=== PATIENT | female | born 1950 | race Caucasian/White ===

== ENCOUNTER 2016-05-01 09:05 | Inpatient (IN) ==
[~2016-05-01 09:05] MED LIST: VANCOMYCIN 1,650 MG in NS 250 ML IV SCH
--- NOTE | 2016-05-01 09:36 | PROVIDER DOCUMENTATION ---
HPI-Respiratory General - General Chief Complaint: Shortness of Breath Stated Complaint: SOB Time Seen by Provider: 05/01/16 09:07 Source: patient Allergies/Adverse Reactions: Patient Allergies Allergy/AdvReac Type Severity Reaction Status Date / Time hydrocodone Allergy itch Verified 05/01/16 10:12 latex Allergy itch Verified 05/01/16 10:12 Penicillins Allergy not sure Verified 05/01/16 10:12 rabeprazole sodium * Allergy itch Verified 05/01/16 10:12 [From Aciphex] Home Medications: Albuterol Sulfate [Ventolin] 5 mg IH 4XDAY PRN PRN 08/08/13 Estradiol [Vagifem] 10 mcg VG DIRECTED 08/08/13 Estrogens, Conjugated [Premarin] 0.625 mg PO DAILY 08/08/13 Fluticasone 50 Mcg Nasal Burdine [Flonase] 1 spray KELSIE DAILY 08/08/13 Gabapentin [Neurontin] 800 mg PO DIRECTED 08/08/13 LISINOpril [Prinivil] 20 mg PO DAILY 08/08/13 Metformin [Glucophage] 500 mg PO HS 08/08/13 Oxycodone E.r. [Oxycontin] 30 mg PO TID 08/08/13 Oxycodone HCl [Oxycontin] 10 mg PO Q6H PRN PRN 08/08/13 Albuterol Sulfate [Proair Hfa] 2 puff IH 4XDAY PRN 04/21/16 Alprazolam [Xanax] 0.5 mg PO Q8H PRN PRN 04/21/16 Armodafinil [Nuvigil] 250 mg PO QAM 04/21/16 Atomoxetine [Strattera] 2 tab PO DAILY 04/21/16 Estrogens, Conjugated [Premarin] 0.625 mg PO DAILY 04/21/16 Formoterol Fumarate [Perforomist] 1 vial INH BID PRN PRN 04/21/16 Montelukast Sodium [Singulair] 10 mg PO DAILY 04/21/16 Naloxegol Oxalate [Movantik] 25 mg PO DAILY 04/21/16 Solifenacin Succinate [Vesicare] 10 mg PO DAILY 04/21/16 - History of Present Illness-Resp Nature of Presenting Problem: Recently diagnosed diagnosed with right sided lung cancer. Reports took chemo yesterday and has been sob since. Reports quit smoking cigarettes yesterday and went to vaping. Uses nebulizer treatments (3) yesterday and today with no relief. Not on home O2. Denies n,v,f,d. Reports headache. EMS reports pt O2 sat was 78 On RA. Quality of Pain: reports: none Severity in ED: reports: moderate Onset/Duration: reports: 24 hours ago Timing: reports: still present Context: reports: recent chemotherapy Current Respiratory Medication Therapy: Initiated see nurses note Similar Symptoms Previously?: Yes Recently seen or treated by another doctor?: Yes Review of Systems - Adult - REVIEW OF SYSTEMS - ADULT Constitutional: denies: chills, fever, fatique Eyes: reports: no symptoms reported Ears, Nose, Mouth & Throat: denies: ear pain, sinus problem, throat pain Cardiovascular: reports: no symptoms reported Respiratory: reports: shortness of breath. denies: hemoptysis, pleurisy, wheezing Gastrointestinal: denies: abdominal pain, diarrhea, nausea Genitourinary: reports: no symptoms reported Musculoskeletal: reports: no symptoms reported Integumentary: reports: no symptoms reported Neurological: reports: no symptoms reported Psychiatric: reports: no symptoms reported Endocrine: reports: no symptoms reported Hematologic/Lymphatic: reports: no symptoms reported Allergic/Immunologic: reports: no symptoms reported All Other Systems: Reviewed and Negative Past History - Adult - PAST MEDICAL HISTORY-ADULT Review of Records: reports: Nursing Assessment Review, Medications Reviewed Major Childhood Illnesses: reports: denies history Cardiovascular: reports: HTN, hyperlipidemia Respiratory: reports: COPD, other (right lung ca) Gastrointestinal: reports: denies history Obstetrical/Gynecological: reports: denies history Genitourinary: reports: denies history Musculoskeletal: reports: denies history Neurological: reports: denies history Endocrine/Immune: reports: Diabetes Other Conditions: reports: denies history - PRIOR SURGERIES/PROCEDURES Surgical/Procedure History: reports: cholecystectomy, hysterectomy, orthopedic ( extremity) - PRIOR HOSPITALIZATIONS Prior Hospitalizations: reports: none - IMMUNIZATION STATUS Childhood Immunizations: See Nurse Assessment Flu Vaccine: See Nurse Assessment - FAMILY HISTORY Family History: reviewed, not pertinent - SOCIAL HISTORY Smoking: other (vapes) Provider spent 3-5 mins advising pt. on dangers of tobacco.: Discussed manners to quit use, and f/u contacts for add'l counseling. Substance Use: none/never Physical Exam-General - PHYSICAL EXAM-ADULT Initial Vital Signs Reviewed: Yes - CONSTITUTIONAL General Appearance: alert, mild distress. negative: appears well (ill diomedes) - EYES Eyes: PERRL/EOMI, pale conjunctivae - NECK Neck: non-tender, full range of motion - RESPIRATORY Respiratory: chest non-tender, no pleuratic chest pain, no accessory muscle use , respiratory distress, wheezing (bilateral wheezing), increased rate. negative : lungs clear, normal breath sounds - CARDIOVASCULAR Cardiovascular: normal peripheral pulses, regular rate, rhythm - GASTROINTESTINAL (ABDOMEN) Abdominal Exam: normal bowel sounds, non tender, soft, no organomegaly, no pulsatile mass - MUSCULOSKELETAL Extremity: normal range of motion, non-tender, no calf tenderness, pedal edema ( 1+) - SKIN Integumentary: warm/dry, pallor - PSYCHIATRIC Psych/Mental Status: normal mood/affect, normal thought content, normal thought process, oriented x 3 Progress - PLAN OF CARE/RESULTS Progress/Plan/Lab Results: Orders Category Date Time Status Saline Loc NOW Care 05/01/16 09:12 Active CHEST-2 VIEWS [RAD] Stat Exams 05/01/16 09:12 Ordered ABG [RESP] Routine Lab 05/01/16 09:12 Ordered BLOOD CULTURE [BLDCUL] Stat Lab 05/01/16 09:39 Ordered CBC WITH DIFF [HEME] Stat Lab 05/01/16 09:39 Ordered COMPREHENSIVE METABOLIC PANEL [CHEM] Stat Lab 05/01/16 09:39 Ordered LACTATE, PLASMA [CHEM] Stat Lab 05/01/16 09:39 Ordered PRO B-NATRIURETIC PEPTIDE Stat Lab 05/01/16 09:39 Ordered TROPONIN T Stat Lab 05/01/16 09:30 Received Pulse Oximetry Stat Oth 05/01/16 09:12 Active Vital Signs - 24 hr 05/01/16 09:05 Temperature 98.6 F Pulse Rate 88 Respiratory 24 Rate Blood Pressure 154/95 O2 Sat by Pulse 100 Oximetry Pt was placed on 2lpm on arrival to ER She was on NRB mask by ems. ABG will be done with 2lpm O2. Laboratory Tests 05/01/16 05/01/16 05/01/16 09:30 09:30 09:30 WBC 13.77 H RBC 3.48 L Hgb 9.6 L Hct 29.8 L MCV 85.6 MCH 27.6 MCHC 32.2 L RDW Std Deviation 14.2 Plt Count 434 H MPV 8.2 Immature Gran % (Auto) 0.3 Neut % (Auto) 80.0 H Lymph % (Auto) 12.1 L [place] % (Auto) 5.9 Eos % (Auto) 1.5 Baso % (Auto) 0.2 Immature Gran # (Auto) 0.04 Neut # (Auto) 11.03 H Lymph # (Auto) 1.66 [place] # (Auto) 0.81 H Eos # (Auto) 0.20 Baso # (Auto) 0.03 Specimen Type Sample Site pH pCO2 pO2 HCO3 Base Excess Oxyhemoglobin ABG O2 Sat (Calculated) ABG O2 Saturation ABG Carboxyhemoglobin ABG Methemoglobin Nathan Test A-a O2 Difference Total Hemoglobin Lactate Liter Flow Blood Gas Modality FiO2 % Sodium 132 L Potassium 3.8 Chloride 92 L Carbon Dioxide 28 Anion Gap 12 BUN 9 Creatinine 0.6 Estimated GFR/1.73 m2 > 60 BUN/Creatinine Ratio 15 Glucose 136 H Calculated Osmolality 265 Calcium 8.1 L Total Bilirubin 0.29 AST 19 ALT 13 Alkaline Phosphatase 112 H Troponin T < 0.010 Total Protein 6.6 Albumin 3.8 Globulin 2.8 Albumin/Globulin Ratio 1.4 Plasma Lactate 05/01/16 05/01/16 09:30 09:38 WBC RBC Hgb Hct MCV MCH MCHC RDW Std Deviation Plt Count MPV Immature Gran % (Auto) Neut % (Auto) Lymph % (Auto) [place] % (Auto) Eos % (Auto) Baso % (Auto) Immature Gran # (Auto) Neut # (Auto) Lymph # (Auto) [place] # (Auto) Eos # (Auto) Baso # (Auto) Specimen Type ARTERIAL Sample Site R RADIAL pH 7.39 pCO2 50 H pO2 55 L HCO3 28.3 H Base Excess 4.5 H Oxyhemoglobin 87.6 L* ABG O2 Sat (Calculated) 12.2 L ABG O2 Saturation 91.3 L ABG Carboxyhemoglobin 2.70 H ABG Methemoglobin 1.5 Nathan Test YES A-a O2 Difference 111.0 Total Hemoglobin 9.9 L Lactate 1.30 Liter Flow 3.0 Blood Gas Modality CANNULA FiO2 % 32.0 Sodium Potassium Chloride Carbon Dioxide Anion Gap BUN Creatinine Estimated GFR/1.73 m2 BUN/Creatinine Ratio Glucose Calculated Osmolality Calcium Total Bilirubin AST ALT Alkaline Phosphatase Troponin T Total Protein Albumin Globulin Albumin/Globulin Ratio Plasma Lactate 1.7 1107 Hospitalist paiged - XRAY 1 XRAY: Bilateral XRAY Study: Chest Impression: Abnormal (copd; bilateral infiltrates consitent with pneumonitis; ) - CONSULTS/PCP/HOSPITALIST Notification #1 *Consult/PCP/Hospitalist*: Time Discussed: 10:13 (Needs ICU bed) Reason/Comments: will call back #2 Consult: Time Discussed: 11:05 Reason/Comments: admit to hospitalist at [facility] #3 Consult: Raffi Time Discussed: 11:32 Consult Disposition: Admit Departure - Departure Time of Disposition Order: 11:33 DIAGNOSIS: Pneumonitis, Respiratory distress Lung cancer Qualifiers: Laterality: right Lung location: unspecified part of lung Qualified Code(s): C34.91 - Malignant neoplasm of unspecified part of right bronchus or lung Disposition: ADMITTED INPATIENT 09 Certified Medical Emergency: Emergent Condition: Stable Referrals: Ilya Cm MD [Primary Care Provider] - - Critical Care Note Total Time (mins): 60 Critical Care Statement: This patient required my direct personal management to treat or rule out processes, the absence of which, could potentiallly result in sudden, clinically significant life or limb threatening deterioration. Attestation - Scribe Verification/Attestation Scribe:: Jovany Millan Acting as Scribe for:: Agus Zelaya Scribe documention review:: This chart was documented by a scribe and accurately reflects the service the provider performed and the decisions made by the provider.
[2016-05-01 09:46] LABS: MANUAL DIFF NEEDED? NO
[2016-05-01 09:47] LABS: ALLEN TEST YES; BE 4.5 mmoll (-3.0-3.0); BLOOD TYPE ARTERIAL; DRAW SITE R RADIAL; METHB 1.5 % (0.0-1.5); O2(CT) 12.2 mL/dL (15.0-23.0); PCO2(98.6) 50 mmHg (35-45); PO2(98.6) 55 mmHg (60-100); SAMPLE BLOOD; SAO2 91.3 % (95.0-100.0); THB 9.9 g/dL (11.5-17.4); pH(98.6) 7.39 (7.35-7.45)
[2016-05-01 09:49] LABS: BASO% 0.2 % (0.0-0.8); EOS% 1.5 % (0.0-10.0); HEMATOCRIT 29.8 % (37.0-47.0); HEMOGLOBIN 9.6 g/dL (12.0-16.0); IMM GRAN# 0.04 X1000 (0.0-0.04); IMM GRAN% 0.3 % (0.0-0.5); LYMPH# 1.66 X1000 (1.2-3.4); LYMPH% 12.1 % (20.5-51.1); MCH 27.6 PG (27-31); MCHC 32.2 g/dL (33-37); MCV 85.6 FL (81-99); MONO# 0.81 X1000 (0.11-0.59); MONO% 5.9 % (1.7-9.3); MPV 8.2 FL (7.4-10.4); PLT 434 X1000 (130-400); RBC 3.48 XMIL (4.2-5.4)
[2016-05-01 09:49] LABS: MODALITY CANNULA
[2016-05-01] MEDS ORDERED: DUONEB (A & A) INH ONE (09:49)
[2016-05-01] MEDS ORDERED: ROCEPHIN 1 GM/NS 50 ML IV ONE (09:49)
[2016-05-01] MEDS ORDERED: SOLU-MEDROL IV ONE (09:49)
[2016-05-01] MEDS ORDERED: SOLU-MEDROL ONE (09:50)
[2016-05-01 10:05] LABS: AGAP 12; ALBUMIN 3.8 g/dL (3.5-5.0); ALKALINE PHOSPHATASE 112 U/L (32-104); BUN 9 mg/dL (8-22); CALCIUM 8.1 mg/dL (8.8-10.2); CHLORIDE 92 mmol/L (98-107); COSMO 265; GOT 19 U/L (10-30); GPT 13 U/L (10-36); POTASSIUM 3.8 mmol/L (3.5-5.1); SODIUM 132 mmol/L (136-145); TCO2 28 mmol/L (25-35); TOTAL BILIRUBIN 0.29 mg/dL (0.20-1.00); TOTAL PROTEIN 6.6 g/dL (6.3-8.3)
[2016-05-01] MEDS ORDERED: LASIX IV ONE (10:17)
[2016-05-01] MEDS ORDERED: ATIVAN IV ONE (10:17)
[2016-05-01] MEDS ORDERED: ATIVAN ONE (10:18)
--- NOTE | 2016-05-01 12:44 | Diag Imaging Result Document ---
PROCEDURE NAME: CHEST-1 VIEW - 05/01/2016 SINGLE FRONTAL RADIOGRAPH OF THE CHEST: COMPARISON: 04/17/2016. FINDINGS: There has been interval placement of a right chest port. The tip projects over the region of the atriocaval junction. There is no evidence of pneumothorax. There has been interval development of diffuse infiltrates seen throughout both lungs. There is a more dense infiltrate at the right lung base. Cardiac silhouette is stable. IMPRESSION: Interval development of diffuse bilateral infiltrates. This is concerning for pneumonia and/or pulmonary edema.
--- NOTE | 2016-05-01 12:51 | Diag Imaging Result Document ---
PROCEDURE NAME: ANGIOGRAM/PULMONARY ARTERIES - 05/01/2016 CT PULMONARY ANGIOGRAM WITH INTRAVENOUS CONTRAST: COMPARISON: 04/09/2016. FINDINGS: Axial CT images of the chest were obtained after administering intravenous contrast. Coronal MIP images were generated. There is no evidence of pulmonary embolism. There is new interstitial infiltrate diffusely and bilaterally, with some interlobular septal thickening in the bases. There is also significant infiltrate in both upper lobes. This is superimposed on pre- existing pulmonary emphysema. There is a small right and trace left pleural effusion. There is worsening in the confluent mediastinal and right hilar lymphadenopathy. This surrounds the trachea and george completely, as well as encasing the bronchi on the right side. Upper abdominal images are unremarkable. Bony structures are intact. IMPRESSION: 1. No pulmonary embolism. 2. Probable interstitial pulmonary edema. 3. Bilateral upper lobe infiltrates suggesting pneumonia or aspiration. 4. COPD. 5. Worsening malignant-appearing mediastinal adenopathy.
[2016-05-01] MEDS ORDERED: SODIUM CHLORIDE 0.9% INJ SCH ×2 (13:02)
[2016-05-01] MEDS ORDERED: VANCOMYCIN IV PER PHARMACY MISC SCH (13:02)
[2016-05-01] MEDS ORDERED: DUONEB (A & A) INH PRN (13:02)
[2016-05-01] MEDS ORDERED: NICODERM PATCH TD PRN (13:02)
[2016-05-01 13:58] LABS: URINE MICRO REVIEW NEEDED? NO; URINE SOURCE CATH
[2016-05-01 14:02] LABS: BILIRUBIN URINE NEGATIVE (NEGATIVE); BLOOD URINE NEGATIVE (NEGATIVE); COLOR STRAW; GLUCOSE URINE NEGATIVE (NEGATIVE); LEUKOCYTES URINE NEGATIVE (NEGATIVE); NITRITE URINE NEGATIVE (NEGATIVE); PROTEIN URINE NEGATIVE (NEGATIVE); SP GRAVITY URINE 1.023; TURBIDITY URINE CLEAR (CLEAR); UROBILINOGEN URINE NORMAL (NORMAL)
[2016-05-01 14:03] LABS: UR EPITHELIAL CELLS <10 /HPF (<10); URINE BACTERIA NEGATIVE /HPF; URINE RBC <10 /HPF (<10); URINE WBC <10 /HPF (<10)
[2016-05-01] MEDS: LASIX IV SCH (14:08)
[2016-05-01] MEDS: PEPCID IV SCH (14:08)
[2016-05-01] MEDS: LEVAQUIN 750 MG in NS 150 ML IV SCH (14:10)
[2016-05-01] MEDS: LOVENOX SUBQ SCH (14:10)
--- NOTE | 2016-05-01 14:55 | HISTORY AND PHYSICAL ---
CHIEF COMPLAINT: Shortness of breath. HISTORY OF PRESENT ILLNESS: Mrs. Kelly is a 65-year-old female with a history of lung cancer followed by Dr. Paez, diabetes mellitus, hypertension, COPD and nicotine dependence who was recently discharged from our service on 04/26/2016. At that time, she was diagnosed with rectal bleeding. She has recently been diagnosed with lung cancer and started chemotherapy on Friday and Friday by Dr. Paez. Friday she states chemotherapy went fine without any issues, Friday she felt that she was getting short of breath after chemotherapy and this morning her shortness of breath increased to the point where it was difficult to breathe at rest and she decided to come to the ER for evaluation. She denies any fevers or chills. She has not been able to cough up anything. She does report inspirational type of chest pain. She has had some nausea and vomiting but no diarrhea. She denies any diaphoresis. When she came to the ER today, initial chest x-ray showed interval development of diffuse bilateral infiltrates concerning for pneumonia and/or pulmonary edema. She has an elevated white count of 13.77 and she is hypoxic requiring high-flow oxygen. Given the inspirational type of chest pain and hypoxia we went ahead and did a CTA to rule out PE. CTA was indeed negative for PE but did 3 demonstrate bilateral infiltrates, interstitial edema and worsening malignant-appearing mediastinal adenopathy. Given her hypoxia and clinical presentation, we are going to admit her to the ICU for further treatment and evaluation. PAST MEDICAL HISTORY: 1. Lung cancer. 2. Type 2 diabetes. 3. Hypertension. 4. Nicotine dependence. 5. Degenerative disk disease on chronic narcotic therapy. 6. History of ischemic colitis. 7. GERD. PAST SURGICAL HISTORY: Lung surgery 1970, tubal ligation, hysterectomy, cholecystectomy, bladder sling, neck surgery, rotator cuff surgery. SOCIAL HISTORY: Patient quit smoking yesterday per her report. She denies alcohol or drug use. is at the bedside. FAMILY HISTORY: Noncontributory. ALLERGIES TO: Hydrocodone, latex, penicillin and rabeprazole. HOME MEDICATIONS: Ventolin as needed. ProAir as needed. Xanax 0.5 mg every 8 hours. Nuvigil 250 mg p.o. a.m. Strattera 80 mg daily. Estradiol vaginal cream as directed. Estrogen conjugated 0.625 mg p.o. daily. Fluticasone daily. Formoterol inhaled as needed. Neurontin 800 mg p.o. daily. Lisinopril 20 mg daily. Glucophage 500 mg p.o. at bedtime. Singulair 10 mg daily. Movantik 25 mg daily. Oxycodone ER 30 mg p.o. t.i.d. OxyContin 10 mg p.o. q.6 hours. VESIcare 10 mg daily. Zofran as needed. REVIEW OF SYSTEMS: Ten point review of systems obtained and found to be negative with the exception of the HPI. PHYSICAL EXAMINATION: VITAL SIGNS: Blood pressure is 154/95, heart rate 88, respiratory rate is 24, O2 saturation 100% on 15 L/100% non-rebreather. Temperature is 98.6 degrees. GENERAL: This is a chronically ill-appearing 65-year-old female, lying in bed in mild respiratory distress. NEUROLOGIC: She is oriented and follows commands without focal deficits. HEENT: Head is atraumatic and normocephalic. Her pupils are equal, round, reactive to light. Oral mucosa is moist. Trachea is midline. There is no JVD. No carotid bruits. CHEST: Significantly diminished with crackles and wheezes throughout. CV: Regular. S1, S2 is noted. GI: Soft, nondistended, nontender. Bowel sounds are positive. EXTREMITIES: Without edema, clubbing or cyanosis. Pulses are palpable bilaterally. DIAGNOSTIC DATA: Chest x-ray shows diffuse bilateral infiltrates consistent with pneumonia and/or pulmonary edema. Pulmonary arteriogram is negative for PE. It does show interstitial edema as well as bilateral upper lobe infiltrates suggesting pneumonia aspiration. COPD is noted along with worsening malignant-appearing mediastinal adenopathy. EKG is pending. WBC 13.77, hemoglobin 9.6, hematocrit 29.8, platelet count is 434,000. ABG on 3 L nasal cannula, pH 7.39, CO2 52, PO2 55, bicarb 28.3, oxyhemoglobin 87.6. Sodium 132, potassium 3.8, chloride 92, CO2 28, anion gap 12, BUN 9, creatinine 0.6. Glucose 136. Calcium 8.1. AST 19, ALT 13, alkaline phosphatase 112. Troponin negative. ProBNP 2767. Protein 6.6. Lactate 1.7. ASSESSMENT AND PLAN: 1. Acute hypoxic respiratory failure: Secondary to chronic obstructive pulmonary disease exacerbation as well as pneumonia and lung cancer. Patient will be admitted to the ICU. We will continue oxygen and BiPAP as needed. We will also continue aggressive pulmonary toilet, around the clock DuoNeb and broad-spectrum antibiotics. 2. Healthcare-acquired pneumonia: Given her recent hospitalization the patient qualifies for healthcare-acquired pneumonia. We will obtain blood cultures and sputum cultures. Start broad-spectrum antibiotics to include coverage for MRSA. 3. Sepsis: Patient meets criteria with white count, tachycardia and a source of pneumonia. Blood cultures have been obtained. Broad-spectrum antibiotics have been initiated, hemodynamic are stable at this time and lactic acid is within normal limits. We will monitor this closely. 4. Lung cancer: Patient is currently on chemotherapy. We will consult with Dr. Paez. 5. Diabetes mellitus: We will add pattern blood sugar, sliding scale insulin and hold her oral antidiabetics for now. 6. Chronic pain. We will try the limit her narcotics at this time secondary to her respiratory status. 7. Nicotine dependence: Patient has been advised to quit smoking. Nicotine patch has been prescribed. 8. Gastrointestinal prophylaxis with famotidine and DVT prophylaxis with Lovenox. Further recommendations to follow. Dictated by MIKE Curran for Leda Allen MD The patient was seen and examined by me. I agree with the assessment and plan as dictated. DEEPTI
[2016-05-01] MEDS ORDERED: VANCOMYCIN 2,000 MG in NS 500 ML IV ONE (15:00)
[2016-05-01] MEDS: SOLU-MEDROL IV SCH ×2 (15:05→20:07)
[2016-05-01] MEDS: MERREM 1 GM in NS 50 ML IV SCH ×2 (15:19→20:07)
[2016-05-01] MEDS: HUMALOG SUBQ SCH ×2 (15:25→20:16)
[2016-05-01] MEDS: DUONEB (A & A) INH SCH ×2 (15:32→20:24)
--- NOTE | 2016-05-01 17:37 | ECHO REPORT ---
ORDER DATE: 05/01/2016 INDICATION: Shortness of breath, hypertension and hyperlipidemia. FINDINGS: 1. Right atrium is mildly enlarged at 4 cm. 2. Mild tricuspid regurgitation. RV systolic pressure of 41. 3. Normal RV size and systolic function. 4. Mild pulmonic insufficiency. 5. Moderate left atrial enlargement at 5.5 cm. 6. No mitral prolapse. Mild mitral regurgitation. 7. Normal LV size, end-diastolic dimension of 4.4. No evidence of left ventricular hypertrophy. There is severe reduction in LV systolic function. The estimated EF is 25-30%. There does appear to be relative global hypokinesis. Overall, the basilar portions appear more hypokinetic with akinesis to dyskinesis of the more distal segments. No evidence of left ventricular apical thrombus was seen. 8. Aortic valve opens well and appears trileaflet. No evidence of stenosis or insufficiency. 9. Aorta appears normal in visualized segments. 10. No pericardial effusion seen.
[2016-05-01] MEDS ORDERED: MAGNESIUM SULFATE 2 GM/S.W.I. 50 ML IV ONE (18:08)
[2016-05-01] MEDS ORDERED: NEURONTIN PO SCH (18:15)
[2016-05-01] MEDS: OXY IR PO PRN (18:52)
[2016-05-01] MEDS: NEURONTIN PO SCH (18:52)
--- NOTE | 2016-05-01 20:08 | CONSULTATION ---
DATE OF CONSULTATION: 05/01/2016 REQUESTING PHYSICIAN: Leda Allen MD REASON FOR CONSULTATION: Respiratory failure. HISTORY OF PRESENT ILLNESS: Ms. Kelly is a 65-year-old white female, who underwent bronchoscopy 04/17/2016 for right hilar mass. 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 The patient reports she was feeling well 2 days ago, but received chemotherapy yesterday. She developed progressive shortness of breath through the evening. The patient presented to the emergency room, underwent a CT pulmonary angiogram which revealed no evidence of pulmonary emboli, but she does have new extensive bilateral infiltrates and worsening mediastinal adenopathy. The patient had an isolated temperature of 100.4 degrees in the emergency room. She has a cough, but denies sputum production, chills, or sweats. She has received 2 doses of diuretics and has diuresed approximately 2600 mL. Clinically, she has improved and has been converted from a BiPAP to a nonrebreather. PAST MEDICAL HISTORY/PROBLEM LIST: 1. Recent diagnosis of small-cell carcinoma as per above. 2. COPD with [id number] history for tobacco. 3. Diabetes mellitus. 4. Hypertension. 5. Gastroesophageal reflux disease. 6. Constipation. 7. Irritable bowel disease. 8. Chronic low back pain. 9. Spinal stenosis. 10. Depression. 11. Bipolar disorder. 12. Sleep apnea. 13. Prior surgery for pneumothorax. SOCIAL HISTORY: Extensive tobacco history. Does not consume alcohol. FAMILY HISTORY: Positive for coronary artery disease, throat cancer. REVIEW OF SYSTEMS: As noted in the HPI. PHYSICAL EXAMINATION: General: Reveals a 63-year-old, white female who appears older than her stated age, in no distress. Vital signs: Blood pressure 158/93, heart rate 91, respiration rate 25, oxygen saturation 98% on nonrebreather. HEENT: Pupils are equal reactive. Oropharynx is clear. Neck: Supple. Chest: Reveals diffuse crackles bilaterally. Cardiac: Regular rate. Normal S1, normal S2. Abdomen: Soft without hepatosplenomegaly. Extremities: Without edema. LABORATORIES: Sodium 132, potassium 3.8, chloride 92, bicarbonate 28, BUN 9, creatinine 0.9, proBNP is elevated at 2767. White blood count 13.77, hemoglobin 9.6, platelet count 434,000. Arterial blood gas on 3 L per nasal cannula, pH 7.39, pCO2 of 50, PO2 of 55. IMPRESSION: A 65-year-old with recent diagnosis of small-cell carcinoma who develops acute respiratory failure following chemotherapy. She has patchy bilateral infiltrates. This may be a reaction to the chemotherapy or could be an atypical pulmonary edema. Possibility of infectious pneumonitis is also in the differential, but she denies significant sputum production. RECOMMENDATIONS: 1. Steroids for possible allergic pneumonitis. 2. Diuretic dosing as you are doing. 3. Agree with broad-spectrum antibiotics. 4. Wean oxygen as tolerated. 5. Additional recommendations pending hospital course.
[2016-05-01] MEDS: XANAX PO PRN (20:16)
[2016-05-02] MEDS: PEPCID IV SCH ×2 (00:23→12:14)
[2016-05-02] MEDS: NEURONTIN PO SCH ×5 (00:28→20:01)
[2016-05-02] MEDS: LASIX IV SCH ×2 (00:30→12:13)
[2016-05-02] MEDS: DUONEB (A & A) INH SCH ×7 (03:41→23:18)
[2016-05-02] MEDS: SOLU-MEDROL IV SCH ×4 (04:00→20:01)
[2016-05-02] MEDS: OXY IR PO PRN ×3 (04:37→23:38)
[2016-05-02] MEDS: MERREM 1 GM in NS 50 ML IV SCH ×3 (04:38→20:01)
[2016-05-02 04:59] LABS: ALLEN TEST YES; BE 9.3 mmoll (-3.0-3.0); BLOOD TYPE ARTERIAL; DRAW SITE R RADIAL; METHB 1.6 % (0.0-1.5); O2(CT) 15.2 mL/dL (15.0-23.0); PCO2(98.6) 38 mmHg (35-45); PO2(98.6) 175 mmHg (60-100); SAMPLE BLOOD; SAO2 98.8 % (95.0-100.0); pH(98.6) 7.54 (7.35-7.45)
[2016-05-02 05:00] LABS: MODALITY CANNULA
[2016-05-02] MEDS: HUMALOG SUBQ SCH ×5 (06:14→20:09)
[2016-05-02 06:24] LABS: HEMATOCRIT 32.1 % (37.0-47.0); HEMOGLOBIN 10.3 g/dL (12.0-16.0); MCH 27.2 PG (27-31); MCHC 32.1 g/dL (33-37); MCV 84.9 FL (81-99); MPV 8.9 FL (7.4-10.4); RBC 3.78 XMIL (4.2-5.4)
[2016-05-02 06:47] LABS: AGAP 13; BUN 13 mg/dL (8-22); CHLORIDE 95 mmol/L (98-107); COSMO 279; SODIUM 138 mmol/L (136-145); TCO2 30 mmol/L (25-35)
[2016-05-02] MEDS: MOVANTIK PO SCH ×2 (06:59→07:01)
--- NOTE | 2016-05-02 08:02 | Diag Imaging Result Document ---
PROCEDURE NAME: CHEST-PORTABLE - 05/02/2016 PORTABLE CHEST: COMPARISON: 05/01/2016. FINDINGS: There are diffuse bilateral infiltrates. These are questionably slightly less dense in the right lung than on the prior study. The heart is not enlarged. I believe there are tiny effusions. No change in the right-sided Port-A-Cath. No pneumothorax. IMPRESSION: Likely slight interval improvement.
[2016-05-02] MEDS: VESICARE PO SCH (08:30)
[2016-05-02] MEDS: XANAX PO PRN ×3 (08:34→23:37)
[2016-05-02] MEDS: VANCOMYCIN 1,650 MG in NS 250 ML IV SCH (09:08)
[2016-05-02] MEDS: LEVAQUIN 750 MG in NS 150 ML IV SCH (12:13)
[2016-05-02] MEDS: LOVENOX SUBQ SCH (13:10)
--- NOTE | 2016-05-02 14:33 | CONSULTATION ---
DATE OF CONSULTATION: 05/02/2016 REASON FOR CONSULT: This patient is known to us with limited stage small cell lung cancer, status post carboplatin and etoposide begun on April 29. She received on April 29 and April 30. HISTORY OF PRESENT ILLNESS: The patient has limited stage small-cell lung cancer, has recently been started on carboplatin and etoposide. She has received cycle 1 of chemo on April 29 and . She tolerated that well. She came in to the emergency room for further evaluation after getting some worsening dyspnea. She denied any worsening cough, any fevers, chills, clinical bleeding. When she in the ER, chest x-ray was performed that showed interval development of diffuse bilateral infiltrates. The patient was having a bit of chest pain as well. So they had performed a pulmonary arteriogram which was negative for pulmonary embolism, but did show probable interstitial pulmonary edema along with bilateral upper lobe infiltrates suggesting pneumonia or aspiration along with COPD and worsening malignant-appearing mediastinal adenopathy. The patient was admitted to the ICU for pulmonary toileting and further management. REVIEW OF SYSTEMS: Negative unless indicated in the HPI. ALLERGIES: Hydrocodone, penicillin and latex. MEDICATIONS: Xanax, Nuvigil, Ventolin, Strattera, Neurontin, lisinopril, Singulair, Glucophage, oxycodone, OxyContin, VESIcare. PAST SOCIAL HISTORY: Close the patient is a smoker. Denies alcohol or illicit drug use. PAST MEDICAL HISTORY: Limited stage small cell lung cancer, on active chemotherapy, carboplatin and etoposide. History of hysterectomy, cholecystectomy and tubal ligation. PHYSICAL EXAMINATION: Vital Signs: Stable. General: This is a chronically ill-appearing female. HEENT: Head is normocephalic, atraumatic. Pupils are equal, round, symmetric. Trachea midline. Cardiovascular: S1-S2 audible to auscultation. No heaves, lifts or thrills. Pulmonary: Diminished bilateral bases. Normal respiratory effort GI: Abdomen soft, nontender, nondistended. Positive bowel sounds in all 4 quadrants. Musculoskeletal: Moves all extremities. Skin: No petechiae, no rash. Neurologic: Alert and orient x3. Psychiatric: Appropriate to situation. DIAGNOSTIC DATA: WBC 11.9, hemoglobin 10.3, hematocrit 32.1, platelet count 493,000. Sodium 138, potassium 4, BUN 13, creatinine 0.6. Chest x-ray and pulmonary arteriogram as above. ASSESSMENT AND PLAN: 1. Limited stage small cell lung cancer. The patient has received cycle 1 of carboplatin, etoposide begun on April 29, last received on April 30. She had not received any Neulasta with that. 2. Pneumonia, supportive care per primary team. She is on antibiotics, steroids, oxygen. 3. Gastrointestinal prophylaxis, per primary team. 4. Deep vein thrombosis prophylaxis. Patient is on Lovenox 40 mg daily. 5. Anemia, transfuse p.r.n. Dictated by MIKE Sánchez for Dell Paez MD
[2016-05-02] MEDS: OXYCONTIN PO SCH ×2 (15:26→20:44)
--- NOTE | 2016-05-02 17:01 | PROGRESS NOTE ---
DATE: 05/02/2016 SUBJECTIVE: The patient is more awake and alert today. She is currently on 3 L nasal cannula and states that she is starting to feel better. OBJECTIVE: Vital Signs: Temperature 99.6 degrees, blood pressure 156/90, heart rate 96, respirations 27, O2 saturations 100% on 3 L nasal cannula. General: This is an elderly female, lying comfortably in bed, in no acute distress. Head: Normocephalic atraumatic. Heart: S1, S2. Normal. Regular rate and rhythm. Lungs: Clear to auscultation bilaterally. No crackles. No rales. Abdomen: Positive bowel sounds. Soft, nontender, nondistended. Extremities: No edema. No cyanosis. No calf tenderness. Peripheral pulses palpable. Neurologic: The patient is alert and oriented x3. No focal neurologic deficits noted. LABS: White blood cell count 11, hemoglobin 10, hematocrit 32, platelets 193,000. Sodium 138, potassium 4, chloride 95, CO2 30, BUN 13, creatinine 0.6. Glucose 154. ASSESSMENT AND PLAN: 1. Acute hypoxemic respiratory failure secondary to pulmonary edema versus pneumonitis. The patient is very much improved today. We will continue on IV steroids, IV antibiotics, supplemental oxygen and bronchodilator therapy. This may also represent tumor. The patient will be going to [facility] to initiate radiation treatment. Dr. Paez and Dr. Wood are following. 2. Small cell lung carcinoma. Aware. The patient will be starting radiation therapy. The patient is status post chemotherapy. 3. Chronic pain. Continue on oxycodone ER. 4. Constipation. Secondary to opioids. Continue on Movantik. 5. Gastrointestinal prophylaxis. Continue on IV Protonix. 6. Deep vein thrombosis prophylaxis. Continue on Lovenox.
[2016-05-02] MEDS ORDERED: HUMULIN R SUBQ SCH (21:00)
[2016-05-03] MEDS: LASIX IV SCH ×2 (03:21→12:06)
[2016-05-03] MEDS: SOLU-MEDROL IV SCH ×4 (03:21→21:42)
[2016-05-03] MEDS: VANCOMYCIN 1,650 MG in NS 250 ML IV SCH ×2 (03:21→22:39)
[2016-05-03] MEDS: PEPCID IV SCH ×2 (03:21→12:06)
[2016-05-03] MEDS: OXY IR PO PRN ×2 (03:41→14:29)
[2016-05-03] MEDS: DUONEB (A & A) INH SCH ×6 (03:57→23:20)
[2016-05-03 05:06] LABS: ALLEN TEST YES; BE 11.8 mmoll (-3.0-3.0); BLOOD TYPE ARTERIAL; DRAW SITE R RADIAL; PCO2(98.6) 47 mmHg (35-45); PO2(98.6) 159 mmHg (60-100); SAMPLE BLOOD
[2016-05-03 05:07] LABS: MODALITY CANNULA
[2016-05-03] MEDS: MERREM 1 GM in NS 50 ML IV SCH ×4 (05:51→21:40)
[2016-05-03] MEDS: NEURONTIN PO SCH ×4 (08:14→21:41)
--- NOTE | 2016-05-03 08:36 | Diag Imaging Result Document ---
PROCEDURE NAME: CHEST-PORTABLE - 05/03/2016 PORTABLE CHEST X-RAY: COMPARISON: 05/02/2016. FINDINGS: Stable right chest port. Heart size remains top normal. Stable diffuse bilateral predominantly peripheral interstitial opacities. This is mostly due to pulmonary fibrosis. No new infiltrates. IMPRESSION: No change from prior.
[2016-05-03] MEDS: OXYCONTIN PO SCH ×3 (08:42→21:41)
[2016-05-03] MEDS: HUMALOG SUBQ SCH ×4 (09:24→21:53)
[2016-05-03] MEDS: VESICARE PO SCH (09:25)
[2016-05-03] MEDS: ZOFRAN IV PRN (09:25)
[2016-05-03] MEDS: XANAX PO PRN ×2 (09:29→21:47)
[2016-05-03] MEDS: MOVANTIK PO SCH (09:30)
[2016-05-03 09:48] LABS: HEMATOCRIT 31.6 % (37.0-47.0); HEMOGLOBIN 10.2 g/dL (12.0-16.0); MCH 27.5 PG (27-31); MCHC 32.3 g/dL (33-37); MCV 85.2 FL (81-99); MPV 8.5 FL (7.4-10.4); RBC 3.71 XMIL (4.2-5.4)
[2016-05-03] MEDS ORDERED: REGLAN PO PRN (10:05)
[2016-05-03] MEDS ORDERED: SINGULAIR PO SCH (10:15)
[2016-05-03] MEDS ORDERED: VIIBRYD PO SCH (10:15)
[2016-05-03 10:52] LABS: AGAP 14; BUN 29 mg/dL (8-22); CALCIUM 8.7 mg/dL (8.8-10.2); CHLORIDE 89 mmol/L (98-107); COSMO 280; POTASSIUM 4.1 mmol/L (3.5-5.1); SODIUM 133 mmol/L (136-145); TCO2 30 mmol/L (25-35)
[2016-05-03] MEDS: LEVEMIR SUBQ SCH (11:35)
--- NOTE | 2016-05-03 14:13 | CONSULTATION ---
DATE OF CONSULTATION: 05/01/2016 REQUESTING PHYSICIAN: Dell Paez MD. REASON FOR CONSULTATION: Small cell lung cancer. HISTORY OF PRESENT ILLNESS: Ms. Kelly is a 65-year-old female, recently diagnosed with limited stage small cell lung cancer. She started chemotherapy on Friday and Friday, but after chemotherapy on Friday, she states she started feeling shortness of breath. On Friday, her shortness of breath continued to worsen and she presented to the emergency room for evaluation. She had no fevers or chills or productive cough. She had chest pain on inspiration and some mild nausea and vomiting. She denied any diarrhea. She had a chest x-ray in the emergency room, which showed the interval development of diffuse bilateral infiltrates concerning for pneumonia or pulmonary edema. Her white count was elevated at 13.77 and she was hypoxic requiring high-flow oxygen. A CTA was done to rule out PE and it was negative, but did demonstrate bilateral infiltrates, interstitial edema and worsening malignant-appearing mediastinal adenopathy. She was admitted to the ICU for further treatment and evaluation. She was then seen by Dr. Paez, who felt she would benefit from going ahead and starting radiation therapy to relieve any obstruction that is being caused by her lung tumor. PAST MEDICAL HISTORY: Lung cancer, type 2 diabetes. Hypertension, nicotine dependence, degenerative disk disease on chronic narcotic therapy. History of ischemic colitis and gastroesophageal reflux disease. PAST SURGICAL HISTORY: Lung surgery in 1970. Tubal ligation. Hysterectomy, cholecystectomy, bladder sling, neck surgery, rotator cuff surgery. SOCIAL HISTORY: The patient quit smoking just prior to her hospital admission. She denies alcohol or drug use. FAMILY HISTORY: Noncontributory. ALLERGIES: To hydrocodone, latex, penicillin and rabeprazole. HOME MEDICATIONS: Include Ventolin, ProAir, Xanax, and Nuvigil, Strattera, estradiol, estrogen patch, fluticasone, Neurontin, lisinopril, Glucophage, Singulair, Movantik, oxycodone 30 mg p.o. t.i.d. with OxyContin 10 mg p.o. q.6 hours. VESIcare 10 mg daily and Zofran as needed. REVIEW OF SYSTEMS: Per the history of present illness. PHYSICAL EXAM: Vitals: Per the hospital record. General: This is an ill-appearing female lying in bed, in mild respiratory distress with high flow oxygen by mouth. Neurologic: She is oriented with no acute deficits. HEENT: Normocephalic, atraumatic. Pupils equal, round, react to light. Chest: She has bilateral crackles and wheezes throughout. Cardiovascular: Regular rate and rhythm. GI: Soft and nontender. Extremities: Reveal no edema. ASSESSMENT AND PLAN: I have reviewed Ms. Kelly's images and agree with Dr. Paez that she would benefit from going ahead and starting her radiation therapy. I have discussed with her the risks and benefits of radiation therapy in detail as well as expected short and long-term side effects of treatment. The patient is in agreement with the plan. I will go ahead and get her scheduled for simulation and get her started [facility].
--- NOTE | 2016-05-03 15:02 | PROGRESS NOTE ---
DATE: 05/03/2016 SUBJECTIVE: The patient is resting comfortably in bed. She does complain of some pain but otherwise states that she is feeling much stronger today. OBJECTIVE: Vital Signs: Temperature 98.7 degrees, blood pressure 165/88, heart rate 96, respirations 16. O2 saturations 97% on 2 L nasal cannula. General: This is an elderly female, lying comfortably in bed, in no acute distress. Head: Normocephalic atraumatic. Heart: S1, S2. Normal. Regular rate and rhythm. Lungs: Clear to auscultation bilaterally. No wheezes, no rales. No rhonchi. Abdomen: Positive bowel sounds. Soft, nontender, nondistended. Extremities: No edema. No cyanosis. Neurologic: The patient is alert oriented x3. No focal neurologic deficits noted. LABS: White blood cell count 18, hemoglobin 10, hematocrit 31, platelets 525,000. Sodium 133, potassium 4.1, chloride 89, CO2 30, BUN 29, creatinine 0.8. Glucose 244. Magnesium 1.8. ASSESSMENT AND PLAN: 1. Acute hypoxemic respiratory failure secondary to pulmonary edema plus pneumonitis. We will continue with IV steroids, IV antibiotics, and bronchodilator therapy. 2. Small cell lung carcinoma. The patient is currently on radiation therapy. Dr. Paez is following. 3. Chronic pain. Continue on oxycodone ER. 4. Constipation. Continue on Movantik. 5. Neuropathy. Continue on gabapentin. 6. Deep vein thrombosis prophylaxis. Continue on Lovenox. 7. The patient is stable for transfer to the medical floor.
[2016-05-03] MEDS: LOVENOX SUBQ SCH (15:25)
[2016-05-03] MEDS: LEVAQUIN 750 MG in NS 150 ML IV SCH (16:57)
[2016-05-03] MEDS: SINGULAIR PO SCH (21:41)
[2016-05-03] MEDS: VIIBRYD PO SCH (21:43)
[2016-05-04] MEDS: PEPCID IV SCH ×2 (00:53→18:25)
[2016-05-04] MEDS: LASIX IV SCH (00:53)
[2016-05-04] MEDS: OXY IR PO PRN ×2 (00:54→11:19)
[2016-05-04] MEDS: DUONEB (A & A) INH SCH ×6 (03:10→23:28)
[2016-05-04] MEDS: MERREM 1 GM in NS 50 ML IV SCH ×3 (04:28→22:12)
[2016-05-04] MEDS: SOLU-MEDROL IV SCH ×4 (04:29→21:56)
[2016-05-04 06:26] LABS: HEMATOCRIT 28.2 % (37.0-47.0); MCH 27.3 PG (27-31); MCHC 31.9 g/dL (33-37); MCV 85.5 FL (81-99); MPV 8.7 FL (7.4-10.4); RBC 3.3 XMIL (4.2-5.4)
[2016-05-04] MEDS: MOVANTIK PO SCH (06:38)
[2016-05-04] MEDS: OXYCONTIN PO SCH ×3 (06:39→21:55)
[2016-05-04 06:43] LABS: AGAP 10; BUN 28 mg/dL (8-22); CALCIUM 9.2 mg/dL (8.8-10.2); CHLORIDE 87 mmol/L (98-107); COSMO 269; POTASSIUM 3.6 mmol/L (3.5-5.1); SODIUM 129 mmol/L (136-145); TCO2 32 mmol/L (25-35)
[2016-05-04] MEDS: HUMALOG SUBQ SCH ×4 (06:55→22:12)
[2016-05-04] MEDS ORDERED: NS 1,000 ML IV SCH (07:15)
[2016-05-04] MEDS: NEURONTIN PO SCH ×4 (11:41→21:55)
[2016-05-04] MEDS: PREMARIN PO SCH (11:41)
[2016-05-04] MEDS: XANAX PO PRN ×2 (11:41→22:11)
[2016-05-04] MEDS: VESICARE PO SCH (11:42)
[2016-05-04] MEDS: PHENERGAN PO PRN ×2 (11:42→22:11)
[2016-05-04] MEDS: LEVEMIR SUBQ SCH (11:42)
[2016-05-04] MEDS ORDERED: NS 1,000 ML ONE (12:11)
[2016-05-04] MEDS ORDERED: SORBITOL PO ONE (12:21)
[2016-05-04] MEDS ORDERED: DILAUDID IV PRN (12:39)
--- NOTE | 2016-05-04 13:51 | PROGRESS NOTE ---
DATE: 05/04/2016 SUBJECTIVE: The patient states that she has been having a lot of pain and has not had a bowel movement yet. OBJECTIVE: Vital Signs: Temperature 97.5 degrees, blood pressure 136/77, heart rate 94, respirations 20, O2 saturations 96% on 2 L nasal cannula. General: This is an elderly female lying comfortably in bed in no acute distress. Head: Normocephalic. Atraumatic. Heart: S1, S2. Normal. Tachycardic. Lungs: Clear to auscultation bilaterally. No wheezes, no rales. No rhonchi. Abdomen: Positive bowel sounds. Soft, nontender, nondistended. Extremities: No edema. No cyanosis. Peripheral pulses palpable. Neurological: Patient is alert and oriented x3. No focal neurologic deficits noted. LABS: White blood cell count 12, hemoglobin 9, hematocrit 28, platelets 403,000. Sodium 129, potassium 3.6, chloride 87, CO2 32, BUN 28, creatinine 0.8, glucose 179, magnesium 1.8. ASSESSMENT AND PLAN: 1. Acute hypoxemic respiratory failure secondary to pulmonary edema plus pneumonitis. The patient appears to be improving slowly. We will continue the current IV therapy. 2. Small cell lung carcinoma status post round 1 of chemo. The patient is currently undergoing radiation therapy. Dr. Paez is following. 3. Hyponatremia. Will check a urine sodium and urine osmolality. This may be secondary to syndrome of inappropriate antidiuretic hormone secretion as a result of the patient's small cell lung carcinoma. 4. Chronic pain. Continue on oxycodone ER. 5. Opioid induced constipation. Will add MiraLAX and lactulose. Continue on Movantik. 6. Neuropathy. Continue on gabapentin. 7. Deep vein thrombosis prophylaxis. Continue on Lovenox. 8. Will consult physical therapy.
[2016-05-04] MEDS: LOVENOX SUBQ SCH (18:03)
[2016-05-04] MEDS: LEVAQUIN 750 MG in NS 150 ML IV SCH (18:10)
[2016-05-04] MEDS: VANCOMYCIN 1,800 MG in NS 250 ML IV SCH (21:50)
[2016-05-04] MEDS: MIRALAX PO SCH (21:56)
[2016-05-04] MEDS: SINGULAIR PO SCH (21:56)
[2016-05-04] MEDS: LACTULOSE PO SCH (21:57)
[2016-05-04] MEDS: COLACE PO SCH (22:01)
[2016-05-04] MEDS: VIIBRYD PO SCH (22:07)
[2016-05-05] MEDS: OXY IR PO PRN (02:58)
[2016-05-05] MEDS: SOLU-MEDROL IV SCH ×3 (02:58→14:26)
[2016-05-05] MEDS: PEPCID IV SCH ×2 (02:58→14:25)
[2016-05-05] MEDS: DUONEB (A & A) INH SCH ×6 (03:05→23:50)
[2016-05-05] MEDS: MERREM 1 GM in NS 50 ML IV SCH ×3 (05:26→20:08)
[2016-05-05] MEDS: MOVANTIK PO SCH (06:22)
[2016-05-05] MEDS: OXYCONTIN PO SCH (06:22)
[2016-05-05] MEDS: HUMALOG SUBQ SCH ×4 (06:24→21:57)
[2016-05-05] MEDS: MIRALAX PO SCH ×2 (06:26→20:13)
[2016-05-05 06:44] LABS: HEMATOCRIT 27.8 % (37.0-47.0); HEMOGLOBIN 8.9 g/dL (12.0-16.0); IMM GRAN# 0.07 X1000 (0.0-0.04); IMM GRAN% 0.9 % (0.0-0.5); LYMPH# 0.24 X1000 (1.2-3.4); MANUAL DIFF NEEDED? YES; MCH 27.3 PG (27-31); MCV 85.3 FL (81-99); MONO# 0.03 X1000 (0.11-0.59); MONO% 0.4 % (1.7-9.3); MPV 8.4 FL (7.4-10.4); NEUT% 95.7 % (42.2-75.2); PLT 379 X1000 (130-400); RBC 3.26 XMIL (4.2-5.4)
[2016-05-05 06:58] LABS: AGAP 10; BUN 22 mg/dL (8-22); CALCIUM 8.7 mg/dL (8.8-10.2); CHLORIDE 96 mmol/L (98-107); COSMO 282; POTASSIUM 4.3 mmol/L (3.5-5.1); SODIUM 138 mmol/L (136-145); TCO2 32 mmol/L (25-35)
[2016-05-05 07:00] LABS: LYMPHS 5 % (21-51); MONO 3 % (1-9)
[2016-05-05] MEDS: LACTULOSE PO SCH ×2 (08:41→20:13)
[2016-05-05] MEDS: PREMARIN PO SCH (08:42)
[2016-05-05] MEDS: COLACE PO SCH ×2 (08:42→20:14)
[2016-05-05] MEDS: NEURONTIN PO SCH ×5 (08:42→20:11)
[2016-05-05] MEDS: VESICARE PO SCH (08:42)
[2016-05-05] MEDS: DULCOLAX PR SCH (08:43)
[2016-05-05] MEDS: XANAX PO PRN (08:47)
[2016-05-05] MEDS: LEVEMIR SUBQ SCH (09:34)
[2016-05-05] MEDS: MORPHINE IV PRN ×3 (09:56→21:57)
[2016-05-05] MEDS ORDERED: HEPARIN ONE (11:09)
[2016-05-05] MEDS: VANCOMYCIN 1,800 MG in NS 250 ML IV SCH (11:14)
[2016-05-05] MEDS: ZOFRAN IV PRN (11:19)
[2016-05-05] MEDS: LOVENOX SUBQ SCH (14:23)
--- NOTE | 2016-05-05 14:33 | PROGRESS NOTE ---
DATE: 05/05/2016 SUBJECTIVE: The patient complains of a lot of pain in her right chest wall in the region of where she is receiving her radiation treatments. The patient did have a bowel movement after receiving laxatives yesterday. OBJECTIVE: Vital Signs: Temperature 98.4 degrees, blood pressure 118/80 heart rate 94, respirations 20, O2 saturations 96% on 2 L nasal cannula. General: This is an elderly female lying comfortably in bed in no acute distress. Head: Normocephalic, atraumatic. Heart: S1, S2. Normal. Regular rate and rhythm. Lungs: Clear to auscultation bilaterally. No wheezes, no rales. No rhonchi. Abdomen: Positive bowel sounds. Soft, nontender, nondistended. Extremities: No edema. No cyanosis. No calf tenderness. Neurologic: The patient is alert oriented x3. No focal neurologic deficits noted. LABS: White blood cell count 7.9, hemoglobin 8.9, hematocrit 27, platelets 379 ,000. Sodium 138, potassium 4.3, chloride 96, CO2 32, BUN 22, creatinine 0.6, glucose 148, calcium 8.7, magnesium 2.0. ASSESSMENT AND PLAN: 1. Acute hypoxemic respiratory failure. Resolved. 2. Pneumonitis. The patient is currently on bronchodilator therapy and intravenous antibiotics. 3. Small cell lung carcinoma. Continue with radiation treatment. Dr. Paez Is following. 4. Chronic pain. Will switch the patient to MS Contin plus morphine for breakthrough pain. 5. Opioid induced constipation. Continue on Movantik plus scheduled laxatives. 6. Neuropathy. Continue on gabapentin. 7. Deep vein thrombosis prophylaxis. Continue on Lovenox. 8. Continue with physical therapy. [facility]
[2016-05-05] MEDS: LEVAQUIN 750 MG in NS 150 ML IV SCH (15:46)
[2016-05-05] MEDS ORDERED: CALMOSEPTINE OINTMENT TOP PRN (15:48)
[2016-05-05] MEDS: MS CONTIN PO SCH (20:11)
[2016-05-05] MEDS: VIIBRYD PO SCH (20:12)
[2016-05-05] MEDS: SINGULAIR PO SCH (20:12)
[2016-05-05] MEDS: PREDNISONE PO SCH (20:28)
[2016-05-05] MEDS ORDERED: ESTRACE VAGINAL CREAM VAG SCH (21:00)
[2016-05-06] MEDS: XANAX PO PRN (01:04)
[2016-05-06] MEDS: PHENERGAN PO PRN (01:04)
[2016-05-06] MEDS: PEPCID IV SCH (01:09)
[2016-05-06] MEDS: DUONEB (A & A) INH SCH ×3 (03:56→11:15)
[2016-05-06] MEDS: MERREM 1 GM in NS 50 ML IV SCH ×2 (04:06→12:37)
[2016-05-06] MEDS: VANCOMYCIN 1,800 MG in NS 250 ML IV SCH (04:44)
[2016-05-06 04:51] VITALS: BP 148/81
[2016-05-06] MEDS: HUMALOG SUBQ SCH ×2 (06:16→10:50)
[2016-05-06 06:18] LABS: BASO% 0.1 % (0.0-0.8); HEMATOCRIT 27.1 % (37.0-47.0); HEMOGLOBIN 8.5 g/dL (12.0-16.0); IMM GRAN# 0.14 X1000 (0.0-0.04); IMM GRAN% 1.4 % (0.0-0.5); LYMPH% 7.8 % (20.5-51.1); MANUAL DIFF NEEDED? YES; MCH 26.7 PG (27-31); MCHC 31.4 g/dL (33-37); MCV 85.2 FL (81-99); MONO# 0.09 X1000 (0.11-0.59); MONO% 0.9 % (1.7-9.3); MPV 8.4 FL (7.4-10.4); NEUT% 89.8 % (42.2-75.2); PLT 346 X1000 (130-400); RBC 3.18 XMIL (4.2-5.4)
[2016-05-06] MEDS: MOVANTIK PO SCH (06:28)
[2016-05-06 06:55] LABS: AGAP 9; BUN 19 mg/dL (8-22); CALCIUM 8.2 mg/dL (8.8-10.2); CHLORIDE 98 mmol/L (98-107); COSMO 281; POTASSIUM 4.3 mmol/L (3.5-5.1); SODIUM 139 mmol/L (136-145); TCO2 32 mmol/L (25-35)
[2016-05-06 07:26] LABS: BANDS 4 % (0-1); LYMPHS 6 % (21-51); MONO 2 % (1-9)
--- NOTE | 2016-05-06 08:11 | Diag Imaging Result Document ---
PROCEDURE NAME: CHEST-2 VIEWS - 05/06/2016 PA AND LATERAL RADIOGRAPH OF THE CHEST: COMPARISON: 05/03/2016. FINDINGS: Right chest port is stable. Diffuse interstitial infiltrates may have marginally worsened during the interval, especially at the right lung base. There is also likely a component of interstitial fibrosis. There are likely bilateral small effusions that are approximately stable. Biapical pleural and parenchymal scarring is unchanged. IMPRESSION: Marginal worsening of infiltrates bilaterally, especially at the right lung base.
[2016-05-06] MEDS: LEVEMIR SUBQ SCH (08:12)
[2016-05-06] MEDS: DULCOLAX PR SCH (08:12)
[2016-05-06] MEDS: MIRALAX PO SCH (08:12)
[2016-05-06] MEDS: COLACE PO SCH (08:12)
[2016-05-06] MEDS: LACTULOSE PO SCH (08:12)
[2016-05-06] MEDS: VESICARE PO SCH (08:13)
[2016-05-06] MEDS: NEURONTIN PO SCH ×2 (08:13→12:37)
[2016-05-06] MEDS: MS CONTIN PO SCH (08:13)
[2016-05-06] MEDS: PREMARIN PO SCH (08:13)
[2016-05-06] MEDS: PREDNISONE PO SCH (08:13)
[2016-05-06] MEDS: MORPHINE IV PRN (10:00)
--- NOTE | 2016-05-06 12:00 | PROGRESS NOTE ---
DATE: 05/06/2016 SUBJECTIVE: Patient states that she does have a significant amount of radiation pain on her right chest area. She states that she had diarrhea last night. She states that she feels like this is from MiraLAX. She states that also she had a smothering type feeling yesterday morning when she woke up and also felt like she was smothering throughout the night. She states that she could feel a rattle constantly in her chest that she could not cough up. OBJECTIVE: Vital Signs: Temperature is 98.3 degrees, heart rate 106, respiratory rate 18, blood pressure 148/81, O2 saturation 92% on 2 L nasal cannula. General: Ms. Kelly is a 65-year-old, female. She is in no acute distress. She is able to answer all questions appropriately. Cardiovascular: S1, S2. Regular rate and rhythm. No rubs, gallops, murmurs. Pulmonary: Currently on 2 L nasal cannula. No accessory muscle use or work of breathing noted. Clear bilaterally. Decreased in the bases. Some mild crackles in the left lower base noted. GI: Soft, nontender, nondistended. Positive bowel sounds x4. Extremities: No edema. There are +2 dorsalis and radial pulses. Neurologic: She is A and O x3. Moves all extremities equally. Laboratory Data: White blood cells 10,000, hemoglobin 8.5, hematocrit 27.1, platelet count 346,000. Sodium 139, potassium 4.3, BUN 19, creatinine 0.6, glucose 127, calcium 8.2. Imaging: Chest x-ray from 05/06/2016, marginal worsening of the infiltrates bilaterally, especially at the right lung base. ASSESSMENT AND PLAN: 1. Acute hypoxemic respiratory failure, resolved. Currently on 2 L nasal cannula. 2. Pneumonitis. She is on albuterol and Atrovent nebulizers. She states that she is unable to cough up any secretions and that she feels her chest is rattling, and has been feeling like she has been having spells of smothering. I have added acetylcysteine nebulizers and Mucinex to help her clear secretions. Currently, she will be continued on intravenous antibiotics, vancomycin, Levaquin, and meropenem. She will continue on prednisone. 3. Small-cell lung carcinoma. Continue with radiation treatment and Dr. Paez is following. 4. Chronic pain syndrome. Currently on MS Contin and morphine for breakthrough pain. 5. Opioid induced constipation. Continue on Movantik. She did receive MiraLAX and she states that she had multiple bowel movements and woke this morning in stool. She states that it has caused her to have some diarrhea but this has also subsided. 6. Neuropathy. Continue Neurontin. 7. Deep venous thrombosis prophylaxis. Continue Lovenox. 8. Gastrointestinal prophylaxis. Continue on Pepcid 20 mg intravenous twice daily. 9. Tobacco abuse. Continue nicotine patch. Cessation discussed. Nicotine patches as needed. 10. Anxiety and depression. Continue Xanax and Viibryd. 11. Nausea. Continue as needed Zofran, as needed Phenergan, and as needed Reglan. 12. Diabetes type 2. Continue Levemir 10 units subcutaneous daily along with sliding scale insulin and pattern blood glucoses. Blood sugars have been controlled. Dictated by MIKE Johnston for Kashmir Bird MD I personally evaluated and examined the patient in conjunction to the SUPPORT DIRECTOR and agreed with her assessments and plans. Except: the patient is doing well. After discussing with Dr. Paez, we agreed that she is stable enough to be discharged home. [facility]
[2016-05-06] MEDS: LOVENOX SUBQ SCH ×2 (12:37→12:51)
[2016-05-06] MEDS ORDERED: MUCOMYST 20% INH SCH (19:30)
[2016-05-06] MEDS ORDERED: MUCINEX PO SCH (21:00)
--- NOTE | 2016-05-07 10:39 | DISCHARGE SUMMARY ---
ADMISSION DATE: 05/01/2016 DISCHARGE DATE: 05/06/2016 PRIMARY CARE PHYSICIAN: Ilya Cm MD. DISCHARGE DIAGNOSES: 1. Lung cancer. 2. Diabetes type 2. 3. Hypertension. 4. Pneumonitis. 5. Nicotine dependence. 6. Gastroesophageal reflux disease. 7. Hypertension. 8. Narcotic-induced constipation. DISCHARGE MEDICATIONS: 1. Prednisone 40 mg p.o. daily for 3 days, 20 mg p.o. daily for 3 days, and then 10 mg p.o. daily for 4 days. 2. Levemir 10 units subcutaneous daily. 3. Colace 100 mg b.i.d. 4. Dulcolax 10 mg p.o. daily. 5. A and A nebulizers p.r.n. 6. ProAir 4 times a day. 7. Ventolin 5 mg p.o. 4 times a day. 8. Xanax 0.5 mg q.8 p.r.n. 9. Nuvigil 250 p.o. daily. 10. Estradiol 10 mcg vaginal as directed. 11. Premarin 0.625 mg p.o. daily. 12. Flonase 50 mcg p.o. daily. 13. Formoterol inhaler p.r.n. for shortness of breath. 14. Lisinopril 20 mg p.o. daily. 15. Metformin 500 mg at bedtime. 16. Singulair 10 mg p.o. daily. 17. Oxycodone 10 mg ER every 6 hours as needed for pain. 18. OxyContin 40 mg t.i.d. 19. Gabapentin 800 4 times a day. 20. Strattera 80 mg p.o. b.i.d. 21. Movantik 25 mg p.o. daily. 22. Nuvigil 250 mg q.a.m. 23. VESIcare 10 mg p.o. daily. 24. 40 mg p.o. daily. CONSULTATION: 1. Oncology was consulted. Dr. Paez has seen the patient and it is okay for her to go home from his standpoint. He will resume her treatment as an outpatient for her lung cancer. 2. Pulmonology was consulted for acute respiratory failure. Dr. Wood saw the patient while she was in the hospital. SIGNIFICANT LABORATORY AND IMAGING: At discharge, her white count 13.77, hemoglobin 9.6, hematocrit 29.8, platelets of 434,000. Sodium 139, potassium 4.3, chloride 98, bicarb 32, BUN 19, creatinine 0.6, glucose of 127. Culture has remained negative. Imaging: Chest x-ray showed diffuse interstitial infiltrates, more so on the right lung base. The patient had radiation to this portion of the lung. HOSPITAL COURSE: The patient is a 68-year-old, white female admitted to the hospital for acute hypoxic respiratory failure secondary to COPD induced by pneumonitis versus pneumonia. The patient was admitted initially to the ICU for acute respiratory failure. Started her on broad- spectrum antibiotics and sent her for cultures. She was treated as if she was having healthcare associated pneumonia. Blood culture and sputum culture have remained negative. The patient has completed a 6 day course of antibiotics. She has not has any fever. White count has been normal. After a long discussion with oncology, her infiltrates on the x-ray are more consistent with pneumonitis. We kept the patient on IV steroids but we stopped the antibiotics. The patient has been doing well with the IV steroid in the hospital. We will continue tapering her steroid at discharge and have her to follow up with Dr. Paez for further treatment. I advised the patient to quit smoking. For her diabetes, it has been under control while she was in the hospital. We will resume her metformin. We will also add Levemir at night 10 units subcutaneous. Overall, she is doing well. We will discharge the patient home. CONDITION: Stable and improving. ACTIVITY: As tolerated. FOLLOWUP: The patient can follow up with her PCP in 1-[address] Paez in 1-2 weeks.
--- NOTE | 2016-06-04 19:45 | DISCHARGE SUMMARY ---
ADMISSION DATE: 05/01/2016 DISCHARGE DATE: 05/06/2016 DISCHARGE SUMMARY ADDENDUM: Yes, sepsis was treated.
== END 2016-05-06 15:08 | disposition home health service (06) | DRG 871 ==
LOC: EDBD → ED 09:05 → ICU 12:08 → 4N 05-03 13:40 → 3N 05-03 15:35
PROVIDERS: ATTEND Internal Medicine
DX: A41.9 Sepsis, unspecified organism (principal); J96.01 Acute respiratory failure with hypoxia; J18.9 Pneumonia, unspecified organism; E11.40 Type 2 diabetes mellitus with diabetic neuropathy, unspecified; J44.0 Chronic obstructive pulmonary disease with (acute) lower respiratory infection; D64.81 Anemia due to antineoplastic chemotherapy; C34.91 Malignant neoplasm of unspecified part of right bronchus or lung; E87.1 Hypo-osmolality and hyponatremia; J44.1 Chronic obstructive pulmonary disease with (acute) exacerbation; E11.9 Type 2 diabetes mellitus without complications; Y95 Nosocomial condition; K59.03 Drug induced constipation; K58.9 Irritable bowel syndrome, unspecified; E78.5 Hyperlipidemia, unspecified; K21.9 Gastro-esophageal reflux disease without esophagitis; G47.30 Sleep apnea, unspecified; M48.00 Spinal stenosis, site unspecified; G89.4 Chronic pain syndrome; F41.9 Anxiety disorder, unspecified; F31.9 Bipolar disorder, unspecified; F17.210 Nicotine dependence, cigarettes, uncomplicated; Z79.899 Other long term (current) drug therapy; Z79.84 Long term (current) use of oral hypoglycemic drugs; Z85.819 Personal history of malignant neoplasm of unspecified site of lip, oral cavity, and pharynx; Z82.49 Family history of ischemic heart disease and other diseases of the circulatory system; T40.2X5A Adverse effect of other opioids, initial encounter
CPT/HCPCS: 51702; 71010; 71020; 71275; 77014; 77293; 77295; 77300; 77301; 77334; 77338; 77370; 77386; 77412; 80048; 80053; 80202; 81001; 82550; 82805; 82948; 83605; 83735; 83880; 83935; 84295; 84300; 84443; 84484; 85025; 85027; 87040; 87070; 87088; 87205; 93005; 93306; 94640; 94761; 94762; 94799; 96365; 96375; J0696; J1650; J1815; J1940; J2060; J2185; J2270; J2405; J2930; J3370; J3475; J7030; J7040; J7050; J7512; Q9967; 97116-GP; S0028

== ENCOUNTER 2016-05-31 15:30 | Inpatient (IN) ==
[2016-05-31] MEDS ORDERED: NS 1,000 ML IV ONE ×2 (15:51→18:39)
[2016-05-31] MEDS ORDERED: G.I. COCKTAIL PO ONE ×2 (15:53→18:09)
[2016-05-31] MEDS ORDERED: OFIRMEV 1000 MG/ISOTONIC SOLN 100 ML IV SCH (16:00)
--- NOTE | 2016-05-31 16:00 | PROVIDER DOCUMENTATION ---
HPI-General Adult - General Stated Complaint: THROAT PAIN Time Seen by Provider: 05/31/16 15:55 Source: patient, family Allergies/Adverse Reactions: Patient Allergies Allergy/AdvReac Type Severity Reaction Status Date / Time hydrocodone Allergy itch Verified 05/01/16 10:12 latex Allergy itch Verified 05/01/16 10:12 Penicillins Allergy not sure Verified 05/01/16 10:12 rabeprazole sodium * Allergy itch Verified 05/01/16 10:12 [From Aciphex] Home Medications: Home Medication List Medication Instructions Recorded Confirmed Last Taken Type Albuterol Sulfate [Ventolin] 5 mg IH 4XDAY PRN PRN 08/08/13 05/01/16 04/16/16 History Estradiol [Vagifem] 10 mcg VG DIRECTED 08/08/13 05/01/16 04/17/16 06:00 History Estrogens, Conjugated [Premarin] 0.625 mg PO DAILY 08/08/13 05/01/16 04/16/16 20 :00 History Fluticasone 50 Mcg Nasal [place] 1 spray KELSIE DAILY 08/08/13 05/01/16 Unknown History [Flonase] Gabapentin [Neurontin] 800 mg PO 4XDAY 08/08/13 05/01/16 04/17/16 06:00 History LISINOpril [Prinivil] 20 mg PO DAILY 08/08/13 05/01/16 04/16/16 20:00 History Metformin [Glucophage] 500 mg PO HS 08/08/13 05/01/16 04/16/16 20:00 History Oxycodone E.r. [Oxycontin] 30 mg PO TID 08/08/13 05/01/16 04/17/16 06:30 History Oxycodone HCl [Oxycontin] 10 mg PO Q6H PRN PRN 08/08/13 05/01/16 04/17/16 06:30 History Ondansetron HCl [Zofran] 1 - 2 tab PO Q6H PRN PRN #15 tablet 10/05/13 05/01/16 04/20/16 21:00 Rx Albuterol Sulfate [Proair Hfa] 2 puff IH 4XDAY PRN 04/21/16 05/01/16 Unknown History Alprazolam [Xanax] 0.5 mg PO Q8H PRN PRN 04/21/16 05/01/16 Unknown History Armodafinil [Nuvigil] 250 mg PO QAM 04/21/16 05/01/16 Unknown History Atomoxetine [Strattera] 80 mg PO BID 04/21/16 05/03/16 Unknown History Estrogens, Conjugated [Premarin] 0.625 mg PO DAILY 04/21/16 05/01/16 Unknown History Formoterol Fumarate [Perforomist] 1 vial INH BID PRN PRN 04/21/16 05/01/16 Unknown History Montelukast Sodium [Singulair] 10 mg PO DAILY 04/21/16 05/01/16 Unknown History Naloxegol Oxalate [Movantik] 25 mg PO DAILY 04/21/16 05/01/16 Unknown History Solifenacin Succinate [Vesicare] 10 mg PO DAILY 04/21/16 05/01/16 Unknown History Albuterol 2.5MG/Ipratrop 0.5MG 3 ml INH Q4H PRN PRN #5 neb 04/26/16 05/01/16 Unknown Rx [Duoneb (A & A)] Metoclopramide [Reglan] 10 mg PO Q6HR PRN 05/03/16 05/03/16 Unknown History Promethazine [Phenergan] 25 mg PO Q6H PRN PRN 05/03/16 05/03/16 Unknown History Vilazodone [Viibryd] 40 mg PO DAILY 05/03/16 05/03/16 Unknown History Bisacodyl [Dulcolax] 10 mg [place] DAILY #0 supp 05/06/16 Unknown Rx Docusate Sodium [Colace] 100 mg PO BID #0 capsule 05/06/16 Unknown Rx Insulin Detemir [Levemir] 10 unit SUBQ DAILY #300 insuln.pen 05/06/16 Unknown Rx Polyethylene Glycol 3350 [Miralax] 17 gm PO BID #0 powder, packet 05/06/16 Unknown Rx Prednisone 40 mg PO DAILY #12 tablet 05/06/16 Unknown Rx - History of Present Illness -Gen Adult Nature of Presenting Problems: 65 yo WF getting XR per Dr. Donaldson and chemo per Philippe. Has two weeks of CP with inability to eat or drink. Dr. Paez and Dr. Donaldosn have been questioned about this. For inexplicable reasons she felt she was much worse today and called an ambulance. Location of Pain/Injury: reports: chest, abdomen Pain Radiation: reports: no radiation Quality of Pain: reports: aching, indigestion, sharp, stabbing Severity: reports: moderate Onset/Duration: reports: other (two weeks) Timing: reports: still present Context/Activities at Onset: reports: none Modifying Factors: improves with: eating (much worse, unable to swallow, liquid and food will only go down to base of chest) Associated Symptoms: reports: fatigue, nausea. denies: vomiting Similar Symptoms Previously?: Yes Recently seen or treated by another doctor?: Yes Review of Systems - Adult - REVIEW OF SYSTEMS - ADULT Constitutional: reports: weight loss Eyes: reports: no symptoms reported Ears, Nose, Mouth & Throat: reports: no symptoms reported. denies: loose teeth , throat pain, throat swelling Cardiovascular: reports: no symptoms reported Respiratory: reports: no symptoms reported Gastrointestinal: reports: no symptoms reported, abdominal pain, difficulty swallowing, nausea, poor appetite. denies: hematemesis, constipation, diarrhea , vomiting Genitourinary: reports: no symptoms reported Musculoskeletal: reports: no symptoms reported Integumentary: reports: no symptoms reported Neurological: reports: no symptoms reported Psychiatric: reports: no symptoms reported Endocrine: reports: no symptoms reported Hematologic/Lymphatic: reports: no symptoms reported Allergic/Immunologic: reports: no symptoms reported All Other Systems: Reviewed and Negative Past History - Adult - PAST MEDICAL HISTORY-ADULT Review of Records: reports: Old Records Reviewed, Nursing Assessment Review, Medications Reviewed, Social history reviewed & non-contributory. Major Childhood Illnesses: reports: denies history Cardiovascular: reports: HTN, hyperlipidemia Respiratory: reports: COPD, other (right lung ca) Gastrointestinal: reports: denies history Obstetrical/Gynecological: reports: denies history Genitourinary: reports: denies history Musculoskeletal: reports: denies history Neurological: reports: denies history Endocrine/Immune: reports: Diabetes Other Conditions: reports: denies history - PRIOR SURGERIES/PROCEDURES Surgical/Procedure History: reports: cholecystectomy, hysterectomy, orthopedic ( extremity) - PRIOR HOSPITALIZATIONS Prior Hospitalizations: reports: none - IMMUNIZATION STATUS Childhood Immunizations: See Nurse Assessment Flu Vaccine: See Nurse Assessment - FAMILY HISTORY Family History: reviewed, not pertinent - SOCIAL HISTORY Smoking: quit less than 1 year Substance Use: opiates Alcohol Use Frequency: never Physical Exam-General - PHYSICAL EXAM-ADULT Initial Vital Signs Reviewed: Yes - CONSTITUTIONAL General Appearance: alert, no apparent distress, other (cancer patient) - EYES Eyes: PERRL/EOMI, pink conjunctivae - NECK Neck: non-tender, full range of motion, supple - RESPIRATORY Respiratory: lungs clear, normal breath sounds, no pleuratic chest pain, no respiratory distress, no accessory muscle use - CARDIOVASCULAR Cardiovascular: normal peripheral pulses, tachycardia - CHEST (BREASTS) Chest/Breast: other (port noted) - GASTROINTESTINAL (ABDOMEN) Abdominal Exam: normal bowel sounds, soft. negative: distended, guarding, rigid , rebound, mass - MUSCULOSKELETAL Back Exam: no CVA tenderness, no vertebral tenderness Extremity: no pedal edema, no calf tenderness, normal capillary refill - SKIN Integumentary: normal color, normal turgor - NEUROLOGIC Neurologic: grossly normal, no motor/sensory deficits Progress - PLAN OF CARE/RESULTS Progress/Plan/Lab Results: Vital Signs Temp Pulse Resp BP Pulse Ox 05/31/16 16:19 113 H 13 99/66 100 05/31/16 15:45 98.0 F 125 H 20 / 100 hydrocodone Allergy (Verified 05/01/16 10:12) itch latex Allergy (Verified 05/01/16 10:12) itch Penicillins Allergy (Verified 05/01/16 10:12) not sure rabeprazole sodium * [From Aciphex] Allergy (Verified 05/01/16 10:12) itch Albuterol Sulfate [Ventolin] 5 mg IH 4XDAY PRN PRN 08/08/13 Estradiol [Vagifem] 10 mcg VG DIRECTED 08/08/13 Estrogens, Conjugated [Premarin] 0.625 mg PO DAILY 08/08/13 Fluticasone 50 Mcg Nasal [place] [Flonase] 1 spray KELSIE DAILY 08/08/13 Gabapentin [Neurontin] 800 mg PO 4XDAY 08/08/13 LISINOpril [Prinivil] 20 mg PO DAILY 08/08/13 Metformin [Glucophage] 500 mg PO HS 08/08/13 Oxycodone E.r. [Oxycontin] 30 mg PO TID 08/08/13 Oxycodone HCl [Oxycontin] 10 mg PO Q6H PRN PRN 08/08/13 Ondansetron HCl [Zofran] 1 - 2 tab PO Q6H PRN PRN #15 tablet 10/05/13 Albuterol Sulfate [Proair Hfa] 2 puff IH 4XDAY PRN 04/21/16 Alprazolam [Xanax] 0.5 mg PO Q8H PRN PRN 04/21/16 Armodafinil [Nuvigil] 250 mg PO QAM 04/21/16 Atomoxetine [Strattera] 80 mg PO BID 04/21/16 Estrogens, Conjugated [Premarin] 0.625 mg PO DAILY 04/21/16 Formoterol Fumarate [Perforomist] 1 vial INH BID PRN PRN 04/21/16 Montelukast Sodium [Singulair] 10 mg PO DAILY 04/21/16 Naloxegol Oxalate [Movantik] 25 mg PO DAILY 04/21/16 Solifenacin Succinate [Vesicare] 10 mg PO DAILY 04/21/16 Albuterol 2.5MG/Ipratrop 0.5MG [Duoneb (A & A)] 3 ml INH Q4H PRN PRN #5 neb Metoclopramide [Reglan] 10 mg PO Q6HR PRN 05/03/16 Promethazine [Phenergan] 25 mg PO Q6H PRN PRN 05/03/16 Vilazodone [Viibryd] 40 mg PO DAILY 05/03/16 Bisacodyl [Dulcolax] 10 mg [place] DAILY #0 supp 05/06/16 Docusate Sodium [Colace] 100 mg PO BID #0 capsule 05/06/16 Insulin Detemir [Levemir] 10 unit SUBQ DAILY #300 insuln.pen 05/06/16 Polyethylene Glycol 3350 [Miralax] 17 gm PO BID #0 powder, packet 05/06/16 Prednisone 40 mg PO DAILY #12 tablet 05/06/16 Laboratory 05/31/16 05/31/16 05/31/16 15:57 15:57 15:57 WBC 0.58 L RBC 3.60 L Hgb 10.2 L Hct 29.9 L MCV 83.1 MCH 28.3 MCHC 34.1 RDW Std Deviation 16.1 H Plt Count 17 L* MPV 10.1 Immature Gran % (Auto) 0.0 Neut % (Auto) 18.9 L Lymph % (Auto) 41.4 [place] % (Auto) 39.7 H Eos % (Auto) 0.0 Baso % (Auto) 0.0 Immature Gran # (Auto) 0.00 Neut # (Auto) 0.11 L* Lymph # (Auto) 0.24 L [place] # (Auto) 0.23 Eos # (Auto) 0.00 Baso # (Auto) 0.00 Sodium 129 L Potassium 3.9 Chloride 89 L Carbon Dioxide 26 Anion Gap 14 BUN 19 Creatinine 1.0 H Estimated GFR/1.73 m2 56 BUN/Creatinine Ratio 19 Glucose 124 H Calculated Osmolality 263 Calcium 8.7 L Total Bilirubin 0.33 AST 13 ALT 12 Alkaline Phosphatase 114 H Creatine Kinase 22 L Troponin T < 0.010 Total Protein 6.9 Albumin 3.5 Globulin 3.4 Albumin/Globulin Ratio 1.0 Orders Category Date Time Status CHEST-2 VIEWS [RAD] Stat Exams 05/31/16 15:52 Ordered BLOOD CULTURE [BLDCUL] Stat Lab 05/31/16 17:10 Ordered CBC WITH ELECTRONIC DIFF [HEME] Stat Lab 05/31/16 15:57 Results CK PROFILE [SP CHEM] Stat Lab 05/31/16 15:57 Completed COMPREHENSIVE METABOLIC PANEL [CHEM] Stat Lab 05/31/16 15:57 Completed TROPONIN T Stat Lab 05/31/16 15:57 Completed URINALYSIS [URINALYSIS] Stat Lab 05/31/16 15:52 Uncollected URINE CULTURE [RM] Stat Lab 05/31/16 16:58 Uncollected 0.9% Sodium Chloride Inj [Ns] 1,000 ml Med 05/31/16 15:51 Discontinued IV 999 mls/hr Acetaminophen [Ofirmev 1000 mg/Isotonic Soln] 100 ml Med 05/31/16 16:00 Discontinued IV Q8H Levofloxacin 750 mg/D5w [Levaquin 750 mg/D5w] 150 ml Med 05/31/16 16:59 Active IV NOW Lido/Schwarz Alk/Al&mg Hydrox [G.i. Cocktail] Med 05/31/16 15:53 Discontinued 30 ml PO NOW ONE EKG [EKG] Stat Ther 05/31/16 15:47 Ordered - CONSULTS/PCP/HOSPITALIST Notification #1 *Consult/PCP/Hospitalist*: [place] Time Discussed: 17:25 Consult Disposition: Will see in ED Departure - Departure Time of Disposition Order: 17:22 DIAGNOSIS: Dehydration due to radiation, Thrombocytopenia Neutropenia Qualifiers: Neutropenia type: secondary to cancer chemotherapy Qualified Code(s): D70.1 - Agranulocytosis secondary to cancer chemotherapy Dysphagia Qualifiers: Dysphagia type: esophageal phase Qualified Code(s): R13.14 - Dysphagia, pharyngoesophageal phase Disposition: ADMITTED INPATIENT 09 Certified Medical Emergency: Emergent Condition: Stable Referrals: Ilya Cm MD [Primary Care Provider] -
--- NOTE | 2016-05-31 16:14 | ED EKG INTERP ---
EKG Interpretation - EKG Time of EKG reading by physician:: 15:53 EKG Read and Signed by:: Sanchez Mccarthy EKG Interpretation (*Must complete 3 of following elements*): Abnormal Rate: 115 Rhythm: sinus tachy [place]: normal QRS: normal OR Interval: normal Attestation - Scribe Verification/Attestation Scribe:: Jovany Millan Acting as Scribe for:: Sanchez Mccarthy Scribe documention review:: This chart was documented by a scribe and accurately reflects the service the provider performed and the decisions made by the provider.
[2016-05-31 16:33] LABS: HEMATOCRIT 29.9 % (37.0-47.0); HEMOGLOBIN 10.2 g/dL (12.0-16.0); LYMPH# 0.24 X1000 (1.2-3.4); LYMPH% 41.4 % (20.5-51.1); MANUAL DIFF NEEDED? YES; MCH 28.3 PG (27-31); MCHC 34.1 g/dL (33-37); MCV 83.1 FL (81-99); MONO# 0.23 X1000 (0.11-0.59); MONO% 39.7 % (1.7-9.3); MPV 10.1 FL (7.4-10.4); NEUT% 18.9 % (42.2-75.2)
[2016-05-31 16:46] LABS: ALBUMIN 3.5 g/dL (3.5-5.0); CALCIUM 8.7 mg/dL (8.8-10.2); POTASSIUM 3.9 mmol/L (3.5-5.1); TOTAL BILIRUBIN 0.33 mg/dL (0.20-1.00); TOTAL PROTEIN 6.9 g/dL (6.3-8.3)
[2016-05-31] MEDS ORDERED: LEVAQUIN 750 MG/D5W 150 ML IV ONE (16:59)
[2016-05-31 17:23] LABS: BANDS 10 % (0-1); HYPOCHROM 1+; LYMPHS 40 % (21-51); MONO 30 % (1-9)
[2016-05-31 17:41] LABS: LARGE PLATELETS 1+
[2016-05-31 17:55] LABS: PLT 65 X1000 (130-400)
[2016-05-31] MEDS ORDERED: NS 2,000 ML ONE (18:42)
[2016-05-31] MEDS ORDERED: LEVOPHED 8 MG in D5 1/2 NS 250 ML IV SCH (18:45)
--- NOTE | 2016-05-31 19:56 | HISTORY AND PHYSICAL ---
ONCOLOGIST: Dr. Dell Paez. RADIATION ONCOLOGIST: Dr. Elva Donaldson. CHIEF COMPLAINT: Throat and epigastric pain. HISTORY OF PRESENT ILLNESS: Mrs. Kelly is a 65-year-old female with a history of lung cancer followed by Dr. Paez. She also has a history of diabetes, hypertension, COPD, who was recently discharged from our service for hypoxic respiratory failure, pneumonia and sepsis. Since that time she has continued to follow with Dr. Donaldson and Dr. Paez. Her last chemotherapy was a week and a half ago. Her last radiation was 3 days ago on Friday. She has had increasing esophageal pain, dysphagia, nausea and decreased appetite. She denies any fevers. She denies any expectoration with coughing. She does report that she had some diarrhea yesterday but this was resolved with Imodium and has not had anymore. Her throat pain increased to the point where she came to the ER for evaluation. In the ER, she had labs and diagnostics done. She was noted to be neutropenic with an ANC of 116, thrombocytopenic at 17 and only mildly anemic. Her chemistry shows hyponatremia otherwise unremarkable. Chest x-ray did not show anything acute. Blood cultures have been obtained and antibiotics were started given her ANC count and we are now going to admit her for further treatment and evaluation of her radiation esophagitis and neutropenia. PAST MEDICAL HISTORY: 1. Small cell lung carcinoma 2. Diabetes Mellitus type 2 3. Hypertension. 4. Nicotine dependence. 5. Degenerative disk disease on chronic narcotic therapy. 6. History of ischemic colitis. 7. GERD. SURGICAL HISTORY: Lung surgery in 1970, tubal ligation, hysterectomy, cholecystectomy, bladder sling, neck surgery, rotator cuff surgery. SOCIAL HISTORY: Patient quit smoking last week. She denies alcohol or drug use. at the bedside. FAMILY HISTORY: Noncontributory. ALLERGIES: To hydrocodone, latex, penicillin and rabeprazole. MEDICATIONS: Ventolin 4 times a day, ProAir 2 times a day, Xanax 0.5 mg every 8 hours as needed, Nuvigil 250 mg p.o. a.m., Strattera 80 mg b.i.d., Vagifem 10 mcg vaginally as directed, Premarin 0.625 mg daily, Flonase as directed, Neurontin 800 mg 4 times a day, Prinivil 20 mg daily, Glucophage 500 mg at bedtime, Reglan 10 mg p.o. 6 hours as needed, Movantik 25 mg daily, OxyContin ER 30 mg t.i.d., OxyContin instant release 10 mg every 6 hours as needed, Phenergan 25 mg every 6 hours as needed for nausea, vomiting, VESIcare 10 mg daily, Viibryd 40 mg daily , Levemir 10 units subcu daily, Colace 100 mg b.i.d., Dulcolax 10 mg P.R. daily, MiraLAX 17 g b.i.d. REVIEW OF SYSTEMS: A 14 point review of systems obtained and found to be negative with the exception of the HPI. PHYSICAL EXAMINATION: VITAL SIGNS: Blood pressure is 145/71, heart rate 94, respiratory rate 20, O2 saturation 91% on room air, temperature is 98 degrees. GENERAL: Chronic ill appearing 65-year-old female lying in hospital bed in no acute distress. NEUROLOGIC: She is awake, alert, and oriented. She follows commands without focal deficits. HEENT: Head atraumatic, normocephalic. Pupils equal, round, reactive to light. Oral mucosa is moist. Trachea is dry and erythematous. CHEST: Diminished but clear to auscultation bilaterally. CV: Regular rate and rhythm. S1-S2 is noted. No murmurs, gallops, clicks, rubs. GI: Epigastric tenderness to palpation. Otherwise belly is soft, nondistended , nontender. Bowel sounds are hypoactive. EXTREMITIES: Diminished pulses. No edema, clubbing or cyanosis. DIAGNOSTIC DATA: WBC 0.58, hemoglobin 10.2, hematocrit 29.2, platelet count 65 ,000, neutrophil 0.11, ANC is 116. Sodium 129, potassium 3.9, chloride 89, CO2 26, anion gap 14 , BUN 19, creatinine 1, glucose 124, calcium 8.7, bilirubin 0.33, alkaline phosphatase 114 , CK 22, troponin negative, albumin 3.5. ASSESSMENT AND PLAN: 1. Radiation esophagitis: The patient will be kept NPO. We will add lidocaine mouthwash, IV fluids and pain medication and consult with Dr. Paez. 2. Neutropenia: Blood cultures have been obtained. We are going to go ahead and cover her with vancomycin and cefepime. We have just received a phone call from the emergency department stating that her pressure has dropped into the 70s systolically, will bolus a liter of normal saline. If she needs vasopressor support we will add Levophed and transfer her to the ICU. Will also keep her on neutropenic precautions. 3. Thrombocytopenia: Platelet count has been revised to 65,000 which is unchanged from the 17,000 which was initially reported. We will hold off on transfusing her platelets for now. 4. Hypovolemic hyponatremia: Will add normal saline and follow her sodium daily. 5. Diabetes mellitus: Will add pattern blood sugar, sliding scale insulin. 6. Severe protein calorie malnutrition: The patient has not eaten in a few days secondary to her esophagitis. At some point we will need to decide if she needs IV nutrition versus enteral nutrition possibly a PEG tube. However we are hoping that the esophagitis will resolve. 7. Lung cancer: She is followed by Dr. Paez and Dr. Donaldson. We will consult Dr. Paez for further management. 8. Gastrointestinal and DVT prophylaxis provided with Lovenox and Protonix. Further recommendations to follow. Dictated by MIKE Curran for Leda Allen MD [facility]
[2016-05-31] MEDS ORDERED: VANCOMYCIN IV PER PHARMACY MISC SCH (21:58)
[2016-05-31] MEDS ORDERED: MBX SOLUTION MT PRN (21:58)
[2016-05-31] MEDS ORDERED: DILAUDID ONE (22:19)
[2016-05-31] MEDS: DILAUDID IV PRN (22:20)
[2016-05-31] MEDS: NS 1,000 ML IV SCH (22:26)
[2016-05-31] MEDS: PEPCID IV SCH (22:34)
[2016-05-31] MEDS ORDERED: VANCOMYCIN 1,700 MG in NS 250 ML IV ONE (23:00)
[2016-06-01 02:05] LABS: URINE MICRO REVIEW NEEDED? NO; URINE SOURCE CLEAN CATCH
[2016-06-01 02:12] LABS: BILIRUBIN URINE NEGATIVE (NEGATIVE); BLOOD URINE NEGATIVE (NEGATIVE); COLOR YELLOW; GLUCOSE URINE NEGATIVE (NEGATIVE); LEUKOCYTES URINE NEGATIVE (NEGATIVE); NITRITE URINE NEGATIVE (NEGATIVE); PH URINE 5.5; PROTEIN URINE TRACE mg/dL (NEGATIVE); SP GRAVITY URINE 1.021; TURBIDITY URINE CLEAR (CLEAR); UR EPITHELIAL CELLS <10 /HPF (<10); URINE BACTERIA 2+ /HPF; URINE RBC <10 /HPF (<10); URINE WBC <10 /HPF (<10); UROBILINOGEN URINE NORMAL (NORMAL)
[2016-06-01] MEDS: MAXIPIME 1 GM/NS 50 ML IV SCH ×4 (02:32→20:56)
[2016-06-01] MEDS: DILAUDID IV PRN ×5 (02:33→14:40)
[2016-06-01] MEDS ORDERED: REGLAN PO PRN (06:59)
[2016-06-01] MEDS: PEPCID IV SCH ×2 (07:54→10:20)
[2016-06-01] MEDS: XANAX PO PRN ×2 (07:54→20:25)
[2016-06-01 08:00] LABS: AGAP 14; BUN 12 mg/dL (8-22); CALCIUM 7.9 mg/dL (8.8-10.2); CHLORIDE 96 mmol/L (98-107); COSMO 266; POTASSIUM 3.7 mmol/L (3.5-5.1); SODIUM 133 mmol/L (136-145); TCO2 23 mmol/L (25-35)
[2016-06-01 08:16] LABS: HEMATOCRIT 25.5 % (37.0-47.0); HEMOGLOBIN 8.8 g/dL (12.0-16.0); MCH 28.5 PG (27-31); MCHC 34.5 g/dL (33-37); MCV 82.5 FL (81-99); MPV 11.4 FL (7.4-10.4); RBC 3.09 XMIL (4.2-5.4)
[2016-06-01] MEDS ORDERED: LOVENOX SUBQ SCH (09:00)
--- NOTE | 2016-06-01 09:11 | Diag Imaging Result Document ---
PROCEDURE NAME: CHEST-2 VIEWS - 05/31/2016 TWO VIEWS OF THE CHEST: FINDINGS: There is apical pleural thickening bilaterally. There has been marked improvement in the pulmonary opacities present on 05/06/2016 with near-complete resolution. There is still some atelectasis or fibrosis over the right hemidiaphragm laterally. IMPRESSION: Near-complete resolution of pneumonia and/or pulmonary edema seen on 05/06/2016.
[2016-06-01 10:25] LABS: MPV 11.4 FL (7.4-10.4)
[2016-06-01] MEDS: NS 1,000 ML IV SCH (14:22)
[2016-06-01] MEDS: CARAFATE LIQUID PO SCH ×2 (14:39→20:25)
[2016-06-01] MEDS ORDERED: G.I. COCKTAIL PO ONE (15:21)
--- NOTE | 2016-06-01 17:12 | PROGRESS NOTE ---
DATE: 06/01/2016 SUBJECTIVE: The patient complains of severe pain when she tries to swallow anything. The patient is on radiation therapy for her lung cancer. OBJECTIVE: Vital Signs: Temperature 98 degrees, blood pressure 150/81, heart rate 89, respirations 20, O2 saturations 98% on room air. General: This is a chronically ill-appearing, elderly female, lying in bed, in no acute distress. Head: Normocephalic atraumatic. Heart: S1, S2. Normal. Regular rate and rhythm. Lungs: Clear to auscultation bilaterally. No wheezes, no rales. No rhonchi. Abdomen: Positive bowel sounds. Soft, nontender, nondistended. Extremities: No edema. No cyanosis. No calf tenderness. Neurologic: The patient is alert and oriented x3. LABS: White blood cell count 0.9, hemoglobin 8.8, hematocrit 25, platelets 46,000. Sodium 133, potassium 3.7, chloride 96, CO2 23, BUN 12, creatinine 0.6, glucose 90, calcium 7.9. UA negative. ASSESSMENT AND PLAN: 1. Neutropenia. The patient is currently on neutropenic precautions. The patient is on prophylactic antibiotic therapy. So far, there is no obvious source of infection. 2. Radiation esophagitis. We will consult Gastroenterology for further recommendations. We will keep the patient NPO for now and start the patient on IV Protonix. 3. Small-cell lung carcinoma on chemo and radiation. Dr. Paez has been consulted. 4. Chronic pain. The patient is currently on IV Dilaudid. 5. Pancytopenia. We will monitor the patient's counts and transfuse p.r.n.
[2016-06-01] MEDS ORDERED: MORPHINE IV PRN (17:28)
[2016-06-01] MEDS: CLINIMIX E 4.25%-5% SOLUTION 1,000 ML IV SCH (17:44)
[2016-06-01] MEDS: BENADRYL IV PRN (17:45)
[2016-06-01] MEDS: PROTONIX IV SCH (17:45)
[2016-06-01] MEDS: SODIUM CHLORIDE 0.9% INJ SCH (17:45)
[2016-06-01] MEDS: ZOFRAN IV PRN (17:46)
--- NOTE | 2016-06-01 18:40 | CONSULTATION ---
DATE OF CONSULTATION: 06/01/2016 PRIMARY ONCOLOGIST: Dr. Paez. REASON FOR CONSULTATION: Odynophagia. PRESENT ILLNESS: Ms. Kelly is a 65-year-old female who was diagnosed with small cell lung cancer 2 months ago and has been receiving chemotherapy per Dr. Price. The last cycle was 1-1/2 weeks ago. She is also continuing on radiation per Dr. Donaldson. The last radiation cycle was Friday, 4 days ago. She has been experiencing epigastric pain, odynophagia, worsening dysphagia for the last 1 week. Because of ongoing symptoms and worsening she presented to the hospital. She was found to be pancytopenic and started on neutropenic precautions. She also complained of decreased p.o. intake and weakness and tiredness. She was started on IV fluids and IV acid suppression. She denies any vomiting or passing blood in the stools. PAST MEDICAL HISTORY: Of lung cancer followed by Dr. Paez and Dr. Donaldson, type 2 diabetes, hypertension, nicotine dependence, lifelong history of smoking, degenerative disk disease, and chronic narcotic therapy, history of ischemic colitis, GERD. SURGICAL HISTORY: Lung surgery in 1970, tubal ligation, hysterectomy, cholecystectomy, bladder sling, neck surgery, rotator cuff surgery. SOCIAL HISTORY: She quit smoking 1 week ago. She denies alcohol or drug abuse. Her is at the bedside. FAMILY HISTORY: Noncontributory. ALLERGIES: To hydrocodone, latex, penicillin and rabeprazole. MEDICATIONS IN THE HOSPITAL: Include Zofran, Reglan, Xanax, Dilaudid, Benadryl , cefepime, IV fluids normal saline per hour 75, Pepcid 20 mg IV b.i.d., vancomycin, Carafate liquid 1 g 6 hours, Clinimix 77 per hour, Protonix IV b.i.d. and Magic mouthwash containing lidocaine/ Aluminium hydroxide 30 mL every 6 hours. SYSTEM REVIEW: Denies any fevers, rigors, or chills, chest pain. Does have epigastric pain and esophageal spasms. Denies any vomiting or passing blood in the stools. Does have history of arthritis and chronic pain. Denies any nausea complaints.Vital Signs: Temperature 98 degrees, pulse rate of 89, respiratory rate 20, blood pressure 150/81, saturating 98% room air. General Appearance: Thinly built, lying in bed, in mild distress because of odynophagia. HEENT: Pale conjunctivae. No icterus. Pupils equal, react to light and accommodation. Neck: Supple. Abdomen: Soft. Discomfort in the epigastric region and the lower chest area. No rebound. No guarding. Bowel sounds are hypoactive. Extremities: No cyanosis, clubbing, and edema. Neuro: Alert, awake, oriented x3. LABS: Her hemoglobin and hematocrit is 8.8, 25.5, white count of 0.96, platelet count of 46,000. Sodium 133, potassium 3.7, chloride 96, bicarb 20, BUN of 14, BUN of 12, creatinine 0.6. Glucose of 7.9. AST 13, ALT 12, alkaline phosphatase 114. Total protein 6.9, albumin of 3.5. Urinalysis showing trace protein. Her last EGD and colonoscopy was done on 04/23/[address] Cash which showed normal upper GI tract, scattered diverticulosis, internal hemorrhoids. No evidence of any active bleeding. IMPRESSION AND PLAN: 1. Small cell lung cancer status post chemotherapy and radiation therapy admitted with odynophagia likely radiation esophagitis. Initially, I will keep the patient on ice chips and liquid diet for now. We will add Magic mouthwash every 6 hours. We will switch to Protonix IV b.i.d. and we will keep her on Benadryl if she develops any kind of itching with Protonix. We will keep her on Carafate 1 g 6 hours. 2. We will continue on pain control. 3. Constipation. We will keep her on Dulcolax suppositories 20 mg at bedtime. 4. Pancytopenia per the primary care team. has been consulted. 5. For nutrition we will start on Clinimix 75 per hour for now until she is able to take orally. 6. The above plan was discussed with the patient and the family at bedside. All questions answered. [facility]
[2016-06-01] MEDS: G.I. COCKTAIL PO SCH (20:25)
[2016-06-01] MEDS: VANCOMYCIN 1,200 MG in NS 250 ML IV SCH (22:13)
[2016-06-02] MEDS: MORPHINE IV PRN ×6 (00:32→20:57)
[2016-06-02] MEDS: NS 1,000 ML IV SCH ×2 (03:59→16:13)
[2016-06-02] MEDS: CARAFATE LIQUID PO SCH ×4 (04:25→20:55)
[2016-06-02] MEDS: PROTONIX IV SCH ×2 (04:26→16:17)
[2016-06-02] MEDS: SODIUM CHLORIDE 0.9% INJ SCH ×2 (04:27→16:17)
[2016-06-02] MEDS: G.I. COCKTAIL PO SCH ×4 (04:29→20:58)
[2016-06-02 07:04] LABS: PLT 55 X1000 (130-400)
[2016-06-02 07:09] LABS: AGAP 8; BUN 9 mg/dL (8-22); CALCIUM 8.3 mg/dL (8.8-10.2); CHLORIDE 99 mmol/L (98-107); COSMO 269; POTASSIUM 4.2 mmol/L (3.5-5.1); SODIUM 134 mmol/L (136-145); TCO2 27 mmol/L (25-35)
[2016-06-02 07:18] LABS: BASO% 0.6 % (0.0-0.8); EOS# 0.01 X1000 (0.0-0.7); EOS% 0.6 % (0.0-10.0); HEMATOCRIT 23.3 % (37.0-47.0); IMM GRAN# 0.02 X1000 (0.0-0.04); IMM GRAN% 1.2 % (0.0-0.5); LYMPH# 0.47 X1000 (1.2-3.4); MANUAL DIFF NEEDED? YES; MCH 28.1 PG (27-31); MCHC 34.3 g/dL (33-37); MCV 81.8 FL (81-99); MONO# 0.76 X1000 (0.11-0.59); MONO% 45.2 % (1.7-9.3); MPV 10.8 FL (7.4-10.4); NEUT% 24.4 % (42.2-75.2); RBC 2.85 XMIL (4.2-5.4)
[2016-06-02] MEDS ORDERED: MAGNESIUM SULFATE 2 GM/S.W.I. 50 ML IV ONE (07:34)
[2016-06-02 07:45] LABS: LYMPHS 28 % (21-51); MONO 46 % (1-9)
[2016-06-02] MEDS: MAXIPIME 1 GM/NS 50 ML IV SCH ×3 (08:31→20:58)
[2016-06-02] MEDS: BENADRYL IV PRN ×2 (08:31→17:19)
[2016-06-02] MEDS: ZOFRAN IV PRN (08:31)
[2016-06-02] MEDS: CLINIMIX E 4.25%-5% SOLUTION 1,000 ML IV SCH ×2 (08:32→13:20)
[2016-06-02] MEDS ORDERED: GRANIX SUBQ ONE (09:37)
--- NOTE | 2016-06-02 14:38 | PROGRESS NOTE ---
DATE: 06/02/2016 SUBJECTIVE: The patient still complains of odynophagia but states that it has improved slightly with the Carafate and the GI cocktail that is being scheduled. OBJECTIVE: Vital Signs: Temperature 98.1 degrees, blood pressure 171/94, heart rate 95, respirations 20, O2 saturations 100% on room air. General: This is a chronically ill-appearing elderly female, lying in bed, in no acute distress. Head: Normocephalic, atraumatic. Heart: S1, S2 normal. Tachycardic. Lungs: Clear to auscultation bilaterally. No wheezes, no rales, no rhonchi. Abdomen: Positive bowel sounds. Soft, nontender, nondistended. Extremities: No edema. No cyanosis. No calf tenderness. Neurological: Patient is alert and oriented x3. No focal neurologic deficits noted. LABS: White blood cell count 1.6, hemoglobin 8, hematocrit 23, platelets 65, 000. Absolute neutrophilic count 0.4. Sodium 134, potassium 4.2, chloride 99, CO2 27, BUN 9, creatinine 0.5, glucose 127, magnesium 1.8, calcium 8.3. ASSESSMENT AND PLAN: 1. Neutropenia. Slowly improving. We will continue on prophylactic antibiotic therapy as per Dr. Paez through today and then possibly consider discontinuing tomorrow. The patient will also receive a dose of granix today. Blood cultures remain negative. 2. Small cell lung carcinoma. The patient is status post chemo with etoposide plus radiation. Will consult Dr. Donaldson at the recommendation of Dr. Paez to assess the frequency of the patient's radiation treatments. 3. Radiation esophagitis. Continue on the GI cocktail plus Carafate. 4. Chronic pain. The patient is currently on IV Dilaudid for pain control. 5. Pancytopenia. We will continue to monitor the patient's counts closely and transfuse p.r.n. 6. Gastrointestinal prophylaxis. The patient is currently on IV Protonix. [facility]
--- NOTE | 2016-06-02 18:36 | PROGRESS NOTE ---
DATE: 06/02/2016 SUBJECTIVE: Patient currently resting in bed. She continues to have odynophagia. She has minor relief in pain with Magic mouthwash, oral Carafate solution and Protonix b.i.d. OBJECTIVE: Vitals: Temperature of 98.6 degrees, pulse of 85, respiratory rate of 20, blood pressure 146/71, saturating 98% on room air. General Appearance: Thinly built, lying in bed, in no acute distress. HEENT: Mild pallor. Pale conjunctivae. No icterus. Neck: Supple. Abdomen: Soft, nontender, nondistended. No guarding or rebound. Extremities: No cyanosis, clubbing. Neurologic: She is alert, awake, oriented x3. LABORATORY/DIAGNOSTICS: Hemoglobin and hematocrit is 8 and 23.3, white count 1.6, platelet count of 55,000, MCV of 81.8. Sodium 135, potassium 4.2, chloride 99, bicarb 27, anion gap of 8, BUN of 9, creatinine 0.5, glucose of 127, calcium is 8.3, magnesium 1.8. IMPRESSION AND PLAN: 1. Odynophagia. Currently continue Magic mouthwash 30 mL every 6 hours, sucralfate suspension 1 g every 6 hours and Protonix b.i.d. I will schedule for esophagogastroduodenoscopy tomorrow. The patient agreed to the procedure. Risks, benefits, indications, alternatives were explained. 2. Neutropenia, slowly improving. 3. Small cell lung cancer. Currently status post chemotherapy with etoposide and radiation, being followed Dr. Donaldson and Dr. Paez. 4. Chronic pain, currently on intravenous morphine and gastrointestinal prophylaxis Protonix as well. The above findings discussed with the patient and also with Dr. Allen.
[2016-06-02] MEDS: XANAX PO PRN (20:56)
[2016-06-02] MEDS: DULCOLAX PR SCH (21:02)
[2016-06-02] MEDS: VANCOMYCIN 1,200 MG in NS 250 ML IV SCH (23:43)
[2016-06-03] MEDS: CARAFATE LIQUID PO SCH ×4 (01:56→20:37)
[2016-06-03] MEDS: MORPHINE IV PRN ×4 (01:56→15:33)
[2016-06-03] MEDS: G.I. COCKTAIL PO SCH ×4 (02:00→20:36)
[2016-06-03] MEDS: PROTONIX IV SCH ×2 (05:08→17:12)
[2016-06-03] MEDS: NS 1,000 ML IV SCH ×2 (05:33→19:50)
[2016-06-03] MEDS: CLINIMIX E 4.25%-5% SOLUTION 1,000 ML IV SCH ×3 (05:55→23:52)
[2016-06-03 06:59] LABS: AGAP 11; BUN 9 mg/dL (8-22); CALCIUM 8.5 mg/dL (8.8-10.2); CHLORIDE 95 mmol/L (98-107); COSMO 262; POTASSIUM 3.9 mmol/L (3.5-5.1); SODIUM 131 mmol/L (136-145); TCO2 25 mmol/L (25-35)
[2016-06-03 07:03] LABS: BASO% 0.1 % (0.0-0.8); EOS# 0.01 X1000 (0.0-0.7); EOS% 0.1 % (0.0-10.0); HEMOGLOBIN 8.7 g/dL (12.0-16.0); IMM GRAN# 0.14 X1000 (0.0-0.04); IMM GRAN% 1.5 % (0.0-0.5); LYMPH# 0.75 X1000 (1.2-3.4); LYMPH% 8.1 % (20.5-51.1); MANUAL DIFF NEEDED? YES; MCH 28.2 PG (27-31); MCHC 34.8 g/dL (33-37); MCV 81.2 FL (81-99); MONO# 1.62 X1000 (0.11-0.59); MONO% 17.5 % (1.7-9.3); MPV 8.8 FL (7.4-10.4); NEUT% 72.7 % (42.2-75.2); PLT 59 X1000 (130-400); RBC 3.08 XMIL (4.2-5.4)
[2016-06-03 08:17] LABS: BANDS 9 % (0-1); HYPOCHROM 1+; LYMPHS 7 % (21-51); MONO 22 % (1-9); POLYCHROM OCCASIONAL
[2016-06-03 08:18] LABS: LARGE PLATELETS OCCASIONAL
--- NOTE | 2016-06-03 08:22 | EKG Report ---
Test Performed on : 05/31/2016 3:53:10 PM Test Reason : re-ordered/cp Blood Pressure : / mmHG Vent. Rate : 115 BPM Atrial Rate : 115 BPM P-R Int : 132 ms QRS Dur : 080 ms QT Int : 326 ms P-R-T Axes : 065 006 064 degrees QTc Int : 450 ms Sinus tachycardia. Otherwise normal ECG No previous ECGs available Unconfirmed Result
[2016-06-03] MEDS ORDERED: DILAUDID ONE (08:40)
[2016-06-03] MEDS ORDERED: MYLICON DROPS (DOSE) MISC ONE (09:03)
[2016-06-03] MEDS ORDERED: VERSED ONE (09:17)
[2016-06-03] MEDS ORDERED: DIPRIVAN 1% ONE (09:18)
[2016-06-03] MEDS ORDERED: XYLOCAINE-MPF 2% ONE (10:35)
[2016-06-03] MEDS ORDERED: ANESTHESIA PB SET 88 IN 5742 ONE (10:35)
[2016-06-03] MEDS ORDERED: LR 1,000 ML ONE (10:35)
[2016-06-03] MEDS: MAXIPIME 1 GM/NS 50 ML IV SCH (11:10)
[2016-06-03] MEDS: XANAX PO PRN ×2 (11:11→20:38)
[2016-06-03] MEDS: MYCOSTATIN SUSP PO SCH ×3 (11:12→20:48)
--- NOTE | 2016-06-03 12:10 | OPERATIVE NOTE ---
PROCEDURE DATE: 06/03/2016 PROCEDURE PERFORMED: Esophagogastroscopy. PROVIDER: Shai Samaniego MD PREOPERATIVE DIAGNOSES: 1. Odynophagia. 2. Lung cancer, currently receiving chemotherapy per Dr. Paez and radiation per Dr. Donaldson. 3. Reflux disease. 4. Chronic pain. 5. Chronic constipation on narcotics. POSTOPERATIVE DIAGNOSES: 1. Esophagitis, segmental, starting at 22 cm, extending up to 27 cm. In proximal mid esophagus, moderate degree, [place] grade 3-4, with ulcerations throughout the entire described area. 2. Z-line visualized at 36 cm. 3. Evidence of hiatal hernia, measuring about 2 cm, sliding. 4. Mild gastritis of the body and antrum. 5. Normal fundus, cardia, and incisura. 6. Normal duodenal bulb and 2nd portion of duodenum. ESTIMATED BLOOD LOSS: None. COMPLICATIONS: None. ANESTHESIA: Monitored anesthesia care. SPECIMENS: None. DESCRIPTION OF PROCEDURE: After informed consent from the patient, explaining the risks, benefits, indications, and alternatives to the patient, the patient was prepared for EGD. The risks of the procedure, including infection, bleeding, pain, trauma to the surrounding structures, perforation, and were explained to the patient, among others. She acknowledged understanding and agreed to proceed. The patient was brought to the OR and turned to the left lateral position. A bite block was placed. After adequate monitored anesthesia, the upper scope was gently introduced through the oral vestibule all the way to the 2nd portion of duodenum. The esophagus was normal in the oropharyngeal area. The proximal and mid esophagus showed evidence of erythema, friability, erosions, ulcerations, and mucosal edema starting at 22 cm up to 27 cm. This was moderate to severe degree, suggesting radiation esophagitis. The scope was advanced to the distal esophagus, which showed evidence of mild esophagitis. The Z-line was visualized at 36 cm. There was evidence of hiatal hernia, measuring about 2 cm, sliding type. The scope was advanced intermittent he stomach, which showed evidence of erythema in the body and antrum. There were minor superficial erosions of the duodenum in the antral bulb. There were minor erosions in the gastric antrum. Retroflexion revealed normal fundus, cardia, and incisura on retroflexion. The scope was advanced to the duodenum, which were normal duodenal bulb and 2nd portion of the duodenum. The scope withdrawn to the esophagus area. The esophagus was carefully examined. Since the patient has pancytopenia, we elected not to do biopsies here. The air was aspirated as the scope was withdrawn. The patient tolerated the procedure well and is currently being monitored in the OR in stable condition. I discussed the findings with the patient upon waking up and all questions were answered. RECOMMENDATIONS: 1. The patient will continue on Magic mouthwash 30 mL every 6 hours as needed. 2. The patient will be on Carafate 1 g every 6 hours for 6 weeks. 3. The patient will on Protonix twice daily during the hospital stay and will be transitioned to 40 mg daily on discharge. 4. The patient was started on a full liquid diet and advance as tolerated over the next 2-3 days. 5. The patient is to follow gastroesophageal reflux life changes. 6. Further recommendations pending hospital course.
[2016-06-03] MEDS: ZOFRAN IV PRN (15:34)
[2016-06-03] MEDS ORDERED: OXYCONTIN PO SCH (17:00)
[2016-06-03] MEDS: OXYCONTIN PO SCH (17:06)
[2016-06-03] MEDS: SODIUM CHLORIDE 0.9% INJ SCH (17:12)
--- NOTE | 2016-06-03 19:55 | PROGRESS NOTE ---
DATE: 06/03/2016 HISTORY: Patient was admitted on 05/31/2016, came in with throat and epigastric pain. PRIMARY CARE PHYSICIAN: Dr. Elva Donaldson. SUBJECTIVE: Ms. Kelly is a 65-year-old white female with history of lung cancer followed by Dr. Paez, also has history of diabetes, hypertension, COPD and was recently diagnosed with hypoxic respiratory failure, pneumonia, sepsis. Since that time, she has continued to follow with Dr. Donaldson d Dr. Paez. Last chemotherapy was a week and a half ago. Radiation 3 days ago on Friday. She had increasing esophageal pain, dysphagia, nausea, decreased appetite. Denied any fever, denied any expectoration, coughing. She does report that she has had some diarrhea since day before, resolved with Imodium and has not had any more. Her throat pain increased to the point where she went to the ER for evaluation. In the ER, her labs and diagnostics were done, noted to be neutropenic with an actual neutrophil count of 116, thrombocytopenia at 17, and mild anemia. Her chemistries showed hyponatremia, otherwise unremarkable. Chest x-ray did not show anything acute. Blood cultures have been obtained and still pending. No growth so far. PAST MEDICAL HISTORY: 1. Small cell lung carcinoma. 2. Diabetes mellitus type 2. 3. Hypertension. 4. Nicotine dependence. 5. Degenerative disk disease on chronic narcotic therapy. 6. History of ischemic colitis. 7. Gastroesophageal reflux disease. PAST SURGICAL HISTORY: She had lung surgery 1971, tubal ligation, hysterectomy, cholecystectomy, bladder sling, neck surgery, rotator cuff surgery. DISCUSSION: 1. They put her in for radiation esophagitis, keep her NPO and to have some lidocaine. She is complaining of pain. Also her neutropenia. Covered her with vancomycin and cefepime. 2. Blood pressure had dropped in the 70s, so suspect she presented with possible sepsis so treating her for that. 3. Thrombocytopenia. Her platelet count had been revised to 65,000 which is unchanged from the 17,000 which was initially reported. So I guess her count is 17,000 and we held off on giving her platelets. 4. Diabetes mellitus. We are following sugars. 5. Severe protein calorie malnutrition. 6. Lung cancer. 7. Constant pain. She requested to go back on her usual medicines at home which is OxyContin 30 mg t.i.d. and oxycodone 10 mg 4 times a day. OBJECTIVE: General: Awake and alert. Vital signs: Temperature 98.1 degrees, pulse 90, respirations 20, blood pressure 171/91. HEENT: Pupils equal, round. Lungs: Clear anterolateral. Cardiovascular: Regular rate without murmur, S3. Abdomen: Soft. Skin: Warm and dry. PERTINENT DATA: White count 9280, hematocrit was 25, platelet count 59,000. So that has come up. Electrolytes from yesterday, sodium 131, potassium 3.9, chloride 95, BUN 9, creatinine 0.5, calcium 8.5. ASSESSMENT AND PLAN: 1. Neutropenia, slowly improving. Continue prophylactic antibiotic therapy per Dr. Paez. Possibly consider discontinuing soon. Cultures have been negative thus far. She did receive 1 dose of Granix. 2. Small-cell lung cancer status post chemotherapy with Etoposide post radiation, Dr. Donaldson, Dr. Paez aware. Continue radiation treatments as necessary. 3. Radiation esophagitis. Continue gastrointestinal cocktail and Carafate. 4. Chronic pain. I am going to put her back on her regimen at home, which is OxyContin 30 mg 3 times a day, oxycodone 10 mg q.6 and adjust from there. 5. Pancytopenia. Continued to monitor. 6. Gastrointestinal prophylaxis. She is on proton pump inhibitor. 7. Review of her orders: I do not see any other change.
[2016-06-03] MEDS: DULCOLAX PR SCH (20:37)
[2016-06-03] MEDS: NEURONTIN PO SCH (20:37)
[2016-06-03] MEDS: OXY IR PO PRN (20:37)
[2016-06-04] MEDS: OXYCONTIN PO SCH ×3 (00:16→16:46)
[2016-06-04] MEDS: OXY IR PO PRN ×4 (02:28→18:13)
[2016-06-04] MEDS: PROTONIX IV SCH ×2 (02:33→14:12)
[2016-06-04] MEDS: NEURONTIN PO SCH ×4 (02:33→20:31)
[2016-06-04] MEDS: CARAFATE LIQUID PO SCH ×4 (02:33→20:31)
[2016-06-04] MEDS: SODIUM CHLORIDE 0.9% INJ SCH ×2 (02:33→14:12)
[2016-06-04] MEDS: XANAX PO PRN ×3 (02:35→20:31)
[2016-06-04] MEDS: MYCOSTATIN SUSP PO SCH ×4 (02:40→20:33)
[2016-06-04] MEDS: G.I. COCKTAIL PO SCH ×4 (02:41→20:34)
[2016-06-04] MEDS: CLINIMIX E 4.25%-5% SOLUTION 1,000 ML IV SCH (02:44)
--- NOTE | 2016-06-04 04:14 | CONSULTATION ---
DATE OF CONSULTATION: 06/03/2020 REQUESTING PHYSICIAN: Leda Allen MD CHIEF COMPLAINT: Neutropenia. HISTORY OF PRESENT ILLNESS: Patient 65-year-old female with history of limited stage small cell lung cancer. She was started on carboplatin and etoposide and radiation. She was admitted at this time with odynophagia. She received her 2nd cycle of chemotherapy with carboplatin and etoposide about 10 days ago. Upon admission, she was also noted to have thrombocytopenia and neutropenia. Prophylactically, she received antibiotics. She also received a dose of Neupogen yesterday. White count today has improved and is in the normal range. She is going for EGD this morning for evaluation of odynophagia. PAST MEDICAL HISTORY: Small cell lung cancer. PAST SURGICAL HISTORY: Hysterectomy, cholecystectomy, tubal ligation. ALLERGIES: Hydrocodone, penicillin, latex. SOCIAL HISTORY: Patient is a smoker. She denies alcohol or substance abuse. FAMILY HISTORY: Noncontributory. CURRENT MEDICATIONS: Xanax, GI cocktail, Clinimix, Dulcolax, Maxipime, Benadryl, Neurontin, Reglan, vancomycin, morphine, Zofran, Oxy IR, oxycodone, Carafate and Protonix. REVIEW OF SYSTEMS: As dictated above. All other review of systems are negative. PHYSICAL EXAMINATION: Patient is in no acute distress. Afebrile, relatively stable.Eyes: EOMI. PERRLA. Anicteric. Mucous membranes appear moist. Neck: Supple without JVD, thyromegaly, or nodules. Cardiac: Regular rate and rhythm. Normal S1, S2. Chest: Clear to auscultation except for occasional rhonchi. Abdomen: Soft, nontender, without hepatosplenomegaly or masses. Extremities: No cyanosis, clubbing, or edema. Neurological: Alert and oriented x3. No focal motor deficits. LABS: On admission, white count 0.58, hemoglobin 10.2, platelets 65,000, ANC 0.11. Today, white count 9.2, hemoglobin 8.7, hematocrit 25, platelets 59,000, ANC 6.7. ASSESSMENT AND PLAN: 1. Limited stage small cell lung cancer: Patient has completed 2nd cycle of carboplatin and etoposide. She has been on radiation. Hold radiation while she is in the hospital. Consult Dr. Donaldson. 2. Neutropenia: This is due to chemotherapy. She received a dose of Neupogen yesterday. White count has normalized at this time. I think it is reasonable to discontinue her antibiotics. 3. Thrombocytopenia: This is due to her chemotherapy. I expect that this will continue to improve now. 4. Odynophagia: This is likely radiation induced. She is undergoing esophagogastroduodenoscopy to rule out any other causes. Continue symptomatic care with pain medicines, Magic mouthwash, and Carafate. 5. Nutrition: She is on Clinimix, protein shakes.
[2016-06-04] MEDS: NS 1,000 ML IV SCH ×2 (06:22→08:16)
[2016-06-04] MEDS: MORPHINE IV PRN ×2 (06:48→20:28)
[2016-06-04 07:13] LABS: BASO% 0.2 % (0.0-0.8); HEMATOCRIT 24.2 % (37.0-47.0); HEMOGLOBIN 8.2 g/dL (12.0-16.0); IMM GRAN# 0.23 X1000 (0.0-0.04); LYMPH% 8.7 % (20.5-51.1); MANUAL DIFF NEEDED? YES; MCHC 33.9 g/dL (33-37); MCV 82.6 FL (81-99); MONO# 1.54 X1000 (0.11-0.59); MONO% 13.4 % (1.7-9.3); MPV 10.7 FL (7.4-10.4); NEUT% 75.7 % (42.2-75.2); RBC 2.93 XMIL (4.2-5.4)
[2016-06-04 07:14] LABS: PLT 53 X1000 (130-400)
[2016-06-04 10:48] LABS: LYMPHS 4 % (21-51); MONO 8 % (1-9); NRBC 1 % (0-0)
[2016-06-04] MEDS ORDERED: POTASSIUM PHOSPHATE 40 MEQ in NS 250 ML IV ONE (13:15)
--- NOTE | 2016-06-04 14:07 | PROGRESS NOTE ---
DATE: 06/04/2016 SUBJECTIVE: Ms. Kelly says she is feeling better. A little better pain control over the weekend. She would like me to go up on her oxycodone. She is still having trouble. She cannot really swallow water because it hurts her and she points to the midesophagus. OBJECTIVE: General: Today she is still in reverse isolation. Vital signs: Temp 98.2 degrees, pulse 90 respirations 20, blood pressure 146/89. Neck: CVP less than 6 cm. Lungs: Clear in all lung mendez. Cardiovascular: Regular rhythm and rate without murmur or S3. Abdomen: Soft. Skin: Warm and dry. : Good urine output by report. LAB: From today, white count is back to 11,490, hematocrit is 24, platelet count 53,000. So all of her counts have improved. Sodium 131, potassium 3.9, chloride 95, BUN 9, creatinine 0.5, phosphorus was 1.3. ASSESSMENT AND PLAN: 1. She has small cell lung cancer and she has esophagitis, suspect radiation esophagitis. Continue to cover with vancomycin and cefepime. Blood counts are back up. I think we can think about stopping her antibiotics. 2. Blood pressure was low when she came in. Suspect this may have been possible sepsis. Blood pressure is doing well now. 3. Pancytopenia, thrombocytopenia. Platelet count has come up nicely. 4. Diabetes mellitus type 2. Sugars under good control. 5. Severe protein calorie malnutrition. Not able swallow. I do not know if we need to get GI involved. 6. Low phosphorus. Dr. Samaniego is already involved colon and in fact, performed an EGD on the for odynophagia and found esophagitis, segmental, starting at 22 cm, extending 27 cm. Proximal mild esophagus, moderate degree, [place] was grade 3-4, with ulcerations through the entire described area. Z-line visualized at 36 cm. Evidence of a hiatal hernia about 2 cm, sliding. Mild gastritis in the body and antrum. Normal fundus. Normal duodenal bulb. So, continue present therapy. I am going to go up on her oxycodone. She can have 10 mg q.4 hours p.r.n. Continue oxycodone 30 mg t.i.d. We will supplement with some K-Phos today.
[2016-06-04] MEDS: DULCOLAX PR SCH (20:35)
[2016-06-05] MEDS: OXY IR PO PRN ×5 (00:11→20:40)
[2016-06-05] MEDS: NS 1,000 ML IV SCH ×2 (03:08→16:06)
[2016-06-05] MEDS: MYCOSTATIN SUSP PO SCH ×4 (03:08→20:41)
[2016-06-05] MEDS: CARAFATE LIQUID PO SCH ×4 (03:10→20:41)
[2016-06-05] MEDS: NEURONTIN PO SCH ×4 (03:10→20:41)
[2016-06-05] MEDS: SODIUM CHLORIDE 0.9% INJ SCH ×2 (03:10→13:59)
[2016-06-05] MEDS: PROTONIX IV SCH ×2 (03:10→13:59)
[2016-06-05] MEDS: OXYCONTIN PO SCH ×3 (03:11→20:40)
[2016-06-05] MEDS: G.I. COCKTAIL PO SCH ×4 (03:11→23:53)
[2016-06-05] MEDS: MORPHINE IV PRN ×5 (03:24→23:50)
[2016-06-05] MEDS: XANAX PO PRN ×3 (05:48→23:52)
[2016-06-05 07:45] LABS: BASO% 0.2 % (0.0-0.8); EOS# 0.01 X1000 (0.0-0.7); EOS% 0.2 % (0.0-10.0); HEMATOCRIT 23.9 % (37.0-47.0); IMM GRAN# 0.18 X1000 (0.0-0.04); IMM GRAN% 3.3 % (0.0-0.5); LYMPH# 1.01 X1000 (1.2-3.4); LYMPH% 18.5 % (20.5-51.1); MANUAL DIFF NEEDED? YES; MCHC 33.5 g/dL (33-37); MCV 83.6 FL (81-99); MONO# 1.15 X1000 (0.11-0.59); MPV 9.3 FL (7.4-10.4); NEUT% 56.8 % (42.2-75.2); PLT 61 X1000 (130-400); RBC 2.86 XMIL (4.2-5.4)
[2016-06-05 08:12] LABS: BANDS 10 % (0-1); LYMPHS 24 % (21-51); MONO 4 % (1-9)
--- NOTE | 2016-06-05 13:28 | PROGRESS NOTE ---
DATE: 06/05/2016 Ms. Kelly status it feels better but she still hurts and she cannot swallow and getting where she cannot swallow her pain medicines, not able to get food down. Her white count is back up above 11,000. She is off of isolation. I talked to Dr. Paez. I think we are going to have to pursue a PEG tube. I think she does have radiation induced esophagitis and it may take a long time to heal. Meanwhile we need to get her nutrition in so we will ask GI to consider putting in a PEG tube. EXAM: Today temp 98.2 degrees, pulse 79, respirations 20, blood pressure 144/72.Lungs: Clear in all lung mendez. Cardiovascular: Regular rhythm and rate without murmur or S3. Abdomen: Soft. Skin: Warm and dry. Urine output was above 2500 mL. LAB: White count 5470, hematocrit was 23, platelet count 61,000. Electrolytes were unremarkable from the . I think we should recheck those again in the morning. I might check a T4 and TSH again in the morning as well. ASSESSMENT AND PLAN: 1. Esophagitis pretty severe. Getting treatment with radiation for small-cell lung cancer. I am going to have to hold off on further radiation treatments and pursue a PEG tube for feeding and for her medications. 2. Pain control is better. She is on oxycodone q.4 hours, and she is on OxyContin 30 mg t.i.d. and getting where she cannot swallow her pain medicine very well. 3. Diabetes mellitus type 2. Sugars under good control. 4. Hypertension. Blood pressure looks good. 5. Nicotine dependence. She is on nicotine patch. 6. Degenerative disk disease. 7. History of ischemic colitis. 8. History of gastroesophageal reflux disease. We will recheck lab again in the morning and pursue PEG tube placement.
--- NOTE | 2016-06-05 15:35 | PROGRESS NOTE ---
DATE: 06/05/2016 SUBJECTIVE: Patient is resting in bed. She complains of ongoing odynophagia and decreased p.o. intake and requiring narcotics, Carafate and Magic Mouthwash, but despite all of these, she still continues to have severe odynophagia, even with one sip of any kind of liquids or medications. Dr. Paez had discussed with the patient and patient will be needing PEG tube placement for ongoing symptoms to help improve nutritional status. I discussed the risks, benefits, indications, alternatives of PEG tube placement with the patient and she acknowledged and agreed to proceed with the above and we will schedule PEG tube for tomorrow. OBJECTIVE: Vital signs: Temperature 97.4, pulse of 88, respiratory rate 20, blood pressure 140/69, saturating 98% on room air. General Appearance: Moderately built, moderately nourished, lying in bed, currently in pain because of odynophagia. HEENT: Pupils equal. No icterus. Neck: Supple. Abdomen: Soft, nontender, nondistended. Bowel sounds are present. Extremities: No cyanosis or clubbing. Neurologic: She is alert, awake, oriented. LABORATORY: Hemoglobin and hematocrit is 8 and 23.9, white count 5.4, platelet count of 61,000, MCV of 83.6. IMPRESSION/PLAN: 1. Odynophagia ongoing despite oral therapy and pain control. We will schedule the patient for esophagogastroduodenoscopy with percutaneous endoscopic gastrostomy tube placement tomorrow. We will check her labs and PT/INR in the morning. We will continue on Protonix twice daily and Magic Mouthwash. We will also keep her on nystatin suspension and Carafate as before. She will continue on oral pain control. 2. Further recommendations to follow pending hospital course. Discussed with Dr. Devries and Dr[facility]
--- NOTE | 2016-06-05 18:30 | PROGRESS NOTE ---
DATE: 06/05/2016 SUBJECTIVE: The patient is not eating well at all. She still continues to have problem with swallowing. She is really not getting enough nutrition. There is a concern about her nutritional status and she will probably need a PEG. OBJECTIVE: Vital signs: Are stable with normal temperature, pulse 80, respiratory rate 20, blood pressure 140/60. Saturation 98% on room air. General: Lying in bed, complaining of pain and odynophagia but not in severe distress. HEENT: No icterus. Neck is supple. Conjunctival pallor present. Neck: Supple. Trachea midline. Heart and Lungs: Normal. Abdomen: No organomegaly. No ascites. Bowel sounds present and normal. Extremities: No cyanosis, clubbing, or edema. Neurological: Alert and awake and oriented. LABS: Hematocrit 23.9, platelet counts are about 61,000. IMPRESSION: 1. Ongoing odynophagia. 2. Poor nutrition. 3. Possible PEG. Dr. Samaniego will decide tomorrow and she will be scheduled for PEG. Dr. Paez is also thinking in terms of improving her nutritional status. PEG would be the most likely the solution for the time being.
[2016-06-05] MEDS: DULCOLAX PR SCH (20:41)
[2016-06-06] MEDS: OXY IR PO PRN (02:25)
[2016-06-06] MEDS: PROTONIX IV SCH ×3 (02:26→15:21)
[2016-06-06] MEDS: NEURONTIN PO SCH ×4 (02:26→20:27)
[2016-06-06] MEDS: CARAFATE LIQUID PO SCH ×4 (02:27→20:29)
[2016-06-06] MEDS: SODIUM CHLORIDE 0.9% INJ SCH ×2 (02:27→15:21)
[2016-06-06] MEDS: MORPHINE IV PRN ×2 (05:30→09:35)
[2016-06-06] MEDS: OXYCONTIN PO SCH ×3 (05:34→20:27)
[2016-06-06] MEDS: MYCOSTATIN SUSP PO SCH ×4 (06:42→20:31)
[2016-06-06] MEDS: G.I. COCKTAIL PO SCH ×4 (06:42→20:27)
[2016-06-06] MEDS: NS 1,000 ML IV SCH ×2 (06:43→20:29)
[2016-06-06 06:48] LABS: BASO% 0.2 % (0.0-0.8); EOS# 0.01 X1000 (0.0-0.7); EOS% 0.2 % (0.0-10.0); HEMATOCRIT 23.5 % (37.0-47.0); HEMOGLOBIN 7.9 g/dL (12.0-16.0); IMM GRAN% 4.8 % (0.0-0.5); LYMPH# 0.88 X1000 (1.2-3.4); LYMPH% 21.3 % (20.5-51.1); MANUAL DIFF NEEDED? YES; MCH 28.1 PG (27-31); MCHC 33.6 g/dL (33-37); MCV 83.6 FL (81-99); MONO# 0.85 X1000 (0.11-0.59); MONO% 20.6 % (1.7-9.3); MPV 9.6 FL (7.4-10.4); NEUT% 52.9 % (42.2-75.2); PLT 88 X1000 (130-400); RBC 2.81 XMIL (4.2-5.4)
[2016-06-06 07:02] LABS: INR 1.07; PROTIME 11.3 Seconds (9.2-11.7); PTT 26.7 Seconds (22.0-36.0)
[2016-06-06 07:44] LABS: LYMPHS 36 % (21-51); MONO 2 % (1-9); NRBC 1 % (0-0)
--- NOTE | 2016-06-06 08:18 | PROGRESS NOTE ---
DATE: 06/06/2016 SUBJECTIVE: Ms. Kelly is awake and alert. She understands the plan. She is still not able to swallow really, even medicines, so plan is to put a PEG tube in. OBJECTIVE: Vital signs: Remains afebrile. Temp 97.4 degrees, pulse 84, respirations 17, blood pressure 139/78. HEENT: Pupils are equal, round. Lungs: Clear in all lung mendez anterior, lateral, and posterior. Cardiovascular: Regular rhythm and rate without murmur or S3. Abdomen: Soft. Skin: Warm and dry. Intake and output: Urine output is good by report. LABS: Reviewed lab from yesterday. Protime 11.3, PTT 26. ASSESSMENT AND PLAN: 1. Odynophagia. Ongoing despite oral therapy and pain control. Radiation esophagitis. Will need PEG feeding tube placement. The plan I think is to do that today. 2. Recent neutropenia which has resolved. Small cell lung cancer treatment. 3. Small-cell lung cancer. 4. Protein calorie malnutrition. 5. I have reviewed her orders. I do not see any changes right now. For pain control she is on oxycodone ER 30 mg p.o. q.8. She is getting oxycodone 10 mg q.4 hours p.r.n., normal saline at 75 mL an hour, Carafate 1 g p.o. q.6 hours, nystatin suspension 5 mL p.o. q.6 hours, Neurontin 800 mg p.o. q.6 hours, Reglan 10 mg p.o. q.6 hours p.r.n.
[2016-06-06] MEDS ORDERED: MYLICON DROPS (DOSE) MISC ONE (10:18)
[2016-06-06] MEDS ORDERED: LEVAQUIN 500 MG/D5W 100 ML ONE (10:34)
[2016-06-06] MEDS ORDERED: LR 500 ML ONE (11:43)
[2016-06-06] MEDS ORDERED: ANESTHESIA PB SET 88 IN 5742 ONE (11:43)
[2016-06-06] MEDS ORDERED: EXTENSION SET 32 IN 4522 ONE (11:43)
[2016-06-06] MEDS ORDERED: XYLOCAINE-MPF 2% ONE (11:43)
[2016-06-06] MEDS: ZOFRAN IV PRN (12:01)
[2016-06-06] MEDS ORDERED: FENTANYL ONE (12:15)
[2016-06-06] MEDS ORDERED: DIPRIVAN 1% ONE (12:16)
[2016-06-06 14:06] LABS: ALKALINE PHOSPHATASE 102 U/L (32-104); BUN 5 mg/dL (8-22); GOT 17 U/L (10-30)
[2016-06-06 15:00] LABS: AGAP 15; ALBUMIN 3.3 g/dL (3.5-5.0); CALCIUM 8.7 mg/dL (8.8-10.2); CHLORIDE 103 mmol/L (98-107); COSMO 282; GPT 13 U/L (10-36); MAGNESIUM 1.8 mg/dL (1.5-2.7); SODIUM 142 mmol/L (136-145); TCO2 24 mmol/L (25-35); TOTAL BILIRUBIN 0.19 mg/dL (0.20-1.00); TOTAL PROTEIN 5.9 g/dL (6.3-8.3)
[2016-06-06] MEDS: DURAGESIC 25 MICROGM/HR PATCH TD SCH (15:18)
--- NOTE | 2016-06-06 16:22 | OPERATIVE NOTE ---
PROCEDURE DATE: 06/06/2016 PLANNED PROCEDURE: Esophagogastroduodenoscopy with percutaneous endoscopic gastrostomy tube placement. ACTUAL PROCEDURE: Esophagogastroduodenoscopy with esophageal biopsy, unable to perform percutaneous endoscopic gastrostomy tube placement. PREOPERATIVE DIAGNOSES: 1. Odynophagia. 2. Dysphagia. 3. Decreased p.o. intake. 4. Small lung cancer currently on chemotherapy and radiation therapy, unable to take oral food because of odynophagia and esophagitis. POSTOPERATIVE DIAGNOSES: 1. Esophagitis noted in the proximal mid esophagus circumferential with mucosal edema, ulcerations. This was biopsied. 2. Distal esophagus appeared normal. 3. Hiatal hernia noted. 4. Mild gastritis and small amount of bile in the stomach noted. 5. Normal duodenal bulb and second portion of duodenum. 6. Unable to transilluminate the area and unable to visualize the finder's needle in the stomach lumen, thus aborting the percutaneous endoscopic gastrostomy tube placement procedure. ESTIMATED BLOOD LOSS: Minimal. COMPLICATIONS: None. ANESTHESIA: Monitored anesthesia care. SPECIMENS: Mid esophageal biopsy sent to surgical pathology to evaluate for radiation esophagitis. DESCRIPTION OF PROCEDURE: After informed consent, patient explained the risks, benefits, indications, alternatives of the procedure, patient prepared for EGD with PEG tube placement. The risks of the procedure, including infection, bleeding, pain, trauma to the surrounding structures, perforation, explained to the patient among others. The patient acknowledges and agreed to proceed with the procedure. The patient was brought to the OR, was kept in supine position. A bite block was placed in the mouth. After adequate monitored anesthesia care, the scope was gently introduced into the oral vestibule, advanced all the way to the second portion of duodenum. The esophagus was normal in the oropharyngeal area. The proximal mid esophagus showed evidence of erythema, friability, erosions, ulcerations, and mucosal edema suggesting esophagitis, this was biopsied. The distal esophagus showed normal mucosa, Z-line visualized. There was hiatal hernia sliding type. There was evidence of some bile in the stomach, which was suctioned out. There was evidence of mild mucosal edema noted in the entire gastric body and antrum. The retroflexion revealed normal fundus, cardia, and incisura. The scope was advanced to the duodenum, which showed normal duodenal bulb and second portion of duodenum. There was some bile in the duodenal bulb, which was suctioned and the scope withdrawn in the stomach. The stomach was inflated and we tried transillumination, but failed to find a perfect spot in the left upper quadrant epigastric region. One area, which was closest did have some transillumination, we numbed that area with 1% lidocaine. Then we used the Finder needle, but we still could not see it entering the stomach lumen under direct visualization. At that time, we thought either the patient has mucosal edema, abdominal wall edema, or there could be some other organs in between the stomach wall and abdominal wall and decided to abort the procedure. The air was removed as the scope was withdrawn. The patient tolerated the procedure and is currently monitored in the OR in stable condition. I discussed the findings with the patient on waking up and with her and all questions were answered. RECOMMENDATIONS: 1. The patient will continue aspiration precautions. 2. We will start her on TPN. 3. We will surgical consultation for possible Laparoscopic PEG tube placement. 4. We will continue her Protonix, Carafate, Magic mouthwash, nystatin as before. 5. We will followup the esophageal biopsy results. 6. Further recommendations to follow pending hospital course.. [facility]
[2016-06-06] MEDS ORDERED: TPN ELECTROLYTES IV SCH ×7 (18:00)
[2016-06-06] MEDS ORDERED: SODIUM PHOSPHATE IV SCH ×7 (18:00)
[2016-06-06] MEDS ORDERED: MAGNESIUM SULFATE IV SCH ×7 (18:00)
[2016-06-06] MEDS ORDERED: [UNRECOGNIZED DRUG - OTHER] IV SCH ×7 (18:00)
[2016-06-06] MEDS: DILAUDID IV PRN ×2 (18:35→23:53)
[2016-06-06 18:55] LABS: AGAP 9; BUN 4 mg/dL (8-22); CALCIUM 8.3 mg/dL (8.8-10.2); CHLORIDE 99 mmol/L (98-107); COSMO 263; GOT 14 U/L (10-30); MAGNESIUM 1.8 mg/dL (1.5-2.7); POTASSIUM 4.4 mmol/L (3.5-5.1); PREALBUMIN 13.7 mg/dL (20-40); SODIUM 133 mmol/L (136-145); TCO2 25 mmol/L (25-35); TRIGLYCERIDES 123 mg/dL (35-135)
[2016-06-06] MEDS: LIPOSYN 20% 250 ML IV SCH (19:40)
[2016-06-06] MEDS: DULCOLAX PR SCH (20:29)
[2016-06-06] MEDS: XANAX PO PRN (20:29)
[2016-06-07] MEDS: OXY IR PO PRN (00:45)
[2016-06-07] MEDS: NEURONTIN PO SCH ×4 (01:59→21:05)
[2016-06-07] MEDS: PROTONIX IV SCH ×2 (02:00→17:18)
[2016-06-07] MEDS: SODIUM CHLORIDE 0.9% INJ SCH (02:00)
[2016-06-07] MEDS: OXYCONTIN PO SCH ×3 (02:16→18:33)
[2016-06-07] MEDS: CARAFATE LIQUID PO SCH ×4 (02:16→21:04)
[2016-06-07] MEDS: MYCOSTATIN SUSP PO SCH ×4 (02:17→21:05)
[2016-06-07] MEDS: G.I. COCKTAIL PO SCH ×3 (06:33→17:19)
[2016-06-07] MEDS: NS 1,000 ML IV SCH ×2 (06:45→15:44)
[2016-06-07 06:48] LABS: BASO% 0.2 % (0.0-0.8); HEMATOCRIT 22.2 % (37.0-47.0); HEMOGLOBIN 7.2 g/dL (12.0-16.0); IMM GRAN# 0.11 X1000 (0.0-0.04); IMM GRAN% 2.4 % (0.0-0.5); LYMPH# 0.89 X1000 (1.2-3.4); LYMPH% 19.2 % (20.5-51.1); MANUAL DIFF NEEDED? YES; MCH 27.4 PG (27-31); MCHC 32.4 g/dL (33-37); MCV 84.4 FL (81-99); MONO# 1.07 X1000 (0.11-0.59); MONO% 23.1 % (1.7-9.3); MPV 10.6 FL (7.4-10.4); NEUT% 55.1 % (42.2-75.2); PLT 67 X1000 (130-400); RBC 2.63 XMIL (4.2-5.4)
[2016-06-07 06:55] LABS: AGAP 12; BUN 4 mg/dL (8-22); CALCIUM 8.2 mg/dL (8.8-10.2); CHLORIDE 100 mmol/L (98-107); COSMO 273; MAGNESIUM 1.9 mg/dL (1.5-2.7); SODIUM 138 mmol/L (136-145); TCO2 26 mmol/L (25-35)
[2016-06-07 07:03] LABS: BANDS 3 % (0-1); LYMPHS 25 % (21-51); MONO 12 % (1-9); NRBC 2 % (0-0)
[2016-06-07] MEDS ORDERED: TYLENOL PO ONE (10:07)
[2016-06-07] MEDS ORDERED: BENADRYL IV ONE (10:07)
[2016-06-07 10:31] LABS: IRON SATURATION 29 %; TIBC 177 ug/dL; TOTAL IRON 51 ug/dL (49-151); UNBOUND IRON 126 ug/dL (112-346)
[2016-06-07 11:20] LABS: FERRITIN 1533 ng/mL (13-150)
[2016-06-07] MEDS: DILAUDID IV PRN ×2 (11:52→22:00)
--- NOTE | 2016-06-07 13:28 | CONSULTATION ---
DATE OF CONSULTATION: 06/07/2016 HISTORY: Ms. Gloria Kelly is a 65-year-old white female, patient of Dr. Paez, who has lung cancer and is undergoing chemo/radiation. She has developed increasing dysphagia and odynophagia. She is not eating well and was hospitalized on 05/31/2016 because of her decreased appetite. She has also been experiencing some diarrhea. PAST MEDICAL HISTORY: Small-cell lung cancer, diabetes, hypertension, COPD, recently discharged with a diagnosis of respiratory failure, pneumonia, and sepsis. History of ischemic colitis, history of GERD, history of nicotine dependence, degenerative disk disease on chronic narcotic therapy. SURGICAL HISTORY: Lung surgery in 1970, tubal ligation, hysterectomy, cholecystectomy, bladder sling, neck surgery, rotator cuff surgery. SOCIAL HISTORY: She has a history of smoking. She denies alcohol or drug use. She is . FAMILY HISTORY: Noncontributory. ALLERGIES: Penicillin. Hydrocodone. MEDICATIONS: She is on multiple inhalers, Neurontin, Prinivil, Glucophage, OxyContin, Phenergan, VESIcare and others. REVIEW OF SYSTEMS: A 14-point review of systems was performed and, except for weight loss and recent problems swallowing, was essentially negative. PHYSICAL EXAMINATION: General: Ms. Kelly appears to be chronically ill. She has no hair because of her treatment. She has no jaundice. No oral lesions. She appears to be weak. She has no cervical lymphadenopathy. Heart: Regular rate. Lungs: She had no work of breathing. She had some crackles on inspiration bilaterally. Abdomen: Soft. She has some trocar sites which are well healed but, otherwise, has no evidence of hernia or previous abdominal surgery. No costovertebral tenderness. Rectal and vaginal: Exams were not performed. EXTREMITIES: She does have palpable femoral pulses. She has mild peripheral edema. Neurologic: She has no focal deficits. She has a low platelet count and also she has significant anemia. She has undergone EGD and an attempt at PEG placement per Dr. Samaniego, our mechanical inspector. Those studies suggested a small hiatal hernia. IMPRESSION: Treatment for small-cell lung cancer with chemo/radiation and now she is having problems swallowing and becoming malnourished. PLAN: We are asked to surgically place a gastrostomy tube. I have asked Dr. Santana Cifuentes to reassess possible PEG placement. If that is not safe to proceed with, we will do an open gastrostomy tube.
[2016-06-07] MEDS ORDERED: KEFZOL 1 GM/D5W 50 ML ONE (14:14)
--- NOTE | 2016-06-07 14:53 | OPERATIVE NOTE ---
PROCEDURE DATE: 06/07/2016 PREOPERATIVE DIAGNOSES: 1. Dysphagia. 2. Metastatic lung cancer. 3. Protein malnutrition. POSTOPERATIVE DIAGNOSES: 1. Dysphagia. 2. Metastatic lung cancer. 3. Protein malnutrition. PROCEDURES PERFORMED: Esophagogastroduodenoscopy with percutaneous endoscopic gastrostomy tube placement, secured to the skin at 3 cm. SURGEON: Rupert Cifuentes MD COMMISSIONER OF OFFICIALS: Megan Gonzalez MD ANESTHESIA: General endotracheal. INTRAOPERATIVE FINDINGS: Very friable mucosa which corresponds with her known thrombocytopenia. We were able to confirm safe placement 2 fingerbreadths below the costal margin and 2 fingerbreadths lateral to the xiphoid with digital palpation and transillumination. DESCRIPTION OF PROCEDURE: After informed consent was obtained, the patient was brought to the operative theater, placed on the operating table, and placed in the supine position. General endotracheal anesthesia was then performed without complication. A formal time-out was then performed, confirming patient, date, and procedure. All were in agreement. At that time, attention was given to the abdomen. She did not have a distended abdomen and we elected to do PEG placement or attempt it. We placed an EGD scope into her oropharynx, down the esophagus, and into the stomach. After the time-out, we insufflated the stomach fully. At that point, we were able to confirm transillumination and digital palpation at an appropriate site 2 fingerbreadths from the xiphoid and 2 fingerbreadths below the subcostal region. This area was then prepped and draped in a sterile fashion. At this time, Dr. Gonzalez did the transabdominal aspect. I completed the EGD. There were no other masses noted. We were able to make a small stab incision after infiltrating a local anesthetic. At the point of digital palpation and transillumination, we saw a needle pass into the stomach by the EGD scope. We passed a snare and we were able to grasp it and bring it out through the mouth. We then connected the PEG tube and pulled it back through the abdomen. We secured it in place to the skin in the standard fashion, 3 cm. We confirmed that it was in god position and freely mobile. We placed a sterile dressing. The patient tolerated the procedure well and was transferred to the recovery room in stable condition.
--- NOTE | 2016-06-07 14:53 | PROGRESS NOTE ---
DATE: 06/07/2016 SUBJECTIVE: Ms Kelly had a pretty good night. A little bit sleepy this morning. Much more comfortable. The plan is to do a surgical gastrostomy tube today I think this afternoon. OBJECTIVE: Vital signs: Temperature 98.1 degrees, pulse 80, respirations 17, blood pressure 103/60. HEENT: Pupils are equal, round. Lungs: Are clear in all lung mendez. Cardiovascular: Regular rhythm and rate without murmur or S3. Abdomen: Soft. Skin: Is warm and dry. DATA: White blood cell count 4640, hematocrit 22, platelet count 67,000, this is from yesterday. Sodium 138, potassium 4.0, chloride 100, bicarb 26, BUN 4, creatinine 0.5. Liver functions unremarkable. B12 was 1993. ASSESSMENT/PLAN: 1. Small cell lung cancer undergoing radiation therapy. 2. Radiation esophagitis and not able to swallow, severe dysphagia and odynophagia. Still requires a percutaneous endoscopic gastrostomy tube. Unable to place percutaneous endoscopic gastrostomy tube so surgical gastrostomy. 3. Protein calorie malnutrition. 4. Pain from esophagus. Continue present regimen. Will check electrolytes again in the morning, CBC . Hopefully we can get her out first of the week Friday or Friday and will need to make sure this gastrostomy tube cures and is able to tolerate feeding.
[2016-06-07] MEDS ORDERED: DIPRIVAN 1% ONE (15:13)
[2016-06-07] MEDS ORDERED: EXTENSION SET 32 IN 4522 ONE (15:19)
[2016-06-07] MEDS ORDERED: LR 1,000 ML ONE (15:19)
[2016-06-07] MEDS ORDERED: XYLOCAINE-MPF 2% ONE (15:19)
[2016-06-07] MEDS ORDERED: ANESTHESIA PB SET 88 IN 5742 ONE (15:19)
[2016-06-07] MEDS ORDERED: QUELICIN (DOSE) ONE (15:19)
[2016-06-07] MEDS ORDERED: MAGNESIUM SULFATE IV SCH ×7 (16:00)
[2016-06-07] MEDS ORDERED: [UNRECOGNIZED DRUG - OTHER] IV SCH ×7 (16:00)
[2016-06-07] MEDS ORDERED: SODIUM PHOSPHATE IV SCH ×7 (16:00)
[2016-06-07] MEDS ORDERED: TPN ELECTROLYTES IV SCH ×7 (16:00)
[2016-06-07] MEDS: LIPOSYN 20% 250 ML IV SCH (17:17)
[2016-06-07] MEDS: DULCOLAX PR SCH (21:05)
[2016-06-07] MEDS: ZOFRAN IV PRN (22:02)
[2016-06-08] MEDS: XANAX PO PRN ×2 (00:39→09:41)
[2016-06-08] MEDS: OXY IR PO PRN ×3 (00:39→23:27)
[2016-06-08] MEDS: G.I. COCKTAIL PO SCH ×5 (00:39→21:57)
[2016-06-08] MEDS: PROTONIX IV SCH ×2 (02:54→15:04)
[2016-06-08] MEDS: NEURONTIN PO SCH ×4 (02:54→21:56)
[2016-06-08] MEDS: SODIUM CHLORIDE 0.9% INJ SCH ×2 (02:54→15:04)
[2016-06-08] MEDS: DILAUDID IV PRN ×3 (02:54→21:55)
[2016-06-08] MEDS: CARAFATE LIQUID PO SCH ×4 (02:55→21:56)
[2016-06-08] MEDS: OXYCONTIN PO SCH ×3 (02:56→17:54)
[2016-06-08] MEDS: MYCOSTATIN SUSP PO SCH ×4 (03:11→21:56)
[2016-06-08 06:32] LABS: MAGNESIUM 1.8 mg/dL (1.5-2.7)
[2016-06-08 06:39] LABS: AGAP 10; ALBUMIN 3.1 g/dL (3.5-5.0); ALKALINE PHOSPHATASE 88 U/L (32-104); BUN 7 mg/dL (8-22); CALCIUM 7.8 mg/dL (8.8-10.2); CHLORIDE 101 mmol/L (98-107); COSMO 273; GOT 12 U/L (10-30); GPT 10 U/L (10-36); POTASSIUM 3.9 mmol/L (3.5-5.1); SODIUM 137 mmol/L (136-145); TCO2 26 mmol/L (25-35); TOTAL BILIRUBIN 0.18 mg/dL (0.20-1.00); TOTAL PROTEIN 5.3 g/dL (6.3-8.3)
[2016-06-08] MEDS: NS 1,000 ML IV SCH ×2 (06:46→10:48)
[2016-06-08 06:51] LABS: BASO% 0.3 % (0.0-0.8); EOS# 0.01 X1000 (0.0-0.7); EOS% 0.3 % (0.0-10.0); HEMATOCRIT 30.9 % (37.0-47.0); HEMOGLOBIN 10.4 g/dL (12.0-16.0); IMM GRAN# 0.14 X1000 (0.0-0.04); IMM GRAN% 3.8 % (0.0-0.5); LYMPH# 0.87 X1000 (1.2-3.4); LYMPH% 23.5 % (20.5-51.1); MANUAL DIFF NEEDED? YES; MCH 27.7 PG (27-31); MCHC 33.7 g/dL (33-37); MCV 82.2 FL (81-99); MONO# 0.92 X1000 (0.11-0.59); MONO% 24.9 % (1.7-9.3); MPV 9.9 FL (7.4-10.4); NEUT% 47.2 % (42.2-75.2); RBC 3.76 XMIL (4.2-5.4)
[2016-06-08 07:04] LABS: LYMPHS 22 % (21-51); MONO 20 % (1-9); NRBC 1 % (0-0)
[2016-06-08 07:06] LABS: PLT 129 X1000 (130-400)
--- NOTE | 2016-06-08 11:32 | PROGRESS NOTE ---
DATE: 06/08/2016 SUBJECTIVE: Ms. Kelly is now postoperative day 1 from placement of a PEG tube per Dr. Rupert Cifuentes. She is awake, cooperative. She has no significant abdominal pain, just some soreness around the tube. We have not used the tube. It is clamped at this time. She is still getting peripheral nutrition. She has problems swallowing because of pain secondary to her treatment for lung cancer. PLAN: We will transition from TPN to gastrostomy tube feeding. We will not use the tube today, but we could start Friday or Friday. This should not hold up her discharge. She has [facility] already at home and gastrostomy tube feeding at home needs to be arranged prior to her discharge.
--- NOTE | 2016-06-08 12:01 | PROGRESS NOTE ---
DATE: 06/07/2016 SUBJECTIVE: The patient is feeling fine, is n.p.o. Is still not able to swallow much, but she is getting possibly open gastrostomy or other attempt for PEG. OBJECTIVE: Vital signs: Stable. Heart and lungs: Normal. HEENT: Conjunctival pallor present. Neck: Supple, trachea midline. Abdomen: Mildly obese, no organomegaly, no ascites, bowel sounds present, normal. Extremities: Unremarkable. LABORATORY DATA: No change. IMPRESSION: 1. Dysphagia. 2. Metastatic lung cancer. 3. Protein calorie malnutrition. PLAN: Try to have another attempt at PEG with a plan for doing open gastrostomy. Dr. Gonzalez and Dr. Cifuentes are going to do that today. Will follow her after that.
--- NOTE | 2016-06-08 12:45 | PROGRESS NOTE ---
DATE: 06/08/2016 SUBJECTIVE: She feels better. She slept pretty good last night. Had her gastrostomy tube placed surgically. She says the pain control is better. OBJECTIVE: Vital Signs: On exam, temperature 98.6 degrees, pulse 78, respirations 18, blood pressure 181/94. HEENT: Pupils are equal, round. Lungs: Clear in all lung mendez. Cardiovascular exam: Regular rhythm and rate without murmurs or S3. Abdomen: Soft. Skin: Warm and dry. : Good urine output. LAB: White count 3700, hematocrit 30, platelet count 129,000. Sodium 137, potassium 3.9, chloride 101, bicarbonate 26, BUN 7, creatinine 0.5, albumin 3.1, globulin 2.2, B 12 was 1992. ASSESSMENT/PLAN: 1. Small cell lung cancer undergoing radiation therapy for radiation esophagitis. 2. Radiation esophagitis. Chronic pain, odynophagia, severe dysphagia. Surgical gastrostomy tube placed. 3. Protein calorie malnutrition. Continue present regimen. They did put her on a fentanyl patch in addition to her oxycodone ER 30 mg q.a.m. She is getting normal saline at 75 mL an hour. She is getting Carafate 1 g q. 6 hours.
[2016-06-08] MEDS: DULCOLAX PR SCH (21:56)
[2016-06-09] MEDS: NEURONTIN PO SCH ×4 (02:00→21:13)
[2016-06-09] MEDS: CARAFATE LIQUID PO SCH ×4 (02:48→21:14)
[2016-06-09] MEDS: OXYCONTIN PO SCH ×3 (02:48→17:16)
[2016-06-09] MEDS: SODIUM CHLORIDE 0.9% INJ SCH (02:48)
[2016-06-09] MEDS: PROTONIX IV SCH ×2 (02:48→15:44)
[2016-06-09] MEDS: G.I. COCKTAIL PO SCH ×4 (03:56→21:15)
[2016-06-09] MEDS: MYCOSTATIN SUSP PO SCH ×4 (03:56→21:31)
[2016-06-09] MEDS: DILAUDID IV PRN ×4 (05:48→21:27)
[2016-06-09 06:23] LABS: EOS# 0.01 X1000 (0.0-0.7); EOS% 0.2 % (0.0-10.0); HEMATOCRIT 32.5 % (37.0-47.0); HEMOGLOBIN 11.1 g/dL (12.0-16.0); IMM GRAN# 0.08 X1000 (0.0-0.04); IMM GRAN% 1.8 % (0.0-0.5); LYMPH% 18.4 % (20.5-51.1); MANUAL DIFF NEEDED? YES; MCH 28.1 PG (27-31); MCHC 34.2 g/dL (33-37); MCV 82.3 FL (81-99); MONO% 20.7 % (1.7-9.3); MPV 9.3 FL (7.4-10.4); NEUT% 58.9 % (42.2-75.2); PLT 159 X1000 (130-400); RBC 3.95 XMIL (4.2-5.4)
[2016-06-09 06:30] LABS: BANDS 2 % (0-1); LYMPHS 18 % (21-51); MONO 16 % (1-9)
[2016-06-09 06:36] LABS: MAGNESIUM 1.6 mg/dL (1.5-2.7)
[2016-06-09 06:50] LABS: AGAP 11; ALKALINE PHOSPHATASE 95 U/L (32-104); BUN 4 mg/dL (8-22); CHLORIDE 100 mmol/L (98-107); COSMO 270; GOT 12 U/L (10-30); GPT 9 U/L (10-36); POTASSIUM 3.5 mmol/L (3.5-5.1); SODIUM 137 mmol/L (136-145); TCO2 26 mmol/L (25-35); TOTAL BILIRUBIN 0.24 mg/dL (0.20-1.00); TOTAL PROTEIN 5.5 g/dL (6.3-8.3)
[2016-06-09] MEDS: XANAX PO PRN (10:19)
[2016-06-09] MEDS ORDERED: POTASSIUM PHOSPHATE 40 MEQ in NS 250 ML IV ONE (12:12)
[2016-06-09] MEDS: DURAGESIC 25 MICROGM/HR PATCH TD SCH (12:46)
[2016-06-09] MEDS: NS 1,000 ML IV SCH (12:50)
--- NOTE | 2016-06-09 14:13 | PROGRESS NOTE ---
DATE: 06/09/2016 Ms. Kelly's exit site from her PEG looks good. We can start using this PEG. I recommend bolus feedings. She will need at least 6 Boosts or Ensures a day to meet her caloric and protein needs. The family needs to be educated on how to use this PEG tube. They are already established with [facility]. In the meantime I will let her have a soft diet if she wants to eat anything by mouth.
--- NOTE | 2016-06-09 14:27 | PROGRESS NOTE ---
DATE: 06/09/2016 SUBJECTIVE: Ms Kelly is feeling better. A little less pain. Surgery says okay to use PEG tube. She has remained afebrile.Vital signs: Temperature 97.9 degrees, pulse 70, respirations 19, blood pressure 162/79. HEENT: Pupils are equal, round, reactive. Respiratory: Lungs are clear in all lung mendez. Cardiovascular: Regular rhythm and rate without murmur or S3. Abdomen: Soft. Skin: Is warm and dry. PEG site unremarkable. ASSESSMENT AND PLAN: 1. Small cell lung cancer undergoing radiation treatment. 2. Radiation esophagitis severe with odynophagia. Unable swallow. Percutaneous endoscopic gastrostomy tube placed. 3. Protein calorie malnutrition. Will see if we can start tube feeding. Note her lab looks good. Hematocrit 32. Electrolytes unremarkable except for phosphorus was a little low so will give some K-Phos today in IV.
[2016-06-09] MEDS: DULCOLAX PR SCH (21:14)
[2016-06-09] MEDS: BENADRYL IV PRN (21:26)
[2016-06-09] MEDS: OXY IR PO PRN (21:27)
[2016-06-10] MEDS: NS 1,000 ML IV SCH ×3 (01:23→15:50)
[2016-06-10] MEDS: OXYCONTIN PO SCH ×3 (01:52→19:37)
[2016-06-10] MEDS: NEURONTIN PO SCH ×4 (01:52→21:46)
[2016-06-10] MEDS: SODIUM CHLORIDE 0.9% INJ SCH ×2 (01:52→15:39)
[2016-06-10] MEDS: CARAFATE LIQUID PO SCH ×4 (01:52→21:46)
[2016-06-10] MEDS: PROTONIX IV SCH ×2 (01:52→15:39)
[2016-06-10] MEDS: MYCOSTATIN SUSP PO SCH ×4 (03:54→21:46)
[2016-06-10] MEDS: G.I. COCKTAIL PO SCH ×4 (03:55→21:47)
[2016-06-10] MEDS: DILAUDID IV PRN ×3 (06:22→13:52)
[2016-06-10 07:23] LABS: MAGNESIUM 1.7 mg/dL (1.5-2.7)
[2016-06-10 07:27] LABS: AGAP 11; ALKALINE PHOSPHATASE 88 U/L (32-104); BUN 4 mg/dL (8-22); CALCIUM 8.2 mg/dL (8.8-10.2); CHLORIDE 100 mmol/L (98-107); COSMO 271; GOT 11 U/L (10-30); GPT 7 U/L (10-36); POTASSIUM 3.8 mmol/L (3.5-5.1); SODIUM 137 mmol/L (136-145); TCO2 26 mmol/L (25-35); TOTAL BILIRUBIN 0.21 mg/dL (0.20-1.00); TOTAL PROTEIN 5.8 g/dL (6.3-8.3)
[2016-06-10] MEDS: OXY IR PO PRN ×2 (08:53→13:12)
[2016-06-10] MEDS: XANAX PO PRN ×2 (12:47→23:38)
[2016-06-10] MEDS ORDERED: DURAGESIC 50 MICROGM/HR PATCH TD SCH (13:15)
--- NOTE | 2016-06-10 14:53 | PROGRESS NOTE ---
DATE: 06/10/2016 SUBJECTIVE: Patient is resting in bed. She had a PEG tube placed by Dr. Cifuentes and Dr. Gonzalez on 06/07/2016, successfully. She is on tube feeds at 15 mL per hour. OBJECTIVE: Vital Signs: Temperature of 98.2 degrees, pulse rate of 74, respiratory rate of 19. Blood pressure of 134/80, saturating 94% on room air. General Appearance: Thinly built, lying in bed, in no acute distress. HEENT: Mild pallor. No icterus. Neck: Supple. Abdomen: PEG tube in place. Bowel sounds are present. No guarding. No rebound. Extremities: No cyanosis, clubbing, and edema. Neurologic: She is alert, awake, oriented x3. LAB: Sodium 137, potassium 3.8, chloride 100, bicarb 26, anion gap of 11, BUN of 4, creatinine of 0.5, glucose of 105, calcium is 8.2, phosphorus 2.6, magnesium 1.7, total bilirubin is 0.21, AST 11, ALT 7, alkaline phosphatase 88, total protein 5.8, albumin of 3. IMPRESSION/PLAN: 1. Since the patient has a percutaneous endoscopic gastrostomy tube placed successfully so we will discontinue the total parenteral nutrition and we will follow up the nutrition recommendations. The plan is to slowly go up on her tube feeds which is Jevity 1.5 at 15 mL per hour and increase it to the goal rate of 55 mL per hour and 30 mL water flushes every 6 hours. 2. We will continue on Magic Mouthwash, nystatin, Protonix, and Carafate for now. She can be discharged on those with 1 week supply. After that, she will only need Protonix once daily for 8-12 weeks. 3. She has chronic constipation. We will continue her on Dulcolax once daily and start her on MiraLAX once daily by mouth or per percutaneous endoscopic gastrostomy tube as tolerated. 4. The above plan was discussed with the patient and all her questions were answered.
[2016-06-10] MEDS ORDERED: POTASSIUM PHOSPHATE 40 MEQ in NS 250 ML IV ONE (15:54)
--- NOTE | 2016-06-10 17:49 | PROGRESS NOTE ---
DATE: 06/10/2016 SUBJECTIVE: She is still having trouble swallowing her tablets. Still a good deal of pain. She does swallow but needs to take some Magic mouthwash when she does not feel and still a good deal of pain in spite of OxyContin, oxycodone and fentanyl patch. PHYSICAL EXAMINATION: General: Sitting up in bed. Vital signs: Temperature 98.7 degrees, pulse 80, and respirations 16. Blood pressure 127/76. Pupils: Equal, round. Lungs: Clear in all lung mendez. Cardiovascular: Regular rate without murmur or S3. OUTPUT: The urine output was 2100 CC. LABORATORY DATA: Reviewed from the . Chemistries today sodium 137, potassium 3.8, chloride 100, bicarbonate 26, BUN 4, creatinine 0.5. Note that phosphorous is a little low. We will give her a little bit of K-Phos. ASSESSMENT AND PLAN: 1. Small cell cancer, undergoing radiation treatment. 2. Radiation esophagitis with severe odynophagia. Unable swallow, has a PEG tube placed by surgery and have started feeding. 3. Protein calorie malnutrition. We are going to supplement her with calcium phos and try change up her pain medicine to maybe liquid and increase the fentanyl patch. See if maybe we can think about getting her home. Continue fluids at normal saline 75 mL an hour.
[2016-06-10] MEDS: DULCOLAX PR SCH (21:46)
[2016-06-10] MEDS: ROXANOL CONC. LIQUID PO PRN (21:46)
[2016-06-11] MEDS: PROTONIX IV SCH ×2 (03:44→13:38)
[2016-06-11] MEDS: CARAFATE LIQUID PO SCH ×4 (03:44→22:16)
[2016-06-11] MEDS: NEURONTIN PO SCH ×4 (03:44→22:16)
[2016-06-11] MEDS: SODIUM CHLORIDE 0.9% INJ SCH ×2 (03:44→13:38)
[2016-06-11] MEDS: MYCOSTATIN SUSP PO SCH ×4 (03:45→22:16)
[2016-06-11] MEDS: ROXANOL CONC. LIQUID PO PRN ×4 (03:45→17:38)
[2016-06-11] MEDS: G.I. COCKTAIL PO SCH ×4 (05:04→22:17)
[2016-06-11] MEDS: XANAX PO PRN (10:47)
[2016-06-11 11:59] LABS: AGAP 10; BUN 6 mg/dL (8-22); CALCIUM 8.4 mg/dL (8.8-10.2); CHLORIDE 96 mmol/L (98-107); COSMO 267; MAGNESIUM 1.7 mg/dL (1.5-2.7); POTASSIUM 4.1 mmol/L (3.5-5.1); SODIUM 134 mmol/L (136-145); TCO2 28 mmol/L (25-35)
--- NOTE | 2016-06-11 12:49 | PROGRESS NOTE ---
DATE: 06/11/2016 SUBJECTIVE: Today Ms. Kelly refers to be doing a little better, but she feels very weak, slightly nauseated this morning. OBJECTIVE: Vital signs: Blood pressure is 143/86, pulse of 78, respirations 22 and temperature 97.8 degrees. General exam: Ms. Kelly is a 65-year-old female. She is in bed, no distress. HEENT: Mucosa is pink and moist. Anicteric. Acyanotic. Neck: Supple. Chest: Air entry is bilaterally reduced. No crepitations. No rhonchi. Cardiovascular: Regular rate and rhythm. Abdomen: Soft. Mildly tender around the PEG tube insertion zone. Extremities: No pedal edema. CLOTH BLEACHING RANGE TENDER: Patient is alert and oriented x4. There is no focal neurological deficit. LABORATORY DATA: Sodium is 134, potassium 4.1, chloride 96, bicarbonate is 28. ASSESSMENT: 1. 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 The patient is status post percutaneous endoscopic gastrostomy tube placement. Feeding was started today. We are going to observe her and see how she tolerates it and subsequently be able to discharge her hopefully, tomorrow. 2. Protein calorie malnutrition. Patient will get supplements. 3. History of small cell lung cancer. The patient gets radiation with Dr. Donaldson and also chemotherapy with Dr. Paez. 4. Chronic pain syndrome due to underlying lung cancer. Patient is currently on fentanyl patch and oral pain medications as well. GENERAL PLAN: The patient seems to be stable. The PEG tube got started using today. If she is able to tolerate without any complication, we might be able to discharge her home tomorrow.
[2016-06-11] MEDS: NS 1,000 ML IV SCH ×2 (17:43→17:44)
[2016-06-11 18:50] LABS: AGAP 8; BUN 7 mg/dL (8-22); CALCIUM 8.3 mg/dL (8.8-10.2); CHLORIDE 98 mmol/L (98-107); COSMO 269; GOT 8 U/L (10-30); MAGNESIUM 1.6 mg/dL (1.5-2.7); POTASSIUM 4.5 mmol/L (3.5-5.1); SODIUM 135 mmol/L (136-145); TCO2 29 mmol/L (25-35); TRIGLYCERIDES 91 mg/dL (35-135)
[2016-06-11 19:07] LABS: PREALBUMIN 7.6 mg/dL (20-40)
[2016-06-11 20:13] VITALS: BP 124/73
[2016-06-11] MEDS: DULCOLAX PR SCH (22:21)
[2016-06-12] MEDS: DILAUDID IV PRN ×2 (01:51→07:40)
[2016-06-12] MEDS: SODIUM CHLORIDE 0.9% INJ SCH (03:37)
[2016-06-12] MEDS: NEURONTIN PO SCH ×3 (03:37→15:17)
[2016-06-12] MEDS: PROTONIX IV SCH (03:39)
[2016-06-12] MEDS: ROXANOL CONC. LIQUID PO PRN ×4 (05:15→15:18)
[2016-06-12] MEDS: MYCOSTATIN SUSP PO SCH ×3 (05:15→15:23)
[2016-06-12] MEDS: G.I. COCKTAIL PO SCH ×3 (05:15→15:24)
[2016-06-12] MEDS: NS 1,000 ML IV SCH (06:53)
[2016-06-12 07:41] LABS: MANUAL DIFF NEEDED? NO
[2016-06-12 07:48] LABS: BASO% 0.2 % (0.0-0.8); EOS# 0.02 X1000 (0.0-0.7); EOS% 0.3 % (0.0-10.0); HEMATOCRIT 30.1 % (37.0-47.0); HEMOGLOBIN 9.7 g/dL (12.0-16.0); IMM GRAN# 0.03 X1000 (0.0-0.04); IMM GRAN% 0.5 % (0.0-0.5); LYMPH# 0.76 X1000 (1.2-3.4); LYMPH% 11.8 % (20.5-51.1); MCH 27.6 PG (27-31); MCHC 32.2 g/dL (33-37); MCV 85.8 FL (81-99); MONO# 1.23 X1000 (0.11-0.59); MONO% 19.1 % (1.7-9.3); MPV 9.1 FL (7.4-10.4); NEUT% 68.1 % (42.2-75.2); PLT 367 X1000 (130-400); RBC 3.51 XMIL (4.2-5.4)
[2016-06-12 08:18] LABS: AGAP 12; ALKALINE PHOSPHATASE 80 U/L (32-104); BUN 7 mg/dL (8-22); CALCIUM 8.3 mg/dL (8.8-10.2); CHLORIDE 97 mmol/L (98-107); COSMO 269; GOT 9 U/L (10-30); GPT 6 U/L (10-36); MAGNESIUM 1.6 mg/dL (1.5-2.7); POTASSIUM 4.2 mmol/L (3.5-5.1); SODIUM 135 mmol/L (136-145); TCO2 26 mmol/L (25-35); TOTAL BILIRUBIN 0.14 mg/dL (0.20-1.00); TOTAL PROTEIN 6.1 g/dL (6.3-8.3)
[2016-06-12] MEDS: XANAX PO PRN (09:18)
[2016-06-12] MEDS: CARAFATE LIQUID PO SCH ×3 (09:19→15:17)
--- NOTE | 2016-06-12 11:35 | PROGRESS NOTE ---
DATE: 06/12/2016 Today Ms. Kelly refers to be doing okay. She has been using her PEG tube feedings. Seems to be tolerating it very well. She continues to say she has severe odynophagia. OBJECTIVE: Vital signs: Blood pressure is 124/73, pulse of 83, respirations 20, temperature 98.8 degrees. General: Ms. Kelly is a 56-year-old, female. She is in bed, no distress. HEENT: Mucosa is pink and moist. Anicteric. Acyanotic. Neck: Supple. Chest: Clear. Cardiovascular: Regular rate and rhythm. Abdomen: Soft. There is a PEG tube in place. TIRE FABRIC INSPECTOR: Patient is alert and oriented x4. There is no focal neurological deficit. LABORATORY DATA: Reviewed. CBC is unremarkable. Chemistry reviewed. Sodium is 135, the rest is unremarkable. ASSESSMENT: 1. 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 Patient continues to have significant odynophagia. She is status post PEG tube placement. She is tolerating her feedings. We are going to discharge her on tube feedings as recommended by dietitian. 2. Protein calorie malnutrition. Patient is getting Jevity at 118 mL 5 times per day and the goal is to get 240 mL 5 times per day with appropriate flushes. 3. History of small cell lung cancer. Patient gets therapy with both Dr. Donaldson and Dr. Paez. 4. Chronic pain syndrome due to underlying lung cancer. PLAN: Patient is relatively stable. PEG tube is functional. She is going to be discharged on tube feedings as per dietitian order. I think patient will be needing this for a long period, at least 6 months because of the severe esophagitis that she has. She will follow up with Dr. Paez and Dr. Donaldson and also with Dr. Samaniego who initially did the EGD. We plan to discharge the patient home today once they have everything ready in terms of arrangement for the tube feedings.
--- NOTE | 2016-06-12 11:41 | PROGRESS NOTE ---
DATE: 06/11/2016 SUBJECTIVE: She is feeling better, although she is still weak. She had little nausea through the night, but no vomiting. OBJECTIVE: Vital Signs: Blood pressure 140/80, pulse 78, respirations 22, temp of 97.8 degrees. General: Awake and alert, in no acute distress. HEENT: No scleral icterus. No pallor. Neck: Supple. Trachea midline. Heart and Lungs: Normal. Abdomen: PEG tube area appears to be normal. No evidence of any infection. LABORATORY DATA: Within normal limits. IMPRESSION: 1. Dysphagia secondary to radiation esophagitis, status post percutaneous endoscopy gastrostomy. Feeding was started and patient is tolerating diet. 2. Protein calorie malnutrition. The patient is getting supplement. 3. History of small cell lung cancer status post radiation and chemotherapy. 4. Chronic pain syndrome. Continue palliative care. I think the nutritional status should improve as we advance tube feedings.
--- NOTE | 2016-06-12 12:08 | PROGRESS NOTE ---
DATE: 06/12/2016 SUBJECTIVE: I spoke with Dr. Paez, the heme-onc who follows her. He is okay for the patient to go home. He recommends to increase the fentanyl patch to 75 q. 72 hours and also the Roxanol 20 mg p.o. q. 2 hours p.r.n. if needed, and patient can follow up with him as early as Friday, which is tomorrow next. The patient also follows up with [facility], so she has been advised to follow up with them.
[2016-06-12] MEDS ORDERED: HEPARIN ONE (15:10)
[2016-06-12] MEDS ORDERED: SODIUM CHLORIDE 0.9% 10 ML ONE (15:10)
[2016-06-12] MEDS: DURAGESIC 25 MICROGM/HR PATCH TD SCH (15:17)
[2016-06-12] MEDS ORDERED: DURAGESIC 50 MICROGM/HR PATCH TD SCH (15:30)
--- NOTE | 2016-06-12 15:35 | PROGRESS NOTE ---
DATE: 06/12/2016 GASTROENTEROLOGY FOLLOWUP: SUBJECTIVE: Patient resting in bed. She is getting discharged today. She still continues complaining of dysphagia, odynophagia, and is unable to take any liquids by mouth. She has a PEG tube placed by surgical team and she is tolerating PEG tube feeds well. OBJECTIVE: Vitals: Temperature 98.8 degrees, pulse rate of 86, respiratory rate 20, blood pressure 124/73, saturating 97% on room air. General Appearance: Moderately nourished, lying in bed, in no acute distress. HEENT: Mild pallor. No icterus. Neck: Supple. Abdomen: PEG tube in place. Surgical dressing on top of the PEG tube. No rebound or guarding. Extremities: No cyanosis or clubbing. Neurologic: She is alert, awake, oriented. LAB: Hemoglobin and hematocrit is 9.7, 30.1, white count of 6.4, platelet count of 367,000. Sodium 139, potassium 4.2, chloride 97, bicarbonate 26, anion gap 12, BUN of 7, creatinine 0.4, glucose 120, calcium is 8.3, phosphorus 2.3, magnesium 1.6. Total bilirubin is 0.14. AST 9, ALT 6, total protein 6.1, albumin of 3. INR 1.07. IMPRESSION AND PLAN: 1. Chronic back pain. In that regard, she will continue on fentanyl patch every 72 hours and Roxanol 20 mg p.o. q.2 hours as needed. 2. Status post PEG tube placement. She will continue to follow the dietitian recommendations and start oral intake once her odynophagia and dysphagia improves. Continue to try oral intake. 3. Esophagitis, likely radiation esophagitis. She will continue on Carafate and proton pump inhibitors for now. 4. Constipation. We will keep her on bowel regimen. 5. Small cell lung cancer being monitored per Dr. Paez and Dr. Donaldson. [facility]
--- NOTE | 2016-06-12 16:29 | DISCHARGE SUMMARY ---
ADMISSION DATE: 05/31/2016 DISCHARGE DATE: 06/12/2016 CONSULTATIONS: 1. Shai Samaniego M.D., Gastroenterology. 2. Megan Gonzalez M.D., General Surgery. PERTINENT PROCEDURES: 1. Esophagogastroduodenoscopy with percutaneous endoscopic gastrostomy (PEG) tube placement secured to the skin at [address] Cifuentes. 2. Esophagogastroduodenoscopy with unsuccessful percutaneous endoscopic gastrostomy (PEG) tube placement performed by Dr. Samaniego. 3. Esophagogastroduodenoscopy performed by Dr. Samaniego on 06/03/2016. DISCHARGE DIAGNOSES: 1. 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 She is status post PEG tube placement. Tolerating her feedings. 2. Patient will be discharged home on tube feedings as recommended by dietitian. Will be followed by [facility] as well as home health. 3. Protein calorie malnutrition. Patient is getting Jevity 1.5 at 118 mL 5 times per day for a goal of 240 mL 5 times per day with appropriate flushes. 4. Small cell lung cancer history. Patient is to get therapy with Dr. Donaldson and Dr. Paez. They are continuing to follow. 5. Chronic pain syndrome due to underlying cancer. The patient will need to follow up with [facility]. HOSPITAL COURSE: Ms. Kelly is a 65-year-old female with a history of small cell lung cancer followed by Dr. Paez. Her radiation oncologist is Dr. Naida Donaldson. She also carries a history of diabetes mellitus, hypertension, COPD, and recently discharged from our service for hypoxic respiratory failure, pneumonia and sepsis. Since that time she continues to follow with Dr. Donaldson and Dr. Paez. Her last chemotherapy was a [id number] ago prior to her admission. Her last radiation was 3 days ago, on Friday, prior to her admission on 05/31/2016. The patient started having increasing esophageal pain, dysphagia, nausea and decreased appetite. Her throat pain increased to the point where she came to the ED for evaluation. She had laboratory data and diagnostics done and she was noted to be neutropenic with an ANC of 116, thrombocytopenia at 17 and only mildly anemic. Chemistries showed hyponatremia otherwise unremarkable. Chest x-ray did not show anything acute. Blood cultures were obtained. IV antibiotics were started given her count. The patient was admitted for further treatment and evaluation of her esophagitis and neutropenia. She was kept NPO with lidocaine mouthwash, IV fluids as well as pain management. Consultation with Dr. Paez. She was started with vancomycin and cefepime, and placed on neutropenic precautions. Her platelet count was monitored. There were no active signs of bleeding. Dr. Samaniego started Clinimix. Patient did undergo an EGD with Dr. Samaniego that did show esophagitis in the proximal mid esophagus control with mucosal edema ulceration with a biopsy, hiatal hernia, and mild gastritis. Suggested to continue the patient on aspiration precautions and to start the patient on TPN and consider PEG tube placement as well as continue her PPI Carafate, Magic Mouthwash, Nystatin as before. They were following her biopsy results. Dr. Samaniego did attempt another EGD with PEG tube placement, this was unsuccessful. Dr. Gonzalez was consulted. He along with Dr. Cifuentes did perform an EGD with PEG tube placement in the skin at 3 mL. Patient was initiated on PEG tube feedings. She has tolerated them well. Dr. Georges has spoken with Dr. Paez, her oncologist. He is okay with the patient to go home. He recommends increasing the fentanyl patch to 75 mcg q.72 hours and also Roxanol to 20 mg p.o. q.12 hours p.r.n. and patient can follow up with him as early as Friday. The patient should continue to follow with the [facility]. The patient will also be followed by [facility] for her home feedings. Again she is tolerating her feedings well. She is receiving Jevity at 118 mL 5 times per day. The goal is to get to 240, 5 times per day with appropriate flushes. The patient is stable. PEG tube is functional. It is felt that she is going to need this for a long period of time, for at least 6 months because of her severe esophagitis. Again she will continue to follow with Dr. Paez and Dr. Donaldson , and will also follow up with Dr. Samaniego. VITAL SIGNS AT TIME OF DISCHARGE: Temperature is 98.8 degrees, heart rate 86, respirations 20, blood pressure is 124/73, O2 is 97% on room air. DISCHARGE MEDICATIONS: 1. Atenolol 5 mg inhaled 4 times a day p.r.n. 2. OxyContin 10 mg p.o. q.6 hours p.r.n. 3. Vagifem 10 mcg vaginally as directed. 4. Flonase 1 spray nasally daily. 5. Neurontin 800 mg p.o. 4 times a day. 6. Glucophage 500 mg p.o. at bedtime. 7. OxyContin 30 mg p.o. t.i.d. 8. Prinivil 20 mg p.o. daily. 9. ProAir 2 puffs inhaled 4 times a day p.r.n. 10. Xanax 0.5 mg p.o. q.8 hours p.r.n. 11. Perforomist 1 vial inhaled b.i.d. p.r.n. 12. Nuvigil 250 mg p.o. daily. 13. Singulair 10 mg p.o. daily. 14. Movantik 25 mg p.o. daily. 15. Premarin 0.625 mg p.o. daily. 16. VESIcare 10 mg p.o. daily. 17. Strattera 80 mg p.o. b.i.d. 18. Phenergan 25 mg p.o. q.6 hours p.r.n. 19. Reglan 10 mg p.o. q.6 hours p.r.n. 20. Viibryd 40 mg p.o. daily. 21. Zofran 1-2 tabs p.o. q.6 hours p.r.n. 22. DuoNebs 3 mL inhaled q.4 hours p.r.n. 23. Colace 100 mg p.o. b.i.d. 24. Dulcolax suppository 10 mg per rectum daily. 25. Levemir 10 units subcutaneously daily. 26. MiraLAX 17 g p.o. b.i.d. 27. Prednisone 40 mg p.o. daily. I believe this is a taper. 28. Roxanol 20 mg p.o. q.4 hours p.r.n. 29. Carafate 1 g p.o. q.6 hours. 30. Fentanyl 15 mcg/hour patch 1 each TD q.72 hours. 31. Protonix 40 mg p.o. b.i.d. FOLLOWUP: 1. Patient is being discharged home with [facility] to continue with tube feedings. 2. She will need to continue to follow up with [facility] as well as Dr. Paez and Dr. Donaldson for her treatment for chemo and radiation. She can follow up with Dr. Paez as soon as this coming 06/14/2016. 3. Patient can follow up with her primary care physician in 7-10 days. 4. Patient can return to the emergency department for any worsening of symptoms. DISCHARGE TIME: Greater than 40 minutes. Dictated by MIKE Reece for Carlos Georges MD MTDD
[2016-06-12] MEDS ORDERED: PROTONIX PO SCH (21:00)
== END 2016-06-12 16:50 | disposition home health service (06) | DRG 392 ==
LOC: EDBD → ED 15:30 → 3N 15:31
PROVIDERS: ATTEND Internal Medicine
PROC: 3E0336Z Introduction of Nutritional Substance into Peripheral Vein, Percutaneous Approach (ICD-10-PCS; 2016-06-01)
PROC: 0DJ08ZZ Inspection of Upper Intestinal Tract, Via Natural or Artificial Opening Endoscopic (ICD-10-PCS; principal; 2016-06-03 08:45)
PROC: 3E0436Z Introduction of Nutritional Substance into Central Vein, Percutaneous Approach (ICD-10-PCS; 2016-06-06)
PROC: 0DB58ZX Excision of Esophagus, Via Natural or Artificial Opening Endoscopic, Diagnostic (ICD-10-PCS; 2016-06-06 10:00)
PROC: 0DH63UZ Insertion of Feeding Device into Stomach, Percutaneous Approach (ICD-10-PCS; 2016-06-07)
PROC: 30233N1 Transfusion of Nonautologous Red Blood Cells into Peripheral Vein, Percutaneous Approach (ICD-10-PCS; 2016-06-07)
DX: K21.0 Gastro-esophageal reflux disease with esophagitis (principal); D61.818 Other pancytopenia; R13.10 Dysphagia, unspecified; E46 Unspecified protein-calorie malnutrition; C34.90 Malignant neoplasm of unspecified part of unspecified bronchus or lung; E87.1 Hypo-osmolality and hyponatremia; E86.0 Dehydration; J44.9 Chronic obstructive pulmonary disease, unspecified; I10 Essential (primary) hypertension; E11.9 Type 2 diabetes mellitus without complications; K44.9 Diaphragmatic hernia without obstruction or gangrene; K29.70 Gastritis, unspecified, without bleeding; K59.09 Other constipation; G89.3 Neoplasm related pain (acute) (chronic); F17.210 Nicotine dependence, cigarettes, uncomplicated; Z79.899 Other long term (current) drug therapy; Z79.84 Long term (current) use of oral hypoglycemic drugs; Z79.52 Long term (current) use of systemic steroids; Z79.891 Long term (current) use of opiate analgesic; Z68.23 Body mass index [BMI] 23.0-23.9, adult; W90.2XXA Exposure to laser radiation, initial encounter
CPT/HCPCS: 36415; 71020; 80048; 80053; 81001; 82465; 82550; 82607; 82728; 83540; 83550; 83735; 84100; 84134; 84450; 84478; 84484; 85025; 85027; 85049; 85610; 85730; 86850; 86900; 86901; 86920; 87040; 87088; 88305; 88313; 93005; 96365; 96366; 96375; C9113; J0131; J0330; J0690; J0692; J1170; J1200; J1447; J2250; J2270; J2405; J3010; J3370; J3475; J7030; J7040; J7050; J7120; P9016; S0028; S0164

== ENCOUNTER 2016-06-23 21:49 | Inpatient (IN) ==
[2016-06-23 22:41] LABS: AGAP 12; ALBUMIN 3.5 g/dL (3.5-5.0); ALKALINE PHOSPHATASE 145 U/L (32-104); BASO% 0.2 % (0.0-0.8); BUN 12 mg/dL (8-22); CALCIUM 8.3 mg/dL (8.8-10.2); CHLORIDE 95 mmol/L (98-107); CK PROFILE 23 U/L (24-173); COSMO 265; EOS# 0.02 X1000 (0.0-0.7); EOS% 0.4 % (0.0-10.0); GOT 32 U/L (10-30); GPT 34 U/L (10-36); HEMATOCRIT 33.2 % (37.0-47.0); HEMOGLOBIN 10.9 g/dL (12.0-16.0); IMM GRAN# 0.02 X1000 (0.0-0.04); IMM GRAN% 0.4 % (0.0-0.5); LYMPH# 0.25 X1000 (1.2-3.4); MANUAL DIFF NEEDED? NO; MCH 27.9 PG (27-31); MCHC 32.8 g/dL (33-37); MCV 85.1 FL (81-99); MONO# 0.09 X1000 (0.11-0.59); MONO% 1.8 % (1.7-9.3); MPV 8.9 FL (7.4-10.4); NEUT% 92.2 % (42.2-75.2); PLT 323 X1000 (130-400); POTASSIUM 4.4 mmol/L (3.5-5.1); SODIUM 133 mmol/L (136-145); TCO2 26 mmol/L (25-35); TOTAL BILIRUBIN 0.28 mg/dL (0.20-1.00); TOTAL PROTEIN 7.2 g/dL (6.3-8.3)
[2016-06-23 22:52] LABS: INR 1.05; PROTIME 11.1 Seconds (9.2-11.7); PTT 31.7 Seconds (22.0-36.0)
--- NOTE | 2016-06-24 00:28 | PROVIDER DOCUMENTATION ---
HPI-Respiratory General - General Chief Complaint: Cough Stated Complaint: weakness Time Seen by Provider: 06/24/16 00:05 Source: patient, family Allergies/Adverse Reactions: Patient Allergies Allergy/AdvReac Type Severity Reaction Status Date / Time hydrocodone Allergy itch Verified 06/23/16 21:58 latex Allergy itch Verified 06/23/16 21:58 Penicillins Allergy not sure Verified 06/23/16 21:58 rabeprazole sodium * Allergy itch Verified 06/23/16 21:58 [From Aciphex] Home Medications: Home Medication List Medication Instructions Recorded Confirmed Last Taken Type Albuterol Sulfate [Ventolin] 5 mg IH 4XDAY PRN PRN 08/08/13 06/23/16 05/31/16 12 :00 History Estradiol [Vagifem] 10 mcg VG DIRECTED 08/08/13 06/23/16 04/17/16 06:00 History Fluticasone 50 Mcg Nasal [place] 1 spray KELSIE DAILY 08/08/13 06/23/16 05/31/16 08: 00 History [Flonase] Gabapentin [Neurontin] 800 mg PO 4XDAY 08/08/13 06/23/16 05/31/16 12:00 History LISINOpril [Prinivil] 20 mg PO DAILY 08/08/13 06/23/16 05/31/16 08:00 History Metformin [Glucophage] 500 mg PO HS 08/08/13 06/23/16 05/30/16 20:00 History Oxycodone E.r. [Oxycontin] 30 mg PO TID 08/08/13 06/23/16 04/17/16 06:30 History Oxycodone HCl [Oxycontin] 10 mg PO Q6H PRN PRN 08/08/13 06/23/16 05/31/16 12:00 History Ondansetron HCl [Zofran] 1 - 2 tab PO Q6H PRN PRN #15 tablet 10/05/13 06/23/16 04/20/16 21:00 Rx Albuterol Sulfate [Proair Hfa] 2 puff IH 4XDAY PRN 04/21/16 06/23/16 05/31/16 12 :00 History Alprazolam [Xanax] 0.5 mg PO Q8H PRN PRN 0106/23/16 05/31/16 12:00 History Armodafinil [Nuvigil] 250 mg PO QAM 04/21/16 06/23/16 05/31/16 08:00 History Atomoxetine [Strattera] 80 mg PO BID 04/21/16 06/23/16 05/31/16 08:00 History Estrogens, Conjugated [Premarin] 0.625 mg PO DAILY 04/21/16 06/23/16 05/31/16 08 :00 History Formoterol Fumarate [Perforomist] 1 vial INH BID PRN PRN 04/21/16 06/23/1605/31 08:00 History Montelukast Sodium [Singulair] 10 mg PO DAILY 04/21/16 06/23/16 05/31/16 08:00 History Naloxegol Oxalate [Movantik] 25 mg PO DAILY 04/21/16 06/23/16 05/31/16 08:00 History Solifenacin Succinate [Vesicare] 10 mg PO DAILY 04/21/16 06/23/16 05/31/16 08: 00 History Albuterol 2.5MG/Ipratrop 0.5MG 3 ml INH Q4H PRN PRN #5 neb 04/26/16 06/23/16 12:00 Rx [Duoneb (A & A)] Metoclopramide [Reglan] 10 mg PO Q6HR PRN 05/03/16 06/23/16 05/31/16 08:00 History Promethazine [Phenergan] 25 mg PO Q6H PRN PRN 05/03/16 06/23/16 Unknown History Vilazodone [Viibryd] 40 mg PO DAILY 05/03/16 06/23/16 05/31/16 08:00 History Bisacodyl [Dulcolax] 10 mg MA DAILY #0 supp 05/06/16 06/23/16 Unknown Rx Docusate Sodium [Colace] 100 mg PO BID #0 capsule 05/06/16 06/23/16 05/31/16 08: 00 Rx Insulin Detemir [Levemir] 10 unit SUBQ DAILY #300 insuln.pen 05/06/16 06/23/16 Unknown Rx Polyethylene Glycol 3350 [Miralax] 17 gm PO BID #0 powder, packet 05/06/1606/23 Unknown Rx Prednisone 40 mg PO DAILY #12 tablet 05/06/16 06/23/16 05/31/16 08:00 Rx Fentanyl 25 Microgm/Hr Patch 1 each TD Q72H #0 patch 06/12/16 06/23/16 Unknown Rx [Duragesic 25 Microgm/Hr Patch] Fentanyl 50 Microgm/Hr Patch 1 each TD Q72H #0 patch 06/12/16 06/23/16 Unknown Rx [Duragesic 50 Microgm/Hr Patch] Morphine Liquid [Roxanol Conc. 20 mg PO Q4H PRN PRN #1 oral.syrin 06/12/1606/23 Unknown Rx Liquid] Pantoprazole [Protonix] 40 mg PO BID #60 tablet 06/12/16 06/23/16 Unknown Rx Sucralfate [Carafate Liquid] 1 gm PO Q6H #1 udc 06/12/16 06/23/16 Unknown Rx - History of Present Illness-Resp Nature of Presenting Problem: Pt is a 66 yof who presents to ER via EMS with CC of a productive cough. Pt has hx of lung cancer and originally thought that her productive cough was part of chemotherapy, but reports that Dr. Paez told her to come to ER for possible pneumonia. Pt also complains of a F of 102 earlier today, and had a low-grade fever of 99 in triage. Pt also reports chest wall pain from excessive coughing. Severity in ED: reports: moderate Onset/Duration: reports: unsure Timing: reports: still present Cough Quality/Degree: reports: moderate, productive cough, sputum Episode Frequency: frequent episodes Associated Symptoms: reports: chest pain/soreness, cough, fever/chills, hurts to breathe, shortness of breath, short of breath. denies: flu-like symptoms, headache, heart racing, hyperventilating, lightheadedness, muscle/bodyaches, nasal congestion, nasal drainage, sinus pain, sore throat, sweaty, wheezing Similar Symptoms Previously?: Yes (hx lung cancer) Recently seen or treated by another doctor?: Yes Review of Systems - Adult - REVIEW OF SYSTEMS - ADULT Constitutional: reports: fever. denies: chills, fatique, night sweats, weight gain, weight loss Eyes: reports: no symptoms reported Ears, Nose, Mouth & Throat: reports: no symptoms reported Cardiovascular: reports: chest pain (chest wall pain, secondary to coughing). denies: edema, heart murmur, irregular heart rate, orthopnea, palpitations, poor circulation, PND, syncope Respiratory: reports: chronic cough, cough, dyspnea on exertion, excessive sputum production, shortness of breath. denies: hemoptysis, pleurisy, wheezing Gastrointestinal: reports: no symptoms reported Genitourinary: reports: no symptoms reported Musculoskeletal: reports: muscle aches. denies: bone pain, back pain, frequent leg cramps, joint pain, joint swelling, muscle weakness, neck pain Integumentary: reports: no symptoms reported Neurological: reports: no symptoms reported Psychiatric: reports: no symptoms reported Endocrine: reports: no symptoms reported Hematologic/Lymphatic: reports: no symptoms reported Allergic/Immunologic: reports: no symptoms reported All Other Systems: Reviewed and Negative Past History - Adult - PAST MEDICAL HISTORY-ADULT Review of Records: reports: Nursing Assessment Review, Medications Reviewed Cardiovascular: reports: HTN, hyperlipidemia Respiratory: reports: COPD, other (right lung ca) Endocrine/Immune: reports: Diabetes - PRIOR SURGERIES/PROCEDURES Surgical/Procedure History: reports: cholecystectomy, hysterectomy, orthopedic ( extremity) - IMMUNIZATION STATUS Childhood Immunizations: See Nurse Assessment Flu Vaccine: See Nurse Assessment Physical Exam-General - PHYSICAL EXAM-ADULT Initial Vital Signs Reviewed: Yes - CONSTITUTIONAL General Appearance: appears well, alert, mild distress, thin, lethargic, other ( chronic ill-appearance). negative: no apparent distress, moderate distress, severe distress, cachetic, obese, anxious, slow to respond, obtunded, combative - NECK Neck: non-tender, full range of motion, supple. negative: C-spine tenderness, limited range of motion - RESPIRATORY Respiratory: chest non-tender, lungs clear, normal breath sounds. negative: respiratory distress, decreased breath sounds, accessory muscle use, wheezing - CARDIOVASCULAR Cardiovascular: normal peripheral pulses, regular rate, rhythm. negative: bradycardia, tachycardia, irregularly irregular - CHEST (BREASTS) Chest/Breast: no masses/lumps, tenderness. negative: no tenderness - GASTROINTESTINAL (ABDOMEN) Abdominal Exam: normal bowel sounds, non tender, soft, no organomegaly, no pulsatile mass - NEUROLOGIC Neurologic: grossly normal, no motor/sensory deficits. negative: facial droop, focal weakness, motor weakness, sensory deficit - PSYCHIATRIC Psych/Mental Status: normal mood/affect, normal thought content, normal thought process, oriented x 3 Progress - PLAN OF CARE/RESULTS Progress/Plan/Lab Results: Vital Signs - 24 hr 06/23/16 21:49 Temperature 99.1 F Pulse Rate 114 H Respiratory 16 Rate Blood Pressure 107/68 O2 Sat by Pulse 95 Oximetry Orders Category Date Time Status CHEST-2 VIEWS [RAD] Stat Exams 06/23/16 22:10 Taken BLOOD CULTURE [BLDCUL] Stat Lab 06/24/16 00:23 Ordered CBC WITH ELECTRONIC DIFF [HEME] Stat Lab 06/23/16 22:05 Completed CK PROFILE [SP CHEM] Stat Lab 06/23/16 22:05 Completed COMPREHENSIVE METABOLIC PANEL [CHEM] Stat Lab 06/23/16 22:05 Completed DIRECT STREP Stat Lab 06/24/16 00:23 Ordered INFLUENZA SCREEN A/B Stat Lab 06/24/16 00:23 Uncollected LACTATE, PLASMA [CHEM] Stat Lab 06/23/16 22:05 Completed PRO B-NATRIURETIC PEPTIDE Stat Lab 06/23/16 22:05 Completed PROTIME WITH INR [COAG] Stat Lab 06/23/16 22:05 Completed PTT [COAG] Stat Lab 06/23/16 22:05 Completed TROPONIN T Stat Lab 06/23/16 22:05 Completed Levofloxacin 500 mg/D5w [Levaquin 500 mg/D5w] 100 ml Med 06/24/16 00:30 Ordered IV Q24H Laboratory Tests 06/23/16 06/23/16 06/23/16 22:05 22:05 22:05 WBC 5.04 RBC 3.90 L Hgb 10.9 L Hct 33.2 L MCV 85.1 MCH 27.9 MCHC 32.8 L RDW Std Deviation 17.2 H Plt Count 323 MPV 8.9 Immature Gran % (Auto) 0.4 Neut % (Auto) 92.2 H Lymph % (Auto) 5.0 L [place] % (Auto) 1.8 Eos % (Auto) 0.4 Baso % (Auto) 0.2 Immature Gran # (Auto) 0.02 Neut # (Auto) 4.65 Lymph # (Auto) 0.25 L [place] # (Auto) 0.09 L Eos # (Auto) 0.02 Baso # (Auto) 0.01 PT INR PTT (Actin FS) Sodium 133 L Potassium 4.4 Chloride 95 L Carbon Dioxide 26 Anion Gap 12 BUN 12 Creatinine 0.8 Estimated GFR/1.73 m2 > 60 BUN/Creatinine Ratio 15 Glucose 87 Calculated Osmolality 265 Calcium 8.3 L Total Bilirubin 0.28 AST 32 H ALT 34 Alkaline Phosphatase 145 H Creatine Kinase 23 L Troponin T [id number] Pept Total Protein 7.2 Albumin 3.5 Globulin 3.7 Albumin/Globulin Ratio 0.9 Plasma Lactate 1.0 06/23/16 06/23/16 06/23/16 22:05 22:05 22:05 WBC RBC Hgb Hct MCV MCH MCHC RDW Std Deviation Plt Count MPV Immature Gran % (Auto) Neut % (Auto) Lymph % (Auto) [place] % (Auto) Eos % (Auto) Baso % (Auto) Immature Gran # (Auto) Neut # (Auto) Lymph # (Auto) [place] # (Auto) Eos # (Auto) Baso # (Auto) PT 11.1 INR 1.05 PTT (Actin FS) 31.7 Sodium Potassium Chloride Carbon Dioxide Anion Gap BUN Creatinine Estimated GFR/1.73 m2 BUN/Creatinine Ratio Glucose Calculated Osmolality Calcium Total Bilirubin AST ALT Alkaline Phosphatase Creatine Kinase Troponin T < 0.010 [id number] Pept 101 Total Protein Albumin Globulin Albumin/Globulin Ratio Plasma Lactate - CONSULTS/PCP/HOSPITALIST Notification #1 *Consult/PCP/Hospitalist*: Dr. Ruiz (Hospitalist) Time Discussed: 00:28 Consult Disposition: Admit Departure - Departure Time of Disposition Order: 00:27 DIAGNOSIS: Dyspnea Qualifiers: Dyspnea type: unspecified Qualified Code(s): R06.00 - Dyspnea, unspecified Fever Qualifiers: Fever type: unspecified Qualified Code(s): R50.9 - Fever, unspecified Disposition: ADMITTED INPATIENT 09 Certified Medical Emergency: Emergent Condition: Stable Attestation - Scribe Verification/Attestation Scribe:: Yuriy George Acting as Scribe for:: Pieter Munguia Scribe documention review:: This chart was documented by a scribe and accurately reflects the service the provider performed and the decisions made by the provider.
[2016-06-24] MEDS ORDERED: LEVAQUIN 500 MG/D5W 100 ML IV SCH (00:30)
[2016-06-24] MEDS ORDERED: DURAGESIC 25 MICROGM/HR PATCH TD SCH (02:54)
[2016-06-24] MEDS: NS 1,000 ML IV SCH ×2 (04:40→18:15)
--- NOTE | 2016-06-24 05:29 | HISTORY AND PHYSICAL ---
CHIEF COMPLAINT: Cough and running fevers x3 days. HISTORY OF PRESENTING ILLNESS: A 66-year-old female with a history of lung cancer, diabetes mellitus type 2, and chronic low back pain who had presented to the emergency department with a 3 day history of having cough that was productive of yellowish material and having a temperature. She had called her oncologist who had told her to go the ER for possible evaluation of pneumonia. She was seen in the ER. She continued to have cough symptoms and was somewhat short of breath. Due to her presenting symptoms, it was thought that she would need hospitalization for further management. At the time of my examination, she had denied any headache, nausea, vomiting, diarrhea, chest pain, or hemoptysis but complained of cough and some shortness of breath. PAST MEDICAL HISTORY: Includes lung cancer, diabetes mellitus type 2, chronic back pain. PAST SURGICAL HISTORY: Back surgeries, neck surgery, left shoulder surgery. ALLERGIES: To penicillin, latex, AcipHex, and hydrocodone. CURRENT MEDICATIONS: As listed in the MAR. SOCIAL HISTORY: She is a former smoker. She denies any history of alcohol or illicit drug use. FAMILY HISTORY: Positive for coronary artery disease in her mother. REVIEW OF SYSTEMS: Twelve point review of systems listed as in the HPI. Other systems negative. PHYSICAL EXAMINATION: GENERAL: Cooperative, friendly female. She is resting more comfortably now. VITAL SIGNS: Temperature 102.8 degrees, pulse 114, respirations 16, blood pressure 107/68. HEENT: Atraumatic, normocephalic. Extraocular movements intact. PERRLA. NECK: No masses. CHEST: Rhonchi. CARDIOVASCULAR: Regular rate and rhythm. ABDOMEN: Soft. Positive bowel sounds. EXTREMITIES: No edema. NEUROLOGIC: She is awake, alert, oriented x3. : No bladder distention. SKIN: Warm. LABORATORIES AND STUDIES: Sodium 133, potassium 4.4, chloride 95, CO2 is 26, BUN is 12, creatinine is 0.8, glucose is 87. WBCs 5.04, hemoglobin 10.9, hematocrit 33.2, platelets 323,000. ASSESSMENT: A 66-year-old female with a history of lung cancer and diabetes mellitus type 2 who had presented to the emergency department with a 3 day history of a productive cough. It was suspected that she had pneumonia and she will need hospitalization for further management. 1. Suspected pneumonia. 2. Immunocompromised state due to patient receiving chemotherapy. 3. Lung cancer. 4. Diabetes mellitus type 2. PLAN: 1. We will admit patient to the medical floor. 2. We will check blood cultures and start patient on IV antibiotics. 3. Give patient cough suppressant. 4. We will consult her oncologist. 5. We will monitor blood glucose and continue patient on a sliding scale insulin regimen. 6. We will put patient on DVT prophylaxis with SCDs. 7. We will continue to follow and reassess.
--- NOTE | 2016-06-24 07:36 | Diag Imaging Result Document ---
PROCEDURE NAME: CHEST-2 VIEWS - 06/23/2016 FRONTAL AND LATERAL CHEST, TWO VIEWS: COMPARISON: Compared to 05/31/2016. FINDINGS: No change in the right-sided [id number]-[id number]. No pneumothorax. There is apical pleural thickening. The heart is not enlarged. The vessels are not distended. No pleural effusions. No consolidation. IMPRESSION: Stable chest.
[2016-06-24] MEDS: PATIENT'S OWN MED PO SCH ×2 (09:05→20:13)
[2016-06-24] MEDS: MOVANTIK PO SCH (09:06)
[2016-06-24] MEDS: PRINIVIL PO SCH (09:06)
[2016-06-24] MEDS: NEURONTIN PO SCH ×4 (09:06→20:12)
[2016-06-24] MEDS: VESICARE PO SCH (09:07)
[2016-06-24] MEDS: OXYCONTIN PO PRN ×3 (09:18→20:12)
[2016-06-24] MEDS: ZOFRAN PO PRN (10:32)
--- NOTE | 2016-06-24 17:55 | CONSULTATION ---
DATE OF CONSULTATION: 06/24/2016 REASON FOR CONSULT: This patient is known to us. She has limited stage small-cell lung cancer, on carboplatin and etoposide. Last chemotherapy was on June 21. HISTORY OF PRESENT ILLNESS: This 65-year-old female, history of limited stage small cell lung cancer. She is on carboplatin, etoposide, last chemo on June 21. She had been on radiation, but that has been discontinued due to some severe odynophagia. She was recently discharged from the hospital. With that, received a PEG tube which she has been receiving tube feeds for. She has had several days of fever up to 102 with the highest, along with a productive cough with yellow sputum. She came into the emergency room for further evaluation. Had a chest x-ray performed. Chest x-ray on 06/23 showed atypical pleural thickening, no pleural effusion. No consolidation. WBC on the was 5.04. Blood cultures have been ordered and are currently pending. She has also been started on Levaquin as well. The patient does have a port. She has been attempting to eat some p.o. food foods by mouth, but she has otherwise been receiving PEG tube feeds. Denies new lumps, bumps, bone pain, worsening dyspnea or chest pain. REVIEW OF SYSTEMS: Negative unless indicated in the HPI. ALLERGIES: Penicillin, latex, hydrocodone, AcipHex. PAST MEDICAL HISTORY: Lung cancer, as above. Diabetes mellitus type 2. Chronic pain. Patient is seen by a pain specialist. CURRENT MEDICATIONS: ProAir, Ventolin, Xanax, Strattera, Duragesic, Percocet, VESIcare, Dulcolax, MiraLAX, Levemir, Flonase, Glucophage, Reglan. SOCIAL HISTORY: The patient apparently stopped smoking cigarettes last week. She denies alcohol or illicit drug use. PHYSICAL EXAMINATION: Vital Signs: Stable. Constitutional: This is a female, who appears frail, chronically ill. HEENT: Head is normocephalic, atraumatic. Mucous membranes are dry. Cardiovascular: S1, S2 audible to auscultation with no heaves, lifts, thrills, or murmurs. Pulmonary: Breath sounds are diminished bilaterally with an expiratory wheeze. Normal respiratory effort. GI: Abdomen is soft, nondistended. Positive bowel sounds in all 4 quadrants. Musculoskeletal: Moves all extremities. No bony abnormality. Extremities: There is no edema noted. Skin: There is no petechiae and no rash. No ecchymosis. Neurologic: Alert and oriented x3. Psychiatric: Appropriate to the situation. ASSESSMENT AND PLAN: 1. Limited stage small-cell lung cancer status post I believe cycle 3 carboplatin and ACCOUNTS PAYABLE OR RECEIVABLE CLERK-16, last on 06/07/2016. Patient did not received any Neulasta after that chemotherapy. She tolerated it well. 2. Febrile illness with cough. The patient is on Levaquin. Chest x-ray was benign. Continue supportive care. Blood cultures are pending. The patient is afebrile at this time per primary team. 3. Odynophagia, secondary to radiation. Her radiation has been discontinued. She has a percutaneous endoscopic gastrostomy tube in place with tube feeds. Would continue that management. 4. Deep vein thrombosis prophylaxis per [employer]. Dictated by MIKE Sánchez for Dell Paez MD
[2016-06-24] MEDS: SINGULAIR PO SCH (20:11)
[2016-06-24] MEDS: VIIBRYD PO SCH (20:12)
--- NOTE | 2016-06-24 21:27 | PROGRESS NOTE ---
DATE: 06/24/2016 SUBJECTIVE: I saw Ms. Kelly in the ER. She referred to be doing fine. she is not coughing up much. According to Ms. Kelly she was doing a lot of high temperatures at home. Since she is here in the hospital she only had a T-max of 102.8 degrees. Early this morning at about 01:18. OBJECTIVE: General: Ms. Kelly is a 66-year-old, female. She looks slightly more undernourished. BMI is 21.6. HEENT: Mucosa is pink and moist. Anicteric and acyanotic. Neck: Neck is supple. Chest: Air entry is bilaterally reduced with diffuse bilateral coarse crackling. Cardiovascular: Regular rate and rhythm. Extremities: No pedal edema. Central Nervous System: Patient is alert and oriented. LABORATORY DATA: CBCs reviewed. Hemoglobin is 10.9, platelet count is normal and WBC is normal. Chemistry has also been reviewed. Sodium is 133. The rest of chemistry is unremarkable. A chest x-ray was done on presentation which showed some apical pleural thickening. Heart is not enlarged. ASSESSMENT: 1. Upper respiratory tract infection. 2. Fever at home likely secondary to #1. 3. History of limited small cell lung cancer. Patient is currently receiving chemotherapy, last one was June [address] Paez. 4. Diabetes mellitus. 5. 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 Patient has a PEG tube where she normally has feeding as well as medications. 6. For now we will continue with the current antibiotics which include levofloxacin. We will also continue patient on home medications and gentle hydration. Hopefully we might be able to discharge the patient home pretty soon. [facility]
[2016-06-24] MEDS: DURAGESIC 75 MICROGM/HR PATCH TD SCH (23:48)
[2016-06-25] MEDS: OXYCONTIN PO PRN ×4 (02:38→21:00)
[2016-06-25] MEDS: LEVAQUIN 500 MG/D5W 100 ML IV SCH (02:38)
[2016-06-25] MEDS: ZOFRAN PO PRN ×2 (04:47→11:15)
[2016-06-25 06:53] LABS: EOS# 0.02 X1000 (0.0-0.7); EOS% 0.4 % (0.0-10.0); HEMATOCRIT 28.7 % (37.0-47.0); HEMOGLOBIN 9.4 g/dL (12.0-16.0); IMM GRAN# 0.03 X1000 (0.0-0.04); IMM GRAN% 0.7 % (0.0-0.5); LYMPH% 4.4 % (20.5-51.1); MANUAL DIFF NEEDED? YES; MCH 27.7 PG (27-31); MCHC 32.8 g/dL (33-37); MCV 84.7 FL (81-99); MONO# 0.07 X1000 (0.11-0.59); MONO% 1.5 % (1.7-9.3); MPV 9.2 FL (7.4-10.4); PLT 194 X1000 (130-400); RBC 3.39 XMIL (4.2-5.4)
[2016-06-25 06:55] LABS: AGAP 11; BUN 10 mg/dL (8-22); CALCIUM 8.2 mg/dL (8.8-10.2); CHLORIDE 97 mmol/L (98-107); COSMO 263; SODIUM 132 mmol/L (136-145); TCO2 24 mmol/L (25-35)
[2016-06-25 07:51] LABS: BANDS 10 % (0-1); EOS 2 % (1-10); LYMPHS 6 % (21-51)
[2016-06-25] MEDS: PRINIVIL PO SCH (08:27)
[2016-06-25] MEDS: VESICARE PO SCH (08:27)
[2016-06-25] MEDS: NEURONTIN PO SCH ×4 (08:28→21:01)
[2016-06-25] MEDS: MOVANTIK PO SCH (08:28)
[2016-06-25] MEDS: PATIENT'S OWN MED PO SCH ×2 (08:29→21:12)
[2016-06-25] MEDS: XANAX PO PRN ×2 (11:15→21:01)
--- NOTE | 2016-06-25 14:08 | PROGRESS NOTE ---
DATE: 06/25/2016 SUBJECTIVE: Today Ms. Kelly refers to be generally weak. She said she did have some loose bowels but she was not able to define if she was having diarrhea or not. OBJECTIVE: Vital signs: Blood pressure is 117/67, pulse of 85, respirations 18 , temperature is 98.8 degrees. General: Ms. Kelly is a 66-year-old female. She is in bed. She looks slightly undernourished. HEENT: Mucosa is pink and moist. Anicteric. Acyanotic. Neck: Supple. Chest: Good air entry bilaterally. There are a few end-expiratory crackles bilaterally to the posterior lung mendez. Cardiovascular: Regular rate and rhythm. There were no murmurs, no rubs, no gallops. Chest Wall: There is a port on the right anterior chest wall. It is covered but there are no erythematous changes over the port site. ELECTRON BEAM WELDER: The patient is alert and oriented. Abdomen: Soft, nontender. Extremities: No pedal edema. LABORATORY DATA: WBC is 4.57, hemoglobin is 9.4, platelet count is 194,000. If there are 10% bands on the peripheral smear. Sodium is 132, potassium is 4.0, chloride 97, bicarb is 24. Blood cultures so far have been no growth. The strep throat is also negative. A chest x-ray which was done on presentation showed no consolidation. CURRENT MEDICATIONS: 1. P.r.n. alprazolam. 2. Fentanyl 75 mcg q.24. 3. Gabapentin 800 p.o. 4 times per day. 4. Levofloxacin 500 q.24. 5. Lisinopril 20 mg daily. 6. Strattera 80 mg 1 b.i.d. 7. VESIcare 10 mg daily. 8. Vilazodone 40 mg daily. ASSESSMENT AND PLAN: 1. Upper respiratory tract infection. 2. Fever, likely secondary to upper respiratory tract infection. 3. History of limited small cell lung cancer. Patient is being seen by Dr. Paez. 4. Diabetes mellitus, stable. 5. 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 Patient has a PEG tube and has been using that. 6. Diarrhea. Not sure if this is the source of the WBC with 10% bands and also the fever. We will order stool studies and also do C. difficile to make sure that we are not dealing with any enteropathogen that needs to be taken care. 7. We are also pending the blood cultures. I reviewed the patient's port site. I do not think it is infected and I do not see any other source of the fever. So, we will order a urinalysis with reflex culture and await blood cultures as well. MTDD
[2016-06-25] MEDS ORDERED: DURAGESIC 75 MICROGM/HR PATCH TD SCH (15:00)
[2016-06-25 15:30] LABS: URINE CULTURE NEEDED? NO; URINE MICRO REVIEW NEEDED? NO; URINE SOURCE CLEAN CATCH
[2016-06-25 15:38] LABS: BILIRUBIN URINE NEGATIVE (NEGATIVE); BLOOD URINE NEGATIVE (NEGATIVE); COLOR YELLOW; GLUCOSE URINE NEGATIVE (NEGATIVE); LEUKOCYTES URINE NEGATIVE (NEGATIVE); NITRITE URINE NEGATIVE (NEGATIVE); PH URINE 7.5; PROTEIN URINE TRACE mg/dL (NEGATIVE); TURBIDITY URINE CLEAR (CLEAR); UROBILINOGEN URINE NORMAL (NORMAL)
[2016-06-25 15:40] LABS: UR EPITHELIAL CELLS <10 /HPF (<10); URINE BACTERIA 1+ /HPF; URINE RBC <10 /HPF (<10); URINE WBC <10 /HPF (<10)
[2016-06-25] MEDS: NS 1,000 ML IV SCH ×2 (16:14→21:11)
[2016-06-25] MEDS: VANCOCIN PO SCH (21:03)
[2016-06-25] MEDS: TYLENOL PO PRN (21:11)
[2016-06-25] MEDS: SINGULAIR PO SCH (21:12)
[2016-06-25] MEDS: VIIBRYD PO SCH (21:12)
[2016-06-26] MEDS: OXYCONTIN PO PRN ×2 (01:15→21:12)
[2016-06-26] MEDS: LEVAQUIN 500 MG/D5W 100 ML IV SCH (03:46)
[2016-06-26] MEDS: XANAX PO PRN ×2 (03:46→21:12)
[2016-06-26] MEDS: VANCOCIN PO SCH ×4 (03:47→21:13)
[2016-06-26] MEDS: NS 1,000 ML IV SCH ×3 (03:50→18:15)
[2016-06-26 07:11] LABS: BASO% 0.6 % (0.0-0.8); HEMATOCRIT 25.1 % (37.0-47.0); HEMOGLOBIN 8.1 g/dL (12.0-16.0); LYMPH# 0.23 X1000 (1.2-3.4); LYMPH% 12.7 % (20.5-51.1); MCH 27.5 PG (27-31); MCHC 32.3 g/dL (33-37); MCV 85.1 FL (81-99); MONO# 0.06 X1000 (0.11-0.59); MONO% 3.3 % (1.7-9.3); MPV 9.6 FL (7.4-10.4); NEUT% 83.4 % (42.2-75.2); PLT 116 X1000 (130-400); RBC 2.95 XMIL (4.2-5.4)
[2016-06-26 07:19] LABS: AGAP 12; BUN 10 mg/dL (8-22); CALCIUM 7.6 mg/dL (8.8-10.2); CHLORIDE 94 mmol/L (98-107); COSMO 255; POTASSIUM 3.9 mmol/L (3.5-5.1); SODIUM 128 mmol/L (136-145); TCO2 22 mmol/L (25-35)
[2016-06-26 08:01] LABS: MANUAL DIFF NEEDED? YES
[2016-06-26 08:05] LABS: LYMPHS 8 % (21-51)
[2016-06-26] MEDS: ZOFRAN PO PRN ×2 (08:45→10:45)
[2016-06-26] MEDS: NEURONTIN PO SCH ×4 (09:08→21:12)
[2016-06-26] MEDS: VESICARE PO SCH (09:08)
[2016-06-26] MEDS: MOVANTIK PO SCH (09:09)
[2016-06-26] MEDS: PATIENT'S OWN MED PO SCH ×2 (09:10→21:13)
[2016-06-26] MEDS: MERREM 500 MG in NS 50 ML IV SCH ×2 (09:15→18:10)
--- NOTE | 2016-06-26 11:22 | PROGRESS NOTE ---
DATE: 06/26/2016 SUBJECTIVE: This morning Ms. Kelly refers to be doing relatively fine. She also has a dry cough. Diarrhea according to the patient has improved. OBJECTIVE: Vital signs: Blood pressure is 79/44, pulse 87, respirations 16, temperature is 100 (this was taken at about 5:08 a.m.). Of note, the patient did have a temperature of 104 yesterday at about 2035. General: Ms. Kelly is a 66-year-old female. She looks slightly undernourished. HEENT: Mucosa is pink and moist. Anicteric. Acyanotic. Neck : Supple. Chest: Air entry bilaterally. There are a few bibasilar crepitations in the posterior lung mendez. Cardiovascular: Regular rate and rhythm. No murmurs. No rubs. No gallops. Abdomen: Soft. There is a PEG tube in place. Bowel sounds are present. Extremities: No pedal edema. Central Nervous System: Patient is alert and oriented x 4. There is no focal neurological deficit. LABORATORY DATA: WBC is 1.81, hemoglobin 8.1, and platelet count 116. Sodium is 128, potassium 3.9, chloride 94, bicarb 22. Culture: So far clostridium toxin is positive. ASSESSMENT: 1. Sepsis of unsure origin. I think it could potentially be an upper respiratory tract infection versus clostridium difficile. 2. Upper respiratory tract infection. 3. Pancytopenia, likely secondary to chemotherapy side effects versus the sepsis. 4. Diabetes mellitus. 5. 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 The patient has a PEG tube in place. 6. Clostridium difficile diarrhea. The patient is currently on p.o. vancomycin. PLAN: The patient clinically looks stable. I am just concerned that she has been having a persistent fever. I have changed her antibiotics to meropenem for a broader coverage and we will continue with the p.o. vancomycin for the clostridium difficile. I will consult Infectious Disease on this patient just because she continues to be febrile and we know she has issues with immune compromise. Most times we would probably have to start an antifungal as early as possible but I will consult Infectious Disease for them to evaluate the patient and give us some recommendations. The patient is also being followed by Hematology Oncology. [facility]
[2016-06-26] MEDS: SINGULAIR PO SCH (21:12)
[2016-06-26] MEDS: VIIBRYD PO SCH (21:13)
[2016-06-27] MEDS: TYLENOL PO PRN (00:01)
[2016-06-27] MEDS: MERREM 500 MG in NS 50 ML IV SCH ×3 (00:30→17:14)
[2016-06-27] MEDS: LEVAQUIN 500 MG/D5W 100 ML IV SCH (01:15)
[2016-06-27] MEDS: VANCOCIN PO SCH ×4 (03:17→21:17)
[2016-06-27] MEDS: OXYCONTIN PO PRN ×3 (03:21→21:18)
[2016-06-27] MEDS: NS 1,000 ML IV SCH ×2 (06:05→21:17)
[2016-06-27 07:37] LABS: AGAP 12; ALBUMIN 3.1 g/dL (3.5-5.0); ALKALINE PHOSPHATASE 93 U/L (32-104); BUN 9 mg/dL (8-22); CALCIUM 8.5 mg/dL (8.8-10.2); CHLORIDE 99 mmol/L (98-107); COSMO 271; GOT 26 U/L (10-30); GPT 16 U/L (10-36); POTASSIUM 3.9 mmol/L (3.5-5.1); SODIUM 137 mmol/L (136-145); TCO2 26 mmol/L (25-35); TOTAL BILIRUBIN 0.25 mg/dL (0.20-1.00); TOTAL PROTEIN 6.2 g/dL (6.3-8.3)
[2016-06-27 09:14] LABS: EOS# 0.01 X1000 (0.0-0.7); EOS% 0.8 % (0.0-10.0); HEMATOCRIT 27.6 % (37.0-47.0); HEMOGLOBIN 9.2 g/dL (12.0-16.0); LYMPH# 0.27 X1000 (1.2-3.4); LYMPH% 22.5 % (20.5-51.1); MCH 27.7 PG (27-31); MCHC 33.3 g/dL (33-37); MCV 83.1 FL (81-99); MONO# 0.05 X1000 (0.11-0.59); MONO% 4.2 % (1.7-9.3); MPV 10.1 FL (7.4-10.4); NEUT% 72.5 % (42.2-75.2); RBC 3.32 XMIL (4.2-5.4)
[2016-06-27 09:15] LABS: PLT 117 X1000 (130-400)
[2016-06-27] MEDS: MOVANTIK PO SCH ×2 (09:15→09:17)
[2016-06-27] MEDS: VESICARE PO SCH ×2 (09:15→09:18)
[2016-06-27] MEDS: NEURONTIN PO SCH ×4 (09:15→21:18)
[2016-06-27 09:16] LABS: MANUAL DIFF NEEDED? NO
[2016-06-27] MEDS: PATIENT'S OWN MED PO SCH ×2 (09:16→21:26)
--- NOTE | 2016-06-27 10:59 | PROGRESS NOTE ---
DATE: 06/27/2016 SUBJECTIVE: Today, Ms. Kelly refers to be doing relatively fine. However, she said she feels generally low because she did not sleep well last night. She did say, however, that her diarrhea is getting better and her cough is also doing better. OBJECTIVE: Vital Signs: Blood pressure is 149/83, pulse of 67, respirations are 14, temperature is 97.7 degrees. General Examination: Ms. Klely is a 66-year-old, female. She was in bed. She did not seem to be in any remarkable distress. HEENT: Mucosa is pink and moist. Anicteric and acyanotic. Neck: Supple. Chest: Good air entry bilateral. There are a few bibasilar crepitations. There is a right-sided port in place and it looks clean. Cardiovascular: Regular rate and rhythm. No murmurs, no rubs. Abdomen: Soft, nontender. There is a PEG tube in place. Bowel sounds are present. Extremities: No pedal edema. FRONT END SPECIALIST: Patient is alert and oriented x4. Laboratory Data: WBC is 1.2, hemoglobin is 9.2, platelet count of 117,000. Chemistry is reviewed and completely normal. ASSESSMENT: 1. Sepsis secondary to lower respiratory tract infection and Clostridium difficile colitis. 2. Clostridium difficile diarrhea. Patient is currently on oral vancomycin. 3. Pancytopenia, likely due to chemotherapy side effects. 4. Diabetes mellitus, controlled. 5. 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 Patient is status post percutaneous endoscopic gastrostomy tube placement. PLAN: In general, clinically, Ms. Kelly seems to be doing a whole lot better. We are going to continue with the gentle hydration. We will continue with the current antibiotic coverage and ask PT to work with her. Hopefully, we will plan to discharge her within 24-48 hours.
[2016-06-27] MEDS ORDERED: GRANIX SUBQ SCH (12:15)
--- NOTE | 2016-06-27 12:29 | PROGRESS NOTE ---
DATE: 06/26/2016 CHIEF COMPLAINT/HISTORY OF PRESENT ILLNESS: The patient reports that she is not feeling any better than yesterday. She has not had any fevers over the last 24 hours. She complains of tiredness and fatigue. Odynophagia has improved and so she is eating better. She is not using as many tube feeds. She also reports that her diarrhea is down to 1 per day. Normally she has 1 bowel movement every 3 days. PHYSICAL EXAMINATION: Vital signs: Afebrile, temperature 97.7 degrees, pulse 67, blood pressure 149/83. HEENT: Eyes: EOMI. PERRLA. Anicteric. Mucous membranes appear moist. Neck: Supple. Cardiac: Regular rate and rhythm. Normal S1, S2. Chest: Clear to auscultation. Abdomen: Soft, nontender, without hepatosplenomegaly. LABORATORY DATA: White count 1.2, hemoglobin 9.2, hematocrit 27, platelets 117,000, ANC 0.87. B12 663. Folate 22. ASSESSMENT AND PLAN: 1. Small-cell lung cancer: She is status post chemotherapy a week ago. 2. Neutropenia: Will give her Neupogen today. Continue Neupogen until ANC is greater than 1.5. 3. Fever: This may be related to C. difficile colitis or to upper respiratory infection. Fever is down over the last 24 hours. Continue antibiotics. 4. Clostridium difficile colitis. She is receiving oral vancomycin. Continue per PMD. 5. Severe odynophagia status post percutaneous endoscopic gastrostomy tube placement: This is improving and she is tolerating orals better. Continue tube feeds as needed. 6. Thrombocytopenia: Due to chemotherapy. Continue to monitor for now.
[2016-06-27] MEDS: XANAX PO PRN (17:18)
[2016-06-27] MEDS: SINGULAIR PO SCH (21:17)
[2016-06-27] MEDS: DURAGESIC 75 MICROGM/HR PATCH TD SCH (21:17)
[2016-06-27] MEDS: VIIBRYD PO SCH (21:18)
[2016-06-28] MEDS: MERREM 500 MG in NS 50 ML IV SCH ×4 (00:30→23:03)
[2016-06-28] MEDS: LEVAQUIN 500 MG/D5W 100 ML IV SCH (01:00)
[2016-06-28] MEDS: XANAX PO PRN ×3 (01:00→20:34)
[2016-06-28] MEDS: VANCOCIN PO SCH ×4 (02:05→20:34)
[2016-06-28] MEDS: OXYCONTIN PO PRN ×3 (02:05→20:33)
[2016-06-28] MEDS: DURAGESIC 75 MICROGM/HR PATCH TD SCH (02:09)
[2016-06-28] MEDS: NS 1,000 ML IV SCH ×4 (02:10→20:33)
[2016-06-28 07:16] LABS: BASO% 0.3 % (0.0-0.8); EOS# 0.01 X1000 (0.0-0.7); EOS% 0.3 % (0.0-10.0); HEMATOCRIT 25.4 % (37.0-47.0); HEMOGLOBIN 8.6 g/dL (12.0-16.0); IMM GRAN# 0.03 X1000 (0.0-0.04); IMM GRAN% 0.9 % (0.0-0.5); LYMPH# 0.41 X1000 (1.2-3.4); LYMPH% 11.7 % (20.5-51.1); MANUAL DIFF NEEDED? YES; MCHC 33.9 g/dL (33-37); MCV 82.7 FL (81-99); MONO# 0.09 X1000 (0.11-0.59); MONO% 2.6 % (1.7-9.3); MPV 9.6 FL (7.4-10.4); NEUT% 84.2 % (42.2-75.2); RBC 3.07 XMIL (4.2-5.4)
[2016-06-28 07:51] LABS: BANDS 14 % (0-1); LYMPHS 12 % (21-51)
[2016-06-28 08:52] LABS: PLT 66 X1000 (130-400)
--- NOTE | 2016-06-28 09:07 | Diag Imaging Result Document ---
PROCEDURE NAME: CHEST-PORTABLE - 06/28/2016 SINGLE FRONTAL RADIOGRAPH OF THE CHEST: COMPARISON: 06/23/2016. FINDINGS: Right chest port is in stable position. There is stable apical pleural thickening. There is stable mild right basilar atelectasis and/or infiltrate and, perhaps, a component of fibrosis. No new consolidations are identified. Cardiac silhouette is stable. IMPRESSION: Stable chest.
[2016-06-28] MEDS: NEURONTIN PO SCH ×4 (09:29→20:34)
[2016-06-28] MEDS: VESICARE PO SCH (09:29)
[2016-06-28] MEDS: MOVANTIK PO SCH ×2 (09:29→09:33)
[2016-06-28] MEDS: PATIENT'S OWN MED PO SCH ×2 (09:30→20:35)
--- NOTE | 2016-06-28 11:37 | PROGRESS NOTE ---
DATE: 06/28/2016 SUBJECTIVE: Today Ms. Kelly referred to be doing fine; she was actually sitting up in the chair watching television. According to her, her breathing has improved. She still has some residual cough with some greenish expectoration. Her diarrhea has also significantly improved. She states she only had 1 yesterday. OBJECTIVE: Vital signs: Blood pressure is 135/65, pulse of 59, respirations 18 , temperature 98.0 degrees. Patient is saturating 96% on room air. General exam: Ms. Kelly is a 66-year-old female. She was sitting up in the chair. She did not seem to be in any distress. HEENT: Mucosa is pink and moist. Anicteric. Acyanotic. Neck: Supple. Chest : Good air entry bilateral. A few bibasilar dry crackles. There is a port on the right anterior chest wall. Cardiovascular: Regular rate and rhythm. There is no murmurs, no rubs, no gallops. Abdomen: Soft, nontender. Extremities: No pedal edema. CIVIL DRAFTER: Patient is alert and oriented. LABORATORY DATA: WBC is up to 3.50, hemoglobin is 8.6 and platelet count of 66. There is about 14% bands on the peripheral smear. No chemistry for this morning. MICROBIOLOGY: So far, blood cultures have been negative. RADIOLOGY DATA: Review of the chest x-ray yesterday shows stable right basilar atelectasis and/or infiltrates. There is some stable apical pleural thickening. ASSESSMENT: 1. Sepsis on presentation secondary to lower respiratory tract infection. 2. Clostridium difficile diarrhea. The patient is currently on oral vancomycin and seems to be doing okay. 3. Pancytopenia due to chemotherapy side effects. 4. Diabetes mellitus, controlled. 5. Odynophagia, secondary to radiation esophagitis. The patient is status post percutaneous gastrostomy tube feedings and medications are all done through the percutaneous endoscopic gastrostomy tube. 6. H/o Small Cell Lung cancer under therapy with Dr. Paez PLAN: So, in general Ms. Kelly looks and seems to be doing a whole lot better. Diarrhea has improved and her respiratory symptoms have also improved. She is still on IV levofloxacin, meropenem and p.o. vancomycin. We are going to discontinue Levaquin and continue with the others. I am hoping to switch to complete 14 days of p.o. vancomycin from tomorrow. I think she is going to get another dose of Neupogen today, and see what her numbers look like tomorrow. If her numbers are doing fine and she is participating with PT adequately, we should be able to discharge her home tomorrow to follow up with her heme-onc and PCP. Of note, patient also has been afebrile for the past 24 hours. MTDD
[2016-06-28 13:36] LABS: AGAP 13; BUN 6 mg/dL (8-22); CALCIUM 7.9 mg/dL (8.8-10.2); CHLORIDE 100 mmol/L (98-107); COSMO 270; MAGNESIUM 1.4 mg/dL (1.5-2.7); POTASSIUM 3.6 mmol/L (3.5-5.1); SODIUM 137 mmol/L (136-145); TCO2 24 mmol/L (25-35)
[2016-06-28] MEDS: SINGULAIR PO SCH (20:34)
[2016-06-28] MEDS: VIIBRYD PO SCH (20:35)
[2016-06-28] MEDS: ZOFRAN PO PRN (23:02)
[2016-06-29] MEDS: LEVAQUIN 500 MG/D5W 100 ML IV SCH (01:00)
[2016-06-29] MEDS: MERREM 500 MG in NS 50 ML IV SCH ×4 (02:30→22:32)
[2016-06-29] MEDS: VANCOCIN PO SCH ×4 (02:33→19:22)
[2016-06-29] MEDS: OXYCONTIN PO PRN ×4 (02:34→22:32)
[2016-06-29] MEDS: XANAX PO PRN ×3 (02:35→19:20)
[2016-06-29 06:48] LABS: AGAP 7; BUN 7 mg/dL (8-22); CALCIUM 8.3 mg/dL (8.8-10.2); CHLORIDE 104 mmol/L (98-107); COSMO 271; POTASSIUM 3.8 mmol/L (3.5-5.1); SODIUM 137 mmol/L (136-145); TCO2 26 mmol/L (25-35)
[2016-06-29 06:50] LABS: BASO% 0.3 % (0.0-0.8); EOS# 0.02 X1000 (0.0-0.7); EOS% 0.6 % (0.0-10.0); HEMATOCRIT 24.9 % (37.0-47.0); HEMOGLOBIN 8.2 g/dL (12.0-16.0); IMM GRAN# 0.02 X1000 (0.0-0.04); IMM GRAN% 0.6 % (0.0-0.5); LYMPH# 0.55 X1000 (1.2-3.4); MANUAL DIFF NEEDED? YES; MCH 27.8 PG (27-31); MCHC 32.9 g/dL (33-37); MCV 84.4 FL (81-99); MONO# 0.18 X1000 (0.11-0.59); MONO% 5.6 % (1.7-9.3); MPV 10.1 FL (7.4-10.4); NEUT% 75.9 % (42.2-75.2); RBC 2.95 XMIL (4.2-5.4)
[2016-06-29 07:03] LABS: PLT 32 X1000 (130-400)
[2016-06-29 07:23] LABS: BANDS 12 % (0-1); EOS 2 % (1-10); LYMPHS 10 % (21-51); MONO 6 % (1-9)
[2016-06-29] MEDS: MOVANTIK PO SCH (08:19)
[2016-06-29] MEDS: VESICARE PO SCH (08:19)
[2016-06-29] MEDS: NEURONTIN PO SCH ×4 (08:19→19:23)
[2016-06-29] MEDS: NS 1,000 ML IV SCH ×2 (08:20→22:32)
--- NOTE | 2016-06-29 09:40 | Diag Imaging Result Document ---
PROCEDURE NAME: CHEST-PORTABLE - 06/29/2016 PORTABLE CHEST X-RAY: COMPARISON: 06/28/2016. FINDINGS: Stable right chest port. Stable significant biapical pleural thickening compatible with scarring. No new or focal infiltrates. Heart size is top normal. Stable patchy atelectasis or scarring at the lateral right lung base. IMPRESSION: No change from prior.
[2016-06-29] MEDS: CITRACAL + D PO SCH (12:08)
[2016-06-29] MEDS: PATIENT'S OWN MED PO SCH (12:08)
--- NOTE | 2016-06-29 13:32 | PROGRESS NOTE ---
DATE: 06/29/2016 SUBJECTIVE: Today, Ms. Kelly refers to be doing a little better. Did not have any major complaints. According to her, coughing has improved and no shortness of breath. However, she did refer that her stools are getting a little dark. OBJECTIVE: Vital signs: Blood pressure is 93/55, pulse of 95, respiration is 18, temperature is 97.6. General: Ms. Kelly is a 66-year-old female. She was sitting up in the chair, did not seem to be in any distress. HEENT: Mucosa is pink and moist, anicteric and acyanotic. Neck: Supple. Chest: Good air entry bilaterally. There are a few posterior coarse crepitations. Cardiovascular: Regular rate and rhythm, no murmurs, no rubs, no gallops. Abdomen: Soft, nontender. There is no hepatosplenomegaly. Extremities: No pedal edema. HAIRSPRING SETTER: The patient is alert and oriented x4. No focal neurological deficit. LABORATORY DATA: WBC is 3.23, hemoglobin is 8.2, platelet count of 32--that has remarkably reduced. The patient has 12% of bands on the peripheral smear. Chemistries reviewed, completely unremarkable. Vitamin D is 21.8, which is insufficient. IMAGING: A chest x-ray done this morning shows stable significant biapical pleural thickening compatible with scarring. No new or focal infiltrates. ASSESSMENT: 1. Sepsis on presentation secondary to lower respiratory tract infection. 2. Clostridium difficile diarrhea. The patient is currently on vancomycin oral. Today is day 5 on vancomycin. Diarrhea has significantly improved. 3. Pancytopenia secondary to chemotherapy side effects. The patient has not had any blood transfusion. She got a dose of Neupogen. Platelet count, however, continues to drop, today is 32. I would prefer to see the trend for tomorrow before we discharge so it does not put her at any risk of bleed. Will be waiting on Hematology/Oncology to make a decision if there will be a need to transfuse her any platelets. 4. 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 The patient has a PEG tube. 5. History of small cell lung cancer under therapy with Dr. Paez. In general, Ms. Kelly seems to be doing a whole lot better. She is on antibiotics. She is on meropenem for lower respiratory tract infection, which she seems to be doing a whole lot better. Today is day 6 on antibiotics. We plan to treat her for a total of 10 days. The other is that the platelet count is remarkably low, and patient, according to her, is having some dark stool. We will do a stool blood screening and observe the platelet count for tomorrow, and hopefully the patient will be seen by Hematology/Oncology who will give some recommendation as to when they think patient will benefit from platelet transfusion. For now, I think without her showing overt bleeding, we will withheld any platelet transfusion for now.
[2016-06-29] MEDS ORDERED: PRILOSEC PO ONE (13:43)
[2016-06-29] MEDS: SINGULAIR PO SCH (19:23)
[2016-06-29] MEDS: VIIBRYD PO SCH (19:23)
[2016-06-29] MEDS: TYLENOL PO PRN (19:30)
[2016-06-30] MEDS: XANAX PO PRN ×2 (02:03→17:27)
[2016-06-30] MEDS: VANCOCIN PO SCH ×4 (02:03→23:28)
[2016-06-30] MEDS: OXYCONTIN PO PRN ×3 (03:43→16:05)
[2016-06-30] MEDS: PRILOSEC PO SCH ×2 (03:43→06:06)
[2016-06-30] MEDS: MERREM 500 MG in NS 50 ML IV SCH ×4 (03:44→23:30)
[2016-06-30] MEDS: VIIBRYD PO SCH ×2 (03:45→23:29)
[2016-06-30] MEDS: SINGULAIR PO SCH ×2 (03:45→23:28)
[2016-06-30] MEDS: PATIENT'S OWN MED PO SCH ×3 (03:45→23:29)
[2016-06-30] MEDS: NEURONTIN PO SCH ×5 (03:45→23:29)
[2016-06-30 07:30] LABS: BASO% 1.1 % (0.0-0.8); EOS# 0.03 X1000 (0.0-0.7); EOS% 1.1 % (0.0-10.0); HEMATOCRIT 25.9 % (37.0-47.0); HEMOGLOBIN 8.6 g/dL (12.0-16.0); LYMPH# 0.82 X1000 (1.2-3.4); LYMPH% 31.1 % (20.5-51.1); MANUAL DIFF NEEDED? YES; MCHC 33.2 g/dL (33-37); MCV 84.4 FL (81-99); MONO# 0.29 X1000 (0.11-0.59); MPV 9.3 FL (7.4-10.4); NEUT% 55.7 % (42.2-75.2); RBC 3.07 XMIL (4.2-5.4)
[2016-06-30 07:31] LABS: PLT 6 X1000 (130-400)
[2016-06-30 07:33] LABS: AGAP 12; BUN 6 mg/dL (8-22); CALCIUM 8.4 mg/dL (8.8-10.2); CHLORIDE 102 mmol/L (98-107); COSMO 274; POTASSIUM 3.9 mmol/L (3.5-5.1); SODIUM 139 mmol/L (136-145); TCO2 25 mmol/L (25-35)
[2016-06-30] MEDS ORDERED: NS 500 ML IV ONE (08:18)
[2016-06-30 08:20] LABS: LYMPHS 28 % (21-51); MONO 12 % (1-9)
[2016-06-30 09:26] LABS: RETIC% 0.09 % (0.8-2.1)
[2016-06-30] MEDS: VESICARE PO SCH (09:33)
[2016-06-30] MEDS: CITRACAL + D PO SCH (09:33)
[2016-06-30] MEDS: MOVANTIK PO SCH (09:33)
[2016-06-30] MEDS ORDERED: BENADRYL PO ONE (09:51)
[2016-06-30] MEDS: TYLENOL PO PRN (10:05)
[2016-06-30] MEDS: NS 1,000 ML IV SCH (17:31)
--- NOTE | 2016-06-30 17:53 | PROGRESS NOTE ---
DATE: 06/30/2016 SUBJECTIVE: Today Ms. Kelly referred to be doing relatively fine. Denies any complaints. She is not actively bleeding. OBJECTIVE: Vital Signs: Stable. Blood pressure is 142/66, pulse is 66, respirations 18, temperature 97.7 degrees. General: Ms. Kelly is a 66-year-old female. She was actually sitting up on the bedside commode not in any distress. HEENT: Mucosa was pink and moist. Physical exam was completely unchanged from yesterday. A few posterior coarse crepitations on the lung exams, otherwise unremarkable. LABORATORY DATA: Chemistry was reviewed, completely unremarkable. CBC. WBC is 2.64, hemoglobin is 8.6, platelet count of 6000. Patient percent reticulocyte count is 0.09. ASSESSMENT: 1. Sepsis on presentation secondary to lower respiratory tract infection. The patient is currently on meropenem. Today is day 7 on antibiotics. She seems to be doing fine. We will continue for a total of 10 days of antibiotic therapy. 2. Clostridium difficile diarrhea. Patient is on vancomycin. Today is day 6. Will plan to treat this for a total of 14 days. 3. Pancytopenia with very remarkable hypoproliferative bone marrow state. We think this is due to chemotherapy side effects. The patient is getting a unit of platelets transfused because of remarkable thrombocytopenia. 4. 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 Patient has a percutaneous endoscopic gastrostomy tube where she gets all her medications. 5. Small cell cancer under therapy with Dr. Paez. PLAN: 1. So in general I think from pneumonia standpoint patient is fine. Her diarrhea from C. difficile colitis is remarkably improved. However patient CBC numbers extremely horrible especially platelet and she is getting a transfusion of platelets today. Hopefully that will normalize and then we can discharge the patient very soon. 2. Will follow with further recommendations from Hematology/Oncology.
[2016-06-30] MEDS: DURAGESIC 75 MICROGM/HR PATCH TD SCH (23:28)
[2016-07-01] MEDS: VANCOCIN PO SCH (03:45)
[2016-07-01] MEDS: OXYCONTIN PO PRN ×2 (06:36→20:31)
[2016-07-01] MEDS: XANAX PO PRN ×2 (06:36→15:05)
[2016-07-01] MEDS: PRILOSEC PO SCH (06:37)
[2016-07-01 07:49] LABS: BASO% 0.7 % (0.0-0.8); EOS# 0.02 X1000 (0.0-0.7); EOS% 1.5 % (0.0-10.0); HEMATOCRIT 27.3 % (37.0-47.0); HEMOGLOBIN 9.2 g/dL (12.0-16.0); LYMPH# 0.78 X1000 (1.2-3.4); LYMPH% 56.9 % (20.5-51.1); MANUAL DIFF NEEDED? YES; MCH 28.2 PG (27-31); MCHC 33.7 g/dL (33-37); MCV 83.7 FL (81-99); MONO# 0.28 X1000 (0.11-0.59); MONO% 20.4 % (1.7-9.3); NEUT% 20.5 % (42.2-75.2); RBC 3.26 XMIL (4.2-5.4)
[2016-07-01 07:51] LABS: PLT 6 X1000 (130-400)
[2016-07-01 08:10] LABS: BANDS 4 % (0-1); LYMPHS 56 % (21-51); MONO 20 % (1-9)
[2016-07-01] MEDS ORDERED: NEUPOGEN SUBQ SCH (09:00)
[2016-07-01] MEDS: NEURONTIN PO SCH ×4 (09:30→20:23)
[2016-07-01] MEDS: VESICARE PO SCH (09:30)
[2016-07-01] MEDS: GRANIX SUBQ SCH (10:11)
[2016-07-01] MEDS: MOVANTIK PO SCH ×2 (10:11→10:16)
[2016-07-01] MEDS: CITRACAL + D PO SCH (10:12)
[2016-07-01] MEDS: PATIENT'S OWN MED PO SCH ×2 (10:12→20:23)
[2016-07-01] MEDS: NS 1,000 ML IV SCH (10:19)
[2016-07-01] MEDS: FLAGYL PO SCH ×2 (12:34→20:23)
[2016-07-01 13:10] LABS: PLT 19 X1000 (130-400)
[2016-07-01] MEDS ORDERED: TYLENOL PO ONE (13:10)
[2016-07-01 13:11] LABS: EOS# 0.01 X1000 (0.0-0.7); EOS% 1.2 % (0.0-10.0); HEMATOCRIT 23.4 % (37.0-47.0); HEMOGLOBIN 7.7 g/dL (12.0-16.0); LYMPH# 0.49 X1000 (1.2-3.4); MANUAL DIFF NEEDED? YES; MCH 27.8 PG (27-31); MCHC 32.9 g/dL (33-37); MCV 84.5 FL (81-99); MONO# 0.11 X1000 (0.11-0.59); MONO% 12.8 % (1.7-9.3); MPV 11.6 FL (7.4-10.4); RBC 2.77 XMIL (4.2-5.4)
[2016-07-01] MEDS ORDERED: BENADRYL PO ONE (13:12)
[2016-07-01] MEDS ORDERED: FLEBOGAMMA DIF 5% IV SCH (13:15)
[2016-07-01 13:54] LABS: BANDS 12 % (0-1); LYMPHS 36 % (21-51); MONO 4 % (1-9)
[2016-07-01 13:57] LABS: HYPOCHROM 2+; LARGE PLATELETS OCCASIONAL
[2016-07-01] MEDS ORDERED: DECADRON 20 MG in NS 50 ML IV SCH (14:00)
[2016-07-01] MEDS: [UNRECOGNIZED DRUG - OTHER] IV SCH (16:48)
[2016-07-01] MEDS: DILUENT IV SCH (16:48)
--- NOTE | 2016-07-01 17:54 | PROGRESS NOTE ---
DATE: 07/01/2016 SUBJECTIVE: Today Ms. Kelly referred to be relatively fine. She did not actually have any complaint except for dry cough. According to her, diarrhea is resolved. OBJECTIVE: Vital signs: Blood pressure is 133/86, pulse of all of 73, respirations 20, temperature 98.1 degrees. General: Ms. Kelly is a 66-year-old female. She was in bed. Not seemingly distress. HEENT: Mucosa is pink and moist. Anicteric. Acyanotic. Neck: Supple. Chest: Good air entry bilaterally. No crepitations. No rhonchi. Cardiovascular: Regular rate and rhythm. No murmurs. No rubs. No gallops. Abdomen: Soft. Extremities: No pedal edema. PHILOSOPHY LECTURER: Patient is alert and oriented x4. There is no focal neurological deficit. LABORATORY DATA: WBC is 1.37, hemoglobin is 9.2, platelet count was 6,000. Repeat labs after blood transfusion actually showed hemoglobin is down to 7.7, platelet count is 19,000, WBC is also down to 0.86. ASSESSMENT: 1. Sepsis on presentation. We thought this was related to lower respiratory tract infection. The patient was on meropenem. Today was day 8. We will discontinue it because of suspicion that that could potentially be causing some of the patient's numbers to drop. From a respiratory standpoint, I think the patient is a whole lot better. 2. Clostridium difficile diarrhea. The patient was on vancomycin p.o. Today would have been day 7 but we switched this to metronidazole because of the suspicion that vancomycin could be causing her CBC numbers to go down. So she is currently on metronidazole which will go for another 7 days, for a total of 14 days. 3. Pancytopenia with remarkable hypoproliferative bone marrow state. This could be due to chemo side effects as well as possible MDS versus bone marrow infiltration by small cell cancer. Hematology/oncology is on board and we would defer further recommendations to them. 4. 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 Patient has a PEG tube. 5. Small cell cancer. Under therapy with Dr. Paez. PLAN: So, Ms. Klely got admitted to the hospital on 06/23/2016. Today is day 8 of coming to the hospital. Initially her symptoms were cough and fever and her workup revealed a upper respiratory tract infection. Patient was on meropenem which she did pretty well on the antibiotic. Has been afebrile. The patient also had diarrhea and C. difficile toxin was positive. She was started on p.o. vancomycin and that has subsided. However, during the hospital course, patient's CBC numbers have been progressively getting worse. She has had a total of 2 platelet transfusion. However, the platelet count just came up to 19 this morning. I think there is probably some peripheral destruction which could just be an autoimmune process from maybe medications or from the underlying cancer, but I think most of her issues at being driven by the bone marrow state, which is severely hypoproliferative. Either way, hematology/oncology is on board. I discussed the case extensively today with Dr. Paez and he will follow very closely and give recommendations later on today. We agreed to stop the antibiotics and we also agreed to switch the p.o. vancomycin to metronidazole. MTDD
[2016-07-01] MEDS: SINGULAIR PO SCH (20:22)
[2016-07-01] MEDS: VIIBRYD PO SCH (20:23)
[2016-07-02] MEDS: PRILOSEC PO SCH (06:08)
[2016-07-02] MEDS: NS 1,000 ML IV SCH ×2 (06:08→10:27)
[2016-07-02] MEDS: FLAGYL PO SCH ×3 (06:08→20:55)
[2016-07-02] MEDS: XANAX PO PRN ×3 (06:08→20:59)
[2016-07-02] MEDS: OXYCONTIN PO PRN ×2 (06:14→20:57)
[2016-07-02 07:25] LABS: AGAP 10; ALKALINE PHOSPHATASE 84 U/L (32-104); BUN 7 mg/dL (8-22); CHLORIDE 103 mmol/L (98-107); COSMO 278; GOT 15 U/L (10-30); GPT 17 U/L (10-36); MAGNESIUM 1.2 mg/dL (1.5-2.7); POTASSIUM 3.5 mmol/L (3.5-5.1); PREALBUMIN 14.9 mg/dL (20-40); SODIUM 140 mmol/L (136-145); TCO2 27 mmol/L (25-35); TOTAL BILIRUBIN 0.25 mg/dL (0.20-1.00); TOTAL PROTEIN 7.1 g/dL (6.3-8.3)
[2016-07-02 07:27] LABS: BASO% 0.3 % (0.0-0.8); EOS# 0.02 X1000 (0.0-0.7); EOS% 0.7 % (0.0-10.0); HEMATOCRIT 22.7 % (37.0-47.0); HEMOGLOBIN 7.5 g/dL (12.0-16.0); IMM GRAN# 0.02 X1000 (0.0-0.04); IMM GRAN% 0.7 % (0.0-0.5); LYMPH# 0.62 X1000 (1.2-3.4); LYMPH% 21.7 % (20.5-51.1); MANUAL DIFF NEEDED? YES; MCH 28.3 PG (27-31); MCV 85.7 FL (81-99); MONO# 0.48 X1000 (0.11-0.59); MONO% 16.8 % (1.7-9.3); MPV 10.7 FL (7.4-10.4); NEUT% 59.8 % (42.2-75.2); RBC 2.65 XMIL (4.2-5.4)
[2016-07-02 07:44] LABS: PLT 12 X1000 (130-400)
[2016-07-02 08:02] LABS: BANDS 32 % (0-1); HYPOCHROM 1+; LYMPHS 32 % (21-51); MONO 12 % (1-9)
[2016-07-02] MEDS: NEURONTIN PO SCH ×4 (09:51→20:55)
[2016-07-02] MEDS: VESICARE PO SCH (09:51)
[2016-07-02] MEDS: PATIENT'S OWN MED PO SCH (09:52)
[2016-07-02] MEDS: CITRACAL + D PO SCH (09:52)
[2016-07-02] MEDS: MOVANTIK PO SCH (09:52)
[2016-07-02] MEDS: GRANIX SUBQ SCH (09:53)
[2016-07-02] MEDS: DECADRON 40 MG in NS 50 ML IV SCH (13:45)
[2016-07-02] MEDS: DILUENT IV SCH (13:52)
[2016-07-02] MEDS: [UNRECOGNIZED DRUG - OTHER] IV SCH (13:52)
--- NOTE | 2016-07-02 18:54 | PROGRESS NOTE ---
DATE: 07/02/2016 SUBJECTIVE: This is a 66-year-old who presented with cough and fever for 3 days. History of lung cancer, diabetes mellitus type 2, chronic lower back pain. Presented to the emergency department with 3-day history of having cough with productive yellowish material and having temperature. Called her oncologist, who told her to go to the ER for evaluation, and found to have suspected pneumonia. Admitted with pneumonia, immunocompromised state, with receiving chemotherapy for lung cancer. History of lung cancer, and diabetes mellitus. Patient begun on antibiotics. Dr. Paez has been following. This is a limited stage small-cell lung cancer. She is on carboplatin and etoposide, last chemo was on June 21. Has been on radiation, but has been discontinued due to some severe odynophagia. Recently discharged from the hospital, with that received PEG tube where she had been receiving tube feedings. She had several days of fever, 102 highest, along with productive cough, yellow sputum, and patient did receive Neulasta after last chemotherapy which she tolerated well, and still some odynophagia from the radiation therapy. Appears to be making some progress. She is in isolation. She has had sepsis with a lower respiratory tract infection and found to have Clostridium difficile colitis. The patient currently on oral vancomycin. Pancytopenia secondary to chemotherapy. Blood sugars have been following. Today she does feel better, feels a little stronger. OBJECTIVE: Vital Signs: Temperature 98.7 degrees, pulse 80, respirations 18, blood pressure 130/88. CVP less than 6 cm. Lungs: Clear in all lung mendez. Cardiovascular: Regular rhythm and rate without murmur or S3. Genitourinary: Good urine output. DIAGNOSTIC DATA: Her lab from today: White count has come up to 2860, hematocrit is 22, hemoglobin is 7.5 which is stable, platelet count still 12,000, it has been between 6000 and 32,000. ASSESSMENT AND PLAN: 1. Sepsis on presentation thought to be related to lower respiratory tract infection. Patient was on meropenem. Today is day 8, it was stopped yesterday because of suspicion to potentially cause patient's numbers to drop, her white blood cell count, platelets. From respiratory standpoint doing a lot better. 2. Clostridium difficile. On vancomycin p.o. This is improving. She was switched to metronidazole because of suspicion vancomycin could be causing the CBC numbers to go down, so she is on Flagyl and will go for another 7 days for a total of 14 days treatment. 3. Pancytopenia. Platelet count is still low. White blood cell count seems to be improving. Hypoproliferative bone marrow could be due to chemotherapy as well as possible myelodysplastic versus bone marrow infiltration of small-cell cancer. Doctor Philippe quinteros. 4. 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 The patient has PEG tube. 5. Small-cell cancer, undergoing therapy at this time. Continue present regimen. 6. Looked over orders, I do not see anything to change at this time. So on dexamethasone 40 mg IV q.24 hours. She received some immunoglobulin. She is on Flagyl 250 mg p.o. q.8 hours, Granix 480 mcg subcutaneous daily, Prilosec 40 mg a day, calcium citrate 1 a day, fentanyl patch 75 mcg q.72 hours patch. Getting normal saline at 80 mL an hour. Getting naloxegol oxalate which is Movantik 25 mg a day, Viibryd 440 mg at bedtime, VESIcare 10 mg a day, Singulair 10 mg at bedtime, Neurontin 800 mg 4 times a day, Tylenol 650 q.6 hours p.r.n., Xanax 0.5 mg q.8 hours p.r.n. Getting oxycodone 10 mg p.o. q.6 hours p.r.n.
[2016-07-02] MEDS: VIIBRYD PO SCH (20:55)
[2016-07-02] MEDS: SINGULAIR PO SCH (20:58)
[2016-07-03] MEDS: NS 1,000 ML IV SCH ×2 (02:01→13:51)
[2016-07-03] MEDS: PATIENT'S OWN MED PO SCH ×2 (02:01→13:51)
[2016-07-03] MEDS: FLAGYL PO SCH ×3 (06:36→20:45)
[2016-07-03] MEDS: PRILOSEC PO SCH (06:36)
[2016-07-03] MEDS: XANAX PO PRN ×2 (06:36→18:17)
[2016-07-03] MEDS: OXYCONTIN PO PRN ×2 (06:36→18:17)
[2016-07-03 07:03] LABS: BASO% 0.1 % (0.0-0.8); HEMATOCRIT 22.1 % (37.0-47.0); HEMOGLOBIN 7.3 g/dL (12.0-16.0); IMM GRAN# 0.21 X1000 (0.0-0.04); IMM GRAN% 1.3 % (0.0-0.5); LYMPH# 0.54 X1000 (1.2-3.4); LYMPH% 3.3 % (20.5-51.1); MANUAL DIFF NEEDED? YES; MCH 28.3 PG (27-31); MCV 85.7 FL (81-99); MONO# 1.53 X1000 (0.11-0.59); MONO% 9.4 % (1.7-9.3); MPV 9.9 FL (7.4-10.4); NEUT% 85.9 % (42.2-75.2); RBC 2.58 XMIL (4.2-5.4)
[2016-07-03 07:04] LABS: PLT 11 X1000 (130-400)
[2016-07-03 07:21] LABS: BANDS 40 % (0-1); MONO 12 % (1-9)
[2016-07-03 07:22] LABS: LYMPHS 2 % (21-51)
[2016-07-03 07:23] LABS: HYPOCHROM 1+
[2016-07-03] MEDS ORDERED: SENSORCAINE-MPF 0.5%/EPI 1:200,000 INJ ONE (09:23)
[2016-07-03] MEDS ORDERED: SENSORCAINE-MPF 0.5%/EPI 1:200,000 ONE (10:06)
[2016-07-03] MEDS ORDERED: DIPRIVAN 1% ONE (11:36)
[2016-07-03] MEDS ORDERED: EXTENSION SET 32 IN 4522 ONE (11:43)
[2016-07-03] MEDS ORDERED: ANESTHESIA PB SET 88 IN 5742 ONE (11:43)
[2016-07-03 13:08] LABS: FLOW CYTOMETERY SOURCE BONE MARROW; LEUKEMIA LYMPHOMA BY FLOW REFERRED FOR TESTING
[2016-07-03] MEDS: CITRACAL + D PO SCH (13:38)
[2016-07-03] MEDS: VESICARE PO SCH (13:38)
[2016-07-03] MEDS: DECADRON 40 MG in NS 50 ML IV SCH (13:39)
[2016-07-03] MEDS: MOVANTIK PO SCH ×2 (13:39→13:43)
[2016-07-03] MEDS: NEURONTIN PO SCH ×4 (13:39→20:45)
--- NOTE | 2016-07-03 16:15 | PROGRESS NOTE ---
DATE: 07/03/2016 Ms. Kelly is feeling better and she is able to swallow and she has been swallowing for a while. Has not had to use the PEG tube in awhile. Temp 97.5 degrees, pulse 60, respirations 18, blood pressure 157/81. HEENT: Pupils are equal, round. CVP less than 6 cm. Lungs: Clear in all lung mendez. Cardiovascular: Regular rhythm and rate without murmur or S3. I do not see any petechiae. LAB: Platelet count still low at 11,000, white count 58587, hematocrit 22. Chemistries reviewed from yesterday. Blood sugars 113, 219, 204. She had a bone marrow biopsy done today. ASSESSMENT AND PLAN: 1. Sepsis on presentation thought to be of lower respiratory tract infection. Much better. Patient breathing comfortably. I think this is resolved. Currently she is on Flagyl 250 mg q.8. 2. Pancytopenia with marked thrombocytopenia. Bone marrow biopsy done today. Dr. Philippe quinteros. 3. Clostridium difficile. Has been switched from vancomycin to Flagyl to see if we can help the bone marrow. 4. Small-cell cancer. Holding treatment for now. She has the radiation esophagitis which seems to be improving, has a PEG tube placed. Nutrition seems to be good and swallowing and no esophageal pain at this time. I do not see anything to change. Review of orders: She is on dexamethasone 40 mg IV q.24 hours. Immunoglobulin 60 g she gets every 24 hours. Flagyl 250 mg p.o. q.8 hours. Prilosec 40 mg a day. Calcium citrate 1 daily. Fentanyl patch 75 mcg daily. IV fluids normal saline going at 80 mL an hour. She is on Viibryd 40 mg at bedtime. VESIcare 10 mg daily. Singulair 10 mg at bedtime. Neurontin 100 mg 4 times a day and Xanax q.8h p.r.n. Oxycodone q.6h p.r.n.
[2016-07-03] MEDS: SINGULAIR PO SCH (20:45)
[2016-07-03] MEDS: VIIBRYD PO SCH (20:45)
[2016-07-03] MEDS: DURAGESIC 75 MICROGM/HR PATCH TD SCH (23:40)
[2016-07-04] MEDS: PATIENT'S OWN MED PO SCH ×3 (03:04→21:55)
[2016-07-04] MEDS: OXYCONTIN PO PRN ×2 (03:09→21:54)
[2016-07-04] MEDS: XANAX PO PRN (03:10)
[2016-07-04] MEDS: FLAGYL PO SCH ×3 (06:44→21:54)
[2016-07-04] MEDS: PRILOSEC PO SCH (06:44)
[2016-07-04 07:06] LABS: BASO% 0.2 % (0.0-0.8); HEMATOCRIT 21.6 % (37.0-47.0); HEMOGLOBIN 7.1 g/dL (12.0-16.0); IMM GRAN# 0.62 X1000 (0.0-0.04); IMM GRAN% 3.2 % (0.0-0.5); LYMPH# 0.85 X1000 (1.2-3.4); LYMPH% 4.4 % (20.5-51.1); MANUAL DIFF NEEDED? YES; MCH 28.3 PG (27-31); MCHC 32.9 g/dL (33-37); MCV 86.1 FL (81-99); MONO# 1.82 X1000 (0.11-0.59); MONO% 9.4 % (1.7-9.3); MPV 9.5 FL (7.4-10.4); NEUT% 82.8 % (42.2-75.2); RBC 2.51 XMIL (4.2-5.4)
[2016-07-04 07:07] LABS: PLT 12 X1000 (130-400)
[2016-07-04 07:16] LABS: BANDS 22 % (0-1); LYMPHS 4 % (21-51); MONO 6 % (1-9)
--- NOTE | 2016-07-04 08:55 | PROGRESS NOTE ---
DATE: 07/04/2016 SUBJECTIVE: Ms. Kelly is still coughing some. She has a little more shortness of breath since her bone marrow biopsy. We did put her back on her O2. OBJECTIVE: Vital Signs: Temperature is 98.5, pulse 64, respirations 19, blood pressure 163/84. Eyes: Pupils were equal and round. Neck: CVP less than 6 cm. Lungs: Clear in all lung mendez. Cardiovascular: Regular rhythm and rate without murmur or S3. : Urine output 760 mL. LAB REVIEW: From the , or yesterday, white count 19,380, hematocrit was 21 and platelet count 12,000. Blood sugar 204, 196, 196. ASSESSMENT AND PLAN: 1. Sepsis on presentation. Lower respiratory tract infection, doing much better. She is currently on Flagyl 250 mg q.8. 2. Pancytopenia, still with marked thrombocytopenia. Bone marrow biopsies done. Results pending. 3. Clostridium difficile. She is back on Flagyl, switched from vancomycin to Flagyl to try and help her bone marrow recovery. 4. Small-cell lung cancer. Dr. Paez following. 5. I do not see any change due in orders. I will add some Tessalon Perles, and try add some guaifenesin to see if that will help with mucus clearance.
[2016-07-04] MEDS: NEURONTIN PO SCH ×4 (09:40→21:54)
[2016-07-04] MEDS: MUCINEX DM PO SCH ×2 (10:40→21:55)
[2016-07-04] MEDS: MOVANTIK PO SCH (11:59)
[2016-07-04] MEDS: VESICARE PO SCH (11:59)
[2016-07-04] MEDS: CITRACAL + D PO SCH (12:00)
[2016-07-04] MEDS: TESSALON PO PRN ×2 (12:06→21:57)
--- NOTE | 2016-07-04 13:38 | PROGRESS NOTE ---
DATE: 07/04/2016 SUBJECTIVE: Ms. Kelly is feeling better. She would like something to help with the cough. She is eating well. She did want some Tessalon Perles. OBJECTIVE: Vital signs: Temperature 98.5, pulse 64, respirations 19, blood pressure 163/84. CVP less than 6 cm. Lungs: Clear in all lung mendez. Cardiovascular exam: Regular rhythm and rate without murmur or S3. Urine output: 760 mL. Blood sugar 196, 126, 150. ASSESSMENT AND PLAN: 1. Presented with sepsis. Suspect lower respiratory tract infection. Has done well. 2. Clostridium difficile, clostridium colitis, treated on Flagyl. This is improving as well. 3. Pancytopenia. Persistent platelet count is low. Appears that she has idiopathic thrombocytopenic purpura and not much response with steroids. Dr. Paez is following. 4. Odynophagia due to esophagitis. Suspect radiation esophagitis. This is improved. 5. She is being treated with small cell cancer. Continue present therapy. Will add some Tessalon Perles. I think I added the guaifenesin.
[2016-07-04] MEDS: DECADRON 40 MG in NS 50 ML IV SCH (15:15)
[2016-07-04] MEDS: NS 1,000 ML IV SCH ×2 (18:14→18:15)
[2016-07-04] MEDS: VIIBRYD PO SCH (21:54)
[2016-07-04] MEDS: SINGULAIR PO SCH (21:55)
[2016-07-05] MEDS: XANAX PO PRN ×3 (00:26→20:42)
[2016-07-05] MEDS ORDERED: PROMACTA 50 MG PO SCH (05:00)
[2016-07-05] MEDS: FLAGYL PO SCH ×3 (06:17→20:42)
[2016-07-05] MEDS: PRILOSEC PO SCH (06:17)
[2016-07-05 06:52] LABS: BASO% 0.7 % (0.0-0.8); EOS# 0.01 X1000 (0.0-0.7); EOS% 0.1 % (0.0-10.0); HEMATOCRIT 23.2 % (37.0-47.0); HEMOGLOBIN 7.6 g/dL (12.0-16.0); IMM GRAN# 1.61 X1000 (0.0-0.04); IMM GRAN% 8.9 % (0.0-0.5); LYMPH# 0.98 X1000 (1.2-3.4); LYMPH% 5.4 % (20.5-51.1); MANUAL DIFF NEEDED? YES; MCH 28.4 PG (27-31); MCHC 32.8 g/dL (33-37); MCV 86.6 FL (81-99); MONO# 1.57 X1000 (0.11-0.59); MONO% 8.7 % (1.7-9.3); NEUT% 76.2 % (42.2-75.2); RBC 2.68 XMIL (4.2-5.4)
[2016-07-05 06:53] LABS: PLT 22 X1000 (130-400)
[2016-07-05 07:08] LABS: BANDS 20 % (0-1); LYMPHS 8 % (21-51); MONO 4 % (1-9)
[2016-07-05] MEDS: NEURONTIN PO SCH ×4 (09:21→20:42)
[2016-07-05] MEDS: CITRACAL + D PO SCH (09:21)
[2016-07-05] MEDS: MUCINEX DM PO SCH ×2 (09:21→20:42)
[2016-07-05] MEDS: VESICARE PO SCH (09:21)
[2016-07-05] MEDS: MOVANTIK PO SCH (09:21)
[2016-07-05] MEDS: OXYCONTIN PO PRN ×2 (09:29→20:42)
[2016-07-05] MEDS: PATIENT'S OWN MED PO SCH ×2 (09:30→20:46)
--- NOTE | 2016-07-05 09:58 | PROGRESS NOTE ---
DATE: 07/05/2016 SUBJECTIVE: Ms. Kelly is feeling better, feeling stronger, eating better. OBJECTIVE: She is sitting up in a chair. Temperature is 97.6, pulse 58, respirations 18, blood pressure 198/91. Lungs are clear in all lung mendez. Cardiovascular: Regular rate and rhythm without murmur or S3. Abdomen is soft. Skin is warm and dry. Urine output was 960 mL. DIAGNOSTIC DATA: Blood sugar was 126, 77 and 149. Platelet count up to 22,000, so that is encouraging. ASSESSMENT AND PLAN: 1. Idiopathic thrombocytopenic purpura, profound thrombocytopenia. Seems to have improved. Continue present therapy. 2. Clostridium difficile, on Flagyl. This is improving as well. 3. Pancytopenia, secondary to chemotherapy and on top of that, ITP. 4. Odynophagia, which has resolved. She is swallowing well. She has esophagitis, which is radiation esophagitis, which is improved. 5. Small cell cancer. Continue present therapy. Hopefully home soon.
[2016-07-05] MEDS: NS 1,000 ML IV SCH ×2 (11:58→14:10)
[2016-07-05] MEDS: DECADRON 40 MG in NS 50 ML IV SCH (14:08)
[2016-07-05 20:19] VITALS: BP 175/79
[2016-07-05] MEDS: SINGULAIR PO SCH (20:42)
[2016-07-05] MEDS: VIIBRYD PO SCH (20:42)
[2016-07-06] MEDS: NS 1,000 ML IV SCH ×2 (04:35→19:17)
[2016-07-06] MEDS ORDERED: PATIENT'S OWN MED PO SCH (05:00)
[2016-07-06] MEDS: FLAGYL PO SCH (05:05)
[2016-07-06] MEDS: XANAX PO PRN (05:05)
[2016-07-06] MEDS: OXYCONTIN PO PRN (05:05)
[2016-07-06] MEDS: PRILOSEC PO SCH (06:00)
[2016-07-06] MEDS: CITRACAL + D PO SCH (08:41)
[2016-07-06] MEDS: VESICARE PO SCH (08:41)
[2016-07-06] MEDS: MUCINEX DM PO SCH (08:41)
[2016-07-06] MEDS: NEURONTIN PO SCH (09:00)
--- NOTE | 2016-07-06 16:48 | DISCHARGE SUMMARY ---
ADMISSION DATE: 06/23/2016 DISCHARGE DATE: HOSPITAL COURSE: She was admitted with some pneumonia and respiratory trouble, and this was treated with antibiotics and got better. Then developed C. difficile colitis, I put her on some vancomycin and this was switched to Flagyl. Developed pancytopenia which we thought was pretty profound but particularly her platelet count was very low and remained low. Did a bone marrow biopsy and discovered that she has ITP. She did not have much response to steroids and to immunoglobulin, so Dr. Paez was involved and put her on some medication, platelet count, and I gave her samples from the office of the [facility]. Platelet count came up to above 30,000. She was feeling better. She was swallowing. Her radiation esophagitis had improved quite a bit, and she is getting treatment for small-cell lung cancer. She wanted to go home and felt she was ready go home on 07/06/2016, and she will get followup with Dr. Paez. cc: Nathan Devries MD
[2016-07-06] MEDS: MOVANTIK PO SCH (19:18)
[2016-07-06] MEDS: PATIENT'S OWN MED PO SCH (19:19)
[2016-07-06 21:38] LABS: HEMATOCRIT 24.4 % (37.0-47.0); HEMOGLOBIN 8.1 g/dL (12.0-16.0); MCH 28.8 PG (27-31); MCHC 33.2 g/dL (33-37); MCV 86.8 FL (81-99); RBC 2.81 XMIL (4.2-5.4)
[2016-07-06 21:40] LABS: PLT 38 X1000 (130-400)
[2016-07-06 23:22] LABS: BASO% 1.4 % (0.0-0.8); EOS# 0.01 X1000 (0.0-0.7); HEMATOCRIT 25.2 % (37.0-47.0); HEMOGLOBIN 8.5 g/dL (12.0-16.0); IMM GRAN# 2.14 X1000 (0.0-0.04); IMM GRAN% 9.4 % (0.0-0.5); LYMPH# 1.92 X1000 (1.2-3.4); LYMPH% 8.5 % (20.5-51.1); MANUAL DIFF NEEDED? NO; MCHC 33.7 g/dL (33-37); MONO# 3.39 X1000 (0.11-0.59); MONO% 14.9 % (1.7-9.3); MPV 11.9 FL (7.4-10.4); NEUT% 65.8 % (42.2-75.2); PLT 42 X1000 (130-400); RBC 2.93 XMIL (4.2-5.4)
[2016-07-06 23:32] LABS: AGAP 15; ALBUMIN 3.1 g/dL (3.5-5.0); ALKALINE PHOSPHATASE 107 U/L (32-104); BUN 15 mg/dL (8-22); CALCIUM 7.7 mg/dL (8.8-10.2); CHLORIDE 95 mmol/L (98-107); COSMO 273; GOT 23 U/L (10-30); GPT 13 U/L (10-36); POTASSIUM 2.9 mmol/L (3.5-5.1); SODIUM 136 mmol/L (136-145); TCO2 26 mmol/L (25-35); TOTAL PROTEIN 7.5 g/dL (6.3-8.3)
== END 2016-07-06 12:40 | disposition home or self-care (01) ==
LOC: EDUNIT# → EDBD → ED 21:49 → DIRADM 21:50 → UNDOADMIN 06-24 02:39 → DIRADM 06-24 04:43 → EDIPHOLD 06-24 04:43 → 3N 06-24 17:15 → P.DIRADM 07-06 12:37
PROVIDERS: ATTEND Emergency Medicine

== ENCOUNTER 2016-07-07 09:24 | Inpatient (IN) ==
[2016-07-07 10:44] LABS: ALLEN TEST YES; BE 8.5 mmoll (-3.0-3.0); BLOOD TYPE ARTERIAL; DRAW SITE R RADIAL; METHB 1.6 % (0.0-1.5); O2(CT) 11.5 mL/dL (15.0-23.0); PCO2(98.6) 35 mmHg (35-45); PO2(98.6) 67 mmHg (60-100); SAMPLE BLOOD; SAO2 97.4 % (95.0-100.0); THB 8.6 g/dL (11.5-17.4)
[2016-07-07 10:47] LABS: pH(98.6) 7.56 (7.35-7.45)
--- NOTE | 2016-07-07 10:47 | Diag Imaging Result Document ---
PROCEDURE NAME: CHEST-2 VIEWS - 07/07/2016 CHEST, 2 VIEWS: FINDINGS: Compared with portable exam of 06/29/2016. There has been development of right middle lobe consolidation which is suspicious for pneumonia. There are no other interval changes identified. Heart size is normal. Central venous catheter remains in place. IMPRESSION: Development of right middle lobe consolidation, suspicious for pneumonia.
[2016-07-07 10:48] LABS: MODALITY CANNULA
--- NOTE | 2016-07-07 11:06 | PROVIDER DOCUMENTATION ---
This chart was entered by Johana Quintero Scribe, acting as scribe for Roland Richard MD. HPI-Respiratory General - General Chief Complaint: Shortness of Breath Stated Complaint: LOW SAT. Time Seen by Provider: 07/07/16 09:46 Source: patient Allergies/Adverse Reactions: Patient Allergies Allergy/AdvReac Type Severity Reaction Status Date / Time hydrocodone Allergy itch Verified 07/07/16 09:53 latex Allergy itch Verified 07/07/16 09:53 Penicillins Allergy not sure Verified 07/07/16 09:53 rabeprazole sodium * Allergy itch Verified 07/07/16 09:53 [From Aciphex] Home Medications: Home Medication List Medication Instructions Recorded Confirmed Last Taken Type Estradiol [Vagifem] 10 mcg VG DIRECTED 08/08/13 07/07/16 04/17/16 06:00 History Gabapentin [Neurontin] 800 mg PO 4XDAY 08/08/13 07/07/16 07/06/16 History LISINOpril [Prinivil] 20 mg PO DAILY 08/08/13 07/07/16 07/06/16 09:00 History Metformin [Glucophage] 500 mg PO HS 08/08/13 07/07/16 07/06/16 History Oxycodone HCl [Oxycontin] 10 mg PO Q6H PRN PRN 08/08/13 07/07/16 07/07/16 History Ondansetron HCl [Zofran] 1 - 2 tab PO Q6H PRN PRN #15 tablet 10/05/13 07/07/16 07/06/16 Rx Alprazolam [Xanax] 0.5 mg PO Q8H PRN PRN 04/21/16 07/07/16 05/31/16 12:00 History Atomoxetine [Strattera] 80 mg PO BID 04/21/16 07/07/16 07/06/16 History Estrogens, Conjugated [Premarin] 0.625 mg PO DAILY 04/21/16 07/07/16 07/06/16 History Montelukast Sodium [Singulair] 10 mg PO QHS 04/21/16 07/07/16 07/06/16 History Naloxegol Oxalate [Movantik] 25 mg PO DAILY 04/21/16 07/07/16 06/23/16 07:00 History Solifenacin Succinate [Vesicare] 10 mg PO DAILY 04/21/16 07/07/16 05/31/16 08: 00 History Vilazodone [Viibryd] 40 mg PO QHS 05/03/16 07/07/16 07/06/16 History Bisacodyl [Dulcolax] 10 mg [place] DAILY #0 supp 05/06/16 07/07/16 Unknown Rx Docusate Sodium [Colace] 100 mg PO BID #0 capsule 05/06/16 07/07/16 07/06/16 Rx Fentanyl 75 Microgm/Hr Patch 1 patch TD DIRECTED 07/07/16 07/07/16 07/05/16 History [Duragesic 75 Microgm/Hr Patch] Polyethylene Glycol 3350 [Miralax] 17 gm PO DAILY PRN 07/07/16 07/07/16 Unknown History - History of Present Illness-Resp Nature of Presenting Problem: 66 yof presents to ed by amb with complaint of sob. Daughter states discharged from ed this morning with fever,AMS, and sob. they noted her oxygen level began to drop again while at home. Daughter states pt was recently discharged from the hospital 2 days prior. pt has lung cancer and undergoing chemotherapy-- couldn't tolerate radiation therapy due to esophagitis--feeding tube was placed. Quality of Pain: reports: aching Severity in ED: reports: mild Onset/Duration: reports: this morning Timing: reports: still present Cough Quality/Degree: reports: no cough Modifying Factors: improves with: nothing Associated Symptoms: reports: fever/chills, shortness of breath Review of Systems - Adult - REVIEW OF SYSTEMS - ADULT Constitutional: reports: fever, fatique. denies: chills Eyes: reports: no symptoms reported Ears, Nose, Mouth & Throat: reports: no symptoms reported Cardiovascular: reports: palpitations (fast heart rate). denies: chest pain, syncope Respiratory: reports: shortness of breath. denies: cough, wheezing Gastrointestinal: reports: no symptoms reported Genitourinary: reports: no symptoms reported Musculoskeletal: reports: no symptoms reported Integumentary: reports: no symptoms reported Neurological: reports: other (no AMS). denies: dizziness/vertigo, headache/ migraines Psychiatric: reports: no symptoms reported Endocrine: reports: no symptoms reported Hematologic/Lymphatic: reports: no symptoms reported Allergic/Immunologic: reports: no symptoms reported All Other Systems: Reviewed and Negative Past History - Adult - PAST MEDICAL HISTORY-ADULT Review of Records: reports: Old Records Reviewed, Nursing Assessment Review, Medications Reviewed Cardiovascular: reports: HTN, hyperlipidemia Respiratory: reports: COPD, cancer (Small Cell Cancer right lung) Endocrine/Immune: reports: Diabetes Diabetes Type: Type 2 - PRIOR SURGERIES/PROCEDURES Surgical/Procedure History: reports: cholecystectomy, hysterectomy, indwelling device (PEG, port), orthopedic (extremity) - IMMUNIZATION STATUS Childhood Immunizations: See Nurse Assessment Flu Vaccine: See Nurse Assessment - SOCIAL HISTORY Smoking: quit greater than 1 year Living Situation: family Physical Exam-General - PHYSICAL EXAM-ADULT Initial Vital Signs Reviewed: Yes - CONSTITUTIONAL General Appearance: appears well, alert, no apparent distress - EYES Eyes: PERRL/EOMI, pink conjunctivae - HEAD, EARS, NOSE, MOUTH & THROAT HENMT: normocephalic/atraumatic, moist mucous membranes, normal ENT inspection - NECK Neck: non-tender, full range of motion, supple - RESPIRATORY Respiratory: chest non-tender, decreased breath sounds (right base), rhonchi ( left base) - CARDIOVASCULAR Cardiovascular: normal peripheral pulses, no edema, tachycardia, systolic murmur (3/6) - GASTROINTESTINAL (ABDOMEN) Abdominal Exam: non tender, soft - LYMPHATIC Lymphatic: no adenopathy. negative: enlargement - MUSCULOSKELETAL Extremity: non-tender, no pedal edema - SKIN Integumentary: normal turgor, warm/dry, pallor - NEUROLOGIC Neurologic: grossly normal - PSYCHIATRIC Psych/Mental Status: normal mood/affect Progress - PLAN OF CARE/RESULTS Progress/Plan/Lab Results: Vital Signs - 8 hr 07/07/16 09:37 Temperature 100.8 F H Pulse Rate 118 H Respiratory Rate 24 Blood Pressure 167/89 O2 Sat by Pulse Oximetry 95 Laboratory Results - last 24 hr 07/07/16 10:37 Specimen Type ARTERIAL Sample Site R RADIAL pH 7.56 H* pCO2 35 pO2 67 HCO3 31.5 H Base Excess 8.5 H Oxyhemoglobin 94.2 L ABG O2 Sat (Calculated) 11.5 L ABG O2 Saturation 97.4 ABG Carboxyhemoglobin 1.70 ABG Methemoglobin 1.6 H Nathan Test YES A-a O2 Difference 89.0 Total Hemoglobin 8.6 L Lactate 1.20 Liter Flow 2.0 Blood Gas Modality CANNULA FiO2 % 28.0 Orders Category Date Time Status Cardiac Monitoring DIRECTED Care 07/07/16 09:47 Inactive Saline Loc NOW Care 07/07/16 09:47 Inactive CHEST-2 VIEWS [RAD] Stat Exams 07/07/16 10:03 Draft ABG [RESP] Routine Lab 07/07/16 10:37 Completed Labs reviewed from last pm--drawn at 22:50, WBC 22.7, H/H 8.5/25.2, plt 42. K+ 2.9, no CXR nor EKG found (computer was down) Today ABG 7.56 pO2 67 pCO2, HCO3 31, lactate 1.2 - EKG 1 Rate: 119 Rhythm: STach Ace: normal QRS: normal ST Wave: non-specific ST changes - XRAY 1 XRAY Study: Chest Impression: Abnormal XRAY Interpretation: RML pneumonia - CONSULTS/PCP/HOSPITALIST Notification #1 *Consult/PCP/Hospitalist*: Hospitalist Time Discussed: 10:55 Consult Disposition: Will see in ED, Admit Departure - Departure Time of Disposition Decision: 11:00 DIAGNOSIS: RML pneumonia Qualifiers: Pneumonia type: due to unspecified organism Qualified Code(s): J18.1 - Lobar pneumonia, unspecified organism Small cell lung cancer Qualifiers: Laterality: right Qualified Code(s): C34.91 - Malignant neoplasm of unspecified part of right bronchus or lung Disposition: ADMITTED INPATIENT 09 Certified Medical Emergency: Emergent Condition: Stable Referrals and Follow-Ups: Ilya Cm MD [Primary Care Provider] - This chart was documented by the indicated scribe, (Johana Quintero Scribe) and accurately reflects the services I performed and decisions made by me, Roland Richard MD, as attested by the provider's signature.
[2016-07-07] MEDS ORDERED: ZOFRAN PO PRN (14:32)
[2016-07-07] MEDS ORDERED: PATIENT'S OWN MED VAG SCH (14:32)
[2016-07-07] MEDS ORDERED: TYLENOL PO PRN (14:32)
[2016-07-07] MEDS: NEURONTIN PO SCH ×2 (15:05→18:32)
[2016-07-07] MEDS: ROCEPHIN 1 GM/NS 1 GM/50 ML IVPB IV SCH (15:06)
[2016-07-07] MEDS: NS 1,000 ML IV SCH (15:06)
--- NOTE | 2016-07-07 16:16 | HISTORY AND PHYSICAL ---
HISTORY OF PRESENT ILLNESS: This patient was just discharged from the hospital 2 days ago. Actually yesterday. She has underlying small-cell lung cancer, which she has undergone radiation and chemotherapy and recently admitted with pneumonia. Developed C. difficile colitis and then pancytopenia with predominantly thrombocytopenia. Found to have immunothrombocytopenic purpura which was very resistant to the steroids and immunoglobulin, so was put on some medications per Dr. Paez to take home. She presents back to the emergency room with fever and chest x-ray again appears to show pneumonia. PAST MEDICAL HISTORY: 1. Small cell lung cancer. 2. Diabetes mellitus type 2. 3. Chronic back pain. 4. 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 She did require a PEG tube. She has been swallowing okay and using the PEG tube. 5. Recent C. difficile colitis. States that her stools are forming right now. 6. Recent admission for pneumonia. 7. Pancytopenia and bone marrow on last admission demonstrated immunothrombocytopenic purpura. ALLERGIES: Penicillin, latex, AcipHex and hydrocodone. SOCIAL HISTORY: Former smoker. Denies alcohol or tobacco use. Very supportive family. FAMILY HISTORY: Positive for coronary artery disease in her mother. REVIEW OF SYSTEMS: General: She has been eating, but has felt fever and chills and just general malaise and weakness. No cough. Cardiovascular: No chest pain or tachy palpitation. GI/: She has a PEG tube for radiation esophagitis, but that has improved and she is swallowing. Not much pain from her esophagus at this point. Recent pancytopenia, thrombocytopenia, immunothrombocytopenia purpura. PHYSICAL EXAMINATION: GENERAL: On exam today in the emergency room, awake and alert. Just not feeling good. VITAL SIGNS: Temperature 100.8, pulse 117, respirations 24 and blood pressure 164/79. HEENT: Pupils are equal and round. Oral and nasal mucosa dry. CVP less than 6 cm. LUNGS: Clear in all lung mendez. CARDIOVASCULAR: Regular rhythm and rate without murmur or S3. Weight 131 pounds. Height 5 feet 5 inches. LABORATORY/IMAGING: Blood gases, pH 7.56, pCO2 35, PO2 was 67. O2 saturation was 97%. Lactate level was 1.2. This was on 28% FiO2. Chest x-ray: Development of right middle lobe consolidation suspicious for pneumonia. Note waiting on CBC. ASSESSMENT AND PLAN: 1. Small cell lung cancer, undergoing chemotherapy and radiation therapy. She has had a recent hospitalization with pancytopenia and had pneumonia. This seemed to resolve clinically. Doing better and let her go home yesterday. She is back today. Appears to have another infiltrate. We will check her complete blood count. 2. Pancytopenia. We will see what her complete blood count shows. 3. Immunothrombocytopenic purpura. Recent bone marrow, receiving some medicine from Dr. Paez. We will see what her counts and transfuse as necessary. 4. Radiation-induced esophagitis which has resolved. She has a PEG tube in still, but she has been able to swallow. 5. History of diabetes mellitus type 2. We will watch her pattern sugars. cc: Nathan Devries MD
[2016-07-07] MEDS ORDERED: VANCOMYCIN IV PER PHARMACY MISC SCH (19:30)
[2016-07-07] MEDS ORDERED: VANCOMYCIN 1,600 MG in NS 250 ML IV ONE (21:00)
[2016-07-08] MEDS: NEURONTIN PO SCH ×5 (02:01→20:42)
[2016-07-08] MEDS: XANAX PO PRN ×2 (02:01→10:53)
[2016-07-08] MEDS: OXY IR PO PRN ×2 (02:01→10:53)
[2016-07-08] MEDS: GLUCOPHAGE PO SCH ×2 (02:02→20:42)
[2016-07-08] MEDS: SINGULAIR PO SCH ×2 (02:02→20:42)
[2016-07-08] MEDS: VIIBRYD PO SCH ×2 (02:02→20:41)
[2016-07-08] MEDS: COLACE PO SCH ×3 (02:08→20:41)
--- NOTE | 2016-07-08 05:59 | EKG Report ---
Test Performed on : 07/07/2016 09:59:12 AM Test Reason : CP Blood Pressure : / mmHG Vent. Rate : 119 BPM Atrial Rate : 119 BPM P-R Int : 124 ms QRS Dur : 070 ms QT Int : 290 ms P-R-T Axes : 055 068 022 degrees QTc Int : 407 ms Sinus tachycardia. with premature atrial complexes. Nonspecific ST and T wave abnormality Abnormal ECG When compared with ECG of 31-MAY-2016 15:53, premature atrial complexes. are now present Questionable change in QRS axis ST now depressed in Inferior leads ST now depressed in Anterior leads Nonspecific T wave abnormality, worse in Lateral leads Unconfirmed Result
[2016-07-08 07:02] LABS: BASO% 0.1 % (0.0-0.8); HEMATOCRIT 22.6 % (37.0-47.0); HEMOGLOBIN 7.4 g/dL (12.0-16.0); IMM GRAN% 4.7 % (0.0-0.5); LYMPH# 0.78 X1000 (1.2-3.4); MANUAL DIFF NEEDED? YES; MCH 28.5 PG (27-31); MCHC 32.7 g/dL (33-37); MCV 86.9 FL (81-99); MONO# 1.52 X1000 (0.11-0.59); MONO% 5.9 % (1.7-9.3); MPV 11.1 FL (7.4-10.4); NEUT% 86.3 % (42.2-75.2)
[2016-07-08 07:04] LABS: PLT 33 X1000 (130-400)
[2016-07-08 07:09] LABS: BANDS 4 % (0-1); LYMPHS 4 % (21-51); MONO 2 % (1-9); NRBC 1 % (0-0)
[2016-07-08 07:16] LABS: AGAP 10; ALBUMIN 2.5 g/dL (3.5-5.0); ALKALINE PHOSPHATASE 98 U/L (32-104); BUN 9 mg/dL (8-22); CALCIUM 7.2 mg/dL (8.8-10.2); CHLORIDE 98 mmol/L (98-107); COSMO 274; GOT 13 U/L (10-30); GPT 9 U/L (10-36); POTASSIUM 2.8 mmol/L (3.5-5.1); SODIUM 138 mmol/L (136-145); TCO2 30 mmol/L (25-35); TOTAL BILIRUBIN 0.45 mg/dL (0.20-1.00); TOTAL PROTEIN 6.6 g/dL (6.3-8.3)
[2016-07-08] MEDS: NS 1,000 ML IV SCH ×3 (07:47→16:36)
[2016-07-08] MEDS ORDERED: TYLENOL PO ONE (08:13)
[2016-07-08] MEDS ORDERED: BENADRYL IV ONE (08:14)
--- NOTE | 2016-07-08 08:51 | CONSULTATION ---
DATE OF CONSULTATION: 07/08/2016 REASON FOR CONSULTATION: The patient is known to us with limited stage small-cell lung cancer, on carboplatin and etoposide. She also now has ITP on Promacta. The patient was discharged on with pneumonia and C. difficile colitis as well as ITP. HISTORY OF PRESENT ILLNESS: This patient was recently discharged from the hospital on 07/06/2016 after having treatment for pneumonia, C. difficile colitis and ITP. She was started on Promacta in the hospital after not responding to steroids or IVIG. Platelet count came up to over 30,000. She is known to us for her small-cell lung cancer. She did not have any bleeding. She was feeling improved and did not have any further fevers, so she was discharged at that time. Since being home, she states that she had a fever up to 100.9 degrees and increasing shortness of breath after she was discharged; therefore, she returns to the emergency room. A chest x-ray was performed which showed new right middle lobe consolidation, possibly pneumonia. She has been started on vancomycin and ceftriaxone, and she is also on 2 L of nasal oxygen via nasal cannula. Her hemoglobin is 7.4, her platelet count is 33,000 which is stable for her. White count is 25.68. The patient states that she is feeling some improvement now that she is in the hospital. REVIEW OF SYSTEMS: Negative unless indicated in HPI. ALLERGIES: Penicillin, latex, hydrocodone and Aricept. PAST MEDICAL HISTORY: Small-cell lung cancer, diabetes type 2, chronic pain and sees a pain specialist, ITP, C. difficile colitis and pneumonia, requiring multiple hospitalizations. SOCIAL HISTORY: The patient has a history of smoking. She stopped smoking several weeks ago. She denies alcohol or illicit drug use. PHYSICAL EXAMINATION: Vital signs are stable. Constitutional: This is a female who appears frail and chronically ill. HEENT: Head is normocephalic and atraumatic. Mucous membranes are dry. Cardiovascular: S1 and S2 audible to auscultation with no heaves, lifts, thrills or murmurs. Pulmonary: Breath sounds are diminished bilaterally with good expiratory wheeze, normal respiratory effort. GI: Abdomen is soft, nontender and nondistended. Positive bowel sounds in all 4 quadrants. Musculoskeletal: The patient moves all extremities. There is no bony abnormality. Extremities: There is no edema noted. Skin: No petechia. No rash. No ecchymosis. Neurologic: Alert and oriented x3. Psychiatric: Appropriate to situation. DIAGNOSTIC DATA: Chest x-ray shows new right middle lobe consolidation, possibly pneumonia. WBC is 25.68, hemoglobin 7.4, hematocrit 22.6, platelets 33,000. ASSESSMENT AND PLAN: 1. Limited stage small-cell lung cancer. She has received carboplatin and VP16. She did have some radiation therapy, but she developed some odynophagia, so that has been stopped. 2. Idiopathic thrombocytopenic purpura. The patient has been on Promacta. Her platelet counts are stable. 3. Anemia. Her hemoglobin is 7.4. Due to her ongoing comorbidities and her dyspnea, we will transfuse 1 unit of packed red cells and continue to monitor her CBC. 4. Pneumonia, on vancomycin and ceftriaxone. Supportive care. 5. Odynophagia secondary to radiation. It is much improved. She does have a PEG tube in place, but she is eating and tolerating food by mouth. 6. DVT prophylaxis with SCDs. Dictated by MIKE Sánchez for Dell Paez MD cc: MIKE Sánchez MD
[2016-07-08] MEDS ORDERED: DURAGESIC 75 MICROGM/HR PATCH TD SCH (09:00)
[2016-07-08] MEDS: CARDIZEM PO SCH ×3 (10:30→21:49)
[2016-07-08] MEDS: PREMARIN PO SCH (10:36)
[2016-07-08] MEDS: VESICARE PO SCH (10:36)
[2016-07-08] MEDS: DULCOLAX PR SCH (10:36)
[2016-07-08] MEDS: PRINIVIL PO SCH (10:37)
[2016-07-08] MEDS ORDERED: CARDIZEM PO ONE (11:30)
[2016-07-08] MEDS ORDERED: LANOXIN IV ONE (12:46)
--- NOTE | 2016-07-08 13:04 | EKG Report ---
Test Performed on : 07/08/2016 12:53:04 PM Test Reason : elevated heart rate Blood Pressure : / mmHG Vent. Rate : 153 BPM Atrial Rate : 182 BPM P-R Int : 000 ms QRS Dur : 078 ms QT Int : 292 ms P-R-T Axes : 000 020 254 degrees QTc Int : 466 ms Atrial fibrillation. with premature ventricular or aberrantly conducted complexes. Marked ST abnormality, possible inferior subendocardial injury (suspect this is rate related ischemi a) Abnormal ECG When compared with ECG of 07-JUL-2016 09:59, (Unconfirmed) Atrial fibrillation. has replaced Sinus rhythm. ST now depressed in Lateral leads T wave inversion now evident in Inferior leads Confirmed by Santosh HERNANDEZ, Vinny Albert ([id number]) on 07/10/2016 5:34:29 PM
[2016-07-08] MEDS ORDERED: POTASSIUM CHLORIDE 20% LIQUID PO ONE (13:11)
--- NOTE | 2016-07-08 13:40 | PROGRESS NOTE ---
DATE: 07/08/2016 SUBJECTIVE: Ms. Kelly is awake and alert. Her heart rates have been running in the 160s and 180s, consistent with atrial fibrillation, atrial flutter. Blood pressure has done okay. Blood pressure around 120/70. I have given her some p.o. Cardizem. We will plan on giving her some IV digoxin. Rate has come down to the 140s at times but I am going to move her to [facility], ask cardiology to assist. PHYSICAL EXAMINATION: Vital Signs: Temperature 98 degrees, pulse 153, respirations 18, blood pressure 121/73, CVP less than 6 cm. Lungs: Clear in all lung mendez. Cardiovascular Examination: Irregular rhythm and irregular rate with tachycardia. Abdomen: Soft, nontender, nondistended. PEG tube in place. Extremities: Without clubbing, cyanosis, or edema. LAB: From yesterday, white count was 25,680, hematocrit 22, platelet count 33,000. Sodium 138, potassium 2.8, chloride 98, bicarb 30, BUN 6, creatinine 0.6. Blood gases were reviewed from yesterday. PH was 7.56, pCO2 35, PO2 67. This was on 28%. Chest x-ray from yesterday, development of right middle lobe consolidation. ASSESSMENT AND PLAN: 1. Small cell lung cancer, undergoing chemotherapy and radiation treatment. Recent hospitalization for pancytopenia and then discovered to have idiopathic thrombocytopenic purpura. With treatment, her counts look much better but she developed pneumonia, leukocytosis. 2. Pneumonia, leukocytosis. 3. Atrial fibrillation and atrial flutter. Rate elevated, started this morning. 4. We will supplement potassium. I think we can use her percutaneous endoscopic gastrostomy tube. We will check magnesium as well. Move her to [facility]. cc: Nathan Devries MD
[2016-07-08] MEDS: ROCEPHIN 1 GM/NS 1 GM/50 ML IVPB IV SCH (14:06)
[2016-07-08 15:10] LABS: URINE MICRO REVIEW NEEDED? NO; URINE SOURCE CATH
[2016-07-08 15:15] LABS: BILIRUBIN URINE NEGATIVE (NEGATIVE); BLOOD URINE NEGATIVE (NEGATIVE); COLOR YELLOW; GLUCOSE URINE NEGATIVE (NEGATIVE); LEUKOCYTES URINE NEGATIVE (NEGATIVE); NITRITE URINE NEGATIVE (NEGATIVE); PROTEIN URINE TRACE mg/dL (NEGATIVE); SP GRAVITY URINE 1.009; TURBIDITY URINE CLEAR (CLEAR); UR EPITHELIAL CELLS <10 /HPF (<10); URINE BACTERIA NEGATIVE /HPF; URINE RBC <10 /HPF (<10); URINE WBC <10 /HPF (<10); UROBILINOGEN URINE NORMAL (NORMAL)
--- NOTE | 2016-07-08 16:00 | EKG Report ---
Test Performed on : 07/08/2016 3:43:10 PM Test Reason : atrial fib Blood Pressure : / mmHG Vent. Rate : 074 BPM Atrial Rate : 074 BPM P-R Int : 118 ms QRS Dur : 076 ms QT Int : 374 ms P-R-T Axes : 026 045 066 degrees QTc Int : 415 ms Normal sinus rhythm. T wave abnormality, consider anterior ischemia Abnormal ECG When compared with ECG of 08-JUL-2016 12:53, (Unconfirmed) Sinus rhythm. has replaced Atrial flutter. Vent. rate has decreased BY [address] no longer depressed in Inferior leads ST no longer depressed in Anterolateral leads T wave inversion no longer evident in Inferior leads T wave inversion now evident in Anterior leads Confirmed by Santosh HERNANDEZ, Vinny Albert ([id number]) on 07/10/2016 5:36:38 PM
--- NOTE | 2016-07-08 16:12 | CONSULTATION ---
DATE OF CONSULTATION: 07/08/2016 IMPRESSION: 1. Atrial fibrillation with rapid ventricular rate in setting of pneumonia and significant anemia. Patient has now spontaneously converted back to sinus rhythm. 2. Right middle lobe pneumonia. 3. Small cell lung cancer. 4. Type 2 diabetes mellitus. 5. Severe anemia and thrombocytopenia. RECOMMENDATIONS: 1. Continue beta-belle for rate control in the event of recurrent atrial fibrillation. 2. Agree with plans to transfuse. 3. Echocardiography/Doppler study. 4. Conservative plans overall from a cardiovascular standpoint. Patient appears to be a poor candidate for anticoagulation given her significant thrombocytopenia. HISTORY: This 66-year-old, white female, with past history of small cell lung cancer and type 2 diabetes mellitus was admitted with pneumonia. She was just in the hospital recently and was discharged 2 days prior to readmission. She had been given radiation therapy and chemotherapy. During her course she developed C. difficile colitis and them pancytopenia with predominant thrombocytopenia. She was found to have immune thrombocytopenic purpura which was very resistant to steroids and immunoglobulins. She returned with fever, cough and shortness of breath. Chest x-ray indicated pneumonia. Today she converted to atrial fibrillation with rapid ventricular rate. She relates some tachy palpitations and mild chest discomfort. Symptoms improved after about an hour. She recently converted back to sinus rhythm. She is not aware of any previous cardiac problems. PAST MEDICAL HISTORY: 1. Small cell lung cancer. 2. Type 2 diabetes mellitus. 3. Chronic back pain. 4. 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 She did require a PEG tube. 5. Recent C. difficile colitis. 6. Recent admission for pneumonia. 7. Pancytopenia. Recent evaluation indicated immune thrombocytopenic purpura. ALLERGIC: She is allergic or intolerant to penicillin, latex, AcipHex and hydrocodone. MEDICATIONS: As listed. SOCIAL HISTORY: She quit smoking. She does not use alcohol. FAMILY HISTORY: Negative for premature coronary disease. REVIEW OF SYSTEMS: Pulmonary: Noteworthy for cough and dyspnea. Gastrointestinal: Noteworthy for recent esophagitis which has improved. Constitutional: Noteworthy for fatigue. Remainder of review of systems negative/noncontributory with 14 total systems reviewed. PHYSICAL EXAMINATION: General: Older white female, in no distress. Vital Signs: Blood pressure 121/73, heart rate 84 and regular with ECG monitor now showing sinus rhythm. HEENT: Extraocular movements intact. Mucous membranes moist. Neck: Supple No JV distention. No carotid bruits. Chest: Reveals crackles in the left posterior base and right mid lung. Cardiac: A regular rate and rhythm without appreciable murmur or gallop. Abdomen: Soft, nontender. Bowel sounds are normal. Extremities: Without edema. Neurologic: Reveals her to be alert, fully oriented. Speech is fluent. She moves all 4 extremities equally well. Skin: Warm dry. Psychiatric: Reveals her to be somewhat depressed. ECG demonstrates atrial fibrillation with rapid ventricular rate of 153 beats per minute and ST abnormality, probably rate related. cc: Daniel Flores MD
[2016-07-08] MEDS ORDERED: NS 500 ML ONE (17:15)
[2016-07-08] MEDS: STRATTERA PO SCH ×3 (19:19→21:51)
[2016-07-08] MEDS: VANCOMYCIN 1,300 MG in NS 250 ML IV SCH (21:49)
[2016-07-08] MEDS ORDERED: VANCOMYCIN 1,300 MG in NS 250 ML IV SCH (22:00)
[2016-07-09] MEDS: CARDIZEM PO SCH ×4 (03:43→20:57)
[2016-07-09 05:04] LABS: MANUAL DIFF NEEDED? NO
[2016-07-09 05:07] LABS: BASO% 0.1 % (0.0-0.8); EOS# 0.01 X1000 (0.0-0.7); EOS% 0.1 % (0.0-10.0); HEMATOCRIT 25.1 % (37.0-47.0); HEMOGLOBIN 8.5 g/dL (12.0-16.0); IMM GRAN# 0.38 X1000 (0.0-0.04); LYMPH# 0.64 X1000 (1.2-3.4); LYMPH% 3.3 % (20.5-51.1); MCH 29.7 PG (27-31); MCHC 33.9 g/dL (33-37); MCV 87.8 FL (81-99); MONO# 1.85 X1000 (0.11-0.59); MONO% 9.6 % (1.7-9.3); MPV 12.3 FL (7.4-10.4); NEUT% 84.9 % (42.2-75.2); PLT 33 X1000 (130-400); RBC 2.86 XMIL (4.2-5.4)
--- NOTE | 2016-07-09 08:17 | Diag Imaging Result Document ---
PROCEDURE NAME: CHEST-2 VIEWS - 07/08/2016 PA AND LATERAL RADIOGRAPH OF THE CHEST: COMPARISON: 07/07/2016. FINDINGS: Right chest port is in stable position. Right middle lobe consolidation seen previously is approximately stable. There is stable right apical pleural and parenchymal scarring. No new consolidation is identified. Cardiac silhouette is stable. IMPRESSION: Stable chest.
[2016-07-09] MEDS: COLACE PO SCH ×2 (09:47→20:57)
[2016-07-09] MEDS: DULCOLAX PR SCH ×2 (09:48→09:53)
[2016-07-09] MEDS: STRATTERA PO SCH ×2 (09:48→20:57)
[2016-07-09] MEDS: PRINIVIL PO SCH (09:48)
[2016-07-09] MEDS: NEURONTIN PO SCH (09:49)
[2016-07-09] MEDS: PREMARIN PO SCH (10:29)
[2016-07-09] MEDS: VESICARE PO SCH (10:29)
--- NOTE | 2016-07-09 12:57 | PROGRESS NOTE ---
DATE: 07/09/2016 SUBJECTIVE: Today, Ms. Kelly referred to be doing fine, but she is extremely drowsy. She is not even able to sustain a full conversation because she keeps falling asleep. OBJECTIVE: Vital signs: Blood pressure 99/50, pulse of 60, respirations 16, temperature 98.2 degrees. General: Ms. Kelly is a 66-year-old female. She was in bed. Was not in any remarkable distress. HEENT: Mucosa is slightly dry. Anicteric. Acyanotic. Neck: Supple. Chest: Air entry is bilaterally reduced. There are some few bibasilar crepitations. Cardiovascular: Regular rate and rhythm. Abdomen: Soft. Extremities: No pedal edema. Central Nervous System: Patient is drowsy, but easily arousable. Has no focal neurological deficit. LABORATORY DATA: WBC is down to 19.2. Hemoglobin is 8.5, platelet count of 33, 000. ASSESSMENT: 1. Altered mental status, which I think is related to all the pain medication and sedatives that the patient is on. We are going to discontinue all of them and keep her only on the patch of fentanyl. As her mentation improves, we will reintroduce her medications gradually. 2. Right middle lobe pneumonia. Patient is currently on antibiotics. 3. History of small cell lung cancer. 4. Thrombocytopenia. Etiology is unclear. Patient is being treated for refractory idiopathic thrombocytopenic purpura; however, the bone marrow biopsy official report is not out yet. 5. 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 The patient has a PEG tube. 6. History of small cell lung cancer. 7. Atrial fibrillation with rapid ventricular response. Patient went into this yesterday. Was evaluated by Cardiology and was given a dose of diltiazem. Currently, the patient is in sinus and rate is controlled. 8. History of congestive heart failure with ejection fraction of 25% to 30% secondary to ischemic heart disease noted. Patient is currently not in any acute exacerbation. 9. GPC bacteremia: patient is currently on Vancomycin. Will continue with the same coverage until we have the ID and sensitivity cc: Carlos Georges MD [facility]
[2016-07-09] MEDS: ROCEPHIN 1 GM/NS 1 GM/50 ML IVPB IV SCH (14:44)
[2016-07-09] MEDS: DURAGESIC 50 MICROGM/HR PATCH TD SCH (14:44)
[2016-07-09] MEDS: NS 1,000 ML IV SCH ×2 (14:44→16:04)
--- NOTE | 2016-07-09 19:32 | PROGRESS NOTE ---
DATE: 07/09/2016 SUBJECTIVE: Patient relates feeling better. She denies any dyspnea or chest discomfort. OBJECTIVE: Vital Signs: Blood pressure 112/65, heart rate 83 and regular, temperature 98.8 degrees, there is no significant JV distention. Chest: Clear to auscultation. Cardiac Examination: Regular rate and rhythm with a grade 2/6 systolic murmur at the left upper sternal border. Gallop could not be appreciated. There is no evidence of peripheral edema. LABORATORY DATA: Remarkable for positive blood culture showing gram-positive cocci in 1 set and another set showing Staph coccus aureus. IMPRESSION: 1. Recent episode of atrial fibrillation. Patient continues in sinus rhythm. 2. Suspected right middle lobe pneumonia. 3. Positive blood cultures for gram-positive cocci and Staph aureus. 4. Small-cell lung cancer. 5. Type 2 diabetes mellitus. 6. Severe anemia and thrombocytopenia. RECOMMENDATIONS: 1. Follow up echocardiography results. 2. Conservative cardiovascular management overall. 3. Continue current rate control medications with diltiazem and digoxin. cc: Daniel Flores MD
[2016-07-09] MEDS: SINGULAIR PO SCH (20:57)
[2016-07-09] MEDS: VIIBRYD PO SCH (20:57)
[2016-07-09] MEDS: VANCOMYCIN 1,300 MG in NS 250 ML IV SCH (22:38)
[2016-07-10] MEDS: CARDIZEM PO SCH ×4 (02:50→20:45)
[2016-07-10] MEDS: PATIENT'S OWN MED PO SCH (04:57)
[2016-07-10 05:52] LABS: BASO% 0.2 % (0.0-0.8); EOS# 0.02 X1000 (0.0-0.7); EOS% 0.1 % (0.0-10.0); HEMATOCRIT 26.5 % (37.0-47.0); HEMOGLOBIN 8.7 g/dL (12.0-16.0); IMM GRAN# 0.34 X1000 (0.0-0.04); IMM GRAN% 2.4 % (0.0-0.5); LYMPH# 0.59 X1000 (1.2-3.4); LYMPH% 4.1 % (20.5-51.1); MANUAL DIFF NEEDED? YES; MCHC 32.8 g/dL (33-37); MCV 88.3 FL (81-99); MONO# 2.51 X1000 (0.11-0.59); MONO% 17.4 % (1.7-9.3); MPV 13.1 FL (7.4-10.4); NEUT% 75.8 % (42.2-75.2); PLT 46 X1000 (130-400)
[2016-07-10 06:31] LABS: AGAP 10; ALBUMIN 2.2 g/dL (3.5-5.0); ALKALINE PHOSPHATASE 291 U/L (32-104); BUN 9 mg/dL (8-22); CALCIUM 7.2 mg/dL (8.8-10.2); CHLORIDE 100 mmol/L (98-107); COSMO 268; GOT 52 U/L (10-30); GPT 42 U/L (10-36); POTASSIUM 3.3 mmol/L (3.5-5.1); SODIUM 135 mmol/L (136-145); TCO2 25 mmol/L (25-35); TOTAL BILIRUBIN 0.81 mg/dL (0.20-1.00); TOTAL PROTEIN 6.2 g/dL (6.3-8.3)
[2016-07-10 08:26] LABS: BANDS 10 % (0-1); LYMPHS 4 % (21-51); MONO 12 % (1-9)
[2016-07-10 08:27] LABS: HYPOCHROM 1+
[2016-07-10] MEDS: DULCOLAX PR SCH (09:45)
[2016-07-10] MEDS: VESICARE PO SCH (09:45)
[2016-07-10] MEDS: COLACE PO SCH ×2 (09:45→20:37)
[2016-07-10] MEDS: PREMARIN PO SCH (09:45)
[2016-07-10] MEDS: STRATTERA PO SCH ×2 (09:45→20:37)
[2016-07-10] MEDS: PRINIVIL PO SCH (09:45)
[2016-07-10] MEDS: KEFZOL 1 GM/D5W 1 GM/50 ML IVPB IV SCH ×2 (10:46→17:47)
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
[2016-07-10] MEDS ORDERED: KLOR-CON PO ONE (14:38)
--- NOTE | 2016-07-10 15:35 | PROGRESS NOTE ---
DATE: 07/10/2016 SUBJECTIVE: Today Ms. Kelly actually refers to be doing a whole lot better. She is more alert, more lucid, and more communicative. She denies any complaints. OBJECTIVE: Vital signs: Blood pressure is 113/69, pulse of 72, respiration is 14, temperature is 98.7 degrees. General: Ms. Kelly is a 66-year-old female. She was in bed, not seemingly in distress. HEENT: Mucosa is pink and moist. Anicteric and acyanotic. Neck: Supple. Chest: Air entry is bilaterally reduced. There is diffuse posterior dry crackles. No wheezing. There is a port on the left anterior chest wall. Cardiovascular: Regular rate and rhythm. No murmurs, no rubs. Abdomen: Soft. Extremities: No pedal edema. SECOND LANGUAGE TUTOR: Patient is alert, oriented x4. There is no focal neurological deficit. Genitourinary: There is a Gallardo catheter in place. LABORATORY DATA: WBC is 14.44, is improving. Hemoglobin is 8.7, improving. Platelet count of 46,000, slightly improving. There is 70% of segments and 10% of bands. Chemistry is reviewed. Sodium is 135, potassium is 3.6. AST is 52, ALT is 42, alkaline phosphatase is 291. Blood culture is Staph aureus sensitive to oxacillin, is 2/2, a repeat blood culture early this morning is negative. ASSESSMENT: 1. Right middle lobe pneumonia. So far, the sputum culture is showing gram-positive cocci and gram negative rods. We are waiting on the ID, but clinically patient seems to be doing a whole lot better. 2. Altered mental status yesterday which we think was due to medication side effects. All sedatives were discontinued. The fentanyl patch was also reduced and patient is not doing a whole lot better. 3. MSSA bacteremia. I consulted ID. So far the subsequent blood culture that was ordered this morning seems to be negative. The patient also has a port, and has a metal from lower back surgery in the past, and from the ID note, they plan to treat the patient for an extensive period of time with IV antibiotics which patient can get through her port. Will be waiting for ID to arrange for these home antibiotics and then we can get the patient discharged. 4. Atrial fibrillation with rapid ventricular response. The patient is currently normal, is currently in sinus, and normal rate. 5. History of small cell lung cancer. Patient follows up with Dr. Paez. 6. Diabetes mellitus. Controlled. 7. Severe thrombocytopenia suspicion for ITP. This is improving. 8. Transaminitis. I think this is probably related to ischemia when patient was hypotensive. We will keep an eye on this. cc: Carlos Georges MD
[2016-07-10] MEDS: NS 1,000 ML IV SCH (15:52)
--- NOTE | 2016-07-10 17:31 | PROGRESS NOTE ---
DATE: 07/10/2016 SUBJECTIVE: Patient relates some right-sided chest discomfort worse with deep breath. There is no dyspnea. OBJECTIVE: Vital Signs: Blood pressure 112/62, heart rate 71, temperature 98.5 degrees. There is no significant jugular venous distention. Chest: Clear to auscultation. Cardiac: Reveals a regular rate and rhythm. There is no evidence of peripheral edema. DIAGNOSTICS: ECG monitor shows sinus rhythm. IMPRESSION: 1. Transient atrial fibrillation without recurrence. 2. Right middle lobe pneumonia with blood cultures growing Staph aureus. 3. Small cell lung cancer. 4. Type 2 diabetes mellitus. 5. Severe anemia and thrombocytopenia. RECOMMENDATIONS: 1. Continue current cardiovascular regimen unchanged and monitor rhythm. 2. Followup echocardiography study. If echocardiography study benign, we will plan on seeing her further on an as needed basis. cc: Daniel Flores MD
[2016-07-10] MEDS: VIIBRYD PO SCH (20:37)
[2016-07-10] MEDS: SINGULAIR PO SCH (20:37)
[2016-07-11] MEDS: KEFZOL 1 GM/D5W 1 GM/50 ML IVPB IV SCH ×3 (02:46→15:45)
[2016-07-11] MEDS: CARDIZEM PO SCH ×5 (02:46→20:48)
[2016-07-11] MEDS: PATIENT'S OWN MED PO SCH (05:02)
[2016-07-11 05:24] LABS: BASO% 0.2 % (0.0-0.8); EOS# 0.01 X1000 (0.0-0.7); HEMATOCRIT 27.3 % (37.0-47.0); HEMOGLOBIN 9.1 g/dL (12.0-16.0); IMM GRAN# 0.68 X1000 (0.0-0.04); IMM GRAN% 2.9 % (0.0-0.5); LYMPH# 0.56 X1000 (1.2-3.4); LYMPH% 2.4 % (20.5-51.1); MANUAL DIFF NEEDED? YES; MCH 29.2 PG (27-31); MCHC 33.3 g/dL (33-37); MCV 87.5 FL (81-99); MONO# 3.67 X1000 (0.11-0.59); MONO% 15.9 % (1.7-9.3); NEUT% 78.6 % (42.2-75.2); PLT 66 X1000 (130-400); RBC 3.12 XMIL (4.2-5.4)
[2016-07-11 05:38] LABS: LYMPHS 2 % (21-51); MONO 6 % (1-9)
[2016-07-11 05:47] LABS: AGAP 12; ALBUMIN 2.5 g/dL (3.5-5.0); ALKALINE PHOSPHATASE 255 U/L (32-104); BUN 6 mg/dL (8-22); CHLORIDE 100 mmol/L (98-107); COSMO 273; GOT 20 U/L (10-30); GPT 24 U/L (10-36); POTASSIUM 3.6 mmol/L (3.5-5.1); SODIUM 138 mmol/L (136-145); TCO2 26 mmol/L (25-35); TOTAL BILIRUBIN 0.59 mg/dL (0.20-1.00); TOTAL PROTEIN 7.3 g/dL (6.3-8.3)
[2016-07-11] MEDS ORDERED: MAXIPIME 1 GM/NS 1 GM/50 ML IVPB IV SCH (07:00)
--- NOTE | 2016-07-11 07:19 | PROGRESS NOTE ---
DATE: 07/11/2016 PRESENT ILLNESS: The patient has a Staphylococcus aureus bacteremia. I think this originates from a Staphylococcus aureus lung infection. She does have a Port-A-Cath in place, but I do not think it is the source of her bacteremia. The patient's sputum has a gram- positive cocci and gram- negative siomara growing from it. I think the gram-positive cocci will be the same Staphylococcus aureus that is in her blood. The gram-negative siomara has not been identified yet. MEDICATIONS: The patient is on Ancef 1 gram IV every 8 hours. PHYSICAL EXAMINATION: Vital Signs: Temperature is 99.9 degrees, pulse 97, respirations 21, blood pressure 132/64. General: This is a chronically ill-appearing elderly female. She is in no acute distress at this time. Lungs: Clear to auscultation. Cardiovascular: Regular heart rate. Chest: The patient has a Port-A-Cath present on the right side. The site is not swollen or erythematous. Abdomen: Soft and nontender. The patient has a G-tube in place. LABORATORY AND X-RAY: The patient's CBC today showed a white count of 23,150, hemoglobin 9.1, and platelet count 66,000. Creatinine is 0.9. GFR is greater than 60. Sputum cultures growing gram- positive cocci and gram negative rods. There is no new radiographic study done today. ASSESSMENT AND PLAN: The patient has a Staphylococcus aureus bacteremia. The organism is oxacillin sensitive. The patient also has a pulmonary infiltrate and a sputum culture which is growing gram-positive cocci and gram-negative rods. I think the Staphylococcus aureus that was found in the blood originates from the lung. There also is a gram- negative siomara in the sputum. I think the patient has a Staphylococcus aureus pneumonia and bacteremia. I do not think it is coming from the Port-A-Cath. She also appears to have a gram-negative siomara coming from her lung and most likely is causing pneumonia along with the Staphylococcus aureus. My plan is to stop Ancef and start cefepime in order to cover better Staph aureus and the gram negative siomara in her sputum. COMORBIDITY: She has lung cancer, for which she is getting chemotherapy and radiation for. Her other comorbidity in the patient is that she has a history of cigarette smoking and has COPD. cc: MD DEEPTI Peres
[2016-07-11] MEDS: STRATTERA PO SCH ×2 (08:29→20:48)
[2016-07-11] MEDS: COLACE PO SCH ×2 (08:29→20:48)
[2016-07-11] MEDS: PRINIVIL PO SCH (08:29)
[2016-07-11] MEDS: PREMARIN PO SCH (08:29)
[2016-07-11] MEDS: VESICARE PO SCH (08:29)
[2016-07-11] MEDS: DULCOLAX PR SCH (08:30)
--- NOTE | 2016-07-11 10:01 | PROGRESS NOTE ---
DATE: 07/11/2016 ADDENDUM: The patient's gram-negative siomara in her sputum has been identified. It is Klebsiella pneumoniae. The organism is susceptible to cefazolin. Therefore, I have switched the patient back to Ancef because it will cover both the Staphylococcus aureus in her sputum and the Klebsiella that was isolated as mentioned above. The patient had an echocardiogram done yesterday, the results of which are pending. The patient will need 6 weeks of IV antibiotic because she has a lot of metal in her spine and shoulder and the metal could have become infected hematogenously from patient's bacteremia. Therefore, I will be treating her for 6 weeks with Ancef and then when we are done with that, put her on p.o. Keflex in a low dose such as 500 mg p.o. every 12 hours on an indefinite basis. cc: Alexandr Sauceda MD MTDD
--- NOTE | 2016-07-11 10:09 | Diag Imaging Result Document ---
PROCEDURE NAME: CHEST-PORTABLE - 07/11/2016 PORTABLE CHEST X-RAY: COMPARISON: 07/08/2016. FINDINGS: There is new, severe, alveolar infiltrate throughout the right mid lung and lung base. The left lung is grossly clear of infiltrate. Heart size is borderline enlarged. No pneumothorax or large effusion. Stable right chest port. IMPRESSION: New extensive alveolar infiltrate throughout the right lung base. Pneumonia or aspiration is suggested.
--- NOTE | 2016-07-11 10:10 | PROGRESS NOTE ---
DATE: 07/11/2016 SUBJECTIVE: Today, Ms. Kelly referred to be doing okay. However, she continues to have a cough and according to her, some yellowish expectoration. Her attending nurse did tell me that early on, the patient said that she felt a little weaker than days before. OBJECTIVE: Vital Signs: Blood pressure is 126/60, pulse is 78, respirations 20, temperature is 98.7 degrees. Patient did have a temperature of 99.9 degrees early on today. General Examination: Ms. Kelly is a 66-year-old, female. She is in bed. She did not seem to be in any remarkable distress. HEENT: Mucosa is pink and moist. Anicteric and acyanotic. Neck: Supple. Chest: Air entry is bilaterally reduced. There are some diffuse bilateral posterior coarse crackles in both lungs. Cardiovascular: Regular rate and rhythm. There is no murmur, no rubs, no gallops. Abdomen: Soft, nontender. Extremities: No pedal edema. ROLLER CHECKER: Patient is alert and oriented. There is no focal neurological deficit. Laboratory Data: WBC went up to 23.15, hemoglobin is 9.1, platelet count is 66,000. Chemistry is reviewed, is completely unremarkable. ASSESSMENT: 1. Right middle lobe pneumonia. Sputum culture so far is positive for methicillin-sensitive Staphylococcus aureus and Klebsiella, both of which are sensitive to Ancef. The patient is currently on Ancef intravenous. However, she continues to have significant chest findings and white cells have gone up and also running a little temperature. I am going to repeat the chest x-ray for today and review it for later on, and await infectious disease evaluation. 2. Altered mental status due to medications (sedatives and pain medications). These have been adjusted. 3. Methicillin-sensitive Staphylococcus aureus bacteremia. Patient is getting intravenous Ancef. Subsequent blood cultures have not come up yet. We are still awaiting. 4. One episode of atrial fibrillation with rapid ventricular response. This has been controlled. Patient is currently in sinus rhythm with a normal rate. 5. History of small cell lung cancer. The patient follows up with Dr. Paez. 6. Diabetes mellitus, controlled. 7. Severe thrombocytopenia, suspicion for idiopathic thrombocytopenic purpura. This is gradually improving. 8. Transaminitis, resolved. GENERAL PLAN: Ms. Kelly looks relatively stable. However, she looks a little bit concerning than yesterday. Her white cell count is going up. She ran a borderline fever and she feels slightly weaker than before. We are going to continue with the current antibiotics. I will do a chest x-ray to make sure there is not any worsening of the underlying pneumonia and will be pending infectious disease evaluation to see if they will make any changes to the antibiotics. cc: Carlos Georges MD
--- NOTE | 2016-07-11 13:40 | ECHO REPORT ---
ORDER DATE: 07/10/2016 PROCEDURE: Limited echocardiogram. INDICATION: Possible endocarditis. Patient has positive blood culture for a Staphylococcus aureus. M-MODE MEASUREMENTS: M-mode measurements were not made. SUMMARY OF 2-DIMENSIONAL IMAGING: Left ventricle is moderately enlarged, shows slightly decreased function. Global ejection fraction appears to be in the order of 49% to 54%. The impairment appears to be subtle and global. Right ventricle is slightly prominent. Aortic valve looks normal. Color flow mapping unremarkable. I do not see any evidence of vegetation attached to the aortic valve. Mitral valve looks normal. Color flow mapping indicates mild degree of regurgitation. I do not see any vegetation attached to the mitral valve. Pulmonic valve was grossly normal. No obvious bulky vegetation attached to that valve. Tricuspid valve also looks grossly normal. Color flow mapping indicates mild degree of regurgitation. There is evidence of tip of catheter within the right atrium. This is bouncing in and out of view. It is not a vegetation. SUMMARY: This echocardiographic study shows enlarged left ventricle with slightly decreased function, ejection fraction 49 to 54%, with mild degree of tricuspid and mitral regurgitation. I do not see any evidence of endocardial vegetation. A catheter appears to be entering the right atrium and sometimes comes in and out of view. There is no evidence of vegetation on this study. Clinical correlation recommended. cc: MD Alexandr Mercado MD
[2016-07-11] MEDS: NS 1,000 ML IV SCH (15:45)
[2016-07-11] MEDS: VIIBRYD PO SCH (20:48)
[2016-07-11] MEDS: SINGULAIR PO SCH (20:48)
[2016-07-11] MEDS: ROBITUSSIN-AC PO PRN (21:51)
[2016-07-12] MEDS: KEFZOL 1 GM/D5W 1 GM/50 ML IVPB IV SCH ×2 (02:08→08:21)
[2016-07-12] MEDS: CARDIZEM PO SCH ×3 (04:37→09:44)
[2016-07-12] MEDS: ROBITUSSIN-AC PO PRN (04:37)
[2016-07-12] MEDS: PATIENT'S OWN MED PO SCH (05:33)
[2016-07-12 05:44] LABS: BASO% 0.2 % (0.0-0.8); EOS# 0.01 X1000 (0.0-0.7); EOS% 0.1 % (0.0-10.0); HEMOGLOBIN 8.8 g/dL (12.0-16.0); IMM GRAN# 0.65 X1000 (0.0-0.04); IMM GRAN% 3.9 % (0.0-0.5); LYMPH# 0.61 X1000 (1.2-3.4); LYMPH% 3.7 % (20.5-51.1); MANUAL DIFF NEEDED? YES; MCH 28.7 PG (27-31); MCHC 32.6 g/dL (33-37); MCV 87.9 FL (81-99); MONO# 3.18 X1000 (0.11-0.59); MONO% 19.1 % (1.7-9.3); MPV 10.9 FL (7.4-10.4); RBC 3.07 XMIL (4.2-5.4)
[2016-07-12 05:55] LABS: AGAP 11; ALBUMIN 2.5 g/dL (3.5-5.0); ALKALINE PHOSPHATASE 453 U/L (32-104); BUN 6 mg/dL (8-22); CALCIUM 7.9 mg/dL (8.8-10.2); CHLORIDE 97 mmol/L (98-107); COSMO 271; GOT 45 U/L (10-30); GPT 22 U/L (10-36); POTASSIUM 3.3 mmol/L (3.5-5.1); SODIUM 137 mmol/L (136-145); TCO2 29 mmol/L (25-35); TOTAL BILIRUBIN 0.85 mg/dL (0.20-1.00); TOTAL PROTEIN 7.2 g/dL (6.3-8.3)
[2016-07-12 06:01] LABS: PLT 146 X1000 (130-400)
[2016-07-12 06:42] LABS: BANDS 4 % (0-1); LYMPHS 6 % (21-51); MONO 14 % (1-9)
[2016-07-12] MEDS: COLACE PO SCH (08:20)
[2016-07-12] MEDS: PREMARIN PO SCH (08:20)
[2016-07-12] MEDS: DULCOLAX PR SCH (08:20)
[2016-07-12] MEDS: PRINIVIL PO SCH (08:20)
[2016-07-12] MEDS: VESICARE PO SCH (08:21)
[2016-07-12] MEDS: STRATTERA PO SCH (08:21)
--- NOTE | 2016-07-12 08:29 | PROGRESS NOTE ---
DATE: 07/12/2016 PRESENT ILLNESS: The patient has an oxacillin sensitive Staph aureus bacteremia and a pneumonia due to an oxacillin sensitive Staph aureus and Klebsiella. MEDICATIONS: The patient is on Ancef 1 g IV every 8 hours. She has had thus far 2 days of antimicrobial therapy. The patient is on Ancef 1 g IV every 8 hours. PHYSICAL EXAMINATION: Vital Signs: Temperature is 98.8 degrees, pulse 82, respirations 14, and blood pressure 138/69. General: This is an ill-appearing elderly female. Today, she is complaining of having a lot of pain in her left shoulder. Lungs: Clear to auscultation. Cardiovascular: Regular heart rate. Abdomen: Soft and nontender. Chest: The patient has a Port-A-Cath present on the right side. The site is not erythematous or swollen. Extremities: Patient's left shoulder is tender. It is not swollen but when I move it it also was painful for the patient. LABORATORY AND X-RAY: The patient[place] [address] , hemoglobin 8.8, and platelet count 146,000. Creatinine 0.9. GFR is greater than 60. Repeat blood cultures on the patient are pending. Chest x-ray shows an extensive right lung infiltrate. Echocardiogram shows no valvular vegetations. ASSESSMENT AND PLAN: The patient has Staph aureus bacteremia and a Staph aureus and Klebsiella pneumonia. She also now is having a painful left shoulder. My plan is to continue Ancef for 6 weeks because of the metal in her spine. As mentioned above, this is day 2 of treatment. I am going to order an x-ray of her left shoulder and ask orthopedics to see the patient regarding the painful left shoulder. COMORBIDITIES: Include lung cancer for which she is getting chemotherapy and radiation therapy. Also, the patient has a history of cigarette smoking and COPD. cc: MD DEEPTI Peres
--- NOTE | 2016-07-12 09:39 | Diag Imaging Result Document ---
PROCEDURE NAME: SHOULDER-LEFT - 07/12/2016 PLAIN RADIOGRAPH OF THE LEFT SHOULDER, 2 VIEWS: COMPARISON: None available. FINDINGS: There are degenerative changes at the AC joint with small marginal osteophytes. There is a small subcortical cyst involving the left humeral head. There is no evidence of fracture, dislocation, or intrinsic osseous lesion, otherwise. IMPRESSION: Mild degenerative changes. No definite acute osseous abnormality.
[2016-07-12 11:32] VITALS: BP 114/53
[2016-07-12] MEDS: DURAGESIC 50 MICROGM/HR PATCH TD SCH (13:38)
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
[2016-07-12] MEDS ORDERED: ELIQUIS PO SCH (21:00)
[2016-07-13] MEDS ORDERED: CARDIZEM CD PO SCH (09:00)
--- NOTE | 2016-07-13 12:17 | DISCHARGE SUMMARY ---
ADMISSION DATE: 07/07/2016 DISCHARGE DATE: 07/12/2016 CONSULTATIONS: 1. Dr. Paez of hematology/oncology. 2. Dr. Sauceda with infectious disease. PERTINENT PROCEDURES: 1. Echocardiogram showed an EF of 49% and 54% with degree of tricuspid and mitral regurgitation with no evidence of endocardial vegetation. Catheter appears to be entering the right atrium and sometimes comes in and out of view. 2. Shoulder x-ray showed mild degenerative changes. No acute osseous abnormality. 3. Initial chest x-ray showed development of right middle lobe consolidation suspicious for pneumonia. 4. Follow up chest x-ray on 07/11/2016 showed no extensive alveolar infiltrate throughout the right lung base. Pneumonia or aspiration is suggested. DISCHARGE DIAGNOSES: 1. MSSA bacteremia and pneumonia due to oxacillin sensitive to Staphylococcus aureus and Klebsiella. The patient will be on Ancef 1 gram intravenous every 8 hours and followed by infectious disease, Dr. Alexandr Sauceda. 2. Altered mental status secondary to medications, sedatives and pain medicines. These have been adjusted and stable. 3. Right middle lobe pneumonia. See #1. 4. Atrial fibrillation with rapid ventricular response, now rate controlled. 5. Small cell lung cancer history followed by Dr. Paez. 6. Diabetes mellitus, controlled. 7. Severe thrombocytopenia suspicious for idiopathic thrombocytopenic purpura, gradually improved. 8. Transaminitis, resolved. HOSPITAL COURSE: Ms. Kelly is a 66-year-old, female, who carries a past medical history of small-cell lung cancer followed with Dr. Paez, diabetes mellitus type 2, chronic back pain, radiation esophagitis which has improved, did require PEG tube, but she has been swallowing okay since using the PEG tube, recent C. 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 Patient had just been discharged from the hospital 2 days prior to her readmission. On her last admission, patient was feeling improved. She did not have any further fevers, so she was discharged home. Since being home, she states she has had a fever up to 109 degrees, increasing shortness of breath after she was discharged. Therefore, she returned to the emergency room. Chest x-ray was performed that showed a new right middle lobe consolidation consistent with pneumonia. She was started on vancomycin and ceftriaxone and was requiring 2 L of nasal cannula. Her white count was 25. Patient was admitted to the hospital and started on IV fluids, IV antibiotics, and a consult with Dr. Paez, as well as Dr. Alexandr Sauceda. While patient was admitted she did have a run of atrial fibrillation with RVR where she spontaneously converted back to sinus rhythm. I did check an echocardiogram. She was continued on beta blockers for rate control. Again, conservative plans overall. From a cardiovascular standpoint, she is a poor candidate for anticoagulation given her significant thrombocytopenia. Dr. Alexandr Sauceda felt that the patient's bacteremia originates from a Staphylococcus aureus pneumonia involving the right middle lobe. The patient does have a Port-A-Cath in place, but he did not feel that this is the origin of the patient's bacteremia. In addition, she has metal in her spine secondary to surgical treatment. He does plan to continue to treat her with Ancef IV every 8 hours for 6 weeks because the patient does have metal, mainly in her spine, that could become infected hematogenously, and that after 6 weeks of IV antibiotics he will put her on a low dose of oral Keflex on an indefinite period in case the metal has not been thoroughly sterilized. Dr. Alexandr Sauceda has set up IV antibiotics, as well as she has been setup with [employer] for her DME for home O2. Patient is being discharged home today. VITAL SIGNS AT TIME OF DISCHARGE: Temperature is 98.1 degrees, heart rate 61, respirations 20, blood pressure is 114/53, O2 was 100% on 4 L nasal cannula. DISCHARGE DIET: Diabetic. DISCHARGE MEDICATION: As per Dr. Georges. Please see MAR. FOLLOW UP: The patient is being discharged home. She will follow up with Dr. Flores with cardiology in 2 weeks. She will follow up with Dr. Paez in 2 weeks. She can follow up with her primary care physician, Dr. Cm, in 2-4 weeks, as well as Dr. Alexandr Sauceda as prescribed. Patient can return to the ED for any worsening of symptoms. DISCHARGE TIME: Greater than 30 minutes. Dictated by MIKE Reece for Carlos Georges MD cc: MD Ilya Crum MD MTDD
== END 2016-07-12 15:50 | disposition home health service (06) ==
LOC: ED 09:24 → 3N 13:06 → SUATTDRO 13:06 → 3S 07-08 13:50
PROVIDERS: ATTEND Internal Medicine

== ENCOUNTER 2016-07-19 09:15 | Inpatient (IN) ==
[2016-07-19 10:02] LABS: BASO% 0.1 % (0.0-0.8); HEMATOCRIT 31.9 % (37.0-47.0); HEMOGLOBIN 10.1 g/dL (12.0-16.0); IMM GRAN% 0.6 % (0.0-0.5); LYMPH# 0.71 X1000 (1.2-3.4); LYMPH% 4.5 % (20.5-51.1); MANUAL DIFF NEEDED? NO; MCH 29.2 PG (27-31); MCHC 31.7 g/dL (33-37); MCV 92.2 FL (81-99); MONO# 0.62 X1000 (0.11-0.59); MONO% 3.9 % (1.7-9.3); MPV 9.9 FL (7.4-10.4); NEUT% 90.9 % (42.2-75.2); PLT 555 X1000 (130-400); RBC 3.46 XMIL (4.2-5.4)
[2016-07-19 10:19] LABS: AGAP 13; ALBUMIN 2.3 g/dL (3.5-5.0); ALKALINE PHOSPHATASE 209 U/L (32-104); AMYLASE 11 U/L (20-200); BUN 21 mg/dL (8-22); CALCIUM 7.3 mg/dL (8.8-10.2); CHLORIDE 98 mmol/L (98-107); COSMO 288; GOT 11 U/L (10-30); GPT < 5 U/L (10-36); POTASSIUM 3.5 mmol/L (3.5-5.1); SODIUM 142 mmol/L (136-145); TCO2 31 mmol/L (25-35); TOTAL BILIRUBIN 0.31 mg/dL (0.20-1.00); TOTAL PROTEIN 6.8 g/dL (6.3-8.3)
[2016-07-19] MEDS ORDERED: NS 1,000 ML IV ONE (12:18)
--- NOTE | 2016-07-19 12:25 | Diag Imaging Result Document ---
PROCEDURE NAME: FLAT/UPRIGHT ABD/1 VIEW CHEST - 07/19/2016 FLAT AND UPRIGHT ABDOMEN: FINDINGS: There is a gastrostomy tube. The bowel gas pattern is nonspecific. There is no evidence of organomegaly or mass. There is some portions of the pelvis and right lateral abdomen which are not included on the films. IMPRESSION: No evidence of acute disease. AP CHEST: FINDINGS: There is improvement in the alveolar opacities in the perihilar and lower lobe regions of the right lung compared to 07/11/2016. IMPRESSION: Improved right-sided pneumonia.
--- NOTE | 2016-07-19 13:30 | PROVIDER DOCUMENTATION ---
This chart was entered by Opal Benitez Scribe, acting as scribe for Michael Teran Jr, MD. HPI-Abdominal Pain/GI Problem - General Chief Complaint: N/V/D Stated Complaint: N/V/D Time Seen by Provider: 07/19/16 09:53 Source: patient Allergies/Adverse Reactions: Patient Allergies Allergy/AdvReac Type Severity Reaction Status Date / Time hydrocodone Allergy itch Verified 07/19/16 09:30 latex Allergy itch Verified 07/19/16 09:30 Penicillins Allergy not sure Verified 07/19/16 09:30 rabeprazole sodium * Allergy itch Verified 07/19/16 09:30 [From Aciphex] Home Medications: Home Medication List Medication Instructions Recorded Confirmed Last Taken Type Gabapentin [Neurontin] 800 mg PO 4XDAY 08/08/13 07/19/16 07/06/16 History LISINOpril [Prinivil] 20 mg PO DAILY 08/08/13 07/19/16 07/06/16 09:00 History Metformin [Glucophage] 500 mg PO HS 08/08/13 07/19/16 07/06/16 History Oxycodone HCl [Oxycontin] 10 mg PO Q6H PRN PRN 08/08/13 07/19/16 07/07/16 History Ondansetron HCl [Zofran] 1 - 2 tab PO Q6H PRN PRN #15 tablet 10/05/13 07/07/16 07/06/16 Rx Alprazolam [Xanax] 0.5 mg PO Q8H PRN PRN 04/21/16 07/07/16 1 Week Ago History Atomoxetine [Strattera] 80 mg PO BID 04/21/16 07/19/16 07/06/16 History Montelukast Sodium [Singulair] 10 mg PO QHS 04/21/16 07/19/16 07/06/16 History Naloxegol Oxalate [Movantik] 25 mg PO DAILY 04/21/16 07/19/16 06/23/16 07:00 History Solifenacin Succinate [Vesicare] 10 mg PO DAILY 04/21/16 07/19/16 05/31/16 08: 00 History Vilazodone [Viibryd] 40 mg PO QHS 05/03/16 07/19/16 07/06/16 History Apixaban [Eliquis] 5 mg PO BID #60 tablet 07/12/16 07/19/16 Unknown Rx Diltiazem C.d. [Cardizem Cd] 120 mg PO DAILY #60 capsule 07/12/16 07/19/16 Unknown Rx Fentanyl 50 Microgm/Hr Patch 1 each TD Q72H patch 07/12/16 07/15/16 Rx [Duragesic 50 Microgm/Hr Patch] Cefazolin Sodium in 0.9 % NaCl 1 gm IV Q8H 07/19/16 07/19/16 Unknown History [Cefazolin-Ns 1 G/10 ml Syringe] Estrogens, Conjugated [Premarin] 0.625 mg PO DAILY 07/19/16 07/19/16 Unknown History Metoclopramide [Reglan] 10 mg PO Q6HR 07/19/16 07/19/16 Unknown History Omeprazole [Prilosec] 40 mg PO DAILY 07/19/16 07/19/16 Unknown History Pantoprazole Sodium [Protonix] 40 mg PO BID 07/19/16 07/19/16 Unknown History Promethazine [Phenergan] 25 mg PO Q6H PRN PRN 07/19/16 07/19/16 Unknown History - History of Present Illness-ABD Nature of Presenting Problems: Pt is 66 y/o F presents to the ED with N/V/D. Pt's states Pt's symptoms have been present for 2 days. Pt's states Pt has R lung cancer. Pt states chemo and radiation but has not been in 1 month. Pt states 6 episodes of V and watery D. Pt's states calling Dr. Paez's office and was told to come to ED. Pt's states Pt was recently d/c from hospital after being admitted for pneumonia and MRSA in the blood. Pt is taking cefazolin for pneumonia. Abdominal Pain Onset Location: reports: generalized abdomen Pain Radiation: reports: no radiation Quality of Pain: reports: aching Severity in ED: reports: moderate Onset/Duration: reports: 2 days ago Timing: reports: still present Activities at Onset: reports: none Exposure to sick contacts?: No Modifying Factors: improves with: nothing Associated Symptoms: reports: diarrhea, fatigue, nausea, vomiting, weakness. denies: anxiety, arm pain, back/neck pain, chest pain, constipation, cough, diaphoresis, dizziness, EENT symptoms, fever/chills, genitourinary problems, headaches, heartburn, joint pain, loss of appetite, malaise, muscle aches, sinus congestion/drainage, rash, seizure, shortness of breath, sensory/motor loss, pain with inspiration, swelling/mass in abdomen, syncope, trouble walking Last BM: unsure Dark Stools Present?: reports: none noticed Rectal Bleeding: reports: none # of Diarrhea Episodes: 2 Rectal Pain: reports: none # of Vomiting Episodes: 6 Emesis Description: reports: clear Bruising or Bleeding Gums?: No Similar Symptoms Previously?: Yes Recently seen or treated by another doctor?: No Review of Systems - Adult - REVIEW OF SYSTEMS - ADULT Constitutional: reports: no symptoms reported Eyes: reports: no symptoms reported Ears, Nose, Mouth & Throat: reports: no symptoms reported Cardiovascular: reports: no symptoms reported Respiratory: reports: no symptoms reported Gastrointestinal: reports: abdominal pain, diarrhea, nausea, poor appetite, vomiting Genitourinary: reports: no symptoms reported Musculoskeletal: reports: muscle weakness. denies: bone pain, back pain, joint pain, muscle aches Integumentary: reports: no symptoms reported Neurological: reports: no symptoms reported Psychiatric: reports: no symptoms reported Endocrine: reports: no symptoms reported Hematologic/Lymphatic: reports: no symptoms reported Allergic/Immunologic: reports: no symptoms reported All Other Systems: Reviewed and Negative Past History - Adult - PAST MEDICAL HISTORY-ADULT Review of Records: reports: Nursing Assessment Review, Medications Reviewed, Social history reviewed & non-contributory. Major Childhood Illnesses: reports: denies history Cardiovascular: reports: HTN, hyperlipidemia Respiratory: reports: COPD, cancer (Small Cell Cancer right lung) Gastrointestinal: reports: denies history Obstetrical/Gynecological: reports: denies history Genitourinary: reports: denies history Musculoskeletal: reports: denies history Neurological: reports: denies history Psychiatric: reports: bipolar Endocrine/Immune: reports: Diabetes Diabetes Type: Type 2 Other Conditions: reports: denies history - PRIOR SURGERIES/PROCEDURES Surgical/Procedure History: reports: cholecystectomy, hysterectomy, indwelling device (PEG, port), orthopedic (extremity) - IMMUNIZATION STATUS Childhood Immunizations: See Nurse Assessment Flu Vaccine: See Nurse Assessment - FAMILY HISTORY Family History: reviewed, not pertinent - SOCIAL HISTORY Smoking: cigarettes, greater than 1 pack/day Provider spent 3-5 mins advising pt. on dangers of tobacco.: Discussed manners to quit use, and f/u contacts for add'l counseling. Substance Use: denies Living Situation: family Physical Exam-General - PHYSICAL EXAM-ADULT Initial Vital Signs Reviewed: Yes - CONSTITUTIONAL General Appearance: alert, mild distress, other (ill in appearance). negative: appears well - EYES Eyes: PERRL/EOMI, pink conjunctivae - HEAD, EARS, NOSE, MOUTH & THROAT HENMT: normocephalic/atraumatic, normal ENT inspection, TMs normal, pharynx normal, other (dry mucous membranes and no teeth present). negative: moist mucous membranes - NECK Neck: non-tender, full range of motion, supple, normal inspection - RESPIRATORY Respiratory: chest non-tender, lungs clear, normal breath sounds, no pleuratic chest pain, no respiratory distress, no accessory muscle use - CARDIOVASCULAR Cardiovascular: normal peripheral pulses, regular rate, rhythm, no edema, no gallop, no JVD, no murmur - GASTROINTESTINAL (ABDOMEN) Abdominal Exam: normal bowel sounds, soft, no organomegaly, no pulsatile mass, tenderness (generalized), other (LUQ feed tube in place) - LYMPHATIC Lymphatic: no adenopathy - MUSCULOSKELETAL Back Exam: normal inspection, no CVA tenderness, no vertebral tenderness Extremity: normal range of motion, non-tender, normal gait, normal inspection, no pedal edema, no calf tenderness, normal capillary refill, pelvis stable, other (pain patch to R shoulder) - SKIN Integumentary: normal turgor, warm/dry, pallor - NEUROLOGIC Neurologic: grossly normal - PSYCHIATRIC Psych/Mental Status: normal mood/affect, oriented x 3 Progress - PLAN OF CARE/RESULTS Progress/Plan/Lab Results: Vital Signs - 8 hr 07/19/16 09:19 Temperature 97.5 F L Pulse Rate 98 H Respiratory Rate 16 Blood Pressure 145/80 O2 Sat by Pulse Oximetry 98 Laboratory Results - last 24 hr 07/19/16 07/19/16 07/19/16 09:35 09:35 09:35 WBC 15.73 H RBC 3.46 L Hgb 10.1 L Hct 31.9 L MCV 92.2 MCH 29.2 MCHC 31.7 L RDW Std Deviation 21.9 H Plt Count 555 H MPV 9.9 Immature Gran % (Auto) 0.6 H Neut % (Auto) 90.9 H Lymph % (Auto) 4.5 L Spencer % (Auto) 3.9 Eos % (Auto) 0.0 Baso % (Auto) 0.1 Immature Gran # (Auto) 0.10 H Neut # (Auto) 14.29 H Lymph # (Auto) 0.71 L Spencer # (Auto) 0.62 H Eos # (Auto) 0.00 Baso # (Auto) 0.01 Sodium 142 Potassium 3.5 Chloride 98 Carbon Dioxide 31 Anion Gap 13 BUN 21 Creatinine 0.9 Estimated GFR/1.73 m2 > 60 BUN/Creatinine Ratio 23 Glucose 138 H Calculated Osmolality 288 Calcium 7.3 L Total Bilirubin 0.31 AST 11 ALT < 5 L Alkaline Phosphatase 209 H Total Protein 6.8 Albumin 2.3 L Globulin 4.5 Albumin/Globulin Ratio 0.5 Amylase 11 L Lipase 9 L Orders Category Date Time Status NPO Diet 07/19/16 09:27 Active AMYLASE [CHEM] Stat Lab 07/19/16 09:35 Completed CBC WITH ELECTRONIC DIFF [HEME] Stat Lab 07/19/16 09:35 Completed COMPREHENSIVE METABOLIC PANEL [CHEM] Stat Lab 07/19/16 09:35 Completed LIPASE [CHEM] Stat Lab 07/19/16 09:35 Completed Result Diagrams: 07/19/16 09:35 07/19/16 09:35 - XRAY 1 XRAY: Bilateral XRAY Study: Chest, Abdomen Impression: Abnormal XRAY Interpretation: improved rt pneumonia, nonspecific abd. Departure - Departure Time of Disposition Decision: 13:30 DIAGNOSIS: Weakness generalized Pneumonia Qualifiers: Pneumonia type: due to unspecified organism Laterality: right Lung location: unspecified part of lung Qualified Code(s): J18.9 - Pneumonia, unspecified organism Nausea & vomiting Qualifiers: Vomiting type: unspecified Vomiting Intractability: non-intractable Qualified Code(s): R11.2 - Nausea with vomiting, unspecified Disposition: ADMITTED INPATIENT 09 Certified Medical Emergency: Emergent Condition: Good Referrals and Follow-Ups: Ilya Cm MD [Primary Care Provider] - This chart was documented by the marissa scribe, (Opal Benitez Scribe) and accurately reflects the services I performed and decisions made by me, Michael Teran Jr, MD, as attested by the provider's signature.
[2016-07-19] MEDS ORDERED: OXYCONTIN PO PRN (14:19)
[2016-07-19] MEDS ORDERED: VANCOMYCIN IV PER PHARMACY MISC SCH (14:19)
[2016-07-19] MEDS: ZOFRAN IV PRN ×2 (14:47→20:44)
[2016-07-19 14:58] LABS: FREE T4 0.88 ng/dL (0.93-1.70)
--- NOTE | 2016-07-19 15:01 | HISTORY AND PHYSICAL ---
This is a 66-year-old who has a history of small-cell cancer, has undergone radiation treatment and chemotherapy and is currently undergoing chemotherapy although recently I think had it on hold because of pancytopenia. Recently fell and she has immuno thrombocytopenic purpura and she also had an episode of C. difficile colitis. She has recently left the hospital. She came back today. says the last 3 days she has had nausea, unable to keep anything down and the nausea has intensified. They have recently treated her for bacteremia, I think it was staph bacteremia for which she is on some p.o. antibiotics. PAST MEDICAL HISTORY REVIEWED: 1. Small-cell cancer undergoing radiation and chemotherapy. 2. Diabetes mellitus type 2. 3. Chronic back pain. 4. 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 She has a PEG tube placed which she has not had to use in the last several months. 5. History of recent C. difficile colitis. 6. Admission for pneumonia. 7. Pancytopenia with bone marrow done a month ago revealing immuno thrombocytopenic purpura. ALLERGIES: Penicillin, Lasix, AcipHex, hydrocodone. SOCIAL HISTORY: Former smoker. No history of alcohol. Very supportive family, at the bedside. FAMILY HISTORY: Positive for coronary artery disease. So the story is just increasing nausea. She is followed as an outpatient per Dr. Paez. REVIEW OF SYSTEMS: She has not been eating much the last 3 days. No change in vision. No upper respiratory complaints. No shortness of breath. No chest pain or tachy palpitation.GI/: Nausea. No complaints of urinary issues. ENDOCRINOLOGIC/HEMATOLOGIC: No significant history other than her recent discovery of immuno thrombocytopenic purpura. EXAM: Today in the emergency room.Vital signs: Temperature 97.5 degrees, pulse 80, respirations 18, blood pressure 183/97, O2 saturation 100%. Weight 135 pounds, height 5 feet 5 inches. White blood cell count 19169, hematocrit 31, platelet count of 555,000. Sodium 143, potassium 3.5, chloride 98, bicarb 31, BUN 21, creatinine 0.9. Blood sugar was 138. Calcium 7.3. Liver enzymes AST and ALT within normal limits but low. Amylase and lipase unremarkable. Microscopic blood specimen from stool I guess was heme positive. Abdominal x-ray shows improved right-sided pneumonia. There is improvement in the alveolar opacities, the perihilar and lower lung regions in the right lung compared to 07/11/2016. ASSESSMENT AND PLAN: 1. Nausea and vomiting. This very well could be a viral gastroenteritis. She has had a history of C. difficile colitis so we will send stool sample back. At this point, we will give her fluids and antiemetics. 2. She has been treated with some bacteremia recently so we will blood cultures x2. We will also get a sputum sample for culture as well. I am going to put her on vancomycin and we are going to try Rocephin. It does say she is allergic to penicillins but I believe we have given her Rocephin before. We will give her Rocephin 1 g q.24 hours. We will give her vancomycin dose per pharmacy. Her kidney function looks good so I think we can load her with 1 g. 3. Small-cell cancer undergoing treatment. 4. Recent diagnosis of immuno thrombocytopenic purpura. Note that her platelets looked good. She has a few residual petechiae on exam symmetrically of both lower extremities. I do not see a lot of areas of ecchymosis other than that. 5. History of radiation esophagitis. She has a PEG tube. She is able to swallow, it is just the nausea that is keeping her from eating at this point. REVIEW OF MEDICATIONS: At home she is on Xanax 0.5 mg q.8. Eliquis 5 mg p.o. b.i.d. Strattera 80 mg b.i.d. Diltiazem CD 120 mg daily. Estrogen 0.625 mg a day. She has a fentanyl patch 50 mcg q.72 hours. Neurontin 800 mg 4 times a day. Prinivil 20 mg a day. Glucophage 500 mg at bedtime. I think we will hold the Glucophage for now. She takes Reglan 10 mg p.o. q.6 hours and she takes Singulair 10 mg at bedtime. Movantik 25 mg a day. Prilosec 40 mg daily. Oxycodone 10 mg q.6 hours p.r.n. Protonix 40 mg b.i.d. VESIcare 10 mg daily, and Viibryd 40 mg at bedtime. cc: Nathan Devries MD
[2016-07-19] MEDS ORDERED: VANCOMYCIN 1,650 MG in NS 250 ML IV ONE (16:00)
[2016-07-19] MEDS: PHENERGAN PO PRN (16:59)
[2016-07-19] MEDS: NEURONTIN PO SCH ×2 (17:07→20:40)
[2016-07-19] MEDS: DURAGESIC 50 MICROGM/HR PATCH TD SCH (17:43)
[2016-07-19] MEDS: PROTONIX PO SCH ×2 (17:47→20:40)
[2016-07-19] MEDS: NS 1,000 ML IV SCH (17:50)
[2016-07-19] MEDS: VIIBRYD PO SCH (20:40)
[2016-07-19] MEDS: ROCEPHIN 1 GM/NS 1 GM/50 ML IVPB IV SCH (20:40)
[2016-07-19] MEDS: SINGULAIR PO SCH (20:40)
[2016-07-19] MEDS: REGLAN PO SCH (20:40)
[2016-07-19] MEDS: OXY IR PO PRN (20:41)
[2016-07-20] MEDS: REGLAN PO SCH ×5 (00:30→22:12)
[2016-07-20] MEDS: PHENERGAN PO PRN ×3 (00:30→16:30)
[2016-07-20] MEDS: ZOFRAN IV PRN ×5 (01:42→17:40)
[2016-07-20] MEDS: NS 1,000 ML IV SCH ×2 (02:49→09:21)
[2016-07-20] MEDS: OXY IR PO PRN ×2 (03:16→22:11)
[2016-07-20] MEDS: PROTONIX PO SCH ×3 (05:33→18:22)
[2016-07-20 05:51] LABS: BASO% 0.1 % (0.0-0.8); HEMATOCRIT 31.9 % (37.0-47.0); HEMOGLOBIN 10.4 g/dL (12.0-16.0); IMM GRAN# 0.14 X1000 (0.0-0.04); IMM GRAN% 0.7 % (0.0-0.5); LYMPH# 0.87 X1000 (1.2-3.4); LYMPH% 4.1 % (20.5-51.1); MANUAL DIFF NEEDED? YES; MCHC 32.6 g/dL (33-37); MCV 91.9 FL (81-99); MONO# 1.32 X1000 (0.11-0.59); MONO% 6.2 % (1.7-9.3); MPV 9.7 FL (7.4-10.4); NEUT% 88.9 % (42.2-75.2); PLT 628 X1000 (130-400); RBC 3.47 XMIL (4.2-5.4)
[2016-07-20 06:00] LABS: INR 1.13
[2016-07-20 06:02] LABS: BANDS 8 % (0-1); LYMPHS 4 % (21-51); MONO 8 % (1-9)
[2016-07-20 06:21] LABS: AGAP 16; ALBUMIN 2.1 g/dL (3.5-5.0); ALKALINE PHOSPHATASE 766 U/L (32-104); BUN 20 mg/dL (8-22); CHLORIDE 97 mmol/L (98-107); COSMO 281; GOT 114 U/L (10-30); GPT 11 U/L (10-36); POTASSIUM 3.3 mmol/L (3.5-5.1); SODIUM 139 mmol/L (136-145); TCO2 26 mmol/L (25-35); TOTAL BILIRUBIN 0.77 mg/dL (0.20-1.00); TOTAL PROTEIN 6.3 g/dL (6.3-8.3)
[2016-07-20] MEDS ORDERED: MAGNESIUM SULFATE 2 GM/S.W.I. 2 GM/50 ML IVPB IV ONE ×2 (06:37→10:28)
[2016-07-20] MEDS ORDERED: CALCIUM GLUCONATE 1 GM in NS 50 ML IV ONE (06:38)
[2016-07-20] MEDS: VESICARE PO SCH ×2 (07:17→10:31)
[2016-07-20] MEDS: DUONEB (A & A) INH PRN (07:26)
[2016-07-20] MEDS: NEURONTIN PO SCH ×4 (09:20→22:12)
[2016-07-20] MEDS: PRINIVIL PO SCH (09:21)
[2016-07-20] MEDS: CARDIZEM CD PO SCH (09:21)
[2016-07-20] MEDS: MOVANTIK PO SCH (09:21)
[2016-07-20] MEDS: PREMARIN PO SCH (09:21)
[2016-07-20] MEDS ORDERED: SODIUM CHLORIDE 0.9% INJ PRN (10:19)
[2016-07-20] MEDS ORDERED: POTASSIUM CHLORIDE 20% LIQUID PO ONE (10:30)
[2016-07-20] MEDS ORDERED: SYNTHROID PO ONE (10:31)
--- NOTE | 2016-07-20 11:26 | PROGRESS NOTE ---
DATE: 07/20/2016 SUBJECTIVE: Ms. Gloria Kelly is a 66-year-old female. She is in no acute distress but continues to have nausea. Her bowels are better. She is requesting yogurt. So , diet has been changed, and antiemetics have been increased. OBJECTIVE: Vital Signs: Temperature 97.7 degrees, heart rate 103, respiratory rate 16, blood pressure 182/81, O2 saturation 100% on 3 L nasal cannula. General: Ms. Kelly is an ill- appearing 66-year-old female. She is in no acute distress. Able to answer all questions appropriately. Cardiovascular: S1, S2. Tachycardic rate and rhythm. No rubs, gallops, murmurs. Pulmonary: Clear to auscultation. Bilateral breath sounds. No accessory muscle use or work of breathing noted. Currently on 3 L nasal cannula. GI: Soft, nontender, nondistended. Hypoactive bowel sounds. Extremities: No edema. Pedal +2 dorsalis and radial pulses. LABORATORY DATA: White blood cells 21,000. Hemoglobin 10, hematocrit 31, platelet count 628,000. INR 1.13. Sodium 139, potassium 3.3. BUN is 20, creatinine 0.7, glucose 117. Calcium 7.0, magnesium 1.0. Total bilirubin 0.77. AST 114, ALT 11. Alkaline phosphorus 733. Albumin 2.1. TSH 0.71. Free T4 is 0.88. Blood cultures pending. ASSESSMENT AND PLAN: 1. Nausea, vomiting, likely viral gastroenteritis although we will continue with IV fluids, antiemetics. Will increase her Phenergan and her Zofran. Advanced to a GI soft diet. 2. Recently treated for bacteremia. Blood cultures have been sent. We will continue vancomycin and Rocephin. 3. Small cell carcinoma, undergoing treatment. 4. Thrombocytopenic purpura. Platelets are actually elevated. She has got thrombocytosis; could be inflammatory. 5. History of radiation esophagitis with PEG tube; currently eating. 6. Leukocytosis, but she is afebrile. Could be inflammatory too secondary to viral gastroenteritis. 7. Hypocalcemia, hypomagnesemia, and hypokalemia. Will replace electrolytes. 8. Could be secondary hypothyroidism, but we will start Synthroid 50 mcg daily. 9. Transaminitis. Will do an abdominal ultrasound to further evaluate. Dictated by MIKE Johnston for Nathan Devries MD cc: MIKE Johnston MD [facility]
[2016-07-20] MEDS: LOVENOX SUBQ SCH (13:40)
--- NOTE | 2016-07-20 14:21 | Diag Imaging Result Document ---
PROCEDURE NAME: US ABDOMEN-COMPLETE - 07/20/2016 ABDOMINAL ULTRASOUND: FINDINGS: Difficult exam due to bowel gas and the patient's body habitus. The pancreas is predominately obscured. The aorta and inferior vena cava are mostly obscured as well. The gallbladder has been removed. The common bile duct measures 1.2 cm. No focal or diffuse hepatic abnormality. Normal right kidney. No hydronephrosis. The spleen is not enlarged. No ascites. Normal left kidney. No hydronephrosis. IMPRESSION: Cholecystectomy, otherwise normal abdominal ultrasound.
[2016-07-20] MEDS: VANCOMYCIN 1,200 MG in NS 250 ML IV SCH (16:35)
[2016-07-20] MEDS: XANAX PO PRN (22:12)
[2016-07-20] MEDS: SINGULAIR PO SCH (22:12)
[2016-07-20] MEDS: VIIBRYD PO SCH (22:12)
[2016-07-20] MEDS: PHENERGAN IV PRN (23:01)
[2016-07-20] MEDS: ROCEPHIN 1 GM/NS 1 GM/50 ML IVPB IV SCH (23:01)
[2016-07-21] MEDS: REGLAN PO SCH ×4 (03:32→21:34)
[2016-07-21] MEDS: NS 1,000 ML IV SCH ×2 (04:48→13:49)
[2016-07-21 05:50] LABS: MANUAL DIFF NEEDED? NO
[2016-07-21 05:56] LABS: BASO% 0.2 % (0.0-0.8); EOS# 0.01 X1000 (0.0-0.7); EOS% 0.1 % (0.0-10.0); HEMATOCRIT 29.1 % (37.0-47.0); HEMOGLOBIN 9.5 g/dL (12.0-16.0); IMM GRAN# 0.11 X1000 (0.0-0.04); IMM GRAN% 0.6 % (0.0-0.5); LYMPH# 1.19 X1000 (1.2-3.4); LYMPH% 6.3 % (20.5-51.1); MCHC 32.6 g/dL (33-37); MCV 91.8 FL (81-99); MONO# 1.68 X1000 (0.11-0.59); MONO% 8.8 % (1.7-9.3); MPV 9.5 FL (7.4-10.4); PLT 598 X1000 (130-400); RBC 3.17 XMIL (4.2-5.4)
[2016-07-21] MEDS: OXY IR PO PRN ×3 (06:07→21:34)
[2016-07-21] MEDS: PHENERGAN PO PRN (06:07)
[2016-07-21] MEDS: PROTONIX PO SCH ×2 (06:08→18:04)
[2016-07-21] MEDS: SYNTHROID PO SCH (06:09)
[2016-07-21 06:16] LABS: AGAP 11; ALBUMIN 2.1 g/dL (3.5-5.0); ALKALINE PHOSPHATASE 417 U/L (32-104); BUN 13 mg/dL (8-22); CALCIUM 7.3 mg/dL (8.8-10.2); CHLORIDE 101 mmol/L (98-107); COSMO 280; GOT 26 U/L (10-30); GPT 7 U/L (10-36); MAGNESIUM 1.3 mg/dL (1.5-2.7); SODIUM 140 mmol/L (136-145); TCO2 28 mmol/L (25-35); TOTAL BILIRUBIN 0.23 mg/dL (0.20-1.00); TOTAL PROTEIN 5.9 g/dL (6.3-8.3)
[2016-07-21] MEDS: DUONEB (A & A) INH PRN (07:33)
[2016-07-21] MEDS: ZOFRAN IV PRN ×2 (08:06→13:34)
[2016-07-21] MEDS: MOVANTIK PO SCH (08:11)
[2016-07-21] MEDS: CARDIZEM CD PO SCH (08:12)
[2016-07-21] MEDS: NEURONTIN PO SCH ×4 (08:12→21:34)
[2016-07-21] MEDS: PRINIVIL PO SCH (08:12)
[2016-07-21] MEDS: VESICARE PO SCH (08:13)
[2016-07-21] MEDS: PREMARIN PO SCH (08:13)
--- NOTE | 2016-07-21 09:03 | CONSULTATION ---
DATE OF CONSULTATION: 07/20/2016 REQUESTING PHYSICIAN: Dr. Nathan Devries REASON FOR CONSULTATION: Small cell lung cancer, ITP. CHIEF COMPLAINT: Nausea, vomiting, diarrhea and gastroenteritis. HISTORY OF PRESENT ILLNESS: Patient is a 66-year-old female, who is well known to my service. She has limited stage small cell lung cancer and has received 3 cycles of carboplatin and etoposide. She was due for her 4th cycle about 2-3 weeks ago. This was skipped due to recent hospitalization with ITP, staphylococcal bacteremia from a pneumonia. She was on shelter antibiotics from Dr. Sauceda. I saw her last week and she was doing reasonably well and we have plans of giving her 4th cycle next week. I discussed this with Dr. Sauceda and have received his okay. Unfortunately in the meanwhile she was readmitted with nausea, vomiting, diarrhea, abdominal cramping and has been diagnosed to have gastroenteritis. She reports today she has had 2 bowel movements. Yesterday, she had 4/5. Nausea is improving. She is on IV fluids. PAST MEDICAL HISTORY: Small cell lung cancer. She has received 3/4 cycles of chemotherapy. She has received treatments of radiation which has been discontinued due to severe odynophagia requiring PEG tube. Recently diagnosed with ITP, steroids and IVIG resistant, good response to Promacta, Staphylococcal bacteremia from pneumonia on long-term antibiotics per Dr. Sauceda. PAST SURGICAL HISTORY: Hysterectomy, cholecystectomy, tubal ligation. ALLERGIES: Hydrocodone, penicillin and latex. SOCIAL HISTORY: Patient is a chronic smoker. Denies alcohol or substance abuse. FAMILY HISTORY: Noncontributory. CURRENT MEDICATIONS: DuoNeb, Rocephin, Cardizem, Premarin, Duragesic, Neurontin, Synthroid, Prinivil, Reglan, vancomycin, Singulair, Movantik, Zofran, Protonix, Oxy IR, VESIcare, Viibryd. REVIEW OF SYSTEMS: As dictated above. All other review of systems are negative. PHYSICAL EXAMINATION: General: The patient is in no acute distress. Vital Signs: Temperature 97.7 degrees, pulse 103, blood pressure 182/81. HEENT: Eyes EOMI. PERRLA. Anicteric. Mucous membranes appear slightly dry. Neck: Supple without JVD, thyromegaly, or nodules. Cardiovascular: Regular rate and rhythm. Normal S1, S2. Chest: Reveals occasional rhonchorous breath sounds. No crackles. Abdomen: Soft, nontender, without hepatosplenomegaly or masses. Extremities: No cyanosis, clubbing, or edema. Neurological: Alert and oriented x3. No focal motor deficits. Skin: Without rashes. LABORATORY DATA: White count 21.1, hemoglobin 10.4, MCV 91, platelets 628,000. PT 12 and PTT 29. BUN 20, creatinine 0.7. Alkaline phosphatase was 209 yesterday, today 766. ALT 11, AST 114 today. B12 folate levels are adequate. C. difficile negative. Blood cultures are pending. ASSESSMENT AND PLAN: 1. Small cell lung cancer, limited stage: She has not been able to complete therapy due to complications listed above. Hopefully after she recovers we will proceed with her full cycle of chemotherapy. She will follow up with Dr. Donaldson regarding radiation. I am not sure if Dr. Donaldson plans to continue her radiation since she has had severe odynophagia requiring discontinuation now for several weeks. 2. Idiopathic thrombocytopenic purpura: She was steroid and IVIG refractory. Promacta was given with good response. At present, Promacta has been on hold for more than a week. Platelets are trending up, currently, likely as acute phase reactant. 3. Leukocytosis: This is due to her current infection. Monitor. 4. Acute gastroenteritis: Await cultures. Continue symptomatic care. 5. Dehydration: Continue IV fluids as you are doing. 6. Staphylococcal bacteremia from a pneumonia: She has orthopedic hardware hence Dr. Sauceda has planned for long-term antibiotics. Continue same. 7. Elevated liver function tests: Plan for abdominal ultrasound. Monitor LFTs daily for the next few days. cc: Dell Paez MD
[2016-07-21] MEDS: LOVENOX SUBQ SCH (13:11)
[2016-07-21] MEDS ORDERED: MAGNESIUM SULFATE 2 GM/S.W.I. 2 GM/50 ML IVPB IV ONE (13:37)
[2016-07-21] MEDS ORDERED: NS IV ONE (14:00)
[2016-07-21] MEDS ORDERED: POTASSIUM PHOSPHATE IV ONE (14:00)
--- NOTE | 2016-07-21 15:04 | PROGRESS NOTE ---
DATE: 07/21/2016 SUBJECTIVE: The nausea is much better. Still pretty puny and pretty weak. OBJECTIVE: Vital Signs: Remains afebrile. Temperature 98.4 degrees, pulse 106, respirations 16, blood pressure 177/93, pupils are equal and round. CVP less than 6 cm. Lungs: Clear in all lung mendez. Cardiovascular: Regular rhythm and rate without murmur or S3. Urine output is over 2 L. LABORATORY DATA: From this morning, white count 23371, hematocrit 29, platelet count 598,000. Chemistry: Sodium 140, potassium 3.0, chloride 101, bicarb 28, BUN 13, creatinine 0.6. Her calcium was 7.3, phosphorus was 2.5, magnesium was 1.3. I am going to give her some K-Phos and some magnesium. Albumin is 2.15, so I think calcium adjusted as her albumin is okay right now. ASSESSMENT AND PLAN: 1. Small cell lung cancer. Limited stage. She has not been able to complete therapy due to complications, multiple complications and multiple admissions. After she recovers she will proceed with her full cycle of chemotherapy followed by Dr. Donaldson regarding her radiation. She had radiation esophagitis which is resolved, improved, and is eating. She does have a PEG tube in place. 2. Idiopathic thrombocytopenic purpura. She was steroid and IVIG refractory and she got Promacta which was given with good response. Platelet count looks good. Promacta has been on hold for more than a week but platelets are trending up. 3. Leukocytosis. Continued to monitor. 4. Acute gastroenteritis. She seems to be doing better. Nausea is better. 5. Dehydration. Continue IV fluids. 6. Staphylococcal bacteremia from her pneumonia and orthopedic hardware. She has orthopedic hardware and hence Dr. Sauceda' plan for long-term antibiotics. So continue the same. 7. Elevated liver functions. Plan an abdominal ultrasound. We will monitor liver functions. I am going to supplement hypokalemia and hypophosphatemia. I am going to supplement some K- Phos. We will also give some magnesium today and IV. cc: Nathan Devries MD
[2016-07-21] MEDS: VANCOMYCIN 1,200 MG in NS 250 ML IV SCH (21:33)
[2016-07-21] MEDS: SINGULAIR PO SCH (21:34)
[2016-07-21] MEDS: PHENERGAN IV PRN (21:34)
[2016-07-21] MEDS: VIIBRYD PO SCH (21:34)
[2016-07-22] MEDS: XANAX PO PRN (01:35)
[2016-07-22] MEDS: ROCEPHIN 1 GM/NS 1 GM/50 ML IVPB IV SCH (01:35)
[2016-07-22] MEDS: REGLAN PO SCH ×5 (01:35→20:44)
[2016-07-22] MEDS: DUONEB (A & A) INH PRN ×2 (03:32→07:56)
[2016-07-22] MEDS: NS 1,000 ML IV SCH ×5 (03:56→20:41)
[2016-07-22 05:35] LABS: MANUAL DIFF NEEDED? NO
[2016-07-22 05:54] LABS: BASO% 0.2 % (0.0-0.8); EOS# 0.05 X1000 (0.0-0.7); EOS% 0.3 % (0.0-10.0); HEMATOCRIT 26.7 % (37.0-47.0); HEMOGLOBIN 8.4 g/dL (12.0-16.0); IMM GRAN# 0.18 X1000 (0.0-0.04); IMM GRAN% 1.1 % (0.0-0.5); LYMPH# 1.21 X1000 (1.2-3.4); LYMPH% 7.5 % (20.5-51.1); MCH 29.5 PG (27-31); MCHC 31.5 g/dL (33-37); MCV 93.7 FL (81-99); MONO# 1.28 X1000 (0.11-0.59); MPV 9.5 FL (7.4-10.4); NEUT% 82.9 % (42.2-75.2); PLT 604 X1000 (130-400); RBC 2.85 XMIL (4.2-5.4)
[2016-07-22 05:58] LABS: AGAP 13; ALBUMIN 2.2 g/dL (3.5-5.0); ALKALINE PHOSPHATASE 254 U/L (32-104); BUN 6 mg/dL (8-22); CALCIUM 7.4 mg/dL (8.8-10.2); CHLORIDE 99 mmol/L (98-107); COSMO 277; GOT 15 U/L (10-30); GPT < 5 U/L (10-36); MAGNESIUM 1.4 mg/dL (1.5-2.7); SODIUM 140 mmol/L (136-145); TCO2 28 mmol/L (25-35); TOTAL BILIRUBIN 0.19 mg/dL (0.20-1.00); TOTAL PROTEIN 5.5 g/dL (6.3-8.3)
[2016-07-22] MEDS ORDERED: MAGNESIUM SULFATE 2 GM/S.W.I. 2 GM/50 ML IVPB IV ONE (06:03)
[2016-07-22] MEDS ORDERED: POTASSIUM CHLORIDE 60 MEQ in NS 500 ML IV ONE (06:03)
[2016-07-22] MEDS: PROTONIX PO SCH ×2 (06:16→18:16)
[2016-07-22] MEDS: PHENERGAN PO PRN (06:16)
[2016-07-22] MEDS: SYNTHROID PO SCH (06:16)
[2016-07-22] MEDS: OXY IR PO PRN ×2 (06:17→17:43)
[2016-07-22] MEDS: ZOFRAN IV PRN ×2 (08:46→17:43)
[2016-07-22] MEDS: VESICARE PO SCH (08:49)
[2016-07-22] MEDS: MOVANTIK PO SCH ×2 (08:49→08:54)
[2016-07-22] MEDS: PRINIVIL PO SCH (08:49)
[2016-07-22] MEDS: PREMARIN PO SCH (08:49)
[2016-07-22] MEDS: CARDIZEM CD PO SCH (08:49)
[2016-07-22] MEDS: NEUTRA-PHOS PO SCH ×4 (08:53→20:44)
[2016-07-22 08:58] LABS: IRON SATURATION 24 %; TIBC 140 ug/dL; TOTAL IRON 33 ug/dL (49-151); UNBOUND IRON 107 ug/dL (112-346)
[2016-07-22] MEDS: NEURONTIN PO SCH ×4 (11:33→20:40)
[2016-07-22] MEDS: LOVENOX SUBQ SCH (13:30)
--- NOTE | 2016-07-22 16:02 | PROGRESS NOTE ---
DATE: 07/22/2016 SUBJECTIVE: Ms. Kelly says the nausea is much better. She had some confusion and her reported that he had called her and said she was leaving. She had to go to a and being discharged and she was not. She is oriented to place, time, and person at the present time and she reports she does feel better. She did get a little breakfast down. OBJECTIVE: Vital Signs: Temperature 97.8 degrees, pulse 122, respirations 18, blood pressure 139/75. HEENT: Pupils are equal and round. Lungs: Clear in all lung mendez. Cardiovascular: Regular rhythm and rate without murmur or S3. Abdomen: Soft. Skin: Warm and dry. URINE OUTPUT: Close to 3 L. LABORATORIES: Stable. White count 16,070, hematocrit is 26, platelet count 604,000. Sodium 140, potassium 3.0, chloride 99, bicarb 28. BUN 6, creatinine 0.6, calcium was 7.4. ASSESSMENT AND PLAN: 1. Small-cell lung cancer, limited stage. Not been able to complete therapy due to multiple complications. She had been receiving radiation therapy per Dr. Donaldson. Suffered radiation esophagitis, which has improved. She does have a PEG tube in place. 2. Idiopathic thrombocytopenic purpura recently diagnosed. She was steroid and IVIG refractory. She got Promacta and seemed to get a good results with good return platelet function, platelet production. 3. Leukocytosis. Her blood counts look stable. 4. Acute gastroenteritis. Viral gastroenteritis improving. Advance diet as we can. 5. Dehydration. Continue fluids. 6. Staphylococcal bacteremia from her pneumonia. She has some orthopedic hardware in hence Dr. Sauceda plans to continue long-term antibiotics. 7. Elevated liver functions. They look like they are coming down, improved. cc: Nathan Devries MD
[2016-07-22] MEDS: DURAGESIC 50 MICROGM/HR PATCH TD SCH (17:25)
[2016-07-22] MEDS ORDERED: IMODIUM PO PRN (17:57)
[2016-07-22] MEDS: VANCOMYCIN 1,500 MG in NS 250 ML IV SCH (20:42)
[2016-07-22] MEDS: SINGULAIR PO SCH (20:44)
[2016-07-22] MEDS: VIIBRYD PO SCH (20:44)
[2016-07-23] MEDS: ROCEPHIN 1 GM/NS 1 GM/50 ML IVPB IV SCH (01:17)
[2016-07-23] MEDS: REGLAN PO SCH ×4 (02:41→21:36)
[2016-07-23 05:31] LABS: MANUAL DIFF NEEDED? NO
[2016-07-23 05:49] LABS: BASO% 0.4 % (0.0-0.8); EOS# 0.05 X1000 (0.0-0.7); EOS% 0.4 % (0.0-10.0); HEMATOCRIT 21.9 % (37.0-47.0); HEMOGLOBIN 6.8 g/dL (12.0-16.0); IMM GRAN# 0.17 X1000 (0.0-0.04); IMM GRAN% 1.5 % (0.0-0.5); LYMPH# 1.04 X1000 (1.2-3.4); LYMPH% 9.1 % (20.5-51.1); MCH 29.1 PG (27-31); MCHC 31.1 g/dL (33-37); MCV 93.6 FL (81-99); MONO# 0.85 X1000 (0.11-0.59); MONO% 7.5 % (1.7-9.3); MPV 9.3 FL (7.4-10.4); NEUT% 81.1 % (42.2-75.2); PLT 528 X1000 (130-400); RBC 2.34 XMIL (4.2-5.4)
[2016-07-23 05:59] LABS: AGAP 9; ALBUMIN 2.1 g/dL (3.5-5.0); ALKALINE PHOSPHATASE 179 U/L (32-104); BUN 5 mg/dL (8-22); CALCIUM 7.2 mg/dL (8.8-10.2); CHLORIDE 103 mmol/L (98-107); COSMO 273; GOT 11 U/L (10-30); GPT < 5 U/L (10-36); MAGNESIUM 1.3 mg/dL (1.5-2.7); POTASSIUM 3.9 mmol/L (3.5-5.1); SODIUM 139 mmol/L (136-145); TCO2 27 mmol/L (25-35); TOTAL BILIRUBIN 0.21 mg/dL (0.20-1.00); TOTAL PROTEIN 5.3 g/dL (6.3-8.3)
[2016-07-23] MEDS: PROTONIX PO SCH ×2 (06:12→18:39)
[2016-07-23] MEDS: SYNTHROID PO SCH (06:12)
[2016-07-23 07:28] LABS: URINE CULTURE NEEDED? NO; URINE SOURCE CLEAN CATCH
[2016-07-23 07:31] LABS: BILIRUBIN URINE NEGATIVE (NEGATIVE); BLOOD URINE SMALL (NEGATIVE); COLOR YELLOW; GLUCOSE URINE NEGATIVE (NEGATIVE); LEUKOCYTES URINE NEGATIVE (NEGATIVE); NITRITE URINE NEGATIVE (NEGATIVE); PROTEIN URINE NEGATIVE (NEGATIVE); TURBIDITY URINE HAZY (CLEAR); UROBILINOGEN URINE NORMAL (NORMAL)
[2016-07-23 07:32] LABS: URINE MICRO REVIEW NEEDED? YES
[2016-07-23 07:43] LABS: UR EPITHELIAL CELLS >10 /HPF (<10); URINE BACTERIA NEGATIVE /HPF; URINE WBC <10 /HPF (<10)
[2016-07-23] MEDS ORDERED: TYLENOL PO ONE (07:52)
[2016-07-23] MEDS ORDERED: BENADRYL IV ONE (07:52)
[2016-07-23] MEDS: PREMARIN PO SCH (08:32)
[2016-07-23] MEDS: VESICARE PO SCH (08:32)
[2016-07-23] MEDS: CARDIZEM CD PO SCH (08:32)
[2016-07-23] MEDS: PRINIVIL PO SCH (08:32)
[2016-07-23] MEDS: NEUTRA-PHOS PO SCH ×4 (08:33→21:36)
[2016-07-23] MEDS: NEURONTIN PO SCH ×4 (08:33→21:36)
[2016-07-23] MEDS: MOVANTIK PO SCH (08:33)
[2016-07-23] MEDS: NS 1,000 ML IV SCH ×2 (08:51→17:25)
[2016-07-23] MEDS: VANCOMYCIN 1,500 MG in NS 250 ML IV SCH (13:22)
[2016-07-23] MEDS: LOVENOX SUBQ SCH (13:22)
[2016-07-23] MEDS: VITAMIN D PO SCH (17:25)
--- NOTE | 2016-07-23 17:41 | PROGRESS NOTE ---
DATE: 07/23/2016 SUBJECTIVE: Today Ms. Kelly refers to be doing fine. Has no vomited. OBJECTIVE: Vital signs: Blood pressure is 153/89, pulse is 98, respirations 16, temperature 97.8 degrees. General: Ms. Kelly is a 66-year-old female. She is in bed, not in any distress. HEENT: Mucosa is slightly dry. Anicteric. Acyanotic. Neck: Supple. Chest: Good air entry bilateral, is a few bibasilar crepitations. Cardiovascular: Regular rate and rhythm. Abdomen: Soft, nontender. Extremities: No pedal edema. FNPS: Patient is alert and oriented. LABORATORY DATA: WBC is 11.40, hemoglobin 6.8, platelet count of 528,000. Chemistry is reviewed. Completely unremarkable. Magnesium is 1.3, alkaline phosphatase is 179. Vitamin D is 17.1. ASSESSMENT: 1. Nausea, vomiting. 2. Clinical dehydration. 3. History of Staphylococcus bacteremia from previous pneumonia, this seems to have improved. 4. Elevated alkaline phosphatase. Unsure the etiology. We are going to do GGTP at to make sure is not coming from the CBD. We might probably have to end up doing a CT scan of the abdomen and pelvis looking more closely at the liver and the CBD versus a bone scan to see if this is coming from a bone metastasis. Interesting though this seems to be coming down so I am not sure if it was all part of the GI symptoms. 5. Acute gastroenteritis. This is improving. The patient was on antibiotics however Clostridium difficile is negative so I think this is more of either viral etiology versus medication induced. The good thing is that it is improving. 6. Thrombocytopenia improved. 7. History of small cell lung cancer. The patient follows up with Dr. Paez. 8. Normocytic anemia. Patient hemoglobin has dropped to 6.8. I think part of it is also dilutional. She is getting 2 units of PRBC transfused today. 9. Vitamin D deficiency. Will replace this. cc: Carlos Georges MD
[2016-07-23] MEDS ORDERED: NS 250 ML ONE (18:23)
[2016-07-23] MEDS: SINGULAIR PO SCH (21:36)
[2016-07-23] MEDS: VIIBRYD PO SCH (21:36)
[2016-07-24] MEDS: ROCEPHIN 1 GM/NS 1 GM/50 ML IVPB IV SCH (01:34)
[2016-07-24] MEDS: REGLAN PO SCH ×4 (04:49→13:56)
[2016-07-24] MEDS: NS 1,000 ML IV SCH ×2 (04:50→12:18)
[2016-07-24] MEDS: SYNTHROID PO SCH (06:06)
[2016-07-24] MEDS: PROTONIX PO SCH (06:06)
[2016-07-24 07:41] LABS: LYMPH% 11.3 % (20.5-51.1); MANUAL DIFF NEEDED? NO; MCV 89.2 FL (81-99)
[2016-07-24 08:32] LABS: AGAP 9; ALKALINE PHOSPHATASE 168 U/L (32-104); BUN 4 mg/dL (8-22); CALCIUM 7.7 mg/dL (8.8-10.2); CHLORIDE 98 mmol/L (98-107); COSMO 265; GOT 18 U/L (10-30); GPT < 5 U/L (10-36); POTASSIUM 3.9 mmol/L (3.5-5.1); SODIUM 135 mmol/L (136-145); TCO2 28 mmol/L (25-35); TOTAL BILIRUBIN 0.23 mg/dL (0.20-1.00); TOTAL PROTEIN 5.7 g/dL (6.3-8.3)
[2016-07-24 09:13] LABS: BASO% 0.3 % (0.0-0.8); EOS# 0.05 X1000 (0.0-0.7); EOS% 0.5 % (0.0-10.0); HEMATOCRIT 29.7 % (37.0-47.0); HEMOGLOBIN 9.8 g/dL (12.0-16.0); IMM GRAN# 0.12 X1000 (0.0-0.04); IMM GRAN% 1.3 % (0.0-0.5); LYMPH# 1.07 X1000 (1.2-3.4); MCH 29.4 PG (27-31); MONO# 0.93 X1000 (0.11-0.59); MONO% 9.8 % (1.7-9.3); MPV 9.4 FL (7.4-10.4); NEUT% 76.8 % (42.2-75.2); PLT 471 X1000 (130-400); RBC 3.33 XMIL (4.2-5.4)
[2016-07-24] MEDS: VITAMIN D PO SCH (10:28)
[2016-07-24] MEDS: VESICARE PO SCH (10:29)
[2016-07-24] MEDS: NEURONTIN PO SCH ×3 (10:29→17:33)
[2016-07-24] MEDS: PRINIVIL PO SCH (10:30)
[2016-07-24] MEDS: CARDIZEM CD PO SCH (10:30)
[2016-07-24] MEDS: PREMARIN PO SCH (10:30)
[2016-07-24] MEDS: MOVANTIK PO SCH ×2 (10:31→10:38)
[2016-07-24] MEDS: VANCOMYCIN 1,500 MG in NS 250 ML IV SCH (10:32)
[2016-07-24 13:27] VITALS: BP 159/71
[2016-07-24] MEDS: LOVENOX SUBQ SCH (13:56)
[2016-07-24] MEDS ORDERED: SODIUM CHLORIDE 0.9% 10 ML ONE (16:59)
[2016-07-24] MEDS ORDERED: HEPARIN ONE (16:59)
--- NOTE | 2016-07-25 01:40 | PALLIATIVE CARE CONSULTATION ---
DATE: 07/24/2016 REQUESTING PHYSICIAN: Dr. Georges. REASON FOR CONSULTATION: Goals of care. HISTORY OF PRESENT ILLNESS: This is a 66-year-old female, with a past medical history of small-cell lung cancer, that is being followed by Dr. Paez, diabetes mellitus type 2, chronic back pain, immune thrombocytopenia purpura and radiation esophagitis, that ultimately required a PEG tube placement. However, this has improved, and she seems to be swallowing fine. She was most recently admitted on 07/19/2016, after presenting with complaints of a 3-day history of nausea, vomiting and diarrhea. Currently, she is sitting up in the hospital bed, very pleasant, states that she is ready to go home. It was presented at 1 point the possibility of rehab placement, however, she states that she does not want to partake in rehab services, because she will not be able to receive chemotherapy while doing so. She states that she is ready to go home, that she has home health in place, and would like to get physical therapy in place as well. She does not have any acute complaints at this time. She denies nausea, anxiety, shortness of breath and pain. Her is at the bedside. The palliative care team has been consulted to assist with goals of care. REVIEW OF SYSTEMS: A 10 point review of system has been conducted, and otherwise negative except those mentioned in the HPI. PAST MEDICAL HISTORY: See HPI. PAST SURGICAL HISTORY: 1. Hysterectomy. 2. Cholecystectomy. 3. Tubal ligation. SOCIAL HISTORY: She is a former smoker. Alcohol and drug use have been denied. She is . She has a very supportive family. FAMILY HISTORY: Positive for heart disease. PHYSICAL EXAMINATION: General: This is a 66-year-old chronically ill-appearing, female, who does not appear to be in any acute distress. HEENT: Atraumatic, normocephalic. Neck: Trachea is midline. Cardiovascular: Regular rate and rhythm. Pulmonary: Lung sounds are diminished. Respirations nonlabored. Abdomen: Soft, bowel sounds are active. Extremities: Pulses are palpable. IMPRESSION: This is a 66-year-old female, with a past medical history as listed above in the HPI. I met with the family to discuss goals of care. The patient states that she is feeling much better, and would like to go home. Plan is to follow up with Dr. Paez, and continue to receive chemo and radiation. Her said that she can reinstate Home Health, and receive physical therapy while in the home setting. I do feel like that Ms. Kelly is appropriate for outpatient palliative care services. Those services were explained, and the patient and are agreeable to those services. We discussed advanced directive and power of deputy attorney general. She does not have either document, but understands the importance, and she states that she would like to be a full code. It appears that Ms. Kelly's palliative performance scale is 60%. The palliative care team will continue to follow. Thank you for this consultation. Dictated by MIKE Krishnan for Joseph Wood MD cc: MIKE Krishnan MD
--- NOTE | 2016-07-25 13:39 | DISCHARGE SUMMARY ---
ADMISSION DATE: 07/19/2016 DISCHARGE DATE: 07/24/2016 DISPOSITION: Home. FOLLOWUP: Will be with Dr. Paez. CONSULTATION DURING THIS ADMISSION: Hem-Onc was consulted. Patient was seen by Dr. Paez. INVASIVE PROCEDURES DONE DURING THIS ADMISSION: None. IMAGING STUDIES OF SIGNIFICANCE: 1. An ultrasound of the abdomen was done, which was unremarkable. 2. An x-ray of the chest and abdomen was also done, which showed improved right-sided pneumonia. ADMISSION DIAGNOSES: 1. Nausea and vomiting. 2. Recently treated for bacteremia. 3. Small cell cancer. 4. Idiopathic thrombocytopenic purpura. DISCHARGE DIAGNOSES: 1. Nausea and vomiting secondary to acute gastroenteritis, improved. 2. Clinical dehydration, improved. 3. Recently treated for methicillin-resistant Staphylococcus aureus bacteremia. Blood cultures have been negative. 4. Elevated alkaline phosphatase and GGTP. Etiology is unclear. Ultrasound of the common bile duct and abdomen was unremarkable. The alkaline phosphatase has significantly come down. We will therefore encourage the patient to follow up with her oncologist/trim operator to make sure the liver and the biliary tree do not have any metastasis or any disease. 5. History of small cell lung cancer. Patient follows up with Dr. Paez. 6. Vitamin D deficiency. We will continue to replace this. 7. Radiation esophagitis with recently-placed percutaneous endoscopic gastrostomy tube. 8. Thrombocytopenia. This has resolved. 9. Paroxysmal atrial fibrillation on diltiazem and Apixaban for anticoagulation. DISCHARGE MEDICATIONS: 1. OxyContin 10 mg q. 6 hours p.r.n. 2. Gabapentin 800 q. 4 times per day. 3. Lisinopril 20 mg daily. 4. Strattera 80 mg b.i.d. 5. Montelukast. 6. Apixaban 5 mg b.i.d. 7. Diltiazem 120 mg daily. 8. Pantoprazole 40 mg b.i.d. 9. Metoprolol. 10. Cefazolin 1 g IV q. 8 hours. PRESENTING COMPLAINT: Nausea, vomiting, and diarrhea. HISTORY OF PRESENTING COMPLAINT: Ms. Kelly is a 66-year-old female, who is being treated for a limited small cell cancer by Dr. Paez. Patient was actually in hospital and recently was discharged on 07/12/2016 for presumed right lower lobe pneumonia by MRSA and also MRSA bacteremia. The patient was discharged on IV antibiotics. She seems to be doing fine. She started having nausea, vomiting and diarrhea at home, and I brought her in for presentation. The patient was evaluated, was slightly dehydrated and was deemed to be admitted for inpatient care. HOSPITAL COURSE: The patient did pretty well during the hospital stay, was started on IV antibiotics and adequate hydration. Hem/Onc was consulted. Patient's daily evaluation showed steady improvement until today. She seems to be doing a whole lot better today. Diarrhea has resolved. Vitals have been reviewed as stable. I spoke early on with her oncologist, Dr. Paez, who also thinks that the patient is stable to be discharged. Patient is going to be discharged today in very stable condition. I have reviewed all her lab work; this seems decent. Hemoglobin is 9.8; this is after 2 units of PRBC transfusion yesterday. Chemistry has also been reviewed, unremarkable. Her liver functions are stable. Her alkaline phosphatase is on downward trend. A GGT is 80 which is increased. I would advise the patient to follow up with her Hem/Onc and also GI to make sure that the liver and the biliary tree do not have any disease. Clinically, the patient does not look jaundiced. Bilirubin is fine. At the time of discharge, there are not any pending labs or imaging studies. The patient is going to be discharged to follow up with [facility], with PT and home health. She is also advised to follow up with her IV antibiotics to complete the therapy, and then also follow up with Dr. Sauceda. cc: Carlos Georges MD
== END 2016-07-24 05:45 | disposition home health service (06) ==
LOC: ED 09:15 → SUATTDRO 13:53 → 4N 13:53 → DIRADM 07-23 12:51 → 4N 07-23 12:54 → DIRADM 07-23 12:55 → 4N 07-23 12:57 → 3N 07-23 17:35
PROVIDERS: ATTEND Internal Medicine

== ENCOUNTER 2016-07-29 19:01 | Inpatient (IN) ==
[2016-07-29 21:20] LABS: MANUAL DIFF NEEDED? NO
[2016-07-29 21:30] LABS: BASO% 0.3 % (0.0-0.8); EOS# 0.08 X1000 (0.0-0.7); EOS% 0.4 % (0.0-10.0); HEMOGLOBIN 10.4 g/dL (12.0-16.0); IMM GRAN% 1.6 % (0.0-0.5); LYMPH# 1.52 X1000 (1.2-3.4); LYMPH% 7.9 % (20.5-51.1); MCH 29.1 PG (27-31); MCHC 32.5 g/dL (33-37); MCV 89.6 FL (81-99); MONO# 2.17 X1000 (0.11-0.59); MONO% 11.2 % (1.7-9.3); MPV 9.1 FL (7.4-10.4); NEUT% 78.6 % (42.2-75.2); PLT 510 X1000 (130-400); RBC 3.57 XMIL (4.2-5.4)
[2016-07-29 21:32] LABS: INR 1.2; PROTIME 12.8 Seconds (9.2-11.7)
[2016-07-29 21:44] LABS: AGAP 14; ALBUMIN 2.7 g/dL (3.5-5.0); ALKALINE PHOSPHATASE 276 U/L (32-104); BUN 18 mg/dL (8-22); CHLORIDE 88 mmol/L (98-107); COSMO 261; GOT 30 U/L (10-30); GPT < 5 U/L (10-36); POTASSIUM 3.9 mmol/L (3.5-5.1); SODIUM 130 mmol/L (136-145); TCO2 28 mmol/L (25-35); TOTAL BILIRUBIN 0.25 mg/dL (0.20-1.00)
--- NOTE | 2016-07-29 22:52 | PROVIDER DOCUMENTATION ---
HPI-Rash/Wound/ReCheck - General Chief Complaint: Sores/Lesions Stated Complaint: BLISTERS ON LEGS Time Seen by Provider: 07/29/16 19:36 Source: patient Allergies/Adverse Reactions: Allergies Allergy/AdvReac Type Severity Reaction Status Date / Time hydrocodone Allergy itch Verified 07/29/16 21:05 latex Allergy itch Verified 07/29/16 21:05 Penicillins Allergy not sure Verified 07/29/16 21:05 rabeprazole sodium * Allergy itch Verified 07/29/16 21:05 [From Aciphex] Home Medications: Home Medication List Medication Instructions Recorded Confirmed Last Taken Type Gabapentin [Neurontin] 800 mg PO 4XDAY 08/08/13 07/19/16 07/06/16 History LISINOpril [Prinivil] 20 mg PO DAILY 08/08/13 07/19/16 07/06/16 09:00 History Metformin [Glucophage] 500 mg PO HS 08/08/13 07/19/16 07/06/16 History Oxycodone HCl [Oxycontin] 10 mg PO Q6H PRN PRN 08/08/13 07/19/16 07/07/16 History Ondansetron HCl [Zofran] 1 - 2 tab PO Q6H PRN PRN #15 tablet 10/05/13 07/07/16 07/06/16 Rx Alprazolam [Xanax] 0.5 mg PO Q8H PRN PRN 04/21/16 07/07/16 1 Week Ago History Atomoxetine [Strattera] 80 mg PO BID 04/21/16 07/19/16 07/06/16 History Montelukast Sodium [Singulair] 10 mg PO QHS 04/21/16 07/19/16 07/06/16 History Naloxegol Oxalate [Movantik] 25 mg PO DAILY 04/21/16 07/19/16 06/23/16 07:00 History Solifenacin Succinate [Vesicare] 10 mg PO DAILY 04/21/16 07/19/16 05/31/16 08: 00 History Vilazodone [Viibryd] 40 mg PO QHS 05/03/16 07/19/16 07/06/16 History Apixaban [Eliquis] 5 mg PO BID #60 tablet 07/12/16 07/19/16 Unknown Rx Diltiazem C.d. [Cardizem Cd] 120 mg PO DAILY #60 capsule 07/12/16 07/19/16 Unknown Rx Fentanyl 50 Microgm/Hr Patch 1 each TD Q72H patch 07/12/16 07/15/16 Rx [Duragesic 50 Microgm/Hr Patch] Cefazolin Sodium in 0.9 % NaCl 1 gm IV Q8H 07/19/16 07/19/16 Unknown History [Cefazolin 1 G/10 ml-Ns Syringe] Estrogens, Conjugated [Premarin] 0.625 mg PO DAILY 07/19/16 07/19/16 Unknown History Metoclopramide [Reglan] 10 mg PO Q6HR 07/19/16 07/19/16 Unknown History Pantoprazole Sodium [Protonix] 40 mg PO BID 07/19/16 07/19/16 Unknown History Promethazine [Phenergan] 25 mg PO Q6H PRN PRN 07/19/16 07/19/16 Unknown History - History of Present Illness-Dermatology Nature of Presenting Problem: Pt is a 66 y/o F c chief complaint of rash to her bilat lower extremities x 3 days. Pt describes the rash as painful and progressively worsening. Pt recently started Eloquis by the hospitalist when discharging from the hospital 2 weeks ago. Pt has a h/o recent dx of lung CA x 3 months and has been tx c radiation therapy by Dr. Paez. Pt has also been dx c ITP and has received several blood transfusions. On arrival, pt is in minimal distress and has a profound non-blanchable vascular rash on her lower extremities. Review of Systems - Adult - REVIEW OF SYSTEMS - ADULT Constitutional: reports: chills. denies: fatique Eyes: reports: no symptoms reported. denies: blurred vision, double vision Ears, Nose, Mouth & Throat: reports: no symptoms reported. denies: ear pain, nose pain, throat pain Cardiovascular: reports: no symptoms reported. denies: chest pain, orthopnea Respiratory: reports: no symptoms reported. denies: cough, shortness of breath Gastrointestinal: reports: no symptoms reported. denies: abdominal pain, nausea Genitourinary: reports: no symptoms reported. denies: dysuria, frequent UTI's, hematuria Musculoskeletal: reports: no symptoms reported. denies: joint pain, joint swelling Integumentary: reports: rash, skin sores/ulcer. denies: itching Neurological: reports: no symptoms reported. denies: numbness, paresthesia Psychiatric: reports: no symptoms reported. denies: anxiety, emotional problems Endocrine: reports: no symptoms reported. denies: cold intolerance, heat intolerance Hematologic/Lymphatic: reports: no symptoms reported. denies: blood clots, low blood count Allergic/Immunologic: reports: no symptoms reported. denies: allergic reactions , food allergy All Other Systems: Reviewed and Negative Past History - Adult - PAST MEDICAL HISTORY-ADULT Review of Records: reports: Old Records Reviewed, Nursing Assessment Review, Medications Reviewed, Social history reviewed & non-contributory. Major Childhood Illnesses: reports: denies history Cardiovascular: reports: HTN, hyperlipidemia Respiratory: reports: COPD, cancer (Small Cell Cancer right lung) Gastrointestinal: reports: denies history Obstetrical/Gynecological: reports: denies history Genitourinary: reports: denies history Musculoskeletal: reports: denies history Neurological: reports: denies history Psychiatric: reports: bipolar Endocrine/Immune: reports: Diabetes Other Conditions: reports: denies history - PRIOR SURGERIES/PROCEDURES Surgical/Procedure History: reports: cholecystectomy, hysterectomy, indwelling device (PEG, port), orthopedic (extremity) - IMMUNIZATION STATUS Childhood Immunizations: See Nurse Assessment Flu Vaccine: See Nurse Assessment - FAMILY HISTORY Family History: reviewed, not pertinent - SOCIAL HISTORY Smoking: denies Substance Use: none/never Alcohol Use Frequency: never Living Situation: family Physical Exam-General - PHYSICAL EXAM-ADULT Initial Vital Signs Reviewed: Yes - CONSTITUTIONAL General Appearance: alert, no apparent distress - EYES Eyes: PERRL/EOMI, pink conjunctivae - HEAD, EARS, NOSE, MOUTH & THROAT HENMT: normocephalic/atraumatic, moist mucous membranes, normal ENT inspection - NECK Neck: normal inspection - RESPIRATORY Respiratory: chest non-tender, lungs clear, normal breath sounds - CARDIOVASCULAR Cardiovascular: normal peripheral pulses, regular rate, rhythm - GASTROINTESTINAL (ABDOMEN) Abdominal Exam: normal bowel sounds, non tender, soft - LYMPHATIC Lymphatic: no adenopathy - MUSCULOSKELETAL Back Exam: normal inspection, no CVA tenderness, no vertebral tenderness Extremity: normal range of motion, non-tender, normal inspection - SKIN Integumentary: ecchymosis, purpura, rash - NEUROLOGIC Neurologic: grossly normal, no motor/sensory deficits - PSYCHIATRIC Psych/Mental Status: normal mood/affect, normal thought content, normal thought process, oriented x 3 Progress - PLAN OF CARE/RESULTS Progress/Plan/Lab Results: Vital Signs - 8 hr 07/29/16 19:12 Temperature 98.4 F Pulse Rate 104 H Respiratory Rate 16 Blood Pressure 107/81 O2 Sat by Pulse Oximetry 92 L Laboratory Results - last 24 hr 07/29/16 07/29/16 07/29/16 21:04 21:04 21:04 WBC 19.33 H RBC 3.57 L Hgb 10.4 L Hct 32.0 L MCV 89.6 MCH 29.1 MCHC 32.5 L RDW Std Deviation 18.7 H Plt Count 510 H MPV 9.1 Immature Gran % (Auto) 1.6 H Neut % (Auto) 78.6 H Lymph % (Auto) 7.9 L Murray % (Auto) 11.2 H Eos % (Auto) 0.4 Baso % (Auto) 0.3 Immature Gran # (Auto) 0.30 H Neut # (Auto) 15.21 H Lymph # (Auto) 1.52 Murray # (Auto) 2.17 H Eos # (Auto) 0.08 Baso # (Auto) 0.05 PT 12.8 H INR 1.20 PTT (Actin FS) 46.0 H Specimen Type Sample Site pH pCO2 pO2 HCO3 Base Excess Oxyhemoglobin ABG O2 Sat (Calculated) ABG O2 Saturation ABG Carboxyhemoglobin ABG Methemoglobin Nathan Test A-a O2 Difference Total Hemoglobin Lactate Blood Gas Modality FiO2 % Sodium 130 L Potassium 3.9 Chloride 88 L Carbon Dioxide 28 Anion Gap 14 BUN 18 Creatinine 1.7 H Estimated GFR/1.73 m2 30 BUN/Creatinine Ratio 11 Glucose 74 Calculated Osmolality 261 Calcium 8.0 L Total Bilirubin 0.25 AST 30 ALT < 5 L Alkaline Phosphatase 276 H Total Protein 7.0 Albumin 2.7 L Globulin 4.3 Albumin/Globulin Ratio 0.6 Plasma Lactate Urine Source Urine Color Urine Turbidity Urine pH Ur Specific [place] Urine Protein Ur Glucose (Stick) Ur Ketones (Stick) Urine Blood Urine Nitrite Urine Bilirubin Urobilinogen Dipstick Urine Leukocytes Urine WBC (Auto) Urine RBC (Auto) U Epithel Cells (Auto) Urine Bacteria (Auto) 07/29/16 07/29/16 07/29/16 22:52 23:30 23:30 WBC RBC Hgb Hct MCV MCH MCHC RDW Std Deviation Plt Count MPV Immature Gran % (Auto) Neut % (Auto) Lymph % (Auto) Murray % (Auto) Eos % (Auto) Baso % (Auto) Immature Gran # (Auto) Neut # (Auto) Lymph # (Auto) Murray # (Auto) Eos # (Auto) Baso # (Auto) PT INR PTT (Actin FS) Specimen Type ARTERIAL Sample Site R RADIAL pH 7.45 pCO2 42 pO2 55 L HCO3 28.4 H Base Excess 4.7 H Oxyhemoglobin 88.1 L* ABG O2 Sat (Calculated) 11.7 L ABG O2 Saturation 95.7 ABG Carboxyhemoglobin 6.40 H* ABG Methemoglobin 1.5 Nathan Test YES A-a O2 Difference 42.0 Total Hemoglobin 9.4 L Lactate 0.70 Blood Gas Modality ROOM AIR FiO2 % 21.0 Sodium Potassium Chloride Carbon Dioxide Anion Gap BUN Creatinine Estimated GFR/1.73 m2 BUN/Creatinine Ratio Glucose Calculated Osmolality Calcium Total Bilirubin AST ALT Alkaline Phosphatase Total Protein Albumin Globulin Albumin/Globulin Ratio Plasma Lactate 0.8 Urine Source VOIDED Urine Color YELLOW Urine Turbidity HAZY Urine pH 5.5 Ur Specific [place] 1.000 Urine Protein NEGATIVE Ur Glucose (Stick) NEGATIVE Ur Ketones (Stick) NEGATIVE Urine Blood TRACE A Urine Nitrite NEGATIVE Urine Bilirubin NEGATIVE Urobilinogen Dipstick NORMAL Urine Leukocytes NEGATIVE Urine WBC (Auto) <10 Urine RBC (Auto) <10 U Epithel Cells (Auto) <10 Urine Bacteria (Auto) NEGATIVE Orders Category Date Time Status CHEST-2 VIEWS [RAD] Stat Exams 07/29/16 22:52 Taken ABG [RESP] Routine Lab 07/29/16 22:52 Completed BLOOD CULTURE [BLDCUL] Stat Lab 07/29/16 21:04 Results CBC WITH ELECTRONIC DIFF [HEME] Stat Lab 07/29/16 21:04 Completed COMPREHENSIVE METABOLIC PANEL [CHEM] Stat Lab 07/29/16 21:04 Completed LACTATE, PLASMA [CHEM] Stat Lab 07/29/16 23:30 Completed OCCULT BLOOD SCREENING [STOOL] Stat Lab 07/29/16 23:35 Ordered PROTIME WITH INR [COAG] Stat Lab 07/29/16 21:04 Completed PTT [COAG] Stat Lab 07/29/16 21:04 Completed UA [URINALYSIS] [URINALYSIS] Stat Lab 07/29/16 23:30 Completed 0.9% Sodium Chloride Inj [Ns] 1,000 ml Med 07/29/16 22:53 Active IV 75 mls/hr Vancomycin 1 gm/Ns Med 07/29/16 23:24 Discontinued 1 gm in 250 ml IV NOW Transfer/Admit Order [TRANSFER] Routine Transfer 07/29/16 23:58 Ordered Result Diagrams: 07/29/16 21:04 07/29/16 21:04 - XRAY 1 XRAY Study: Chest Impression: Abnormal XRAY Interpretation: no significant change from previous; R effusion - CONSULTS/PCP/HOSPITALIST Notification #1 *Consult/PCP/Hospitalist*: Dr. Newman (Hospitalist) Time Discussed: 22:58 Reason/Comments: Agreed to admit pt and see in ER. Departure - Departure Time of Disposition Decision: 22:58 DIAGNOSIS: Immune thrombocytopenic purpura Leukocytosis Qualifiers: Leukocytosis type: unspecified Qualified Code(s): D72.829 - Elevated white blood cell count, unspecified Disposition: ADMITTED INPATIENT 09 Certified Medical Emergency: Emergent Condition: Stable Referrals and Follow-Ups: Ilya Cm MD [Primary Care Provider] - Attestation - Physician/ VANESSA Attestation Patient care was provided by Advanced Practice Provider:: Yes Advanced Practice Provider:: Zackary Eugene Advanced Practice Provider documentation review:: The Mid-level provider documentation, treatment plan and medical decision making was reviewed by the physician who agrees with all treatment and medical decision making by the MLP.
[2016-07-29] MEDS ORDERED: NS 1,000 ML IV SCH (22:53)
[2016-07-29 23:16] LABS: BLOOD TYPE ARTERIAL; SAMPLE BLOOD
[2016-07-29 23:17] LABS: ALLEN TEST YES; BE 4.7 mmoll (-3.0-3.0); DRAW SITE R RADIAL; METHB 1.5 % (0.0-1.5); O2(CT) 11.7 mL/dL (15.0-23.0); PCO2(98.6) 42 mmHg (35-45); PO2(98.6) 55 mmHg (60-100); SAO2 95.7 % (95.0-100.0); THB 9.4 g/dL (11.5-17.4); pH(98.6) 7.45 (7.35-7.45)
[2016-07-29 23:18] LABS: MODALITY ROOM AIR
[2016-07-29] MEDS ORDERED: VANCOMYCIN 1 GM/NS 1 GM/250 ML IVPB IV ONE (23:24)
[2016-07-29 23:45] LABS: URINE MICRO REVIEW NEEDED? NO; URINE SOURCE VOIDED
[2016-07-29 23:49] LABS: BILIRUBIN URINE NEGATIVE (NEGATIVE); BLOOD URINE TRACE (NEGATIVE); COLOR YELLOW; GLUCOSE URINE NEGATIVE (NEGATIVE); LEUKOCYTES URINE NEGATIVE (NEGATIVE); NITRITE URINE NEGATIVE (NEGATIVE); PH URINE 5.5; PROTEIN URINE NEGATIVE (NEGATIVE); TURBIDITY URINE HAZY (CLEAR); UROBILINOGEN URINE NORMAL (NORMAL)
[2016-07-29 23:55] LABS: UR EPITHELIAL CELLS <10 /HPF (<10); URINE BACTERIA NEGATIVE /HPF; URINE RBC <10 /HPF (<10); URINE WBC <10 /HPF (<10)
--- NOTE | 2016-07-30 03:06 | HISTORY AND PHYSICAL ---
REASON FOR ADMISSION: A 3-4 day history of worsening lower extremity rash. Ms. Gloria Kelly is a 66-year-old lady with stage IV lung cancer, who has received 13 radiation treatments. She is unable to commence chemotherapy because she has a relative pancytopenia. She is followed by Dr. Paez, and lists Dr. Paez as her primary oncologist. Primary care physician is Dr. Ilya Cm. The patient also has a history of hypertension, chronic pain syndrome, atrial fibrillation, for which she was started on Cardizem and Eliquis less than a week ago. Also, has a history of type 2 diabetes, reflux disease, depression, seasonal allergic rhinitis. HISTORY OF PRESENT ILLNESS: The patient comes in today with a 4-day history of progressively worsening lower extremity rash. She was just recently discharged on new medications, i.e. Cardizem and Eliquis. The reports that it initially started as small purpura-type lesions, petechial/purpural-type lesions, and then over the last 2 days has rapidly progressed to bullous-type lesions. Over the last 2 days, the patient has experienced a lot of leg swelling and pain, and is unable to bear any weight. No fever, chills reported. No other complaints elsewhere referable to the GI/ systems, cardiorespiratory system, neurological system (although the patient has been confused over the last 24 hours). No focal signs. No headaches. No visual complaints. I had a hard time getting a history from the patient because she was very drowsy and also confused. She is easily arousable to her name, but she is only oriented to person. REVIEW OF SYSTEMS: Twelve system review is negative. Positive findings per HPI. ALLERGIES: Hydrocodone, latex, AcipHex, and penicillin. HOME MEDICATIONS: Xanax 0.5 mg t.i.d. p.r.n., Eliquis 5 mg b.i.d., Strattera 80 mg b.i.d., Cardizem 120 mg daily, conjugated estrogen 0.625 mg daily, fentanyl 50 mcg q.72 hours, Neurontin 800 mg 4 times daily, lisinopril 20 mg daily, metformin 500 mg at bedtime, Reglan 10 mg q.6 hours, Singulair 10 mg daily, Naloxegol oxalate 25 mg daily, Zofran 4 mg 1-2 tablets q.4 hours, oxycodone 10 mg q.12 hours, Protonix 40 mg daily, Phenergan q.6 hours p.r.n., VESIcare 10 mg daily, Viibryd 40 mg at bedtime. PAST SURGICAL HISTORY: Neck surgery, rotator cuff surgery, lung surgery, tubal ligation, hysterectomy, cholecystectomy, bladder sling, PEG tube placement because following extensive radiation of her esophagus, she has to survive on a PEG tube. There is also a Mediport placement. FAMILY HISTORY: Notable for breast cancer and throat cancer. No heart disease. No diabetes in first-degree relatives. SOCIAL HISTORY: Quit smoking within the last 2 weeks. No alcohol or illicit drug use. She is , lives with her . PAST MEDICAL HISTORY: See above. LABORATORY EXAMINATION: Chest film shows a persistent right lobe infiltrate, which could be her malignancy. White count is 19,000,hemoglobin 10, hematocrit 32, platelets 510,000, 78% neutrophils. Sodium 130, BUN is 18, creatinine 1.7, which is up from her baseline 0.7. Calcium 8.0. Alkaline phosphatase 276. Lactate is normal. PTT is normal. Urinalysis is clear. Blood gas: 7.45, pCO2 42, PO2 55 on room air. PHYSICAL EXAMINATION: GENERAL: A chronically ill woman who is very drowsy and in mild distress from the pain in her legs. Intermittently, she would spontaneously wake up, is not very coherent, and expresses the pain that she is in, having pain emanating from her legs. She is oriented to place only. Normal mood and affect. HEAD: She has alopecia. Normocephalic. EYES: CHRISTEN, EOMI. She is anicteric, but pale. ENT AND OROPHARYNX: Extensive xerosis of the mouth. Otherwise, no oral lesions or exudates. No central cyanosis. NECK: Supple. No JVD or carotid bruit. No thyromegaly. CHEST: Clear to auscultation. Good air entry in both lung mendez. She has a port just near to her sternum. It is functional. CARDIOVASCULAR: First and second heart sounds heard. No gallops. A 2/6 ejection systolic murmur heard. Rhythm is regular. ABDOMEN: Has a PEG tube near the left upper quadrant area. It is functional. No surrounding erythema at the PEG site. No exudates noted. Abdomen is soft, nontender. Bowel sounds are normal. RECTAL: Deferred at this time. EXTREMITIES: Patient has profound 2 to 3+ pitting edema of the lower extremities [id number]. She has a mixture of purpura, bullous, hemorrhagic-looking bullae, which are very tender to touch. Legs are slightly warm. Pulses difficult to palpate distally in the lower extremities due to severe edema, but she has good pulses distally in the upper extremities. No clubbing or peripheral cyanosis. NEUROLOGICAL: No focal deficits. SKIN: See above. Findings are suggestive of a vasculitic process. MUSCULOSKELETAL: Muscular exam grossly normal. ASSESSMENT: 1. Drug hypersensitivity reaction, very likely secondary to Cardizem. 2. Atrial fibrillation. 3. Acute kidney injury. 4. Chronic obstructive pulmonary disease. 5. Cancer of lung. 6. Type 2 diabetes. 7. Hypertension. 8. Metabolic encephalopathy, probably secondary to acute kidney injury and acute respiratory failure. PLAN: At this time, will discontinue Cardizem, think about alternative rate controlling drugs, i.e. a beta belle and/or digoxin. For now, continue with Eliquis, but will discontinue immediately if any significant bleeding is noted. Other things, will discontinue all [employer]OR[employer]-acting medications, except for fentanyl, which is excreted mainly through the liver, so her kidney dysfunction should not have any major impact on a buildup in her system. Will continue to hydrate the patient with fluids to correct her kidney dysfunction. Discontinue MEIR inhibitors and consider alternative blood pressure medications (?) beta blockers. Type 2 diabetes is controlled with a sliding scale. The patient will be started on H1 and H2 blockers, and steroids for this drug reaction. We will consult Dr. Paez to see the patient, as the patient has already been scheduled to see him. Empiric antibiotics will include just using clindamycin because of the risk of staph and strep from denudation of the bullae on her legs. cc: MD Ilya Higuera MD
[2016-07-30] MEDS ORDERED: BENADRYL IV ONE (05:37)
[2016-07-30] MEDS ORDERED: TYLENOL PO PRN (05:37)
[2016-07-30] MEDS ORDERED: VANCOMYCIN IV PER PHARMACY MISC SCH (05:37)
[2016-07-30] MEDS ORDERED: PHENERGAN PO PRN (05:37)
[2016-07-30] MEDS ORDERED: SOLU-MEDROL IV ONE (05:37)
[2016-07-30] MEDS ORDERED: ZOFRAN IV PRN (05:37)
[2016-07-30] MEDS: CLINDAMYCIN 600 MG/NS 600 MG/50 ML IVPB IV SCH ×3 (06:05→21:54)
[2016-07-30] MEDS: REGLAN PO SCH ×4 (06:08→21:57)
[2016-07-30] MEDS: PEPCID PO SCH ×3 (06:08→21:54)
--- NOTE | 2016-07-30 08:24 | Diag Imaging Result Document ---
PROCEDURE NAME: CHEST-2 VIEWS - 07/29/2016 PA AND LATERAL RADIOGRAPH OF THE CHEST: COMPARISON: 07/19/2016. FINDINGS: Right chest port is in stable position. The right perihilar and right lower lung zone consolidations seen on the previous study persists, however, they are marginally less prominent. No new consolidations identified. Cardiac silhouette is stable. IMPRESSION: Marginal improvement of the right lung consolidation seen on the previous study.
[2016-07-30] MEDS ORDERED: VANCOMYCIN 500 MG/NS 500 MG/100 ML IVPB IV ONE (09:00)
[2016-07-30] MEDS: HUMALOG SUBQ SCH ×4 (11:01→21:57)
[2016-07-30] MEDS: SOLU-MEDROL IV SCH ×3 (11:01→21:54)
[2016-07-30] MEDS: MOVANTIK PO SCH (11:11)
[2016-07-30] MEDS: ZYRTEC PO SCH ×2 (11:11→21:54)
[2016-07-30] MEDS: NEURONTIN PO SCH ×3 (11:11→17:40)
[2016-07-30] MEDS: PRILOSEC PO SCH ×2 (11:11→21:53)
[2016-07-30] MEDS: DURAGESIC 50 MICROGM/HR PATCH TD SCH ×3 (11:16→12:27)
[2016-07-30] MEDS: LANTUS SUBQ SCH (11:16)
--- NOTE | 2016-07-30 13:54 | PROGRESS NOTE ---
DATE: 07/30/2016 SUBJECTIVE: She does feel better. She presented yesterday with fever. [id number] that presented with a 3- to 4-day history of worsening lower extremity rash. She received 13 radiation treatments for stage 4 small cell lung cancer. She was unable to commence chemotherapy. She did have radiation-induced esophagitis, which has improved. Had a PEG tube placed. Then she had pancytopenia, and they also found immune thrombocytopenic purpura as well. Then was admitted with a viral gastroenteritis a couple weeks ago. Primary care doctor is Dr. Cm. PAST MEDICAL HISTORY: 1. She has a history of hypertension, chronic pain syndrome, atrial fibrillation. She was started on Cardizem and Eliquis about a week ago. History of type 2 diabetes mellitus, gastroesophageal reflux disease, depression, seasonal allergic rhinitis. So admitted with a rash, suspected drug hypersensitivity, very likely secondary to Cardizem, so Cardizem has been held. Trying to find other medications to control rate. 2. Atrial fibrillation. She is on Eliquis. 3. Acute kidney injury. Continue IV fluids. 4. Chronic obstructive pulmonary disease. 5. History of lung cancer stage 4, small cell. Actually I am not sure if this is stage 4, limited stage lung cancer. 6. Diabetes mellitus type 2. 7. Hypertension. 8. Metabolic encephalopathy, suspect secondary to acute kidney injury and was having some trouble apparently with some breathing yesterday as well. 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 OBJECTIVE: General: She is sitting up about to eat lunch. Feels better. Vital signs: Afebrile. Temperature 97.9, pulse 84, respirations 16, blood pressure 80/52. Height 5'5". O2 saturation 94%. HEENT: Pupils are equal and round. CVP less than 6 cm. Lungs: Clear in all lung mendez. Cardiovascular: Regular rhythm and rate without murmur or S3. LABORATORY DATA: Blood sugar was 93. Review of lab from yesterday: White count was elevated at 19,330, hematocrit 32, platelet count 510, sodium 130, potassium 3.9, chloride 88, bicarbonate 28, BUN 18, creatinine 1.7. Liver functions unremarkable. Albumin was 4.3. PTT 46. PT was 12.8. Urinalysis unremarkable. Blood gases: pH was 7.45, PCO2 42, PO2 55. O2 saturation was 88%. This is on 21%. IMAGING STUDIES: Chest x-ray: Marginal improvement in right lung consolidation seen on previous study. ASSESSMENT AND PLAN: 1. Drug hypersensitivity reaction, suspect from Cardizem, which has been stopped. 2. Atrial fibrillation. Control rate. Rate appears controlled at present time. 3. Acute kidney injury. Aware. Will need to give her some fluids. 4. Chronic obstructive pulmonary disease. 5. Small cell lung cancer, status post radiation. We have had to interrupt chemotherapy because of multiple complications. Looking at her orders, I do not see anything changed right now. She is on vancomycin IV. She is on methylprednisone. She got one dose and now getting 40 mg IV q. eight. She is on oxycodone ER. They have held the fentanyl. She is on Neurontin 800 mg t.i.d., Pepcid 20 mg b.i.d. I think they have put the fentanyl patch back on 50 mcg. She is on Lantus insulin 10 units q. a.m., Zyrtec 10 mg b.i.d., clindamycin 600 mg q. eight hours. cc: Nathan Devries MD
--- NOTE | 2016-07-30 18:53 | CONSULTATION ---
DATE OF CONSULTATION: 07/30/2016 REASON FOR CONSULT: Patient has small-cell lung cancer as well as ITP. HISTORY OF PRESENT ILLNESS: This patient is well known to us with limited stage small-cell lung cancer, who had received radiation and chemotherapy. Her radiation was stopped due to odynophagia. Chemotherapy has been on hold due to multiple hospital admissions. She most recently was discharged from the hospital approximately a week ago. She was diagnosed with this last hospitalization with atrial fibrillation, and put on Cardizem and Eliquis. Apparently, a couple days ago, the patient began noticing a rash to her bilateral lower extremities. The patient is not a very good historian. It appears though that this occurred approximately 2 or 3 days ago. It has a petechia appearance with some purpura and bulla's bilaterally. She thinks it is better today than it has looked. It is painful to touch. She denies any fever or chills. Her weight is stable. Her white count is elevated 19.3. Chest x-ray has been obtained and showed marginal improvement of the right lung consolidation. The primary team has discontinued her Cardizem at this time as we suspect a drug hypersensitivity reaction to be the cause of her rash. She is continuing on Eliquis. They also have her on vancomycin and methylprednisone. REVIEW OF SYSTEMS: Negative unless indicated in HPI. ALLERGIES: Hydrocodone, latex, AcipHex, penicillin. HOME MEDICATIONS: Eliquis 5 mg b.i.d., Xanax, Strattera, Cardizem, Duragesic patch, Neurontin, lisinopril, metformin, Reglan, Protonix. SOCIAL HISTORY: Patient stopped smoking cigarettes a couple weeks ago. Denies alcohol or illicit drug use. PAST MEDICAL HISTORY: Small-cell lung cancer. Diabetes mellitus type 2. Recent C. difficile colitis. ITP. PHYSICAL EXAMINATION: Vital Signs: Stable. Patient is in no acute distress. Eyes: The pupils equal, round, symmetric. Cardiovascular: S1, S2 audible auscultation with no heaves, lifts, thrills. Pulmonary: Diminished bases with unlabored respiratory effort. Skin: There is a lower extremity purpura type rash. Has also got petechial and bullous lesions bilaterally up to her knees. Neurologic: Alert and oriented to person and place only. Patient appears slightly confused. Psychiatric: The patient is pleasant. GI: Abdomen soft, nondistended. Positive bowel sounds in all 4 quadrants. Musculoskeletal: Patient moves all extremities. DIAGNOSTIC DATA: WBC is 19.3, hemoglobin 10.4, hematocrit 32, platelet count is 510,000. Sodium is 130, potassium 3.9, BUN is 18, creatinine 1.7. ASSESSMENT AND PLAN: 1. Likely drug hypersensitivity reaction related to Cardizem. That has been discontinued and hopefully her lower extremity rash will improve. She is also on vancomycin and has been given clindamycin as well. 2. Small-cell lung cancer. Chemotherapy is on hold. 3. Idiopathic thrombocytopenic purpura. We will monitor her counts closely, especially while on Eliquis. 4. Atrial fibrillation. Currently on Eliquis. The Cardizem has been stopped. 5. Chronic obstructive pulmonary disease stable. Dictated by MIKE Sánchez for Dell Paez MD cc: MIKE Sánchez MD MTDD
[2016-07-30] MEDS: XANAX PO PRN (21:53)
[2016-07-30] MEDS: OXYCONTIN PO PRN (21:53)
[2016-07-31] MEDS: OXYCONTIN PO PRN (03:36)
[2016-07-31] MEDS: CLINDAMYCIN 600 MG/NS 600 MG/50 ML IVPB IV SCH ×4 (03:36→20:09)
[2016-07-31] MEDS: SOLU-MEDROL IV SCH ×4 (03:37→20:09)
[2016-07-31] MEDS: REGLAN PO SCH ×4 (03:46→21:24)
[2016-07-31] MEDS: HUMALOG SUBQ SCH ×3 (06:42→16:33)
[2016-07-31 06:43] LABS: BASO% 0.1 % (0.0-0.8); HEMATOCRIT 27.5 % (37.0-47.0); HEMOGLOBIN 8.7 g/dL (12.0-16.0); IMM GRAN# 0.11 X1000 (0.0-0.04); IMM GRAN% 0.7 % (0.0-0.5); LYMPH# 0.93 X1000 (1.2-3.4); LYMPH% 5.7 % (20.5-51.1); MANUAL DIFF NEEDED? YES; MCHC 31.6 g/dL (33-37); MCV 91.7 FL (81-99); MONO# 1.28 X1000 (0.11-0.59); MONO% 7.8 % (1.7-9.3); MPV 9.1 FL (7.4-10.4); NEUT% 85.7 % (42.2-75.2); PLT 509 X1000 (130-400)
[2016-07-31 07:04] LABS: AGAP 12; ALBUMIN 2.2 g/dL (3.5-5.0); ALKALINE PHOSPHATASE 219 U/L (32-104); BUN 16 mg/dL (8-22); CALCIUM 7.4 mg/dL (8.8-10.2); CHLORIDE 99 mmol/L (98-107); COSMO 281; GOT 14 U/L (10-30); GPT < 5 U/L (10-36); POTASSIUM 3.8 mmol/L (3.5-5.1); SODIUM 138 mmol/L (136-145); TCO2 27 mmol/L (25-35); TOTAL BILIRUBIN 0.16 mg/dL (0.20-1.00); TOTAL PROTEIN 6.2 g/dL (6.3-8.3)
[2016-07-31 07:32] LABS: BANDS 4 % (0-1); LYMPHS 4 % (21-51)
[2016-07-31 07:33] LABS: HYPOCHROM 1+
[2016-07-31] MEDS ORDERED: INSULIN PEN NEEDLES ONE (07:36)
[2016-07-31 08:44] LABS: IRON SATURATION 43 %; TIBC 132 ug/dL; TOTAL IRON 57 ug/dL (49-151); UNBOUND IRON 75 ug/dL (112-346)
[2016-07-31] MEDS: PRILOSEC PO SCH ×2 (08:53→20:07)
[2016-07-31] MEDS: MOVANTIK PO SCH (08:53)
[2016-07-31] MEDS: ZYRTEC PO SCH ×2 (08:53→20:07)
[2016-07-31] MEDS: LANTUS SUBQ SCH (08:53)
[2016-07-31] MEDS: NEURONTIN PO SCH ×3 (08:54→17:51)
[2016-07-31] MEDS: PEPCID PO SCH ×2 (08:54→20:07)
[2016-07-31] MEDS ORDERED: VANCOMYCIN 1,150 MG in NS 250 ML IV SCH (11:00)
--- NOTE | 2016-07-31 13:28 | PROGRESS NOTE ---
DATE: 07/31/2016 SUBJECTIVE: She feels better. She has remained afebrile. She has a symmetrical, pruritic lesion with petechiae as well, but more pruritic, and there is some bullae. 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 She has a few lesions on her back, mainly on her lower extremity. OBJECTIVE: Vital signs: Temperature 97.8 degrees, pulse 94, respirations 14, blood pressure 142/79. Eyes: Pupils are equal and round. Lungs: Clear in all lung mendez. Cardiovascular exam: Regular rhythm and rate without murmur or S3. Abdomen: Soft. Skin: Warm and dry. : Urine output has been good by report, 800 mL. LABORATORIES: Labs from today: White count is down a little bit 16,440, hematocrit 27, platelet count 509,000. Sodium 138, potassium 3.8, chloride 99, bicarbonate 27, BUN 16, creatinine 0.9, blood sugars 169 and 172. ASSESSMENT AND PLAN: 1. Likely drug hypersensitivity reaction suspected of some Cardizem. It looks like a leukoclastic vasculitis. She is taking vancomycin and is being given clindamycin as well. Remains afebrile. Rash appears to be clearing. 2. Small-cell lung cancer. Chemotherapy is being held. She is status post some radiation treatment. 3. Status post radiation esophagitis, which is improved. She has a percutaneous endoscopic gastrostomy tube placement. Oral intake is doing well. 4. Idiopathic thrombocytopenic purpura, immunopathic thrombocytopenic purpura, which the platelet counts have come up. She also had some pancytopenia which has improved. 5. History of chronic obstructive pulmonary disease. Review of her orders: Appears to be doing well. We will discuss with Dr. Paez. If she is stable and wants to go home, possibly can go home tomorrow. I do not know that we have true organism we are treating. Blood cultures on the twenty-fourth times two were negative. Occult blood in the stool was positive. I do not know of anything that would change at this point. Using vancomycin 1150 mg IV q. 24 hours. She is getting oxycodone ER 10 mg q. 6 hours, Prilosec 20 mg b.i.d., naloxegol which is 25 mg daily, Reglan 10 mg q. 6 hours p.r.n., methylprednisone 40 mg IV q. 8 hours, and getting her insulin (Lantus) 10 units subcutaneously q.a.m., Neurontin 800 mg p.o. t.i.d., fentanyl patch 50 mcg every 72 hours, Pepcid 20 mg b.i.d., and clindamycin 600 mg IV q. 8 hours, along with Zyrtec 10 mg b.i.d. and Xanax 0.5 mg p.r.n. cc: Nathan Devries MD
--- NOTE | 2016-07-31 17:37 | PROGRESS NOTE ---
DATE: 07/31/2016 PRESENT ILLNESS: The patient is receiving Ancef for an oxacillin sensitive Staph aureus bacteremia and also for an oxacillin sensitive Staph aureus and Klebsiella pneumonia. In the past 2 days she has developed this bullous skin rash involving both legs. I agree with Dr. Devries that the rash represents a drug allergy and specifically to the 2 medications that were recently started. MEDICATIONS: The patient is on Ancef. PHYSICAL EXAMINATION: Vital Signs: Temperature is 98.2 degrees, pulse 101, respirations, blood pressure 137/76. General: This is a somewhat ill-appearing, middle-aged female. She is in no acute distress. Lungs: Clear to auscultation. Cardiovascular: Regular heart rate. Abdomen: Soft and nontender. Chest: Patient has a Port-A-Cath present. The site is not erythematous or swollen. Legs: There is bilateral edema of the legs with bullae that are filled with a dark colored fluid. I obtained a culture from one of these bullae after its opening it slightly with my gloved hand. Neurologic: Patient is alert. She can move her extremities. There is no tremor. LAB AND X-RAY: CBC shows a white count of 16,440, hemoglobin 8.7, and platelet count 509,000. Creatinine 0.9. GFR is greater than 60. The alkaline phosphatase is 219. ASSESSMENT AND PLAN: The patient is being treated for bacteremia and pneumonia. She now has a bullous leg rash from which I took a culture. I agree with stopping Ancef and putting the patient on clindamycin in case the presumed drug allergy is secondary to Ancef. I have discontinued vancomycin. COMORBIDITIES: She has lung cancer and is getting chemotherapy and radiation therapy. The patient also has a history of cigarette smoking and COPD. cc: Alexandr Sauceda MD [facility] SERVICES[facility]
[2016-07-31] MEDS: XANAX PO PRN (20:07)
[2016-08-01] MEDS: HUMALOG SUBQ SCH ×5 (00:56→21:05)
[2016-08-01] MEDS: REGLAN PO SCH ×4 (03:59→20:58)
[2016-08-01] MEDS: CLINDAMYCIN 600 MG/NS 600 MG/50 ML IVPB IV SCH ×2 (04:21→14:35)
[2016-08-01] MEDS: SOLU-MEDROL IV SCH ×3 (04:21→20:58)
[2016-08-01 06:40] LABS: BASO% 0.1 % (0.0-0.8); HEMATOCRIT 26.8 % (37.0-47.0); HEMOGLOBIN 8.5 g/dL (12.0-16.0); IMM GRAN# 0.36 X1000 (0.0-0.04); IMM GRAN% 2.1 % (0.0-0.5); LYMPH# 0.74 X1000 (1.2-3.4); LYMPH% 4.3 % (20.5-51.1); MANUAL DIFF NEEDED? YES; MCH 29.3 PG (27-31); MCHC 31.7 g/dL (33-37); MCV 92.4 FL (81-99); MONO% 4.6 % (1.7-9.3); MPV 8.6 FL (7.4-10.4); NEUT% 88.9 % (42.2-75.2); PLT 515 X1000 (130-400)
[2016-08-01 06:49] LABS: LYMPHS 2 % (21-51)
[2016-08-01] MEDS: NEURONTIN PO SCH ×3 (08:38→17:04)
[2016-08-01] MEDS: PEPCID PO SCH ×2 (08:38→20:58)
[2016-08-01] MEDS: ZYRTEC PO SCH ×2 (08:38→20:58)
[2016-08-01] MEDS: PRILOSEC PO SCH ×2 (08:38→20:58)
[2016-08-01] MEDS: MOVANTIK PO SCH (08:38)
[2016-08-01] MEDS: LANTUS SUBQ SCH (08:39)
[2016-08-01] MEDS ORDERED: VANCOMYCIN 1,150 MG in NS 250 ML IV SCH (09:00)
[2016-08-01] MEDS: OXYCONTIN PO PRN ×2 (11:45→17:53)
[2016-08-01] MEDS: DUONEB (A & A) INH PRN ×2 (12:21→20:06)
[2016-08-01] MEDS: XANAX PO PRN (14:36)
--- NOTE | 2016-08-01 14:36 | PROGRESS NOTE ---
DATE: 08/01/2016 Ms. Kelly is sleeping, comfortable. She is pretty tired and weak and eating okay. Afebrile. Temp 98.1 degrees, pulse 80, respirations 22, blood pressure 176/79. Lungs: Are clear in all lung mendez. Cardiovascular: Regular rhythm and rate without murmur or S3. Abdomen: Soft. Skin: Is warm and dry. Urine output was 1800 mL. LAB: Reviewed from today, white count still elevated at 17,340, hematocrit 28, platelet count 515,000. Blood sugar is 230, 79, 101, 191, so pretty sporadic. Appreciate Dr. Sauceda' help and Dr. Paez. She has limited stage small cell cancer. Received radiation chemotherapy, and as I recall radiation stopped for odynophagia radiation induced esophagitis and her chemotherapy has been on hold. Likely she presented at this time with a drug reaction from Cardizem, a leukoclastic type rash, purpura in the lower extremities symmetrical fashion. She is getting vancomycin and clindamycin. 1. Atrial fib, chronic atrial fibrillation. She is on Eliquis. We have held the Cardizem, rate seems to be controlled. 2. Idiopathic thrombocytopenic purpura. 3. History of COPD. She has had a recent oxacillin sensitive Staphylococcus aureus bacteremia and also an oxacillin sensitive Staphylococcus aureus and Klebsiella pneumonia in the past. In the past couple of days she developed a bullous leukoclastic type rash. The white count is still elevated. Clinically appears to be feeling better. Discussed with Dr. Sauceda and Dr. Paez about how long we should treat with antibiotics and whether we should let her go home. We will continue the clindamycin for now. cc: Nathan Devries MD
--- NOTE | 2016-08-01 17:34 | PROGRESS NOTE ---
DATE: 08/01/2016 PRESENT ILLNESS: The patient had been receiving Ancef for an oxacillin sensitive Staph aureus bacteremia and also for pneumonia. She developed a bullous-type rash. She was switched then to IV clindamycin. MEDICATIONS: Patient currently is receiving IV clindamycin. PHYSICAL EXAMINATION: Vital Signs: Temperature is 98.1 degrees, pulse 94, respirations 22, blood pressure 176/79. General: This is a chronically ill-appearing, middle-aged female. She is in no acute distress. Lungs: Clear to auscultation. Cardiovascular: Regular heart rate. Abdomen: Soft and nontender. Chest: The patient has a Port-A-Cath present. The site is not tender or draining. Legs: There is bilateral edema and also bullous lesions. The lesions appear to be fading and there do not appear to be any new ones forming. LAB AND X-RAY: The patient's CBC shows a white count of 17,340, hemoglobin 8.5, and platelet count 515,000. There was no creatinine for today. The culture from the blood and from one of the bullae on the patient's leg is negative at this time. ASSESSMENT AND PLAN: As regarding the rash, my plan now is to stop the patient's clindamycin and put her on p.o. doxycycline for 3 more weeks to complete a 6 week treatment course. The patient had bacteremia and she has metal in her spine, and that is the reason for giving her a 6 week course of antibiotics. At the end of the 6 weeks I think it would be reasonable to give her doxycycline 100 mg daily as a preventive measure in case there is any residual infection left in the spine to try to prevent it from becoming active. Today the patient and her have told me that the patient has episodes of an altered mental status and also having tonic-clonic movements. I discussed the situation with Dr. Devries and we are going to ask Dr. Gleason to see the patient regarding her altered mental status and seizure-like movements. COMORBIDITIES: Include her lung cancer, chemotherapy and radiation therapy,cigarette smoking, and COPD. cc: Alexandr Sauceda MD
[2016-08-01] MEDS: DOXYCYCLINE PO SCH (21:03)
[2016-08-02] MEDS: DUONEB (A & A) INH PRN ×4 (00:19→19:13)
[2016-08-02] MEDS: XANAX PO PRN ×3 (00:54→18:13)
[2016-08-02] MEDS: OXYCONTIN PO PRN ×4 (00:54→22:24)
[2016-08-02] MEDS: REGLAN PO SCH ×4 (01:00→22:23)
[2016-08-02] MEDS: SOLU-MEDROL IV SCH ×3 (05:30→22:23)
[2016-08-02] MEDS: HUMALOG SUBQ SCH ×4 (06:37→22:25)
[2016-08-02 06:44] LABS: BASO% 0.2 % (0.0-0.8); EOS# 0.01 X1000 (0.0-0.7); HEMATOCRIT 25.5 % (37.0-47.0); HEMOGLOBIN 7.9 g/dL (12.0-16.0); IMM GRAN# 0.82 X1000 (0.0-0.04); IMM GRAN% 3.4 % (0.0-0.5); LYMPH# 0.95 X1000 (1.2-3.4); LYMPH% 3.9 % (20.5-51.1); MANUAL DIFF NEEDED? YES; MCH 28.6 PG (27-31); MCV 92.4 FL (81-99); MONO# 1.54 X1000 (0.11-0.59); MONO% 6.4 % (1.7-9.3); MPV 8.8 FL (7.4-10.4); NEUT% 86.1 % (42.2-75.2); PLT 470 X1000 (130-400); RBC 2.76 XMIL (4.2-5.4)
[2016-08-02 07:17] LABS: BANDS 2 % (0-1); LYMPHS 6 % (21-51)
[2016-08-02] MEDS: DURAGESIC 50 MICROGM/HR PATCH TD SCH (09:54)
[2016-08-02] MEDS: PRILOSEC PO SCH ×2 (09:55→22:24)
[2016-08-02] MEDS: NEURONTIN PO SCH ×3 (09:55→16:41)
[2016-08-02] MEDS: ZYRTEC PO SCH ×2 (09:55→22:23)
[2016-08-02] MEDS: MOVANTIK PO SCH (09:56)
[2016-08-02] MEDS: DOXYCYCLINE PO SCH ×2 (09:56→22:24)
[2016-08-02] MEDS: LANTUS SUBQ SCH (09:57)
[2016-08-02] MEDS: PEPCID PO SCH ×2 (09:58→22:23)
[2016-08-02] MEDS: DUONEB (A & A) INH SCH ×2 (11:03→14:53)
[2016-08-02] MEDS ORDERED: ATIVAN IV ONE (14:08)
[2016-08-02] MEDS ORDERED: ATIVAN IV PRN (14:37)
--- NOTE | 2016-08-02 14:49 | CONSULTATION ---
DATE OF CONSULTATION: 08/02/2016 Ms. Kelly is 66 years old and she has reported stage IV lung cancer, previously longstanding diabetes mellitus and peripheral neuropathy, now involuntary limb jerking with question of seizure. History from the patient is that this jerking movement started 2 or 3 months ago. This is present daily, several times daily, some days more prominent than others. This has occasionally waked her from sleep, but not often. She does have some jerking movement when she tries to get to sleep. In retrospect, the jerking may be temporarily less likely to occur for a few hours after each alprazolam dose. She typically takes alprazolam 0.5 mg morning and night most days. She ran out of alprazolam for a few weeks a month or so ago and the jerking movement was more prominent during that time, by her report. The jerking movement involves arms and legs equal on the left and right, always diffuse, never 1 limb or 1 muscle group. Jerking movement is not associated with incontinence, altered consciousness, altered awareness. If she is speaking, her speech is interrupted but she is able to carry on conversation immediately after the jerking movement. Typically, the jerking is a single brisk whole body jerk but sometimes it is repetitive. This has happened while standing and walking but has not made her fall. She drops things a lot but that was going on before the jerking movement started and the jerking does not make her throw things. Lung cancer was diagnosed a few years ago. She had workup including CT scan of the head which was unremarkable then. She has never had diagnosed stroke, seizure, serious head injury, other neurologic event. Computer record shows report of noncontrast CT of the head 01/30/2015 showing nothing remarkable. I do not see any more recent brain imaging reports in this computer system. Lab work this admission shows persistent elevated WBC, anemia, some relatively minor metabolic findings but nothing that generally would be associated with seizure or encephalopathy. She has had mild hyponatremia, mild to moderate blood sugar elevations, mild hypocalcemia with lowest recorded calcium 7.0 on 07/20/2016. Liver enzymes are not elevated now but she has had a few minor elevations in recent months. She has not had significant uremia recorded on this computer system. Her home medicine list includes gabapentin 800 mg t.i.d. and she reports she has been taking that long-term. That does not seem to make any difference with the jerking movement. Alprazolam association with reduced jerking movement as reported above. She has opiate medicines and she has metoclopramide longstanding. I do not see anything else in her medicine list that likely would be associated with abnormal movement. On exam, Ms. Kelly is awake, alert, attentive, oriented, appropriate. Speech is not dysarthric. Language function is intact. Head and neck are unremarkable. Visual mendez are full tested grossly by confrontational finger counting. Extraocular movements are full. Facial motility is symmetric. Facial sensation is intact. Gag is intact. Tongue is midline. She can hear. Shoulder shrug is good bilaterally. She has good power in the arms and good power proximally in the legs. I can overcome the left anterior tibialis a little more than the right. She has difficulty dorsiflexing the toes on each foot. Tone is diminished in the legs. Reflexes are absent in the legs. Plantar response is silent bilaterally. She has very poor proprioception in the toes. She reports stocking pattern of loss of sensation to pinprick and light touch extending to the knees bilaterally. I did not test her gait. During the time I was at the bedside, I did not see any involuntary movement or other abnormal movement. IMPRESSION: 1. 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 I do not see obvious toxic or metabolic explanation. We will get EEG to be complete, not urgent. I have ordered divalproex which might help with mood and appetite and hope that will help control the myoclonus. Further plans will depend on her clinical course. 2. Clinical features of relatiely marked peripheral neuropathy, presumed diabetic neuropathy. I don't know details of her cancer management, bu if she hadchemotherapy, that could also contribute to neuropathy. Thanks for asking me to see Ms. Kelly. cc: MD DEEPTI Rivera III
[2016-08-02 15:40] LABS: ALLEN TEST YES; BE 3.3 mmoll (-3.0-3.0); BLOOD TYPE ARTERIAL; DRAW SITE R RADIAL; METHB 1.7 % (0.0-1.5); MODALITY CANNULA; O2(CT) 11.5 mL/dL (15.0-23.0); PCO2(98.6) 34 mmHg (35-45); PO2(98.6) 60 mmHg (60-100); SAMPLE BLOOD; SAO2 97.3 % (95.0-100.0); THB 8.7 g/dL (11.5-17.4)
--- NOTE | 2016-08-02 15:56 | Diag Imaging Result Document ---
PROCEDURE NAME: CHEST-PORTABLE - 08/02/2016 PORTABLE CHEST: COMPARISON: 07/29/2016. FINDINGS: There are diffuse bilateral infiltrates. These are much more pronounced than on the prior exam. No change in the right sided Port A Catheter. No pneumothorax. The heart is not enlarged. Trace pleural fluid. IMPRESSION: Worsening bilateral infiltrates.
--- NOTE | 2016-08-02 16:00 | PROGRESS NOTE ---
DATE: 08/02/2016 SUBJECTIVE: She is more short of breath. Feels like she is struggling more breathing and she does feel anxious. Lung mendez have some rales at the bases otherwise do not appreciate prolonged expiratory phase or wheezes. OBJECTIVE: Vital signs: Afebrile temperature 97.5 degrees, pulse 140, respirations 20, blood pressure 183/97. HEENT: Pupils are equal, round, reactive to light and accommodation. Oral and nasal mucosa unremarkable. Conjunctivae pink. Sclerae clear. Tympanic membranes intact. Neck supple without adenopathy or thyromegaly. Lungs: Are clear, rales, possible dry rales at the bases. No prolonged expiratory phase. Cardiovascular: Regular rhythm, rate without murmur, S3. Abdomen: Soft. Skin: Is warm dry. LAB: Blood sugars 180, 218, 210. White count 24,160, hematocrit 25, platelet count 470,000. Blood sugar 201, 183, 241, 218. ASSESSMENT AND PLAN: 1. Limited stage small-cell lung cancer. Has received some radiation treatment and chemotherapy. Chemotherapy on hold at present time. 2. She has been receiving Ancef for oxacillin sensitive Staphylococcus aureus bacteremia and she does have some metal hardware in her back so the plan is to treat her with doxycycline and do that for a total of 6 weeks I think. 3. Elevated white count. Recently had trouble with some pancytopenia. 4. She has a percutaneous endoscopic gastrostomy tube, she is able swallow. 5. She came in with what looks like a leukoclastic vasculitic type rash symmetrical most likely consistent with a drug, exanthem and we had stopped her Cardizem. It does appear to be drying up and healing. Looking at orders I do not see any change. Will give her some Ativan as needed, some breathing treatment, I am going ahead and check a chest x-ray and blood gases. Will continue watch her CBC, electrolytes. She is getting Tylenol as needed, Zyrtec 10 mg b.i.d. , Xanax 0.5 mg q.8 hours p.r.n., doxycycline 100 mg p.o. q.12 hours, Pepcid 20 mg b.i.d., fentanyl patch 50 mcg q.3 days, Neurontin 800 mg p.o. t.i.d., methylprednisone 40 mg IV q.8, Naloxegol which is the same as Movantik 25 mg daily, Prilosec 20 mg b.i.d., Ativan as needed. cc: Nathan Devries MD
--- NOTE | 2016-08-02 16:08 | PROGRESS NOTE ---
DATE: 08/02/2016 SUBJECTIVE: The patient is on doxycycline for an oxacillin-sensitive Staph aureus bacteremia and pneumonia. There is a possibility that the Ancef she was previously receiving may have caused a bullous type skin rash on her legs. MEDICATIONS: As mentioned above, the patient is taking doxycycline 100 mg p.o. every 12 hours. PHYSICAL EXAMINATION: Vital Signs: Temperature is 97.5, pulse 140, respirations 32, blood pressure 183/67. Generally: This is an ill-appearing, anxious, middle-aged female. She is in no acute distress. Lungs: There were rales heard on the right side. The left side had a few rhonchi. Cardiovascular: Heart rate was rapid and regular. Abdomen: Soft and nontender. Extremities: Legs: There are bullous lesions, which are drying up. They have a dark blue color to them. LAB AND X-RAY: CBC shows a white count of 24,160, hemoglobin 7.9 and platelet count 470,000. There is no creatinine for today. The last creatinine was 0.9 with a GFR of greater than 60. ASSESSMENT AND PLAN: The patient has a Staph bacteremia and pneumonia. The plan is to continue doxycycline for 3 more weeks to complete a 6 week treatment course. At the end of that the patient may be a candidate for doxycycline 100 mg PO daily on a chronic basis in order to prevent any flare up of infection that may be still in the patient, especially on the metal that is in her back. COMORBIDITIES: The patient's comorbidities include lung cancer, chemotherapy and radiation therapy. Cigarette smoking, COPD and the presence of metal in her spine. I have E-prescribed a 3 week supply of doxycycline in the dose of 100 mg every 12 hours for the patient. I have requested that the patient see me in the office in 3 weeks also. cc: Alexandr Sauceda MD MTDD
[2016-08-02] MEDS: DEPAKOTE PO SCH (22:24)
[2016-08-03] MEDS: REGLAN PO SCH ×4 (03:56→22:09)
[2016-08-03] MEDS: SOLU-MEDROL IV SCH ×3 (05:28→22:09)
[2016-08-03] MEDS: XANAX PO PRN ×2 (05:29→14:56)
[2016-08-03] MEDS: OXYCONTIN PO PRN ×3 (05:29→22:08)
[2016-08-03] MEDS: DUONEB (A & A) INH SCH ×4 (05:49→20:51)
[2016-08-03] MEDS: HUMALOG SUBQ SCH ×4 (06:38→22:05)
[2016-08-03 06:47] LABS: BASO% 0.1 % (0.0-0.8); IMM GRAN% 2.1 % (0.0-0.5); LYMPH# 0.77 X1000 (1.2-3.4); LYMPH% 3.3 % (20.5-51.1); MANUAL DIFF NEEDED? YES; MCH 28.6 PG (27-31); MCHC 30.8 g/dL (33-37); MCV 92.9 FL (81-99); MONO# 1.86 X1000 (0.11-0.59); MONO% 7.9 % (1.7-9.3); MPV 8.7 FL (7.4-10.4); NEUT% 86.6 % (42.2-75.2); PLT 424 X1000 (130-400)
[2016-08-03 07:26] LABS: BANDS 2 % (0-1); LYMPHS 8 % (21-51); MONO 10 % (1-9)
[2016-08-03] MEDS: NEURONTIN PO SCH ×3 (10:00→22:16)
[2016-08-03] MEDS: LANTUS SUBQ SCH (12:04)
[2016-08-03] MEDS: PEPCID PO SCH ×2 (12:05→22:09)
[2016-08-03] MEDS: PRILOSEC PO SCH ×2 (12:05→22:09)
[2016-08-03] MEDS: MOVANTIK PO SCH (12:05)
[2016-08-03] MEDS: ZYRTEC PO SCH ×2 (12:05→22:09)
[2016-08-03] MEDS: DOXYCYCLINE PO SCH ×2 (12:06→22:08)
[2016-08-03] MEDS: DEPAKOTE PO SCH ×2 (12:06→22:07)
[2016-08-03] MEDS: DUONEB (A & A) INH PRN ×2 (13:27→23:22)
[2016-08-03 14:11] LABS: ALLEN TEST YES; BE 4.6 mmoll (-3.0-3.0); BLOOD TYPE ARTERIAL; DRAW SITE R RADIAL; METHB 2.3 % (0.0-1.5); MODALITY PRB; O2(CT) 10.8 mL/dL (15.0-23.0); PCO2(98.6) 36 mmHg (35-45); PO2(98.6) 104 mmHg (60-100); SAMPLE BLOOD; SAO2 99.1 % (95.0-100.0); THB 7.9 g/dL (11.5-17.4)
--- NOTE | 2016-08-03 14:52 | PROGRESS NOTE ---
DATE: 08/03/2016 SUBJECTIVE: Ms. Kelly is breathing better with some open face mask and she had for a time non- rebreather. OBJECTIVE: Vital Signs: Remains afebrile, temperature 98.1 degrees, pulse 100, respirations 24. Lungs: Clear in all lung mendez. Cardiovascular: Regular rhythm and rate without murmur or S3. Abdomen: Soft. Skin: Warm and dry. DIAGNOSTIC DATA: Blood sugar 281, 133, 204. Chest x-ray from yesterday, worsening bilateral infiltrates. ASSESSMENT AND PLAN: 1. Patient on doxycycline for oxacillin sensitive Staphylococcus aureus and pneumonia and it is a possibility that Ancef may have caused the rash on her legs which looks like a leukocytoclastic vasculitic type rash to me. We had stopped her Cardizem. Dr. Sauceda has her on doxycycline and plan is I think to keep her on that for a couple weeks. 2. Her bilateral infiltrates seem to be worsening, she is having more trouble breathing. We have had to increase her FiO2. 3. Elevated white count. 4. Idiopathic thrombocytopenic purpura. 5. She is eating. Nutrition has improved. P.o. intake has improved. She is taking oxycodone for pain. cc: Nathan Devries MD
--- NOTE | 2016-08-03 16:38 | Diag Imaging Result Document ---
PROCEDURE NAME: CHEST-PORTABLE - 08/03/2016 PORTABLE CHEST: FINDINGS: Compared to 08/02/2016. There are bilateral infiltrates, which appear grossly stable. There are small bilateral pleural effusions similar to the previous exam. There is no pneumothorax identified. Heart size appears upper range of normal and stable. Central venous catheter remains in place. IMPRESSION: 1. Stable bilateral infiltrates. 2. Small bilateral pleural effusions.
[2016-08-04] MEDS: REGLAN PO SCH ×4 (02:49→22:21)
[2016-08-04] MEDS: DUONEB (A & A) INH SCH ×5 (03:19→21:55)
[2016-08-04] MEDS: SOLU-MEDROL IV SCH ×3 (04:44→22:18)
[2016-08-04 04:56] LABS: ALLEN TEST YES; BE 2.5 mmoll (-3.0-3.0); BLOOD TYPE ARTERIAL; DRAW SITE R RADIAL; METHB 1.7 % (0.0-1.5); O2(CT) 13.3 mL/dL (15.0-23.0); PCO2(98.6) 42 mmHg (35-45); PO2(98.6) 223 mmHg (60-100); SAMPLE BLOOD; SAO2 100.2 % (95.0-100.0); THB 9.3 g/dL (11.5-17.4); pH(98.6) 7.42 (7.35-7.45)
[2016-08-04 04:57] LABS: MODALITY PRB
[2016-08-04] MEDS: HUMALOG SUBQ SCH ×4 (06:55→22:15)
[2016-08-04] MEDS: DUONEB (A & A) INH PRN ×2 (08:06→18:39)
[2016-08-04] MEDS: ZYRTEC PO SCH ×2 (08:55→22:21)
[2016-08-04] MEDS: PRILOSEC PO SCH ×2 (08:55→22:21)
[2016-08-04] MEDS: DEPAKOTE PO SCH ×2 (08:55→22:22)
[2016-08-04] MEDS: NEURONTIN PO SCH ×3 (08:56→22:20)
[2016-08-04] MEDS: LANTUS SUBQ SCH (08:56)
[2016-08-04] MEDS: PEPCID PO SCH ×2 (08:56→22:21)
[2016-08-04] MEDS: DOXYCYCLINE PO SCH ×2 (08:56→22:22)
[2016-08-04] MEDS: MOVANTIK PO SCH (08:57)
[2016-08-04] MEDS: XANAX PO PRN ×2 (09:17→22:21)
[2016-08-04] MEDS: OXYCONTIN PO PRN ×2 (09:17→22:22)
[2016-08-04] MEDS ORDERED: PRINIVIL PO ONE (15:52)
--- NOTE | 2016-08-04 15:55 | PROGRESS NOTE ---
DATE: 08/04/2016 SUBJECTIVE: Ms. Kelly now is pretty discouraged and she wanted know if we could try to get her to [facility] to see if there was anything else that could be done treatment iqbal. She is breathing better, although requiring supplemental O2. Her legs are healing. Skin looks better. She is stronger. OBJECTIVE: Vital signs: Temp 98.3 degrees, pulse 102, respirations 16, blood pressure 169/98. Neck: CVP less than 6 cm. Lungs: Clear in all lung mendez. Cardiovascular: Regular rhythm and rate without murmur or S3. Abdomen: Soft. Skin: Warm and dry. Intake and output: Urine output 500 mL. LAB: From this morning, no new lab. I reviewed the lab from yesterday. White count is still elevated. Hematocrit 26, platelet count 424,000. Blood sugar is 159, 208, 260. Chest x-ray: Stable bilateral infiltrates, small bilateral pleural effusions. ASSESSMENT AND PLAN: 1. The patient on doxycycline for oxacillin-sensitive Staphylococcus aureus bacteremia and pneumonia. There is a possibility that the Ancef previous taken could have caused the bolus or this leukoclastic like rash. She was also on Cardizem which we stopped. Her legs are getting better. Her white count is still elevated. 2. Idiopathic thrombocytopenic purpura. Her platelet count is back up. 3. Status post radiation esophagitis. She has a PEG tube in place but she is swallowing. P.o. intake is pretty good. 4. Limited stage small-cell lung cancer. 5. Atrial fibrillation, chronic. She is still on the Eliquis. Her rate is controlled. I do not see anything to change in the medications. cc: Nathan Devries MD
[2016-08-05] MEDS: DUONEB (A & A) INH PRN ×2 (00:50→12:23)
[2016-08-05] MEDS: DUONEB (A & A) INH SCH ×4 (03:38→21:09)
[2016-08-05 04:52] LABS: ALLEN TEST YES; BE 3.3 mmoll (-3.0-3.0); BLOOD TYPE ARTERIAL; DRAW SITE R RADIAL; METHB 1.8 % (0.0-1.5); O2(CT) 13.1 mL/dL (15.0-23.0); PCO2(98.6) 41 mmHg (35-45); PO2(98.6) 50 mmHg (60-100); SAMPLE BLOOD; SAO2 89.8 % (95.0-100.0); THB 10.7 g/dL (11.5-17.4); pH(98.6) 7.44 (7.35-7.45)
[2016-08-05 04:53] LABS: MODALITY NRB
[2016-08-05] MEDS: REGLAN PO SCH ×4 (06:09→19:57)
[2016-08-05] MEDS: SOLU-MEDROL IV SCH ×3 (06:11→20:02)
[2016-08-05] MEDS: HUMALOG SUBQ SCH ×4 (06:22→21:30)
[2016-08-05] MEDS: PRILOSEC PO SCH ×2 (08:25→20:01)
[2016-08-05] MEDS: MOVANTIK PO SCH ×2 (08:25→08:38)
[2016-08-05] MEDS: DURAGESIC 50 MICROGM/HR PATCH TD SCH (08:25)
[2016-08-05] MEDS: DEPAKOTE PO SCH ×2 (08:25→20:01)
[2016-08-05] MEDS: PEPCID PO SCH ×2 (08:25→20:01)
[2016-08-05] MEDS: PRINIVIL PO SCH (08:25)
[2016-08-05] MEDS: NEURONTIN PO SCH ×3 (08:25→18:25)
[2016-08-05] MEDS: ZYRTEC PO SCH ×2 (08:25→20:01)
[2016-08-05] MEDS: LANTUS SUBQ SCH (08:26)
[2016-08-05] MEDS: DOXYCYCLINE PO SCH ×2 (08:26→20:00)
[2016-08-05 08:47] LABS: HEMATOCRIT 25.2 % (37.0-47.0); HEMOGLOBIN 7.8 g/dL (12.0-16.0); IMM GRAN# 0.61 X1000 (0.0-0.04); IMM GRAN% 2.4 % (0.0-0.5); LYMPH% 1.2 % (20.5-51.1); MANUAL DIFF NEEDED? YES; MCH 29.3 PG (27-31); MCV 94.7 FL (81-99); MONO# 0.78 X1000 (0.11-0.59); MPV 9.2 FL (7.4-10.4); NEUT% 93.4 % (42.2-75.2); PLT 377 X1000 (130-400); RBC 2.66 XMIL (4.2-5.4)
[2016-08-05 09:11] LABS: BANDS 2 % (0-1); LYMPHS 4 % (21-51); MONO 4 % (1-9)
[2016-08-05] MEDS: XANAX PO PRN (10:46)
[2016-08-05] MEDS: OXYCONTIN PO PRN ×2 (10:46→22:39)
--- NOTE | 2016-08-05 15:16 | Diag Imaging Result Document ---
PROCEDURE NAME: CHEST-2 VIEWS - 08/05/2016 CHEST, 2 VIEWS: FINDINGS: Compared with portable exam of 08/03/2016. There are relatively diffuse bilateral infiltrates. Infiltrate is most dense at the right mid lung. Allowing for differences in technical factors, the infiltrates appear stable to slightly decreased compared to previous exam. There has been apparent decrease in small bilateral pleural effusions. There is no pneumothorax seen. The heart size appears borderline enlarged and stable. Central venous catheter remains in place. IMPRESSION: 1. Stable to mildly decreased bilateral infiltrates. 2. Decrease in small bilateral pleural effusions.
[2016-08-05 15:32] LABS: AGAP 18; ALKALINE PHOSPHATASE 139 U/L (32-104); BUN 24 mg/dL (8-22); CALCIUM 7.4 mg/dL (8.8-10.2); CHLORIDE 98 mmol/L (98-107); COSMO 288; GOT 13 U/L (10-30); GPT 13 U/L (10-36); POTASSIUM 4.4 mmol/L (3.5-5.1); SODIUM 140 mmol/L (136-145); TCO2 24 mmol/L (25-35); TOTAL BILIRUBIN 0.23 mg/dL (0.20-1.00); TOTAL PROTEIN 6.1 g/dL (6.3-8.3)
--- NOTE | 2016-08-05 15:42 | CONSULTATION ---
DATE OF CONSULTATION: 08/05/2016 INDICATION: Atrial fibrillation. Assist with management of care. HISTORY OF PRESENT ILLNESS: Ms. Kelly is a 66-year-old white female with a history of what Dr. Paez has described as a limited stage lung cancer. She apparently has been under the care of Dr. Donaldson as well receiving multiple XRT treatments. Apparently she had the onset of lower extremity rash in the preceding 24-48 hours prior to presentation. She reports no recent changes in her oral medications at home. She reports a history of atrial fibrillation that was diagnosed in the hospital and at that time she was started on Eliquis. That was during of her recent hospital admissions. Her lung cancer was apparently diagnosed in April and she has had multiple admissions for complications related to this. She was maintained on Cardizem and Eliquis. She reports continued episodic shortness of breath during this hospitalization. No recent change in cough. No fever. She has had no chest pain. No orthopnea. PAST MEDICAL HISTORY: Significant for 1. Limited stage lung cancer as described by Dr. Paez. 2. Hypertension. 3. Tobacco abuse. 4. Hyperlipidemia. 5. Diabetes. 6. COPD. SOCIAL HISTORY: Quit smoking a few weeks prior to admission. No alcohol or illicit drugs. and lives with her . FAMILY HISTORY: Significant for breast cancer and throat cancer. No history of heart disease. REVIEW OF SYSTEMS: A 10 system review of systems is negative except for those mentioned in the HPI. PHYSICAL EXAMINATION: Vital Signs: During this hospitalization she has apparently been afebrile. Her heart rate is 105, blood pressure 166/98. Telemetry during this hospitalization has revealed sinus rhythm with no episodes of atrial fibrillation. General: She is in no acute distress. She is somewhat ill appearing. She appears older than stated age. HEENT: Oropharynx is moist. Poor dentition. Eye examination with pink conjunctivae, white sclerae. Neck: Examination shows no obvious thyromegaly or thyroid tenderness. Cardiovascular: She is in a tachycardic but regular rhythm. This corresponds to sinus tachycardia on her telemetry. Extremities: Trace to 1+ bilaterally in lower extremities with warm and well- perfused lower extremities. Chest Examination: Sounds clear with the exception of very minimal rales in the bilateral bases. She has no increased work of breathing. Abdomen: Soft, nontender, nondistended. She has no obvious organomegaly. Skin Examination: Notable for multiple small, roughly 0.5 to 1 cm round, darkened, flat lesions that do not sushma over her lower shins up to the knees. Neurological: She is moving all extremities well. Cranial nerves 2-12 are intact. Psychiatric: She is alert, oriented, pleasant. She has normal mood and affect. PERTINENT DATA: She had a chest x-ray performed on the which demonstrated stable bilateral infiltrates with small bilateral pleural effusions. She had a limited echocardiogram performed in early July showing an EF of 49-54%, no evidence of vegetation identified. Laboratory data: She has no recent chemistry data. Her last white count was on the which was 25, hematocrit 25, platelet count is 377,000. ABG shows a pH of 7.44, pCO2 of 41, PO2 is 50 mL on the . She had a PO2 of 223 yesterday. She is on non-rebreather 100%. She does have 2% bandemia present today. I have no EKG presently as this has been ordered. ASSESSMENT: 1. Dyspnea. 2. Atrial fibrillation. 3. Lung cancer. PLAN: Undetermined etiology of her shortness of breath. She really has not much data recently. She did have a chest x-ray today which seemed to show diffuse patchy infiltrates noted. To me this chest x-ray does not look a whole different from her previous one on the . Again no EKG presently on the chart. Laboratories have been ordered. We will recheck her echocardiogram doing a limited study. Presently I would not advise anticoagulation in this patient given her significant comorbidities and relative anemia. cc: Nawaf Toledo MD
--- NOTE | 2016-08-05 16:23 | EKG Report ---
Test Performed on : 08/05/2016 3:52:03 PM Test Reason : a fib Blood Pressure : / mmHG Vent. Rate : 107 BPM Atrial Rate : 107 BPM P-R Int : 122 ms QRS Dur : 082 ms QT Int : 326 ms P-R-T Axes : 052 016 031 degrees QTc Int : 435 ms Sinus tachycardia. Anterior infarct , age undetermined Abnormal ECG When compared with ECG of 08-JUL-2016 15:43, T wave amplitude has increased in Lateral leads Confirmed by Sanchez Mccarthy MD ([id number]) on 08/05/2016 8:00:37 PM
--- NOTE | 2016-08-05 16:37 | PROGRESS NOTE ---
DATE: 08/05/2016 PRESENT ILLNESS: The patient had an oxacillin sensitive Staph aureus bacteremia. This has cleared. The patient could have hematogenously infected the metal that is in her spine while she had the bacteremia. The patient does have leukocytosis, however, she is also on high doses of steroids which I think could account for most if not all of her leukocytosis. MEDICATIONS: The patient received IV Ancef for the bacteremia and now she is on doxycycline to try to eradicate any infection that may have settled anywhere in her body while she was bacteremic, but especially the metal in her spine. PHYSICAL EXAMINATION: Vital Signs: Temperature is 98 degrees, pulse 102, respirations 20, blood pressure 170/70. Generally: This is an ill-appearing, middle-aged female. She is in no acute distress. Lungs: Clear to auscultation. Cardiovascular: Heart rate is rapid and regular. Abdomen: Soft and nontender. Chest: The patient has a Port-A-Cath present on the right side. Integument: The lesions on the patient's legs have definitely have gotten much better, there are no new ones, and the ones that she had her much smaller. None of them have any fluid in them like the previous bullous lesion she had on her legs. LAB AND X-RAY: CBC today shows a white count of 25,820, hemoglobin 7.8 and platelet count 377,000. Patient's blood gases show a pH of 7.44, PO2 of 50, and a pCO2 of 41. Creatinine 0.8. GFR is greater than 60. Alkaline phosphatase is 139. Chest x-ray shows decreased infiltrates and effusions. ASSESSMENT AND PLAN: I plan to continue p.o. doxycycline until the patient completes her 6 week course for treatment of the Staph aureus infection. After that the patient may be a candidate to decrease the dose of doxycycline and stay on it at 100 mg daily to try to prevent any flare-up of an infection on the spine where there is metal. COMORBIDITIES: Lung cancer, chemotherapy, radiation therapy, cigarette smoking , COPD and the presence of metal in her spine. cc: Alexandr Sauceda MD MTDHever
[2016-08-05] MEDS ORDERED: LASIX IV ONE (17:29)
--- NOTE | 2016-08-05 17:53 | PROGRESS NOTE ---
DATE: 08/05/2016 SUBJECTIVE: Ms. Kelly is breathing a little better than she was yesterday. She is not hurting. Her legs the healing. OBJECTIVE: Vital signs: Temperature 97.8, pulse 100, respirations 20, blood pressure 166/98. HEENT: Pupils are equal and round, CVP less than 6 cm. Respiratory: Lungs are clear. Anterolateral, there are some rales confined to the bases. Cardiovascular: Regular rhythm and rate without murmur or S3. Abdomen: Soft. Skin: Is warm and dry. DIAGNOSTICS: I repeated another echo today. Ejection fraction appears to be around 35-40% which I think is pretty much unchanged from previous echo which was done on 07/10/2014, slightly decreased ejection fraction. They estimated it to be 50-55%. The one before that was about 35- 40%. She has mild degree of tricuspid regurgitation and mitral regurgitation. She had minimal pericardial effusion, but there is certainly no sign of tamponade clinically. ASSESSMENT AND PLAN: Limited stage small cell lung cancer treated by Dr. Paez. She received only partial radiation treatments because of esophagitis. She had to postpone the rest of her chemotherapy because she has had pancytopenia, immunothrombocytopenic purpura and has had some pneumonias infection. She has underlying history of atrial fibrillation, and she left ventricular dysfunction which is mild. I think the shortness of breath is related to her pulmonary venous hypertension and effusion. I was going to try and diurese some. I asked Dr. Toledo from Cardiology and Dr. Wood of Pulmonary to assist with this. Her hematocrit is stable at 25, hemoglobin 7.8. She may benefit from a little more blood, but those are stable. Chemistries unremarkable, serum creatinine 0.8. Reviewing her laboratory, discontinued the Prinivil. I did that since I think since the blood pressure was marginal, but we restarted that. She is on Prinivil 20 mg a day. Continue the doxycycline. She had cultures that had grown out Staph aureus, and she does have hardware in her back, and so she had Staph aureus bacteremia and therefore, plan to continue to treat her with doxycycline. Dr. Sauceda s following. cc: Nathan Devries MD
[2016-08-05] MEDS: LASIX IV SCH (18:25)
--- NOTE | 2016-08-05 19:04 | PROGRESS NOTE ---
DATE: 08/05/2016 ROOM 370 Ms. Kelly is awake, alert, attentive and appropriate. I did not notice any muscle contraction or abnormal movement. She reports those movements stopped completely or nearly completely after starting divalproex. She is tolerating divalproex to this point. I reviewed her lab work which shows no significant elevation of liver enzymes right now. I discussed with her the possibility that divalproex might be associated with liver toxicity and she understands the need for serial lab work to follow that while she is taking divalproex. I do not have a definite explanation for her myoclonus. Her EEG today did not show evidence of epileptiform discharge. If she continues stable clinically, we might consider tapering divalproex soon. Thank you for asking me to see Ms. Kelly. cc: MD DEEPTI Rivera III
[2016-08-05] MEDS: LOPRESSOR PO SCH (20:01)
--- NOTE | 2016-08-05 21:08 | CONSULTATION ---
DATE OF CONSULTATION: 08/05/2016 REQUESTING PHYSICIAN: Dr. Devries. REASON FOR CONSULTATION: Respiratory failure. HISTORY OF PRESENT ILLNESS: Ms. Kelly is a 66-year-old white female who was evaluated by this practitioner in April when she presented with hemoptysis and a right hilar mass. The patient also had significant emphysema with a component of pulmonary fibrosis. The patient underwent bronchoscopy and endobronchial biopsies and was diagnosed with limited stage small cell carcinoma. Her treatment has been complicated by esophagitis which has limited her radiation treatments. She has also had difficulty with blood counts and has not completed chemotherapy. She was admitted to the hospital with pancytopenia without recovery of platelets and was subsequently diagnosed with idiopathic thrombocytopenic purpura. She was readmitted to the hospital 6 days ago with increasing lower extremity rash. The patient has had increased shortness of breath and chest x- ray 08/03 revealed bilateral pleural effusions and pulmonary infiltrates. She underwent an echocardiogram was continues to reveal ejection fraction of approximately 35%. PAST MEDICAL HISTORY: 1. Limited stage small-cell carcinoma as per above. 2. Chronic pain syndrome on multiple pain medications. 3. Diabetes mellitus. 4. Gastroesophageal reflux. 5. Constipation. 6. Irritable bowel syndrome. 7. Spinal stenosis. 8. Bipolar disorder. 9. Sleep apnea. 10. COPD. 11. Status post cholecystectomy. 12. Status post bladder sling. 13. Status post multiple neck surgeries. 14. Status post cataract removal. 15. PEG tube placement. SOCIAL HISTORY: Patient reports she quit smoking approximately 3 months ago. No alcohol use. She has an attentive . FAMILY HISTORY: Positive for heart disease, throat cancer. REVIEW OF SYSTEMS: Notable for shortness of breath, cough, lower extremity edema. PHYSICAL EXAMINATION: General: Reveals a chronically ill-appearing, white female, who appears older than her stated age of 66. Vital signs: BP 166/98, heart rate 103, respiration rate 20, oxygen saturation 98% on 50% face mask. HEENT: Pupils are equal and reactive. Oropharynx is clear. Neck: Supple. Chest: Reveals scattered crackles bilaterally. Cardiac Exam: Distant heart sounds. Normal S1, normal S2. Abdomen: Soft. Extremities: Reveal multiple petechia and edema. LABORATORIES: White blood count 25,000, hemoglobin 7.8, platelet count 377,000. Chest x-ray reveals bilateral infiltrates left greater than right, vascular congestion, small effusions. Arterial blood gas on nonrebreather earlier this morning, pH 7.44, pCO2 of 41, PO2 of 50. IMPRESSION: A 66-year-old with chronic obstructive pulmonary disease, small cell lung cancer with incomplete treatment due to multiple complications, reports smoking cessation but with an elevated carboxyhemoglobin level on presentation, emphysema on CT scan, pulmonary fibrosis on CT scan, who now has bilateral infiltrates and acute hypoxemic respiratory failure. With reduction in ejection fraction, evidence of fluid overload, I suspect that a significant component is pulmonary edema, cardiac related. However, she has had reflux difficulty and reports refluxing with percutaneous endoscopic gastrostomy tube placement and therefore some of the findings may be an aspiration pneumonitis. RECOMMENDATIONS: 1. Diuretic trial. 2. Followup chest x-ray tomorrow morning. 3. Consider expanding antibiotics. 4. Smoking cessation is recommended. 5. Additional recommendations pending hospital course. cc: Joseph Wood MD
--- NOTE | 2016-08-05 21:33 | EEG REPORT ---
DATE: 08/05/2016 EEG: #[id number] COMMENT: This is a digitally recorded EEG on a 66-year-old patient with lung cancer, recent diffuse body jerks, question of seizure. FINDINGS: During waking, polymorphic and rhythmic theta at 4-6 Hz is prominent across both hemispheres. There is poorly sustained posterior dominant rhythm at 7-8 hertz bilaterally with uncertain reactivity to eye opening. Drowsing occurred briefly. Stage 2 sleep was not recorded. Photic stimulation did not alter the record. No definite epileptiform discharge was identified. INTERPRETATION: Abnormal EEG because of generalized slowing. CORRELATION: This is indicative of a diffuse encephalopathy and is nonspecific. The absence of epileptiform discharges on a single EEG does not exclude a clinical diagnosis of seizure, but there is nothing on this record that would establish seizure as the reason for her jerking movement. cc: Juan F Gleason III, MD
[2016-08-06] MEDS: LASIX IV SCH ×2 (02:28→16:25)
[2016-08-06] MEDS: REGLAN PO SCH ×3 (02:28→16:24)
[2016-08-06] MEDS: DUONEB (A & A) INH SCH ×3 (04:25→15:27)
[2016-08-06] MEDS: SOLU-MEDROL IV SCH ×2 (04:55→16:25)
[2016-08-06] MEDS: HUMALOG SUBQ SCH ×3 (06:23→16:24)
[2016-08-06 06:47] LABS: AGAP 16; ALBUMIN 3.1 g/dL (3.5-5.0); ALKALINE PHOSPHATASE 147 U/L (32-104); BUN 30 mg/dL (8-22); CALCIUM 8.1 mg/dL (8.8-10.2); CHLORIDE 96 mmol/L (98-107); COSMO 290; GOT 17 U/L (10-30); GPT 15 U/L (10-36); POTASSIUM 4.1 mmol/L (3.5-5.1); SODIUM 141 mmol/L (136-145); TCO2 29 mmol/L (25-35); TOTAL BILIRUBIN 0.31 mg/dL (0.20-1.00); TOTAL PROTEIN 6.6 g/dL (6.3-8.3)
--- NOTE | 2016-08-06 08:27 | Diag Imaging Result Document ---
PROCEDURE NAME: CHEST-2 VIEWS - 08/06/2016 FRONTAL AND LATERAL CHEST, THREE VIEWS: COMPARISON: 12/06/2016. FINDINGS: No change in the right sided Port A Catheter. No pneumothorax. There is right apical pleural thickening. Dense infiltrates are found throughout the lungs. No effusions. No cardiomegaly. IMPRESSION: Persistent diffuse bilateral infiltrates with no significant improvement.
[2016-08-06] MEDS ORDERED: MAGNESIUM SULFATE 2 GM/S.W.I. 2 GM/50 ML IVPB IV ONE (09:00)
[2016-08-06] MEDS ORDERED: MAG-OX PO SCH (09:00)
--- NOTE | 2016-08-06 09:04 | ECHO REPORT ---
ORDER DATE: 08/05/2016 PROCEDURE PERFORMED: Limited 2D echocardiogram. ECHOCARDIOGRAPHIC MEASUREMENTS: 1. Interventricular septum 1, left ventricular posterior wall 1, diastolic diameter 4.6, left atrium 4, aorta 2.6. 2. Aortic valve leaflets are trileaflet. Mitral valve was normal. Tricuspid valve was normal. Pulmonic valve was normal. 3. Normal left ventricular cavity size. Estimated ejection fraction of 45-50%. There is anteroseptal hypokinesis. 4. There is no pericardial effusion or obvious intracardiac mass or thrombus seen. cc: MD Nawaf Wheatley MD
[2016-08-06] MEDS: ZYRTEC PO SCH (10:35)
[2016-08-06] MEDS: PRILOSEC PO SCH (10:35)
[2016-08-06] MEDS: NEURONTIN PO SCH ×2 (10:35→16:24)
[2016-08-06] MEDS: PEPCID PO SCH (10:35)
[2016-08-06] MEDS: MOVANTIK PO SCH ×2 (10:35→10:39)
[2016-08-06] MEDS: DEPAKOTE PO SCH (10:35)
[2016-08-06] MEDS: PRINIVIL PO SCH (10:35)
[2016-08-06] MEDS: DOXYCYCLINE PO SCH (10:36)
[2016-08-06] MEDS: LOPRESSOR PO SCH (10:36)
[2016-08-06] MEDS: LANTUS SUBQ SCH (10:36)
[2016-08-06] MEDS: OXYCONTIN PO PRN (10:36)
--- NOTE | 2016-08-06 13:53 | DISCHARGE SUMMARY ---
ADMISSION DATE: 07/29/2016 DISCHARGE DATE: HISTORY AND HOSPITAL COURSE: The patient presented with a rash in her lower extremity, diffuse and symmetrical, and it looked more like a leuko plastic type rash, bright red with purpuric lesions, reticular formations in some places. [place] this was probably a drug induced rash. She has had an extensive recent past medical history. She is being treated for limited small cell lung cancer, completed only part of 13 of her radiation treatments and developed radiation esophagitis. Placed a PEG tube. Radiation esophagitis improved. She is able to swallow now. She was then readmitted multiple times for pancytopenia for viral gastroenteritis for pneumonia and then found on a bone marrow that she had immuno thrombocytopenic purpura and was treated for that as well. This time she presents with a rash. She has known atrial fibrillation. She also has left ventricular dysfunction. Ejection fraction is around 35-40%, best we can tell. We did repeat an echocardiogram. She was having a little more trouble with shortness of breath. Her legs were healing well. It required more O2. I gave her some diuresis with some Lasix. Noted that her magnesium was quite low at 0.9, so supplemented her magnesium with 2 g IV magnesium sulfate. We will also put her on Mag-Ox to take home. Renal function appears good at 0.9. She is eating and a lot stronger. She does have O2 at home. Of note, she may need some help with getting the nasal cannula device in her nose. DISCHARGE MEDICATIONS: She will go home with OxyContin 10 mg p.o. q.6 hours p.r.n., Prilosec 20 mg b.i.d., Movantik 25 mg a day, Lopressor 25 mg b.i.d. She was on Solu-Medrol. We will continue a Medrol dose pack. Mag-Ox 800 mg b.i.d. I started. She will continue that. I want her magnesium checked again in a couple of weeks. Prinivil 20 mg daily. Lantus, she takes 10 units q.a.m. Neurontin 800 mg t.i.d. Lasix. We will put her down to just 40 mg p.o. daily. Duragesic patch 50 mcg per hour q. 72 hours. Pepcid 20 mg b.i.d. We will continue the doxycycline. She has had blood cultures that have grown out oxacillin sensitive staphylococcus, but because of hardware in her back, Dr. Sauceda wants to continue doxycycline for several weeks, so she will get followup to see Dr. Sauceda back as well. Depakote 500 mg b.i.d., Zyrtec 10 mg b.i.d., Xanax 0.5 mg she was taking q.8 hours p.r.n. and then duo nebs at home as needed. FOLLOWUP: She will follow up with Dr. Paez in a week. She is also followed by cardiology, Dr. Toledo, and Dr. Wood for pulmonary when needed. cc: Nathan Devries MD
--- NOTE | 2016-08-06 13:55 | PROGRESS NOTE ---
DATE: 08/06/2016 PRESENT ILLNESS: The patient had an oxacillin sensitive Staph aureus bacteremia. This has cleared. The patient had, while treating the patient for the bacteremia, bilateral pulmonary infiltrates. If these are due to infection I would suspect that they would be caused by the same Staph aureus that is causing the patient's bacteremia. However, despite getting high doses of Ancef for a prolonged period of time, the infiltrates never cleared. Therefore, I think it is more likely that they are not infectious in nature. MEDICATIONS: The patient currently is on doxycycline to try to prevent any flare up of infection if the patient's metal in her spine was infected during the course of bacteremia. PHYSICAL EXAMINATION: Vital Signs: Temperature is 98.3 degrees, pulse 90, respirations 18, blood pressure 151/88. General: This is a chronically ill-appearing, elderly female. She is in no acute distress, however. Lungs: Clear to auscultation. Cardiovascular: Regular heart rate. Abdomen: Soft, nontender. The patient has a G-tube in place also. Extremities: Legs have bilateral edema and bilateral ecchymotic areas. LAB AND X-RAY: Chest x-ray shows diffuse dense bilateral infiltrates. Creatinine 0.9. GFR is greater than 60. Liver function studies are normal. CBC shows a white count of 25,820, hemoglobin 7.8, and platelet count 377,000. ProBNP is greater than 35,000. ASSESSMENT AND PLAN: I think that the pulmonary infiltrates are not due to infection but rather congestive heart failure. As far as the patient's leukocytosis goes, she is on high doses of steroids which I think could account for the leukocytosis. My plan will be to continue doxycycline in order to try to prevent any infection that occurred during bacteremia from flaring up, specifically the metal in the patient's spine. The patient's comorbidities include the following. Lung cancer, chemotherapy, radiation therapy, cigarette smoking, COPD, and presence of metal in her spine. cc: Alexandr Sauceda MD
--- NOTE | 2016-08-06 14:22 | EKG Report ---
Test Performed on : 08/06/2016 11:54:02 AM Test Reason : tachycardia Blood Pressure : / mmHG Vent. Rate : 085 BPM Atrial Rate : 085 BPM P-R Int : 124 ms QRS Dur : 082 ms QT Int : 354 ms P-R-T Axes : 045 009 034 degrees QTc Int : 421 ms Normal sinus rhythm. Normal ECG When compared with ECG of 05-AUG-2016 15:52, T wave inversion no longer evident in Anterior leads Confirmed by Sanchez Mccarthy MD ([id number]) on 08/08/2016 12:04:10 PM
--- NOTE | 2016-08-06 14:36 | PROGRESS NOTE ---
DATE: 08/06/2016 Ms. Kelly is awake and alert. 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 She is tolerating divalproex. Family reports plans for her discharge soon. I will be glad to see her again as an outpatient. I would continue divalproex short-term. If mild clonus continues well-controlled, the dose can be tapered and stopped. If myoclonus recurs, divalproex can be resumed. Thanks again for asking me to see Ms. Kelly. cc: Juan F Gleason III, MD
--- NOTE | 2016-08-06 14:52 | PALLIATIVE CARE CONSULTATION ---
DATE: 08/06/2016 REQUESTING PHYSICIAN: Dr. Devries. REASON FOR CONSULTATION: Goals of care. HISTORY OF PRESENT ILLNESS: This is a 66-year-old, chronically ill-appearing, female with a past medical history of limited stage small cell carcinoma, emphysema, pulmonary fibrosis, chronic pain syndrome that is managed by the [facility], diabetes mellitus, gastroesophageal reflux, constipation, irritable bowel syndrome, spinal stenosis , bipolar disorder and sleep apnea. She was most recently admitted on 07/29/2016 after presenting to the ED with complaints of worsening lower extremity rash. Ms. Kelly has been in and out of the hospital quite frequently over the past several months. She has not been able to complete chemotherapy due to numerous complications. Currently she is sitting up in the hospital bed. She has no acute complaints. She states that she is ready to go home. Her is at the bedside. The palliative care team has been consulted to assist with goals of care. REVIEW OF SYSTEMS: Twelve point review of system has been conducted and otherwise negative except those mentioned in the HPI. PAST MEDICAL HISTORY: See HPI. PAST SURGICAL HISTORY: 1. Cholecystectomy. 2. Multiple neck surgeries. 3. Cataract removal. 4. PEG tube placement. 5. Tubal ligation. 6. Hysterectomy. 7. Bladder sling surgery. 8. Rotator cuff surgery. FAMILY HISTORY: Positive for breast cancer and throat cancer. SOCIAL HISTORY: Past tobacco use. Alcohol and drug use have been denied. She is . She has 1 daughter. PHYSICAL EXAM: General: This is a 66-year-old, chronically ill-appearing, female, who does not appear to be in any acute distress. HEENT: Atraumatic, normocephalic. Neck: Trachea is midline. Cardiovascular: Regular rate and rhythm with murmur. Pulmonary: Lung sounds are diminished. Respirations are nonlabored. Auscultation does reveal crackles bilaterally. Abdomen: Soft. Extremities: Pulses are palpable. Edema noted to bilateral lower extremities. Multiple petechiae noted as well. Neuro: Awake, alert, oriented to person, place and time. IMPRESSION: This is a 66-year-old, chronically ill-appearing, female with a past medical history as listed above in the HPI. I met with the patient and family to discuss goals of care. The patient states that she is wanting to go home today. She will go home with home health. She is also appropriate for outpatient palliative care and agreeable to that service. We discussed advanced directive and power of regulatory attorney. She does not have either document but requests to be a full code. As previously mentioned she does not have any acute complaints at this time. It appears that her palliative performance scale is 50%. The palliative care team will continue to follow. Thank you for this consultation. Dictated by MIKE Krishnan for Joseph Wood MD cc: MIKE Krishnan MD [facility]
[2016-08-06 15:28] VITALS: BP 135/85
--- NOTE | 2016-08-06 16:28 | PROGRESS NOTE ---
DATE: 08/06/2016 ADDENDUM: The patient is being discharged today. I have written for her to get doxycycline 100 mg b.i.d. for 3 weeks, and then I will see the patient in the office in 3 weeks. At that time, the patient will have completed a 6-week treatment course for the Staph bacteremia which may have involved the metal in her spine. I will discuss with the patient long-term doxycycline therapy in a dose of 100 mg daily in case the metal is infected. The antibiotic would be given to hopefully prevent the infection from flaring up. cc: Alexandr Sauceda MD MTDD
[2016-08-06] MEDS ORDERED: HEPARIN ONE (16:37)
== END 2016-08-06 16:47 | disposition home health service (06) ==
LOC: ED 19:01 → SUATTDRO 19:02 → EDIPHOLD 07-30 02:12 → 3N 07-30 06:48
PROVIDERS: ATTEND Emergency Medicine